=== PATIENT | male | born 1950 | race Caucasian/White ===

== ENCOUNTER 2023-05-05 09:07 | Outpatient (OUT) | payer MEDICARE, OTHER, SELFPAY ==
--- NOTE | 2023-05-05 | XR_ITS ---
The [address] [address] Patient Name: LEONEL BENJAMIN MRN: [id number] date: 1950 Sex: M Assigned Patient Location: [facility] Current Patient Location: [facility] Accession/Order Number: [id number] Exam Date: 05/05/2023 09:20 Report Date: 05/05/2023 21:07 At the request of: JERMAIN BAR Procedure: XR foot RT min 3V EXAM: XR foot RT min 3V HISTORY: RIGHT FOOT PAIN . Calcaneal pain for 2 months. COMPARISON: None. TECHNIQUE: 3 views of the right foot were obtained. FINDINGS: There is no evidence of an acute fracture or dislocation. Remote fragmentation of the medial sesamoid bone at the head of the first metatarsal bone is noted. A secondary ossification center can be seen along the proximal and medial aspect of the navicular bone. The joint spaces are relatively intact. Small osteophytes arise from the insertion site of the Achilles tendon at the posterior calcaneus. No definite osteophyte is seen along the plantar aspect of the calcaneus. XR/XR foot RT min 3V IMPRESSION: No acute fracture or dislocation. The joint spaces are intact. A small osteophyte arises from the posterior aspect of the calcaneus. Direct comparison with a previous study would be helpful in confirming the chronicity of these findings. Electronically authenticated by: EM COSTELLO Date: 05/05/2023 21:07
== END 2023-05-05 09:08 | disposition home or self-care (01) ==
LOC: RAD 09:07
PROVIDERS: PCP Family Medicine; Visit Provider Physician Assistant
DX: M79.671 Pain in right foot (principal)
CPT/HCPCS: 73630

== ENCOUNTER 2023-12-03 10:15 | Outpatient (OUT) | payer MEDICARE, OTHER, SELFPAY ==
--- OUTSIDE RECORDS SUMMARY | 2023-12-03 10:23 | XMS_ITS | CCD ---
Author Organization [facility] Care Team Providers Care Gas Adjuster Name Role Phone Hugh Crooks Primary Care Physician MILEY, DR BRISENO Primary Care Unavailable MILEY, DR BRISENO Admitting Unavailable MILEY, DR BRISENO Attending Unavailable MILEY, DR BRISENO Consulting Unavailable WEST, DR NGOZI Rahman Consulting Unavailable GRECHAMANDO, PHONG TRAYLOR Consulting Unavailable COOPER, ANGELES Consulting Unavailable MILEY, DR BRISENO Primary Care Unavailable MILEY, DR BRISENO Admitting Unavailable MILEY, DR BRISENO Attending Unavailable MILEY, DR BRISENO Consulting Unavailable ZIEBER, DR TOMY Granados Consulting Unavailable MILEY, DR BRISENO Primary Care Unavailable HOHarriet, DR BRISENO Admitting Unavailable MILEY, DR BRISENO Referring Unavailable MILEY, DR BRISENO Attending Unavailable MILEY, DR BRISENO Consulting Unavailable Hugh Crooks MD Primary Care Provider [phone] Rafael yCr Jr. Unavailable Erick Ordoñez Unavailable [phone] Hugh Crooks MD Unavailable Michi Anderson MD Unavailable [phone] Hugh Crooks MD Unavailable Erick Ordoñez Unavailable Michi Anderson MD Unavailable [phone] HUGH CROOKS Primary Care Unavailable MICHI ANDERSON Attending Unavailable HUGH CROOKS Primary Care Unavailable Hugh Crooks MD Primary Care Provider [phone] Allergies Allergy Classification Reported Allergen(s) Allergy Type Date of Onset Reaction(s) Facility (7 sources) Codeine; Translations: [codeine] Drug Allergy 5 Nightmares (finding), Mental Status Change [facility] (1 source) Hmg-Coa Reductase Inhibitors (Statins); Translations: [statins] Drug allergy unknown [facility] (1 source) Isosorbide; Translations: [isosorbide mononitrate] Drug Allergy unknown [facility] (2 sources) black walnut pollen extract; Translations: [JAPIXIM-QNH-UV A REDUCTASE INHIBITORS] Drug Allergy 5 [facility] (1 source) Codeine Drug Allergy 5 [facility] (1 source) Isosorbide Drug Allergy 5 [facility] (6 sources) atorvastatin; Translations: [ATORVASTATIN CALCIUM] Drug Allergy 5 Myalgia [facility] (5 sources) HMG-CoA reductase inhibitor Drug Intolerance 5 Myalgia [facility] (6 sources) Isosorbide; Translations: [ISOSORBIDE MONONITRATE] Drug Allergy 5 Intolerance [facility] (6 sources) Simvastatin; Translations: [SIMVASTATIN] Drug Allergy 5 Other: See Comments [facility] Medications Current Medications Medication Drug Class(es) Dates Sig (Normalized) Sig (Original) Acetaminophen / diphenhydrAMINE (5 sources) Histamine-1 Receptor Antagonist take 1 tablet by mouth once daily at bedtime acetaminophen/diphe nhydramine (TYLENOL PM ORAL) Take 1 tablet by mouth daily at bedtime. 0 Active Comment on above: Take 1 tablet by natalie th daily at bedtime. 1 ml alirocumab 75 mg/ml auto-injector (5 sources) PCSK9 Inhibitor Start: 01-19-2018 inject 75 mg by subcutaneous injection every other week alirocumab 75 mg/mL pnij Indications: Hyperlipidemia, unspecified hyperlipidemia type Inject 75 mg subcutaneously every 2 weeks. 2 Pen 11 01/19/2018 Active Comment on above: Inject 75 mg subcuta neously every 2 weeks. aspirin 81 mg oral tablet (6 sources) Platelet Aggregation Inhibitor, Nonsteroidal Anti-inflammatory Drug Start: 01-11-2019 take 1 tablet by mouth once daily aspirin 81 mg oral tablet 81 mg = 1 tab(s), Oral, Daily, Refills(s) 0 Start Date: 01/11/19 Status: Ordered take 1 tablet by mouth once chin y aspirin, enteric coated (ASPIRIN, ENTERIC COATED) 81 mg EC tablet Take 81 mg by mouth once daily. 0 Active Comment on above: Take 81 mg by mouth once daily. aspirin/acetaminophe n/caffeine (EXCEDRIN MIGRAINE ORAL) (5 sources) take 2 tablets by mouth every six hours as needed aspirin/acetaminophe n/caffeine (EXCEDRIN MIGRAINE ORAL) Take 2 tablets by mouth every 6 hours as needed. 0 Active Comment on above: Take 2 tablets by mo ut every 6 hours as needed. carvedilol 25 mg oral tablet (6 sources) alpha-Adrenergic Joss, beta-Adrenergic Joss Start: 09-01-2022 End: 08-26-2023 take 1 tablet by mouth twice daily at mealtime carvedilol (COREG) 25 mg tablet Take 1 tablet by mouth two times a day with meals. 180 tablet 3 08/26/2023 Active Start: 08-08-2022 take 1 tablet by natalie th twice daily at mealtime carvedilol (COREG) 12.5 mg tablet Take 1 tablet by mouth twice daily with meals. 180 tablet 3 08/08/2022 Active Comment on above: Take 1 tablet by natalie th twice daily with meals. Take 1 tablet by natalie th two times a day with meals. celecoxib 200 mg oral capsule (6 sources) Nonsteroidal Anti-inflammatory Drug Start: 10-30-2020 take 1 mg by mouth twice daily CeleBREX 200 mg Cap mg cap(s), Oral, BID, Refills(s) 0 Start Date: 10/30/20 Status: Ordered take 1 capsule by mouth once hunter ly celecoxib (CELEBREX) 200 mg capsule Take 200 mg by mouth once daily. 0 Active Comment on above: Take 200 mg by mouth once daily. clopidogrel 75 mg oral tablet (6 sources) P2Y12 Platelet Inhibitor Start: take 1 tablet by mouth once daily PLAVIX 75 MG ORAL TAB Take one(1) tablet daily. 0 01/17/2004 Active Comment on above: Take one(1) tablet d aily. 24 hr dilTIAZem hydrochloride 180 mg extended release oral capsule (6 sources) Calcium Channel Joss Start: 9 Cartia XT 180 mg/24 hours oral capsule, extended release 180 mg = 1 cap(s), Oral, Daily, Refills(s) 0 Start Date: 01/11/19 Status: Ordered Comment on above: Take 180 mg by mouth once daily. eszopiclone 2 mg oral tablet (1 source) Start: 9 take 1 tablet by mouth once daily at bedtime as needed Lunesta 2 mg Tab 2 mg = 1 tab(s), Oral, Once a day (at bedtime), PRN for insomnia, Refills(s) 0 Start Date: 03/10/19 Status: Ordered lisinopril 20 mg oral tablet (8 sources) Angiotensin Converting Enzyme Inhibitor Start: 2 take 1 mg by mouth once daily lisinopril 20 mg Tab mg tab(s), Oral, Daily, Refills(s) 0 Start Date: 10/29/21 Status: Ordered Start: 01-11-2019 End: 08-08-2022 take 1 tablet by mouth once daily lisinopril 10 mg Tab 10 mg = 1 tab(s), Oral, Daily, Refills(s) 0 Start Date: 01/11/19 Status: Ordered Comment on above: Take 20 mg by mouth once daily. Take 10 mg by mouth once daily. melatonin 10 mg oral capsule (6 sources) take 1 capsule by mouth once daily at bedtime melatonin 10 mg cap Take 10 mg by mouth daily at bedtime. 0 Active End: 08-08-2022 take 2 tablets by mouth once daily at bedtime Melatonin 300 mcg tab Take 2 tablets by mouth daily at bedtime. 0 08/08/2022 Discontinued (Course of therapy completed) Comment on above: Take 10 mg by mouth daily at bedtime. Take 2 tablets by cox branson daily at bedtime. nitroglycerin 0.4 mg sublingual tablet (6 sources) Nitrate Vasodilator Start: 01-11-2019 NitroStat 0.4 mg Tab See Instructions, 1 tab(s) SubLingual PRN for chest pain, Refills(s) 0 Start Date: 01/11/19 Status: Ordered Start: 01-16-2003 NITROSTAT 0.4 MG SL SUBL Dissolve one(1) tablet under the toungue as needed for chest pain,every 5 min x3 0 01/16/2003 Active Comment on above: Dissolve one(1) tabl et under the toungue as needed for chest pain,every 5 min x3 pantoprazole 40 mg extended release oral tablet (6 sources) Proton Pump Inhibitor Start: 9 take 1 tablet by mouth once daily pantoprazole 40 mg Oral EC Tab 40 mg = 1 tab(s), Oral, Daily, Refills(s) 0 Start Date: 01/11/19 Status: Ordered take 1 tablet by mouth once chin y pantoprazole DR (PROTONIX) 40 mg tablet Take 40 mg by mouth once daily. 0 Active Comment on above: Take 40 mg by mouth once daily. Praluent Pen 75 mg/mL subcutaneous solution (1 source) Start: 01-12-20 Praluent Pen 75 mg/mL subcutaneous solution See Instructions, 1 injection every other week, Refills(s) 0 Start Date: 01/11/19 Status: Ordered sildenafil 100 mg oral tablet (7 sources) Phosphodiesterase 5 Inhibitor Start: 10-30-19 take 1 mg by mouth once daily sildenafil 100 mg Tab mg tab(s), Oral, Daily, Refills(s) 0 Start Date: 10/29/21 Status: Ordered Start: 01-23-2009 End: 08-08-2022 sildenafil citrate(VIAGRA 50 MG TAB) Take one(1) tablet 30-60 minutes before sexual intercourse as needed. 0 01/23/2009 08/08/2022 Discontinued (Course of therapy completed) Comment on above: Take 100 mg by mouth as needed. Take one(1) tablet 3 0-60 minutes before sexual intercourse as needed. Completed/Discontinued Medications Medication Drug Class(es) Dates Sig (Normalized) Sig (Original) metoprolol tartrate 50 mg oral tablet (1 source) beta-Adrenergic Joss Start: 07-18-2022 End: 08-08-2022 take 1 tablet by mouth twice daily metoprolol tartrate, short acting, (LOPRESSOR) 50 mg tablet Take 50 mg by mouth twice daily. 0 07/18/2022 08/08/2022 Discontinued (Changing Therapy/Dosage Form) Comment on above: Take 50 mg by mouth twice daily. Problems Active Problems Problem Classification Problem Date Documented Date Episodic/Chronic Cancer of prostate (2 sources) Malignant tumor of prostate; Translations: [Malignant neoplasm of prostate] Onset: 11-27-2021 03-10-2019 Chronic Cancer of prostate (2 sources) Personal history of malignant neoplasm of prostate; Translations: [History of malignant neoplasm of prostate] Onset: 10-29-2021 Episodic Coronary atherosclerosis and other heart disease (20 sources) Atherosclerotic heart disease of [place] coronary artery without angina pectoris; Translations: [Coronary atherosclerosis] Onset: 01-16-2005 Chronic Disorders of lipid metabolism (16 sources) Hyperlipidemia; Translations: [Hyperlipidemia, unspecified] Onset: 01-16-2005 Resolved: 01-11-2019 01-11-2019 Chronic Esophageal disorders (6 sources) Gastroesophageal reflux disease; Translations: [Gastro-esophageal reflux disease without esophagitis] Onset: 04-02-2005 Resolved: 01-11-2019 01-11-2019 Chronic Essential hypertension (11 sources) Hypertensive disorder; Translations: [Essential (primary) hypertension] Onset: 01-16-2005 Resolved: 01-11-2019 01-11-2019 Chronic Genitourinary symptoms and ill-defined conditions (2 sources) Stress incontinence (female) (male); Translations: [Genuine stress incontinence] Onset: 10-29-2021 Chronic Genitourinary symptoms and ill-defined conditions (7 sources) Nocturia; Translations: [Nocturia] Onset: 10-29-2021 Resolved: 12-29-2018 Episodic Hyperplasia of prostate (2 sources) Benign prostatic hypertrophy with outflow obstruction; Translations: [Benign prostatic hyperplasia with lower urinary tract symptoms] Onset: 10-29-2021 Chronic Nonspecific chest pain (12 sources) Chest pain, unspecified; Translations: [Chest pain] Onset: 03-26-2015 Episodic Osteoarthritis (2 sources) Arthritis; Translations: [Unspecified osteoarthritis, unspecified site] Onset: 07-15-2022 Resolved: 01-11-2019 01-11-2019 Chronic Other aftercare (1 source) care home (current) use of aspirin; Translations: [LONGTERM CURRENT USE OF ASPIRIN] Onset: 07-15-2022 Episodic Other aftercare (1 source) Other termite control representative (current) drug therapy; Translations: [OTH HUNTING AND FISHING GUIDE CURRENT DRUG THERAPY] Onset: 07-15-2022 Episodic Other aftercare (5 sources) Long-term current use of anticoagulant; Translations: [care home (current) use of anticoagulants] 06-12-2017 Episodic Other and ill-defined heart disease (1 source) Heart disease 01-11-2019 Chronic Other connective tissue disease (1 source) Arthrodesis status; Translations: [ARTHRODESIS STATUS] Onset: 07-15-2022 Episodic Other diseases of kidney and ureters (1 source) Urinary tract obstruction; Translations: [Other obstructive and reflux uropathy] Onset: 10-29-2021 Episodic Other lower respiratory disease (1 source) Shortness of breath; Translations: [SHORTNESS OF BREATH] Onset: 07-15-2022 Episodic Other male genital disorders (1 source) Secondary erectile dysfunction; Translations: [Erectile dysfunction following prostate ablative therapy] Onset: 10-29-2021 Chronic Other male genital disorders (1 source) Impotence 10-29-2021 Chronic Other screening for suspected conditions (not mental disorders or infectious disease) (1 source) Raised prostate specific antigen 01-11-2019 Episodic Residual codes; unclassified (1 source) Sleep apnea, unspecified; Translations: [SLEEP APNEA UNSPECIFIED] Onset: 07-15-2022 Chronic Residual codes; unclassified (5 sources) Sleep apnea; Translations: [Sleep apnea, unspecified] Onset: 04-02-2005 04-02-2005 Chronic Residual codes; unclassified (1 source) H/O: anticoagulant therapy 03-10-2019 Episodic Residual codes; unclassified (1 source) Acquired absence of other genital organ(s); Translations: [ACQUIRED ABSENCE OTH GENITAL ORGANS] Onset: 07-15-2022 Episodic Residual codes; unclassified (1 source) Family history of malignant neoplasm of digestive organs; Translations: [FAM HX MALIG NEOPLASM DIGESTIV ORGN] Onset: 07-15-2022 Episodic Residual codes; unclassified (1 source) Acquired absence of other specified parts of digestive tract; Translations: [ACQ ABSENCE OTH PART DIGESTV TRACT] Onset: 07-15-2022 Episodic Residual codes; unclassified (8 sources) FH: premature coronary heart disease; Translations: [Family history of ischemic heart disease and other diseases of the circulatory system] Onset: 08-08-2022 Episodic Screening and history of mental health and substance abuse codes (2 sources) Ex-smoker; Translations: [Personal history of nicotine dependence] Onset: 07-15-2022 11-08-2019 Episodic Unclassified (1 source) Drug therapy finding 05-01-2020 Unclassified (1 source) CONTACT W/AND (SUSP) EXPOS COVID-19; Translations: [CONTACT W/AND (SUSP) EXPOS COVID-19] Onset: 07-15-2022 Unclassified (1 source) Microvascular angina (HCC); 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 (HCC)] Onset: 11-16-2023 Past or Other Problems Problem Classification Problem Date Documented Da te Episodic/Chronic Acute myocardial infarction (1 source) Myocardial infarction Resolved: 01-11-2019 01-11-2019 Chronic Coronary atherosclerosis and other heart disease (2 sources) Presence of coronary angioplasty implant and graft; Translations: [PRESENCE COR ANGPLSTY IMPLANT AND GRAFT] Onset: 03-30-2015 Episodic Diabetes mellitus without complication (1 source) Other abnormal glucose; Translations: [OTHER ABNORMAL GLUCOSE] Onset: 11-27-2021 Episodic Gastrointestinal hemorrhage (4 sources) Melena; Translations: [MELENA] Onset: 11-21-2021 Episodic Other nutritional; endocrine; and metabolic disorders (1 source) Hyperuricemia without signs of inflammatory arthritis and tophaceous disease; Translations: [HU W/O SIGNS IA AND TOPHACEOUS DZ] Onset: 11-27-2021 Episodic Poisoning by other medications and drugs (5 sources) Adverse reaction to substance; Translations: [Other and unspecified adverse effect of drug, medicinal and biological substance] Onset: 04-02-2005 04-02-2005 Episodic Residual codes; unclassified (1 source) Insomnia, unspecified; Translations: [INSOMNIA UNSPECIFIED] Onset: 11-27-2021 Episodic Residual codes; unclassified (1 source) Family history of ischemic heart disease and other diseases of the circulatory system; Translations: [Family history of early CAD] Onset: 08-08-2022 Episodic Spondylosis; intervertebral disc disorders; other back problems (5 sources) Neck pain; Translations: [Cervicalgia] Onset: 06-12-2017 06-12-2017 Episodic Unclassified (1 source) Finding of sensation of bladder Resolved: 12-29-2018 01-11-2019 Results Test Name Value Interpretation Reference Range Facility [facility] 11-16-2023 CNOV Office Visit (CATHMN ) LEONEL GALDAMEZ JR. ([id number]) 1950 M Date Time Provider Department 11/16/23 12:45 PM MICHI ANDERSON During your visit today, we recorded the following information about you: Pulse Respiration Blood pressure Weight 63/minute 16/minute 160/86 88.5 kg Height 1.753 m Michi Anderson MD 11/17/2023 8:07 AM Signed [facility] [place] [facility]cl[facility] Department of Cardiovascular Medicine SECTION OF INTERVENTIONAL CARDIOLOGY OUTPATIENT VISIT DATE November 16, 2023 OUTPATIENT VISIT TYPE ESTABLISHED PRIMARY CARE PHYSICIAN: Hugh Crooks [address] [place] [address] REFERRING PHYSICIAN: No referring provider defined for this encounter. CHIEF COMPLAINT: Patient presents with: CARD Follow Up Annual HISTORY OF PRESENT ILLNESS: Mr. Galdamez is a 73 year old male with history of multiple PCI procedures seen for follow-up of possible microvascular angina. Doing well from cardiac standpoint. No exertional chest pain or ECHAVARRIA. No exercise per se. Walks through [place] during bow hunting season, does yardwork, housework, occasional stairs without chest pain or SOB. Notes chest pain when he eats several [place] cough drops (uses for nasal congestion). Lasts ~1 hour. He denies orthopnea, PND, lightheadedness, syncope, and leg swelling. Some PVCs when he lies down to sleep. BP at home on occasional measurements in 120s mm Hg. Told he has white coat hypertension. PAST CARDIAC HISTORY: CRFs: lipids, HTN, tobacco (stopped in 1991), FHx 04/10/2003 - PCI with stents to RCA 05/04/2003 - PCI to OM1 with cutting balloon 03/28/2004 - PCI to OM1 with PTCA and Cypher PALAK 01/30/2005 - PCI to LAD and diagonal with Cypher PALAK 03/20/2005 - Coronary angiogram showing all stents patent 03/02/2007 - Coronary angiogram showing all stents patent, mild diffuse disease 03/30/2015 - Cardiac catheterization and PCI by me: LM - short, mild LAD - mild to moderate diffuse disease, stents in mid LAD and diagonal widely patent LCX - mild to moderate diffuse disease RCA - dominant, large. Proximal RCA has eccentric 95% calcified stenosis, extending into the mid stent with ~60% proximal in-stent restenosis. Diffuse moderate disease. Underwent PCI of the proximal RCA with Promus Premier 3.5 x 28 mm everolimus eluting stent 06/03/2016 - Cardiac catheterization and PCI by me: LM - normal LAD - moderate diffuse disease, stent widely patent, no obstructive stenosis LCX - mild to moderate diffuse disease RCA - proximal vessel with 70-80% eccentric stenosis at proximal margin of stent. Long stented mid segment widely patent with only mild diffuse in-stent restenosis Underwent PCI of the proximal RCA with Xience Alpine 4.0 x 12 mm everolimus eluting stent 03/12/2017 - Cardiac catheterization by me: LM - normal LAD - bifurcation stent in LAD and diagonal patent with mild ~30% in-stent restenosis. Mild diffuse disease, maximum 40% mid diagonal focal stenosis LCX - mild diffuse disease RCA - dominant, large. Stents throughout proximal and mid segment patent, with maximum ~50% in-stent stenosis in mid segment. IFR measured across RCA (proximal, mid, and distal, with transducer in PDA) and Diagonal stenoses RCA = IFR = 0.95 - not significant Diagonal - IFR = 0.94 - not significant Diltiazem dose increased, with resolution or improvement of chest pain. 2019 - recurrent chest pain. 06/11/2020 - cardiac catheterization at [facility] in [place] - (by my review of images): LM - normal LAD - bifurcation stents in proximal-mid LAD/diagonal widely patent, mild diffuse disease LCX - mild ~20% ISR in OM RCA - dominant, very large, stents in proximal/mid segment widely patent, mild diffuse disease LV - normal In retrospect, patient felt the chest pain was due to stress; a short while before, his great grandson had shot and killed himself and another friend had from gunshot wound. Did well with only occasional chest pain; able to [place] and climb trees without chest pain, although with mild ECHAVARRIA. 07/10/2022 - hospitalized overnight at OSH with a few days of chest pain at rest. Enzymes negative. Metoprolol started. 07/10/2022 - [facility] left ventricular systolic function is normal; visually estimated ejection fraction is 60 to 65%. No significant wall motion abnormalities. Normal diastolic function. Biatrial enlargement. The right ventricle is normal in size with normal systolic function. Mild tricuspid regurgitation. Mild mitral regurgitation. 07/31/2022 - Nuclear stress test at OSH: Normal nuclear medicine myocardial perfusion scan. 08/08/2022 - saw me in [facility] - complained of chest pain - like someone sitting on my chest with moderate arm pain. Associated with SOB - like I am no (more content not included)... Normal [facility] Comprehensive metabolic 2000 panelon 11-16-2023 Albumin [Mass/Vol] 4.3 g/dL Normal 3.9-4.9 [facility] Comment on above: Order Comment: Speci men Type: BLOOD SPECIMEN Ordering Facility: [facility] Address: [address] [place] [address] Performed By: #### 2 4323-8, 43300-1 #### [facility] CLIA [id number] [address] [place] [address] [place] ALP [Catalytic activity/Vol] 74 U/L Normal 38-113 [facility] Comment on above: Order Comment: Speci men Type: BLOOD SPECIMEN Ordering Facility: [facility] Address: [address] [place] [address] Performed By: #### 2 4323-8, 41387-4 #### [facility] CLIA [id number] [address] [place] [address] [place] ALT [Catalytic activity/Vol] 24 U/L Normal 10-54 [facility] Comment on above: Order Comment: Speci men Type: BLOOD SPECIMEN Ordering Facility: [facility] Address: [address] [place] [address] Performed By: #### 2 4323-8, 17911-6 #### [facility] CLIA [id number] [address] [place] [address] [place] Anion gap [Moles/Vol] 11 mmol/L Normal 9-18 [facility] Comment on above: Order Comment: Speci men Type: BLOOD SPECIMEN Ordering Facility: [facility] Address: [address] [place] [address] Performed By: #### 2 4323-8, 15502-3 #### [facility] CLIA [id number] [address] [place] [address] [place] AST [Catalytic activity/Vol] 21 U/L Normal 14-40 [facility] Comment on above: Order Comment: Speci men Type: BLOOD SPECIMEN Ordering Facility: [facility] Address: [address] [place] [address] Performed By: #### 2 4323-8, 78247-2 #### [facility] CLIA [id number] [address] [place] [address] [place] Bilirubin [Mass/Vol] 0.4 mg/dL Normal 0.2-1.3 [facility] Comment on above: Order Comment: Speci men Type: BLOOD SPECIMEN Ordering Facility: [facility] Address: [address] [place] [address] Performed By: #### 2 4323-8, 55053-4 #### [facility] CLIA [id number] [address] [place] [address] [place] Calcium [Mass/Vol] 9.0 mg/dL Normal 8.5-10.2 [facility] Comment on above: Order Comment: Speci men Type: BLOOD SPECIMEN Ordering Facility: [facility] Address: [address] [place] [address] Performed By: #### 2 4323-8, 71080-6 #### [facility] CLIA [id number] [address] [place] [address] [place] Chloride [Moles/Vol] 103 mmol/L Normal 97-105 [facility] Comment on above: Order Comment: Speci men Type: BLOOD SPECIMEN Ordering Facility: [facility] Address: [address] [place] [address] Performed By: #### 2 4323-8, 03223-9 #### [facility] CLIA [id number] [address] [place] [address] [place] CO2 [Moles/Vol] 25 mmol/L Normal 22-30 [facility] Comment on above: Order Comment: Speci men Type: BLOOD SPECIMEN Ordering Facility: [facility] Address: [address] [place] [address] Performed By: #### 2 4323-8, 88651-7 #### [facility] CLIA [id number] [address] [place] [address] [place] Creatinine [Mass/Vol] 1.10 mg/dL Normal 0.73-1.22 [facility] Comment on above: Order Comment: Speci men Type: BLOOD SPECIMEN Ordering Facility: [facility] Address: [address] [place] [address] Performed By: #### 2 4323-8, 17132-3 #### [facility] CLIA [id number] [address] [place] [address] [place] Creatinine and Glomerular filtration rate.predicted panel (S/P/Bld) 71 mL/min/1.73m??? Normal >=60 [facility] Comment on above: Order Comment: Speci men Type: BLOOD SPECIMEN Ordering Facility: [facility] Address: [address] [place] [address] Result Comment: Deyanira mated Glomerular Filtration Rate (eGFR) is calculated using the 2020 CKD-EPI creatinine equation. This equation utilizes serum creatinine, sex, and age as parameters. The creatinine assay has traceable calibration to isotope dilution-mass spectrometry. Refer to KDIGO guidelines for clinical interpretation. In patients with unstable renal function, e.g. those with acute kidney injury, the eGFR may not accurately reflect actual GFR. Performed By: #### 2 4323-8, 19831-0 #### [facility] CLIA [id number] [address] [place] [address] [place] Glucose [Mass/Vol] 99 mg/dL Normal 74-99 [facility] Comment on above: Order Comment: Specjorge luis men Type: BLOOD SPECIMEN Ordering Facility: [facility] Address: [address] [place] [address] Result Comment: The [place] Diabetes [employer] (ADA) provides guidance for cutoff values for fasting glucose and random glucose. The ADA defines fasting as no caloric intake for at least 8 hours. Fasting plasma glucose results between 100 to 125 mg/dL indicate increased risk for diabetes (prediabetes). Fasting plasma glucose results greater than or equal to 126 mg/dL meet the criteria for diagnosis of diabetes. In the absence of unequivocal hyperglycemia, results should be confirmed by repeat testing. In a patient with classic symptoms of hyperglycemia or hyperglycemic crisis, random plasma glucose results greater than or equal to 200 mg/dL meet the criteria for diagnosis of diabetes. Reference: Standards of Medical Care in Diabetes 2016, [place] [employer]. Diabetes Care. 2016.39(Suppl 1). Performed By: #### 2 4323-8, 89876-6 #### [facility] CLIA [id number] [address] [place] [address] [place] Potassium [Moles/Vol] 5.1 mmol/L Normal 3.7-5.1 [facility] Comment on above: Order Comment: Willis tipton Type: BLOOD SPECIMEN Ordering Facility: [facility] Address: [address] [place] [address] Performed By: #### 2 4323-8, 28305-7 #### [facility] CLIA [id number] [address] [place] [address] [place] Protein [Mass/Vol] 6.6 g/dL Normal 6.3-8.0 [facility] Comment on above: Order Comment: Willis tipton Type: BLOOD SPECIMEN Ordering Facility: [facility] Address: [address] [place] [address] Performed By: #### 2 4323-8, 97472-7 #### [facility] CLIA [id number] [address] [place] [address] [place] Sodium [Moles/Vol] 139 mmol/L Normal 136-144 [facility] Comment on above: Order Comment: Speci men Type: BLOOD SPECIMEN Ordering Facility: [facility] Address: [address] [place] [address] Performed By: #### 2 4323-8, 32622-2 #### [facility] CLIA [id number] [address] [place] [address] [place] Urea nitrogen [Mass/Vol] 20 mg/dL Normal 9-24 [facility] Comment on above: Order Comment: Speci men Type: BLOOD SPECIMEN Ordering Facility: [facility] Address: [address] [place] [address] Performed By: #### 2 4323-8, 59518-0 #### [facility] CLIA [id number] [address] [place] [address] [place] Lipid 1996 panelon 4 Cholesterol [Mass/Vol] 109 mg/dL Normal <200 [facility] Comment on above: Order Comment: Speci men Type: BLOOD SPECIMEN Ordering Facility: [facility] Address: [address] [place] [address] Result Comment: <200 mg/dL, Desirable 200-239 mg/dL, Borderline high >239 mg/dL, High Performed By: #### 2 4323-8, 14509-1 #### [facility] CLIA [id number] [address] [place] [address] [place] Cholesterol in HDL [Mass/Vol] 46 mg/dL Normal >39 [facility] Comment on above: Order Comment: Speci men Type: BLOOD SPECIMEN Ordering Facility: [facility] Address: [address] [place] [address] Result Comment: 40-5 9 mg/dL, Acceptable >59 mg/dL, High: Negative risk factor for coronary heart disease <40 mg/dL, Low: Positive risk factor for coronary heart disease Performed By: #### 2 4323-8, 10941-3 #### [facility] CLIA [id number] [address] [place] [address] [place] Cholesterol in LDL [Mass/Vol] 42 mg/dL Normal <100 [facility] Comment on above: Order Comment: Speci men Type: BLOOD SPECIMEN Ordering Facility: [facility] Address: [address] [place] [address] Result Comment: <100 mg/dL, Optimal 100-129 mg/dL, Near optimal/above optimal 130-159 mg/dL, Borderline high 160-189 mg/dL, High >189 mg/dL, Very high Secondary prevention optimal LDL Cholesterol levels are recommended to be < 70 mg/dL Performed By: #### 2 4323-8, 64105-1 #### [facility] CLIA [id number] [address] [place] [address] [place] Cholesterol in LDL/Cholesterol in HDL [Mass ratio] 0.91 {ratio} Normal <2.54 [facility] Comment on above: Order Comment: Speci men Type: BLOOD SPECIMEN Ordering Facility: [facility] Address: [address] [place] [address] Result Comment: Teo landeros: 1. National Cholesterol Education Program ATP III Guideline At-A-Glance Quick Desk Reference: National Heart, Lung, and Blood [place]. National Institutes of Health. 2001: NIH Publication No. 01-3305. 2. An International Atherosclerosis Society position paper: global recommendations for the management of dyslipidemia: executive summary, Atherosclerosis. 2014: 232(2):410-413. Performed By: #### 2 4323-8, 55830-4 #### [facility] CLIA [id number] [address] [place] [address] [place] Cholesterol in VLDL [Mass/Vol] 21 mg/dL Normal <30 [facility] Comment on above: Order Comment: Laurencei men Type: BLOOD SPECIMEN Ordering Facility: [facility] Address: [address] [place] [address] Performed By: #### 2 4323-8, 87448-7 #### [facility] CLIA [id number] [address] [place] [address] [place] Cholesterol non HDL [Mass/Vol] 63 mg/dL Normal <130 [facility] Comment on above: Order Comment: Speci men Type: BLOOD SPECIMEN Ordering Facility: [facility] Address: [address] [place] [address] Result Comment: <130 mg/dL, Optimal 130-159 mg/dL, Near optimal/above optimal 160-189 mg/dL, Borderline high 190-219 mg/dL, High >219 mg/dL, Very high Secondary prevention optimal non HDL Cholesterol levels are recommended to be <100 mg/dL Performed By: #### 2 4323-8, 97823-4 #### [facility] CLIA [id number] [address] [place] [address] [place] Cholesterol.total/Ch olesterol in HDL [Mass ratio] 2.37 {ratio} Normal <5.10 [facility] Comment on above: Order Comment: Speci men Type: BLOOD SPECIMEN Ordering Facility: [facility] Address: [address] [place] [address] Performed By: #### 2 4323-8, 29691-0 #### [facility] CLIA [id number] [address] [place] [address] [place] FASTING TIME 12 hrs Normal [facility] Comment on above: Order Comment: Speci men Type: BLOOD SPECIMEN Ordering Facility: [facility] Address: [address] [place] [address] Performed By: #### 2 4323-8, 25403-7 #### [facility] CLIA [id number] [address] [place] [address] [place] Triglyceride [Mass/Vol] 105 mg/dL Normal <150 [facility] Comment on above: Order Comment: Speci men Type: BLOOD SPECIMEN Ordering Facility: [facility] Address: [address] [place] [address] Result Comment: <150 mg/dL, Normal 150-199 mg/dL, Borderline high 200-499 mg/dL, High >499 mg/dL, Very high Performed By: #### 2 4323-8, 59380-4 #### [facility] CLIA [id number] [address] [place] [address] [place] NM STRESS/REST MULTIon 07-31 NM STRESS/REST MULTI Patient: LEONEL GALDAMEZ Exam Date: 07/31/2022 : 1950 Gender:M Ordering : DR HUGH CROOKS . Admission #: [id number] Family : Order #: [id number] CLICK HERE TO VIEW EXAM RADIOLOGY REPORT PROCEDURE: RADIONUCLIDE IMAGING STRESS/REST MULTI COMPARISON: None. INDICATIONS: Coronary arteriosclerosis, chest pain TECHNIQUE: Exam Description: Rest/Stress one day protocol gated SPECT Rest Imagin.6 mCi Tc-99m Cardiolite IV on 07/31/2022 Stress Imaging 31.6 mCi Tc-99m Cardiolite IV on 07/31/2022 Exercise Protocol: 0.4 mg Lexiscan given IV Heart Rate (bpm): Rest: 64 Max: 88 PMHR: 58 Blood Pressure: Rest: 170/92 Max: 170/92 Symptoms: none Rest and peak stress ECG findings were normal and the exercise portion of the study was normal per attending physician Dr. Rome . For more details please see separate cardiac stress test report. FINDINGS: QUALITY OF STUDY: Excellent. PERFUSION DEFECT: None. LOCATION: N/A SIZE: N/A. SEVERITY: N/A. TYPE: N/A. WALL MOTION: Normal. LV SIZE: Normal. 101 mL. TID / TCD: None; 1.0 LVEF: Normal. Calculated EF 60%. SUMMARY: Myocardial perfusion imaging study is NORMAL. CONCLUSION: 1. Normal nuclear medicine myocardial perfusion scan. Dictated by: Tomy Bhatia M.D. on 07/31/2022 at 15:51 Approved by: Tomy Bhatia M.D. on 07/31/2022 at 15:52 Normal [facility] CARDIAC BHUMI 3-6on 3 CK [Catalytic activity/Vol] 99 U/L Normal 39-308 [facility] Comment on above: Performed By: #### C MREP #### [facility] [address] [place], [place] [address] Dr. Della Pace CK.MB [Mass/Vol] 0.69 ng/mL Normal <=3.60 [facility] Comment on above: Performed By: #### C MREP #### [facility] [address] [place], [place] [address] Dr. Della Pace HSTROP 6.6 pg/mL Normal 4.0-76.1 [facility] Comment on above: Result Comment: CUT- OFF POINTS HAVE BEEN ESTABLISHED BASED ON THE FOURTH UNIVERSAL DEFINITIONS OF MYOCARDIAL INFARCTION. THE UPPER REFERENCE LIMIT (URL) OF TROPONIN, DEFINED THE 99TH PERCENTILE OF cTnI DISTRIBUTION IN A REFERENCE POPULATION, HAS BEEN CONFIRMED THE DECISION THRESHOLD FOR GA DIAGNOSIS. Performed By: #### C MREP #### [facility] [address] [place] [address] [address] Della Pace ECHOCARDIO M/2D COMPLETEon 0 07-10-2022 ECHOCARDIO M/2D COMPLETE Patient: LEONEL GALDAMEZ Exam Date: 07/10/2022 : 1950 Gender:M Ordering : DR HUGH CROOKS . Admission #: [id number] Family : Order #: [id number] CLICK HERE TO VIEW EXAM ECHOCARDIOGRAM REPORT PROCEDURE: CARDIO PULMONARY ECHOCARDIO M/2D COMP INDICATIONS: Chest pain COMPARISON: None. DESCRIPTION: COMPLETE ECHOCARDIOGRAM Real-time transthoracic echocardiography with 2D, M-mode, spectral and color flow Doppler performed. QUALITY: Technical quality was good. LEFT VENTRICLE: Normal chamber size. Normal left ventricular wall thickness. LV EF: Global left ventricular systolic function is normal. Calculated left ventricular ejection fraction is 63% DIASTOLIC: Diastolic function is normal. ATRIAL SEPTUM: Inadequately seen. LEFT ATRIUM: Moderate dilatation. RIGHT ATRIUM: Mild dilatation. RIGHT VENTRICLE: Normal chamber size. Normal right ventricular systolic function. TRICUSPID VALVE: Normal mobility and thickness. Mild regurgitation. No evidence of pulmonary hypertension. RVSP 32mmHg MITRAL VALVE: Normal mobility and thickness. No mitral valve prolapse. No evidence of mitral valve stenosis. There is no mitral annular calcification. Mild mitral regurgitation. AORTIC VALVE: Normal trileaflet appearance. No visible sclerosis. Normal leaflet mobility. No evidence of aortic valve stenosis. No aortic regurgitation. AORTIC ROOT: Normal diameter and appearance. PULMONIC VALVE: Normal thickness and mobility. No stenosis. Trivial regurgitation. PERICARDIUM: No evidence of pericardial effusion. IVC: Collapses with inspirations. Normal size. CONCLUSION: Global left ventricular systolic function is normal; visually estimated ejection fraction is 60 to 65%. No significant wall motion abnormalities. Normal diastolic function. Biatrial enlargement. The right ventricle is normal in size with normal systolic function. Mild tricuspid regurgitation. Mild mitral regurgitation. Adult Echocardiography Procedure Report Left Ventricle LVEDD (3.7 - 5.6 cm): 4.43 cm LVESD (2.2 - 4.0 cm): 3.05 cm LVIVS thickness (0.6 - 1.2 cm): 1.12 cm LVPW thickness (0.5 - 1.0 cm): 0.90 cm e': 0.13 m/s E - e': 5.65 LVOT Max Gradient: 3.43 mm[Hg] Peak Velocity (LVOT): 0.93 m/s Mean Velocity (LVOT): 0.59 m/s LVOT Diameter 2.27 cm Left Ventricular Ejection Fraction: 58.98 %, 58.98 % Left Atrium LA Volume Index (2D A2C): 54.02 ml, 54.02 ml Left Atrium Systolic Dimension: 3.42 cm Mitral Valve MV E to A Ratio: 0.79 Mitral Valve A-Wave Peak Velocity: 0.95 m/s Mitral Valve E-Wave Peak Velocity: 0.75 m/s Right Ventricle RV Internal Diastolic Dimension: 3.78 cm Aorta AO Root Diam: 3.34 cm Ascending Ao Diam: 3.00 cm Aortic Valve AoV Area (Peak Jaren): 3.08 cm2, 3.08 cm2 AoV Area (VTI): 3.22 cm2, 3.22 cm2 Peak Velocity(Antegrade Flow): 1.22 m/s Peak Gradient(Antegrade Flow): 5.95 mm[Hg] Mean Velocity(Antegrade Flow): 0.84 m/s Mean Gradient(Antegrade Flow): 3.11 mm[Hg] Velocity Time Integral: 27.39 cm Tricuspid Valve Peak Velocity (Regurgitant Flow): 1.95 m/s, 2.65 m/s, 2.69 m/s Peak Velocity: 0.53 m/s Pulmonic Valve Peak Velocity: 1.02 m/s, 1.07 m/s Peak Gradient: 4.20 mm[Hg], 4.61 mm[Hg] Right Atrium Right Atrium Systolic Pressure: 50.20 ml, 50.20 ml Dictated by: Bjorn Kumari M.D. on 07/11/2022 at 14:32 Approved by: Bjorn Kumari M.D. on 07/11/2022 at 14:37 Normal [facility] BNPon 07-09-2022 Natriuretic peptide B (Bld) [Mass/Vol] 22.0 pg/mL Normal <=900.0 [facility] Comment on above: Performed By: #### H STROPN, CMP, BNP #### [facility] [address] [place] [address] [address] Della Pace CARDIAC BHUMI 3-6on 3 CK [Catalytic activity/Vol] 114 U/L Normal 39-308 [facility] Comment on above: Performed By: #### C MREP ####[facility] [id number] [place] [address]Dr. Della Pace CK.MB [Mass/Vol] 0.99 ng/mL Normal <=3.60 [facility] Comment on above: Performed By: #### C MREP ####[facility] [id number] [place] [address]Dr. Della Pace HSTROP 7.2 pg/mL Normal 4.0-76.1 [facility] Comment on above: Result Comment: CUT- OFF POINTS HAVE BEEN ESTABLISHED BASED ON THE FOURTH UNIVERSAL DEFINITIONS OF MYOCARDIAL INFARCTION. THE UPPER REFERENCE LIMIT (URL) OF TROPONIN, DEFINED THE 99TH PERCENTILE OF cTnI DISTRIBUTION IN A REFERENCE POPULATION, HAS BEEN CONFIRMED THE DECISION THRESHOLD FOR GA DIAGNOSIS. Performed By: #### C MREP ####[facility] [id number] [place] [address]Dr. Della Pace CBC AUTO DIFFon 07-09-2022 BASO # 0.1 103/ul Normal 0.0-0.1 [facility] Comment on above: Performed By: #### C BC #### [facility] [address] [place] [address] [address] Della Pace Basophils/100 WBC (Bld) 0.7 % Normal 0.2-2.0 [facility] Comment on above: Performed By: #### C BC #### [facility] [address] [place] [address] Dr. Della Pace EO # 0.2 103/ul Normal 0.0-0.7 [facility] Comment on above: Performed By: #### C BC #### [facility] [address] [place] [address] Dr. Della Pace Eosinophils/100 WBC (Bld) 1.9 % Normal 0.9-7.0 [facility] Comment on above: Performed By: #### C BC #### [facility] [address] [place] [address] Dr. Della Pace Erythrocyte distribution width (RBC) [Ratio] 12.9 % Normal 11.0-15.0 [facility] Comment on above: Performed By: #### C BC #### [facility] [address] [place] [address] Dr. Della Pace Hematocrit (Bld) [Volume fraction] 41.4 % Critically low 42.0-54.0 [facility] Comment on above: Performed By: #### C BC #### [facility] [address] [place] [address] Dr. Della Pace Hemoglobin (Bld) [Mass/Vol] 14.4 g/dL Normal 14.0-18.0 [facility] Comment on above: Performed By: #### C BC #### [facility] [address] [place] [address] Dr. Della Pace IG # 0.03 10e3/ul Normal 0.00-0.03 [facility] Comment on above: Performed By: #### C BC #### [facility] [address] [place] [address] Dr. Della Pace IG % 0.4 % Normal 0.0-0.5 [facility] Comment on above: Performed By: #### C BC #### [facility] [address] [place] [address] Dr. Della Pace LYMPH # 2.0 103/ul Normal 1.2-3.8 [facility] Comment on above: Performed By: #### C BC #### [facility] [address] [place] [address] Dr. Della Pace Lymphocytes/100 WBC (Bld) 23.9 % Normal 20.5-60.0 [facility] Comment on above: Performed By: #### C BC #### [facility] [address] [place] [address] Dr. Della Pace MANUAL DIFF REQ NO Normal [facility] Comment on above: Performed By: #### C BC #### [facility] [address] [place] [address] Dr. Della Pace MCH (RBC) [Entitic mass] 30.1 pg Normal 25.9-34.0 [facility] Comment on above: Performed By: #### C BC #### [facility] [address] [place] [address] Dr. Della Pace MCHC (RBC) [Mass/Vol] 34.8 g/dL Normal 29.9-35.2 [facility] Comment on above: Performed By: #### C BC #### [facility] [address] [place] [address] Dr. Della Pace MCV (RBC) [Entitic vol] 86.4 fL Normal 80.0-94.0 [facility] Comment on above: Performed By: #### C BC #### [facility] [address] [place] [address] Dr. Della Pace MONO # 0.4 103/ul Normal 0.3-0.8 [facility] Comment on above: Performed By: #### C BC #### [facility] [address] [place] [address] Dr. Della Pace Monocytes/100 WBC (Bld) 5.1 % Normal 1.7-12.0 [facility] Comment on above: Performed By: #### C BC #### [facility] [address] [place] [address] Dr. Della Pace NEUT # 5.8 103/ul Normal 1.4-6.5 [facility] Comment on above: Performed By: #### C BC #### [facility] [address] [place] [address] [address] Della Pace Neutrophils/100 WBC (Bld) 68.0 % Normal 43.0-75.0 [facility] Comment on above: Performed By: #### C BC #### [facility] [address] [place] [address] Dr. Della Pace Platelet mean volume (Bld) [Entitic vol] 9.5 fL Normal 9.5-13.5 [facility] Comment on above: Performed By: #### C BC #### [facility] [address] [place] [address] Dr. Della Pace PLT 271 103/ul Normal 150-450 [facility] Comment on above: Performed By: #### C BC #### [facility] [address] [place] [address] Dr. Della Pace RBC 4.79 106/ul Normal 4.70-6.10 [facility] Comment on above: Performed By: #### C BC #### [facility] [address] [place] [address] Dr. Della Pace WBC 8.5 103/ul Normal 4.0-11.0 [facility] Comment on above: Performed By: #### C BC #### [facility] [address] [place] [address] Dr. Della Pace [facility]on SARS-CoV-2 (COVID-19) RNA CHITRA+probe Ql (Unsp spec) Not detected Normal NOT DETECTED [facility] Comment on above: Result Comment: When diagnostic testing is negative, the possibility of a false negative should be considered in the context of a patient's recent exposures and the presence of clinical signs and symptoms consistent with SARS-CoV-2. This test is not yet approved or cleared by the [place] FDA. When there are no FDA-approved or cleared tests available, and other criteria are met, FDA can make tests available under an emergency access mechanism called an Emergency Use Authorization (EUA). The EUA for this test is supported by the [place] of Health and Human Service's declaration that circumstances exist to justify the emergency use of in vitro diagnostics for the detection and/or diagnosis of the virus that causes COVID-19. This EUA will remain in effect for the duration of the COVID-19 declaration justifying emergency of IVDs, unless it is terminated or revoked by the FDA (after which the test may no longer be used). Performed By: #### C VDTBH ####[facility] [address] [address]Dr. Della Pace PROF 14(COMP METB)on 023 Albumin [Mass/Vol] 3.7 g/dL Normal 3.4-5.0 [facility] Comment on above: Performed By: #### H STROPN, CMP, BNP #### [facility] [address] [address] [address] Della Pace Albumin/Globulin [Mass ratio] 1.2 {ratio} Normal [facility] Comment on above: Performed By: #### H STROPN, CMP, BNP #### [facility] [address] [place] [address] [address] Della Pace ALP [Catalytic activity/Vol] 86 U/L Normal 46-116 [facility] Comment on above: Performed By: #### H STROPN, CMP, BNP #### [facility] [address] [address] [address] Della Pace ALT [Catalytic activity/Vol] 20 U/L Normal 16-63 [facility] Comment on above: Performed By: #### H STROPN, CMP, BNP #### [facility] [address] [address] [address] Della Pace Anion gap [Moles/Vol] 11.3 mmol/L Normal [facility] Comment on above: Performed By: #### H STROPN, CMP, BNP #### [facility] [address] [address] [address] Della Pace AST [Catalytic activity/Vol] 21 U/L Normal 15-37 [facility] Comment on above: Performed By: #### H STROPN, CMP, BNP #### [facility] [address] [address] [address] Della Pace Bilirubin [Mass/Vol] 0.2 mg/dL Normal 0.2-1.0 [facility] Comment on above: Performed By: #### H STROPN, CMP, BNP #### [facility] [address] [address] [address] Della Pace Calcium [Mass/Vol] 8.4 mg/dL Critically low 8.5-10.1 [facility] Comment on above: Performed By: #### H STROPN, CMP, BNP #### [facility] [address] [address] [address] Della Pace Chloride [Moles/Vol] 102 mmol/L Normal 98-107 [facility] Comment on above: Performed By: #### H STROPN, CMP, BNP #### [facility] [address] [address] [address] Della Pace CO2 [Moles/Vol] 28.8 mmol/L Normal 21.0-32.0 [facility] Comment on above: Performed By: #### H STROPN, CMP, BNP #### [facility] [address] [address] [address] Della Pace Creatinine [Mass/Vol] 1.22 mg/dL Normal 0.70-1.30 [facility] Comment on above: Performed By: #### H STROPN, CMP, BNP #### [facility] [address] [address] [address] Della Pace EGFR-AF BHUTANESE >60 Normal >=60 [facility] Comment on above: Performed By: #### H STROPN, CMP, BNP #### [facility] [address] [address] [address] Della Pace EGFR-NON AF BHUTANESE 59 mL/min/1.73m2 Critically low >=60 [facility] Comment on above: Performed By: #### H STROPN, CMP, BNP #### [facility] [address] [address] [address] Della Pace Globulin (S) [Mass/Vol] 3.0 g/dL Normal [facility] Comment on above: Performed By: #### H STROPN, CMP, BNP #### [facility] [address] [address] [address] Della Pace Glucose [Mass/Vol] 118 mg/dL Critically high 74-106 [facility] Comment on above: Performed By: #### H STROPN, CMP, BNP #### [facility] [address] [address] [address] Della Pace Potassium [Moles/Vol] 4.1 mmol/L Normal 3.5-5.1 [facility] Comment on above: Performed By: #### H STROPN, CMP, BNP #### [facility] [address] [place] [address] Dr. Della Pace Protein [Mass/Vol] 6.7 g/dL Normal 6.4-8.2 [facility] Comment on above: Performed By: #### H STROPN, CMP, BNP #### [facility] [address] [address] [address] Della Pace Sodium [Moles/Vol] 138 mmol/L Normal 136-145 [facility] Comment on above: Performed By: #### H STROPN, CMP, BNP #### [facility] [address] [place] [address] Dr. Della Pace Urea nitrogen [Mass/Vol] 22.0 mg/dL Critically high 7.0-18.0 [facility] Comment on above: Performed By: #### H STROPN, CMP, BNP #### [facility] [address] [place] [address] Dr. Della Pace Urea nitrogen/Creatinine [Mass ratio] 18.0 mg/mg Normal [facility] Comment on above: Performed By: #### H STROPN, CMP, BNP #### [facility] [address] [place] [address] Dr. Della Pace PROTIMEon 07-09-2022 INR Coag (PPP) [Relative time] 0.95 {INR} Normal [facility] Comment on above: Performed By: #### P T, PTT #### [facility] [id number] Della Pace INR GUIDELINES SEE BELOW Normal [facility] Comment on above: Result Comment: SADA RED INR: 2.0 - 3.0 CONDITIONS NOT LISTED BELOW 2.5 - 3.5 FOR PROSTHETIC HEART VALVE REPLACEMENT 2.5 - 3.5 RECURRENT THROMBOSIS Performed By: #### P T, PTT #### [facility] [id number] Della Pace PT Coag (PPP) [Time] 10.3 s Normal 9.0-11.6 [facility] Comment on above: Performed By: #### P T, PTT #### [facility] [id number] Della Pace PTTon 07-09-2022 aPTT Coag (Bld) [Time] 25.1 s Normal 22.3-36.2 [facility] Comment on above: Performed By: #### P T, PTT #### [facility] [address] [address] [address] Della Pace TROPONIN, HIGH SENSITIVITYon 07-09-2022 HSTROP 8.0 pg/mL Normal 4.0-76.1 [facility] Comment on above: Result Comment: CUT- OFF POINTS HAVE BEEN ESTABLISHED BASED ON THE FOURTH UNIVERSAL DEFINITIONS OF MYOCARDIAL INFARCTION. THE UPPER REFERENCE LIMIT (URL) OF TROPONIN, DEFINED THE 99TH PERCENTILE OF cTnI DISTRIBUTION IN A REFERENCE POPULATION, HAS BEEN CONFIRMED THE DECISION THRESHOLD FOR GA DIAGNOSIS. Performed By: #### H STROPN, CMP, BNP ####[facility] [address] [place], [place] [address]YbDr. Della Pace XR CHEST 1 Von 07-09-2022 XR CHEST 1 V EXAMINATION: XR CHES T 1 V HISTORY: CHEST PAIN, UNSPECIFIED COMPARISON: 06/08/2020 TECHNIQUE: AP portable erect FINDINGS: LUNGS: No significant pulmonary parenchymal abnormalities. VASCULATURE: No increased pulmonary vasculature. PLEURA: No pneumothorax, effusion, or pleural thickening. CARDIAC: No cardiomegaly or cardiac silhouette abnormality. MEDIASTINUM: No visible mass or adenopathy. BONES: No fracture or visible bone lesion. OTHER: Negative. IMPRESSION: No acute disease. Electronically authenticated by: NGOZI GUTIERREZ Date: 2022-07-09 19:38 Normal [facility] CBC AUTO DIFFon 11-21-2021 BASO # 0.0 103/ul Normal 0.0-0.1 [facility] Comment on above: Performed By: #### C BC #### [facility] [address] [place] [address] Dr. Della Pace Basophils/100 WBC (Bld) 0.6 % Normal 0.2-2.0 [facility] Comment on above: Performed By: #### C BC #### [facility] [address] [place] [address] Dr. Della Pace EO # 0.2 103/ul Normal 0.0-0.7 [facility] Comment on above: Performed By: #### C BC #### [facility] [address] [place] [address] Dr. Della Pace Eosinophils/100 WBC (Bld) 2.7 % Normal 0.9-7.0 [facility] Comment on above: Performed By: #### C BC #### [facility] [address] [place] [address] Dr. Della Pace Erythrocyte distribution width (RBC) [Ratio] 12.9 % Normal 11.0-15.0 [facility] Comment on above: Performed By: #### C BC #### [facility] [address] [place] [address] Dr. Della Pace Hematocrit (Bld) [Volume fraction] 42.5 % Normal 42.0-54.0 [facility] Comment on above: Performed By: #### C BC #### [facility] [address] [place] [address] Dr. Della Pace Hemoglobin (Bld) [Mass/Vol] 14.2 g/dL Normal 14.0-18.0 [facility] Comment on above: Performed By: #### C BC #### [facility] [address] [place] [address] Dr. Della Pace IG # 0.02 10e3/ul Normal 0.00-0.03 [facility] Comment on above: Performed By: #### C BC #### [facility] [address] [place] [address] Dr. Della Pace IG % 0.3 % Normal 0.0-0.5 [facility] Comment on above: Performed By: #### C BC #### [facility] [address] [place] [address] Dr. Della Pace LYMPH # 1.4 103/ul Normal 1.2-3.8 [facility] Comment on above: Performed By: #### C BC #### [facility] [address] [place] [address] Dr. Della Pace Lymphocytes/100 WBC (Bld) 22.5 % Normal 20.5-60.0 [facility] Comment on above: Performed By: #### C BC #### [facility] [address] [place] [address] Dr. Della Pace MANUAL DIFF REQ NO Normal [facility] Comment on above: Performed By: #### C BC #### [facility] [address] [place] [address] Dr. Della Pace MCH (RBC) [Entitic mass] 29.6 pg Normal 25.9-34.0 [facility] Comment on above: Performed By: #### C BC #### [facility] [address] [place] [address] Dr. Della Pace MCHC (RBC) [Mass/Vol] 33.4 g/dL Normal 29.9-35.2 [facility] Comment on above: Performed By: #### C BC #### [facility] [address] [place] [address] Dr. Della Pace MCV (RBC) [Entitic vol] 88.5 fL Normal 80.0-94.0 [facility] Comment on above: Performed By: #### C BC #### [facility] [address] [place] [address] Dr. Della Pace MONO # 0.3 103/ul Normal 0.3-0.8 [facility] Comment on above: Performed By: #### C BC #### [facility] [address] [place] [address] Dr. Della Pace Monocytes/100 WBC (Bld) 5.3 % Normal 1.7-12.0 [facility] Comment on above: Performed By: #### C BC #### [facility] [address] [place] [address] Dr. Della Pace NEUT # 4.4 103/ul Normal 1.4-6.5 [facility] Comment on above: Performed By: #### C BC #### [facility] [address] [place] [address] Dr. Della Pace Neutrophils/100 WBC (Bld) 68.6 % Normal 43.0-75.0 [facility] Comment on above: Performed By: #### C BC #### [facility] [address] [place] [address] Dr. Della Pace Platelet mean volume (Bld) [Entitic vol] 9.6 fL Normal 9.5-13.5 [facility] Comment on above: Performed By: #### C BC #### [facility] [address] [place] [address] Dr. Della Pace PLT 270 103/ul Normal 150-450 [facility] Comment on above: Performed By: #### C BC #### [facility] [address] [place] [address] Dr. Della Pace RBC 4.80 106/ul Normal 4.70-6.10 [facility] Comment on above: Performed By: #### C BC #### [facility] [address] [place] [address] Dr. Della Pace WBC 6.4 103/ul Normal 4.0-11.0 [facility] Comment on above: Performed By: #### C BC #### [facility] [address] [place] [address] Dr. Della Pace GLYCOHEMOGLOBIN A1Con 2021 ADA RECOMMENDATION SEE BELOW Normal [facility] Comment on above: Result Comment: ADA RECOMMENDED LIMIT 4.0 - 6.0 ADA THERAPEUTIC TARGET < 7.0 ACTION SUGGESTED > 7.0 Performed By: #### A 1C #### [facility] [address] [place], [place] [address] Dr. Della Pace Glucose [Mass/Vol] 114 mg/dL Normal [facility] Comment on above: Performed By: #### A 1C #### [facility] [address] [place], [place] [address] Dr. Della Pace HbA1c (Bld) [Mass fraction] 5.6 % Normal 4.5-6.2 [facility] Comment on above: Performed By: #### A 1C #### [facility] [address] [place], [place] [address] Dr. Della Pace LIPID PROFILEon 11-21-2021 CHOL-HDL RATIO NORM SEE BELOW Normal [facility] Comment on above: Result Comment: 3.3 - 4.4 LOW RISK 4.4 - 7.1 AVERAGE RISK 7.1 - 11.0 MODERATE RISK >11.0 HIGH RISK Performed By: #### L IPID, URIC, CMP ####[facility] [address] [id number] Pace Cholesterol [Mass/Vol] 113 mg/dL Normal <=200 [facility] Comment on above: Performed By: #### L IPID, URIC, CMP ####[facility] [address] [id number] Pace Cholesterol in HDL [Mass/Vol] 53 mg/dL Normal 40-60 [facility] Comment on above: Performed By: #### L IPID, URIC, CMP ####[facility] [address] [id number]. Della Pace Cholesterol in LDL [Mass/Vol] 35.8 mg/dL Normal [facility] Comment on above: Performed By: #### L IPID, URIC, CMP ####[facility] [address] [id number] Pace Cholesterol.total/Ch olesterol in HDL [Mass ratio] 2.1 {ratio} Normal [facility] Comment on above: Performed By: #### L IPID, URIC, CMP ####[facility] [address] [id number]. Della Pace HDL NORMAL > or = 60 mg/dl - LO W CARDIOVASCULAR RISK <40 mg/dl - HIGH CARDIOVASCULAR RISK Normal [facility] Comment on above: Performed By: #### L IPID, URIC, CMP ####[facility] [address] [address]Dr. Della Pace LDL CALC NORMAL SEE BELOW Normal [facility] Comment on above: Result Comment: <100 mg/dl OPTIMAL 100 - 129 mg/dl NEAR OR ABOVE OPTIMAL 130 - 159 mg/dl BORDERLINE HIGH 160 - 189 mg/dl HIGH >190 mg/dl VERY HIGH Performed By: #### L IPID, URIC, CMP ####[facility] [address] [address]Dr. Della Pace Triglyceride [Mass/Vol] 121 mg/dL Normal <=150 [facility] Comment on above: Performed By: #### L IPID, URIC, CMP ####[facility] [address] [address]Dr. Della Pace VLDL CALC 24.2 mg/dL Normal [facility] Comment on above: Performed By: #### L IPID, URIC, CMP ####[facility] [address] [address]Dr. Della Pace PROF 14(COMP METB)on 022 Albumin [Mass/Vol] 3.8 g/dL Normal 3.4-5.0 [facility] Comment on above: Performed By: #### L IPID, URIC, CMP ####[facility] [address] [address]Dr. Della Pace Albumin/Globulin [Mass ratio] 1.3 {ratio} Normal [facility] Comment on above: Performed By: #### L IPID, URIC, CMP ####[facility] [address] [address]Dr. Della Pace ALP [Catalytic activity/Vol] 89 U/L Normal 46-116 [facility] Comment on above: Performed By: #### L IPID, URIC, CMP ####[facility] [address] [address]Dr. Della Pace ALT [Catalytic activity/Vol] 19 U/L Normal 16-63 [facility] Comment on above: Performed By: #### L IPID, URIC, CMP ####[facility] [address] [address]Dr. Della Pace Anion gap [Moles/Vol] 10.9 mmol/L Normal [facility] Comment on above: Performed By: #### L IPID, URIC, CMP ####[facility] [address] [place], [place] [address]Dr. Della Pace AST [Catalytic activity/Vol] 26 U/L Normal 15-37 [facility] Comment on above: Performed By: #### L IPID, URIC, CMP ####[facility] [address] [place], [place] [address]Dr. Della Pace Bilirubin [Mass/Vol] 0.4 mg/dL Normal 0.2-1.0 [facility] Comment on above: Performed By: #### L IPID, URIC, CMP ####[facility] [address] [place], [place] [address]Dr. Della Pace Calcium [Mass/Vol] 8.5 mg/dL Normal 8.5-10.1 [facility] Comment on above: Performed By: #### L IPID, URIC, CMP ####[facility] [address] [place], [place] [address]Dr. Della Pace Chloride [Moles/Vol] 104 mmol/L Normal 98-107 [facility] Comment on above: Performed By: #### L IPID, URIC, CMP ####[facility] [address] [place], [place] [address]Dr. Della Pace CO2 [Moles/Vol] 28.6 mmol/L Normal 21.0-32.0 [facility] Comment on above: Performed By: #### L IPID, URIC, CMP ####[facility] [address] [place], [place] [address]Dr. Della Pace Creatinine [Mass/Vol] 1.07 mg/dL Normal 0.70-1.30 [facility] Comment on above: Performed By: #### L IPID, URIC, CMP ####[facility] [address] [address]Dr. Della Pace EGFR-AF BHUTANESE >60 Normal >=60 [facility] Comment on above: Performed By: #### L IPID, URIC, CMP ####[facility] [address] [address]Dr. Della Pace EGFR-NON AF BHUTANESE >60 Normal >=60 [facility] Comment on above: Performed By: #### L IPID, URIC, CMP ####[facility] [address] [address]Dr. Zabrinaharrison Pace Globulin (S) [Mass/Vol] 3.0 g/dL Normal [facility] Comment on above: Performed By: #### L IPID, URIC, CMP ####[facility] [address] [place], [place] [address]Dr. Della Pace Glucose [Mass/Vol] 96 mg/dL Normal 74-106 [facility] Comment on above: Performed By: #### L IPID, URIC, CMP ####[facility] [address] [place], [place] [address]Dr. Della Pace Potassium [Moles/Vol] 4.5 mmol/L Normal 3.5-5.1 [facility] Comment on above: Performed By: #### L IPID, URIC, CMP ####[facility] [address] [place], [place] [address]Dr. Della Pace Protein [Mass/Vol] 6.8 g/dL Normal 6.4-8.2 [facility] Comment on above: Performed By: #### L IPID, URIC, CMP ####[facility] [address] [place], [place] [address]Dr. Della Pace Sodium [Moles/Vol] 139 mmol/L Normal 136-145 [facility] Comment on above: Performed By: #### L IPID, URIC, CMP ####[facility] [address] [place], [place] [address]Dr. Della Pace Urea nitrogen [Mass/Vol] 20.0 mg/dL Critically high 7.0-18.0 [facility] Comment on above: Performed By: #### L IPID, URIC, CMP ####[facility] [address] [place], [place] [address]Dy. Della Pace Urea nitrogen/Creatinine [Mass ratio] 18.7 mg/mg Normal [facility] Comment on above: Performed By: #### L IPID, URIC, CMP ####[facility] [address] [place], [place] [address]Ds. Della Pace URIC ACID SERUMon 11-21-2021 Urate [Mass/Vol] 7.2 mg/dL Normal 3.5-7.2 [facility] Comment on above: Performed By: #### L IPID, URIC, CMP ####[facility] [address] [id number]. Della Pace Ambulatory Visit Summaryon 0 10-29-2021 Ambulatory Visit Summary LEONEL GALDAMEZ JR :1950 Visit Date:10/29/2021 Ambulatory Visit Instructions Your Diagnosis History of prostate cancer Erectile dysfunction following prostate ablative therapy BPH with urinary obstruction Stress incontinence Nocturia Other obstructive and reflux uropathy Tests Performed Urnls Dip Stick Auto w/o Microscopy POC [address] Your Care Team Attending Physician - Rafael Cyr Jr., MD Primary Care Physician - Hugh Crooks MD This Is Your Medications List Contact prescribing physician if questions or concerns alirocumab (Praluent Pen 75 mg/mL subcutaneous solution) aspirin (aspirin 81 mg oral tablet) celecoxib (CeleBREX 200 mg Cap) clopidogrel (Plavix 75 mg Tab) diltiazem (Cartia XT 180 mg/24 hours oral capsule, extended release) eszopiclone (Lunesta 2 mg Tab) lisinopril (lisinopril 10 mg Tab) lisinopril (lisinopril 20 mg Tab) nitroglycerin (NitroStat 0.4 mg Tab) pantoprazole (pantoprazole 40 mg Oral EC Tab) sildenafil (sildenafil 100 mg Tab) Procedures Performed Prostatectomy (01/27/2019), Transrectal biopsy of prostate using ultrasound (US) guidance (11/10/2018), Transrectal biopsy of prostate using ultrasound (US) guidance (05/07/2017), Cardiac catheterisation (04/07/2003), Cholecystectomy, Colonoscopy, History of hernia repair, Injection of steroid into hip joint. Discharge Vitals Heart Rate (Peripheral) 84 Respiratory Rate 16 Blood Pressure 136/85 Height 175.0 cm Height 175 cm Weight 84.5 kg Weight 84.5 kg BMI 27.59 What to do next You Need to Schedule the Following Appointments Follow Up with Ger Resendez MD, Rafael Dhillon, URO When: In 1 year 10/29/2022 EDT Comments: with PSA Where: [facility] [address], [facility] [place] [address]- Medications What How Much When Instructions Unchanged alirocumab (Praluent Pen 75 mg/ mL subcutaneous solution) See instructions 1 injection every other week Contact prescribing physician if questions or concerns Unchanged aspirin (aspirin 81 mg oral tablet) 1 Tablets By Mouth Every day Contact prescribing physician if questions or concerns Unchanged celecoxib (CeleBREX 200 mg Cap) By Mouth 2 times a day Contact prescribing physician if questions or concerns Unchanged clopidogrel (Plavix 75 mg Tab) 1 Tablets By Mouth Every day Contact prescribing physician if questions or concerns Unchanged diltiazem (Cartia XT 180 mg/ 24 hours oral capsule, extended release) 1 Capsules By Mouth Every day Contact prescribing physician if questions or concerns Unchanged eszopiclone (Lunesta 2 mg Tab) 1 Tablets By Mouth Once a day (at bedtime) as needed for for insomnia Contact prescribing physician if questions or concerns Unchanged lisinopril (lisinopril 10 mg Tab) 1 Tablets By Mouth Every day Contact prescribing physician if questions or concerns Unchanged lisinopril (lisinopril 20 mg Tab) By Mouth Every day Contact prescribing physician if questions or concerns Unchanged nitroglycerin (NitroStat 0.4 mg Tab) See instructions 1 tab(s) SubLingual PRN for chest pain Contact prescribing physician if questions or concerns Unchanged pantoprazole (pantoprazole 40 mg Oral EC Tab) 1 Tablets By Mouth Every day Contact prescribing physician if questions or concerns Unchanged sildenafil (sildenafil 100 mg Tab) By Mouth Every day Contact prescribing physician if questions or concerns Test Results Urnls Dip Stick Auto w/o Microscopy POC 48948 (10/29/2021) Bilirubin Urine Dipstick - Negative Blood Urine Dipstick - Negative Glucose Urine Dipstick - Negative Ketones Urine Dipstick - Negative Leukocytes Urine Dipstick - Negative Nitrite Urine Dipstick - Negative Protein Urine Dipstick - Negative Urine Appearance Urine Dipstick - Clear Urine Color Urine Dipstick - Yellow Urobilinogen Urine Dipstick - Normal 0.2-1 EU/dl pH Urine Dipstick - 6 Allergies Imdur (unknown) codeine (Nightmares) statins (unknown) Problems Ongoing - Any problem that you are currently receiving treatment for. Anticoagulated BPH with urinary obstruction Dysuria Elevated PSA Former smoker Gross hematuria Heart disease History of prostate cancer Hx of fdc use of blood thinners Impotence Incomplete bladder emptying Nocturia Prostate cancer Stress incontinence Historical - Any problem that you are no longer receiving treatment for. Arthritis Feeling of incomplete bladder emptying Frequency of urination GERD (gastroesophageal reflux disease) Hyperlipidemia Hypertension Myocardial infarction Weak urinary stream Education [employer] Benign Prostatic Hyperplasia Benign prostatic hyperplasia (BPH) is an enlarged prostate gland that is caused by the normal aging process and not by cancer. The prostate is a walnut-sized gland that is involved in the production of semen. It is located in front of the rectum and below the bladder. The bladder stor (more content not included)... Normal [facility] Patient Educationon 10-30-19 Patient Education Urology Benign Prostatic Hyperplasia Benign prostatic hyperplasia (BPH) is an enlarged prostate gland that is caused by the normal aging process and not by cancer. The prostate is a walnut-sized gland that is involved in the production of semen. It is located in front of the rectum and below the bladder. The bladder stores urine and the urethra is the tube that carries the urine out of the body. The prostate may get bigger as a man gets older. An enlarged prostate can press on the urethra. This can make it harder to pass urine. The build-up of urine in the bladder can cause infection. Back pressure and infection may progress to bladder damage and kidney (renal) failure. What are the causes? This condition is part of a normal aging process. However, not all men develop problems from this condition. If the prostate enlarges away from the urethra, urine flow will not be blocked. If it enlarges toward the urethra and compresses it, there will be problems passing urine. What increases the risk? This condition is more likely to develop in men over the age of 50 years. What are the signs or symptoms? Symptoms of this condition include: ? Getting up often during the night to urinate. ? Needing to urinate frequently during the day. ? Difficulty starting urine flow. ? Decrease in size and strength of your urine stream. ? Leaking (dribbling) after urinating. ? Inability to pass urine. This needs immediate treatment. ? Inability to completely empty your bladder. ? Pain when you pass urine. This is more common if there is also an infection. ? Urinary tract infection (UTI). How is this diagnosed? This condition is diagnosed based on your medical history, a physical exam, and your symptoms. Tests will also be done, such as: ? A post-void bladder scan. This measures any amount of urine that may remain in your bladder after you finish urinating. ? A digital rectal exam. In a rectal exam, your health care provider checks your prostate by putting a lubricated, gloved finger into your rectum to feel the back of your prostate gland. This exam detects the size of your gland and any abnormal lumps or growths. ? An exam of your urine (urinalysis). ? A prostate specific antigen (PSA) screening. This is a blood test used to screen for prostate cancer. ? An ultrasound. This test uses sound waves to electronically produce a picture of your prostate gland. Your health care provider may refer you to a specialist in kidney and prostate diseases (urologist). How is this treated? Once symptoms begin, your health care provider will monitor your condition (active surveillance or watchful waiting). Treatment for this condition will depend on the severity of your condition. Treatment may include: ? Observation and yearly exams. This may be the only treatment needed if your condition and symptoms are mild. ? Medicines to relieve your symptoms, including: ? Medicines to shrink the prostate. ? Medicines to relax the muscle of the prostate. ? Surgery in severe cases. Surgery may include: ? Prostatectomy. In this procedure, the prostate tissue is removed completely through an open incision or with a laparoscope or robotics. ? Transurethral resection of the prostate (TURP). In this procedure, a tool is inserted through the opening at the tip of the penis (urethra). It is used to cut away tissue of the inner core of the prostate. The pieces are removed through the same opening of the penis. This removes the blockage. ? Transurethral incision (TUIP). In this procedure, small cuts are made in the prostate. This lessens the prostate's pressure on the urethra. ? Transurethral microwave thermotherapy (TUMT). This procedure uses microwaves to create heat. The heat destroys and removes a small amount of prostate tissue. ? Transurethral needle ablation (TUNA). This procedure uses radio frequencies to destroy and remove a small amount of prostate tissue. ? Interstitial laser coagulation (ILC). This procedure uses a laser to destroy and remove a small amount of prostate tissue. ? Transurethral electrovaporization (TUVP). This procedure uses electrodes to destroy and remove a small amount of prostate tissue. ? Prostatic urethral lift. This procedure inserts an implant to push the lobes of the prostate away from the urethra. Follow these instructions at home: ? Take [id number] and prescription medicines only as told by your health care provider. ? Monitor your symptoms for any changes. Contact your health care provider with any changes. ? Avoid drinking large amounts of liquid before going to bed or out in public. ? Avoid or reduce how much caffeine or alcohol you drink. ? Give yourself time when you urinate. ? Keep all follow-up visits as told by your health care provider. This is important. Contact a health care provider if: ? You have unexplained back pain. ? Your symptoms do not get better with treatment. ? You d (more content not included)... Normal [facility] Urology Office/Clinic Noteon 10-29-2021 Urology Office/Clinic Note Chief Complaint 1 year PSA. 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 He is here today for follow-up visit. He states he is voiding with a good stream is only urinary tract complaint is that he has occasional stress related urinary incontinence if he does a lot of lifting. He has a PSA for review. [facility] Staff Leonel is here today for a 1 year follow up with PSA. Previous PSA done on 10/22/20 was 0.01. Previous DX: History of prostate cancer, prostate cancer, elevated PSA, former smoker, dysuria, stress incontinence, impotence,gross hematuria, BPH with urinary obstruction. S/P Prostatectomy 01/27/19, TRUS/bx done on 11/10/18. PVR was 0ml. Dysuria: _Denies Incomplete bladder emptying: _sometimes Hematuria: _Denies Frequency: _Every hour Urgency: _mild Nocturia: _3 times a night Stream: _steady stream Leaking: _Yes Post void dripping: _ Wearing pads/ Depends: _Denies Urge incontinence: _Denies Stress incontinence: _Yes when lifting heavy objects Incontinence without Sensory Awareness: _Denies Abdominal pain: _Denies Flank pain: _Denies Sexual complaints: _ History of Present Illness Reviewed UA Pt has no associated symptoms, no fever, no chills, no flank pain. I have reviewed the previous health record information and history for this patient from Dr. Cyr Review of Systems PHQ Score Initial Depression Screen Score: 0 ROS - Provider Constitutional: denies weight loss, denies hot flashes. Eyes: denies eye problems. Gastrointestinal: denies nausea, denies vomiting. Cardiovascular: denies chest pain or angina. Integumentary: no dryness Musculoskeletal: denies musculoskeletal symptoms. ENMT: denies otolaryngeal symptoms. Respiratory: no shortness of breath. Heme/Lymph: denies easy bleeding tendency, denies easy bruising tendency. Psychiatric: no confusion, no anxiety. Genitourinary: denies dysuria, denies hematuria, denies discharge, denies urinary frequency, denies urinary hesitancy, denies nocturia, denies incontinence, denies genital sores, denies decreased libido, and denies erectile dysfunction. Physical Exam Vitals & Measurements HR: 84(Peripheral) RR: 16 BP: 136/85 HT: 175.0 cm HT: 175 cm WT: 84.5 kg WT: 84.5 kg BMI: 27.59 General Appearance: alert, no distress, well nourished, well developed male. Genitourinary: normal scrotum, normal testes, normal urethra, normal epididymis, normal vas deferens/spermatic cord. Flank Pain: none. Bladder: nonpalpable. Assessment/Plan Patient has a history of adenocarcinoma the prostate status post radical retropubic prostatectomy. His major complaint today is that he has occasional stress incontinence. This is related to physical activity and lifting. He is otherwise doing quite well. His PSA is stable at less than 0.01 ng/mL. Our plan will be to follow-up with him in the office in 1 year with another PSA blood test. He has been instructed to contact the office if he has any new or advancing problems related to his prostate cancer or surgery. He still has erectile dysfunction but at this point does not want to manage this medically. 1. History of prostate cancer (Z85.46: Personal history of malignant neoplasm of prostate) Most recent PSA was done 10/22/21 and was 0.01 which is unchanged from PSA in 10/22/20. S/P Prostatectomy 01/27/19, TRUS/bx done on 11/10/18. PVR was 0ml. Ordered: Measure Post Void residual urine and/or bladder capacity by US- non-imaging 85170 PSA Total Urnls Dip Stick Auto w/o Microscopy POC 94594 2. Erectile dysfunction following prostate ablative therapy (N52.37: Erectile dysfunction following prostate ablative therapy) No improvement with erectile dysfunction. Patient does not at this point want to start medication management. 3. BPH with urinary obstruction (N40.1: Benign prostatic hyperplasia with lower urinary tract symptoms) Pt is having frequency every hour. Patient is not on any medications for urinary symptoms at this time. Stable, No infection. UA is clear. Ordered: Measure Post Void residual urine and/or bladder capacity by US- non-imaging 60057 PSA Total Urnls Dip Stick Auto w/o Microscopy POC 31825 4. Stress incontinence (N39.3: Stress incontinence (female) (male)) mild incontinence with movement. Pt has light leaking when he lifts objects or moves. Ordered: Measure Post Void residual urine and/or bladder capacity by US- non-imaging 54796 Urnls Dip Stick Auto w/o Microscopy POC 58512 5. Nocturia (R35.1: Nocturia) x3. This continues we will continue to monitor this it is not improved or gotten any worse. Ordered: Measure Post Void residual urine and/or bladder capacity by US- non-imaging 63189 Urnls Dip Stick Auto w/o Microscopy POC 03491 Other obstructive and reflux uropathy (N13.8: Other obstructive and reflux uropathy) Follow-up With When Contact Information Ger Resendez MD, (more content not included)... Normal [facility] Comment on above: Result Comment: Elec tronically Signed By: Ger Resendez MD, Rafael Thomas.cornell\Date and Time Signed: 10/29/21 08:45 EDT\.br\Electronically Co-Signed By: Lex Downey S\.br\Date and Time Co-Signed: 10/29/21 08:42 EDT Lab Report[facility] 10-28-2021 Lab Reports [id number] D:127 Normal [facility] Vital Signs Date Time Vital Sign Value Performing Clinician Gerry prakash 11-16-2023 12:26-0400 Body height 175.3 cm Michi Anderson MD Work Phone: [facility] 11-16-2023 12:26-0400 Body mass index (BMI) [Ratio] 28.83 kg/m2 Michi Anderson MD Work Phone: [facility] 11-16-2023 12:26-0400 Body weight 88.54 kg Michi Anderson MD Work Phone: [facility] 11-16-2023 12:26-0400 Diastolic blood pressure 86 mm[Hg] Michi Anderson MD Work Phone: [facility] 11-16-2023 12:26-0400 Heart rate 63 /min Michi Adnerson MD Work Phone: [facility] 11-16-2023 12:26-0400 Respiratory rate 16 /min Michi Anderson MD Work Phone: [facility] 11-16-2023 12:26-0400 SaO2% (BldA) [Mass fraction] 98 % Michi Anderson MD Work Phone: [facility] 11-16-2023 12:26-0400 Systolic blood pressure 160 mm[Hg] Michi Anderson MD Work Phone: [facility] 08-08-2022 09:31-0500 Diastolic blood pressure 78 mm[Hg] Michi Anderson MD Work Phone: [facility] 08-08-2022 09:31-0500 Systolic blood pressure 151 mm[Hg] Michi Anderson MD Work Phone: [facility] 08-08-2022 09:29-0500 Body height 175.3 cm Michi Anderson MD Work Phone: [facility] 08-08-2022 09:29-0500 Body weight 87.32 kg Michi Anderson MD Work Phone: [facility] 08-08-2022 09:29-0500 Heart rate 65 /min Michi Anderson MD Work Phone: [facility] 08-08-2022 09:29-0500 Respiratory rate 18 /min Michi Anderson MD Work Phone: [facility] 08-08-2022 09:29-0500 SaO2% (BldA) [Mass fraction] 96 % Michi Anderson MD Work Phone: [facility] 10-29-2021 08:02-0400 Blood Pressure Location Rafael Cyr Jr. [facility] 10-29-2021 08:02-0400 Diastolic blood pressure 85 mm[Hg] Rafael yCr Jr. [facility] 10-29-2021 08:02-0400 Heart rate 84 /min Rafael Cyr Jr. [facility] 10-29-2021 08:02-0400 Respiratory rate 16 /min Rafael Cyr Jr. [facility] 10-29-2021 08:02-0400 Systolic blood pressure 136 mm[Hg] Rafael Cyr Jr. 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) (Primary Dx); S/P drug eluting coronary stent placement; Microvascular angina (HCC); Hyperlipidemia, unspecified hyperlipidemia type; Essential hypertension; Family history of early CAD; Chest pain, unspecified type Start: 11-16-2023 End: 11-17-2023 ambulatory HUGH CROOKS Facility:[facility] Start: 08-26-2023 Refill Michi velasquez MD Work Phone: Cardiology Comment on above: Refill Request Start: 11-14-2022 End: 11-14-2022 ambulatory Michi Anderson MD Work Phone: Cardiology Comment on above: 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) (Primary Dx); S/P drug eluting coronary stent placement; Hyperlipidemia, unspecified hyperlipidemia type; Essential hypertension; Family history of early CAD; Chest pain, unspecified type Start: 11-14-2022 End: 11-14-2022 Telemedicine consultation with patient Michi Anderson MD Work Phone: [facility] Start: 11-10-2022 Telephone encounter Michi alcala MD Work Phone: Cardiology Comment on above: Appointment Start: 08-08-2022 End: 08-08-2022 Patient encounter procedure Michi Anderson MD Work Phone: Cardiology Comment on above: 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 [facility] Procedures Date Procedure Procedure Detail Performing Clinician Start: 11-16-2023 Lipid 1996 panel - S kim or Plasma Michi Anderson MD Work Phone: Start: 01-27-2019 Prostatectomy Rafael garcia Jr. Start: 11-10-2018 Transrectal biopsy o f prostate using ultrasound guidance Rafael Cyr Jr. Start: 05-07-2017 Transrectal biopsy o f prostate using ultrasound guidance Rafael Cyr Jr. Start: 03-30-2015 History of placement of stent for coronary artery disease S/P drug eluting coronary stent placement Michi Anderson MD Work Phone: Start: 03-30-2015 Lipid 1996 panel - S kim or Plasma Michi Anderson MD Work Phone: Start: 04-07-2003 Cardiac catheterization Rafael Cyr Jr. Comment on above: Last cardiac cath wa s in 2016 Cholecystectomy Rafael Cyr Jr. Colonoscopy Rafael Washburn History of hernia repair Gian Cyr Jr. History of placement of stent for coronary artery disease S/P drug eluting coronary stent placement Michi Anderson MD Work Phone: History of placement of stent for coronary artery disease S/P drug eluting coronary stent placement Michi Anderson MD Work Phone: History of placement of stent for coronary artery disease S/P drug eluting coronary stent placement Michi Anderson MD Work Phone: Injection of steroid into hip joint Rafael Cyr Jr. Plan of Treatment Date Care Activity Detail Author Start: 06-14-2029 Urine microalbumin profile DTaP,Tdap,Td Vaccine (4 - Td or Tdap) [facility] Start: 11-15-2028 Lipid panel Lipid Screening [facility] Start: 11-15-2026 Diabetes Screening Diabetes Screenin g [facility] Start: 11-15-2024 End: 02-14-2025 Comprehensive metabolic 2000 panel - Serum or Plasma COMPREHENSIVE METABOLIC PANEL Lab Routine Coronary 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) Expected: 11/15/2024, Expires: 02/14/2025 [facility] Work Phone: Comment on above: Expected: 11/15/2024 , Expires: 02/14/2025 Start: 11-15-2024 Hepatitis B surface antibody level LDL Cholesterol [facility] Start: 11-15-2024 End: 02-14-2025 Lipid 1996 panel - Serum or Plasma LIPID PANEL BASIC Lab Routine Coronary 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) Expected: 11/15/2024, Expires: 02/14/2025 [facility] Comment on above: Expected: 11/15/2024 , Expires: 02/14/2025 Start: 07-06-2023 Advance Directive Discussion Advance Directive Discussion [facility] Start: 07-06-2023 Behavioral Health Screening Behavioral Health Screening [facility] Start: 07-06-2023 Depression Assessment Depression Ass essment [facility] Start: 03-06-2023 Covid-19 Vaccine ( season) Covid-19 Vaccine () [facility] Start: 03-06-2023 Influenza vaccination Influenza Vacc ine (#1) [facility] Start: 07-06-2022 ADVANCE DIRECTIVE DISCUSSION ADVANCE DIRECTIVE DISCUSSION [facility] Start: 07-06-2022 DEPRESSION ASSESSMENT DEPRESSION ASS ESSMENT [facility] Start: 03-30-2020 Lipid panel Lipid Screening [facility] Start: 03-30-2020 LIPID SCREEN LIPID SCREEN [facility] Start: 03-12-2020 DIABETES SCREEN DIABETES SCREEN [facility] Start: 03-12-2020 Diabetes Screening Diabetes Screenin g [facility] Start: 03-30-2016 Hepatitis B surface antibody level LDL CHOLESTEROL [facility] Start: 2011 RSV Vaccine (1 - 1-d ose 60+ series) RSV Vaccine (1 - 1-dose 60+ series) [facility] Start: 09-08-2001 SHINGRIX VACCINE (1 of 2) SHINGRIX VACCINE (1 of 2) [facility] Start: 09-08-1996 COLOGUARD (FIT-DNA) COLOGUARD (FIT-D NA) [facility] Start: 09-08-1996 Colonoscopy COLONOSCOPY [facility] Start: 09-08-1996 COLORECTAL CANCER SCREENING COLORECTAL CANCER SCREENING [facility] Start: 09-08-[address] COLONOGRAPHY [facility] Start: 09-08-1996 FECAL OCCULT BLOOD FECAL OCCULT BLOO D [facility] Start: 09-08-1996 Screening for malign ant neoplasm of colon [facility] Start: 09-08-1996 SIGMOIDOSCOPY SIGMOIDOSCOPY [facility] Start: 09-08-1970 Urine microalbumin profile DTAP,TDAP,TD (1 - Tdap) [facility] Start: 09-08-1969 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 RAUL DISEASE VISIT ANNUAL PCP TEAM CHRONIC DISEASE VISIT [facility] Start: 09-08-1969 BP CONTROLLED (<130/80) BP CONTROLLE D (<130/80) [facility] Start: 09-08-1969 HEPATITIS C SCREENING HEPATITIS C [facility] Start: 09-08-1969 Hepatitis C screening Hepatitis C [facility] Start: 09-08-1957 PNEUMOCOCCAL: 65+ (1 - PCV) PNEUMOCOCCAL: 65+ (1 - PCV) [facility] Start: 1950 ABDOMINAL AORTIC ANEURYSM SCREENING ABDOMINAL AORTIC ANEURYSM SCREENING [facility] Start: 1950 Abdominal aortic aneurysm screening Abdominal Aortic Aneurysm Screening [facility] Immunizations Immunization Date Immunization Notes Care Provider Fa cili 05-22-2022 influenza virus vaccine, unspecified formulation Michi Anderson MD Work Phone: [facility] 09-14-2020 SARS-CoV-2 (COVID-19 ) mRNA-1273 vaccine Rafael Cyr Jr. [facility] 08-24-2020 SARS-CoV-2 (COVID-19 ) mRNA-1273 vaccine Rafael Cyr Jr. [facility] 04-05-2020 influenza virus vaccine, unspecified formulation Rafael Cyr Jr. [facility] Payers Date Payer Category Payer Unknown [employer] [facility] MEDICARE SUPPLEMENT [id number] 2021-Present [phone] [id number] [place] [address] Indemnity [id number] 2016 Medicare [id number] 1959 Medicare [id number] 1959 Unknown [id number] 1951 Unknown [id number] 1951 Unknown [id number] 1950 Unknown [id number] Social History Date Type Detail Facility Start: 10-29-2021 End: 08-08-2022 Tobacco smoking status Ex-smoker (finding) [facility] Tobacco smoking status Never [facility] Start: 08-08-2022 End: 11-10-2022 Sex Assigned At Male [facility] End: 01-04-1992 History of tobacco use Current smoker [facility] End: 01-04-1992 History of tobacco use Cigarette Smoker [facility] Start: 08-08-2022 Tobacco use and exposure Smokeless tobacco non-user [facility] Start: 08-08-2022 End: 11-16-2023 Alcohol intake Current non-drinker of alcohol (finding) [facility] Start: 1950 Sex Assigned At Not on file [facility] Start: 08-08-2022 End: 11-10-2022 History of Social function [facility] Goals Date Patient Goal Desired Activity /State Personal health goal Clinical Notes 10-29-2021 to 11-16-2023 Patient InstructionsMichi Anderson MD - 11/16/2023 12:45 PM Tamanna Anderson MD - 11/14/2022 10:00 AM EDTTelephone Encounter - Maye Lopez Adm - 11/10/2022 9:14 AM EDTPatient Instructions Note Date & Type Note Facility 11-16-2023 Note HNO ID: [id number] Author: MICHI ANDERSON MD Service: ? Author Type: Physician Type: Progress Notes Filed: 11/17/2023 08:07 Note Text: [facility] [place] Isaiah Barclay Department of Cardiovascular Medicine SECTION OF INTERVENTIONAL CARDIOLOGY OUTPATIENT VISIT DATE November 16, 2023 OUTPATIENT VISIT TYPE ESTABLISHED PRIMARY CARE PHYSICIAN: Hugh Crooks [address] [place] [address] REFERRING PHYSICIAN: No referring provider defined for this encounter. CHIEF COMPLAINT: Patient presents with: CARD Follow Up Annual HISTORY OF PRESENT ILLNESS: Mr. Galdamez is a 73 year old male with history of multiple PCI procedures seen for follow-up of possible microvascular angina. Doing well from cardiac standpoint. No exertional chest pain or ECHAVARRIA. No exercise per se. Walks through [place] during [place] hunting season, does yardwork, housework, occasional stairs without chest pain or SOB. Notes chest pain when he eats several [place] cough drops (uses for nasal congestion). Lasts ~1 hour. He denies orthopnea, PND, lightheadedness, syncope, and leg swelling. Some PVCs when he lies down to sleep. BP at home on occasional measurements in 120s mm Hg. Told he has white coat hypertension. PAST CARDIAC HISTORY: CRFs: lipids, HTN, tobacco (stopped in 1991), FHx 04/10/2003 - PCI with stents to RCA 05/04/2003 - PCI to OM1 with cutting balloon 03/28/2004 - PCI to OM1 with PTCA and Cypher PALAK 01/30/2005 - PCI to LAD and diagonal with Cypher PALAK 03/20/2005 - Coronary angiogram showing all stents patent 03/02/2007 - Coronary angiogram showing all stents patent, mild diffuse disease 03/30/2015 - Cardiac catheterization and PCI by me: LM - short, mild LAD - mild to moderate diffuse disease, stents in mid LAD and diagonal widely patent LCX - mild to moderate diffuse disease RCA - dominant, large. Proximal RCA has eccentric 95% calcified stenosis, extending into the mid stent with ~60% proximal in-stent restenosis. Diffuse moderate disease. Underwent PCI of the proximal RCA with Promus Premier 3.5 x 28 mm everolimus eluting stent 06/03/2016 - Cardiac catheterization and PCI by me: LM - normal LAD - moderate diffuse disease, stent widely patent, no obstructive stenosis LCX - mild to moderate diffuse disease RCA - proximal vessel with 70-80% eccentric stenosis at proximal margin of stent. Long stented mid segment widely patent with only mild diffuse in-stent restenosis Underwent PCI of the proximal RCA with Xience Alpine 4.0 x 12 mm everolimus eluting stent 03/12/2017 - Cardiac catheterization by me: LM - normal LAD - bifurcation stent in LAD and diagonal patent with mild ~30% in-stent restenosis. Mild diffuse disease, maximum 40% mid diagonal focal stenosis LCX - mild diffuse disease RCA - dominant, large. Stents throughout proximal and mid segment patent, with maximum ~50% in-stent stenosis in mid segment. IFR measured across RCA (proximal, mid, and distal, with transducer in PDA) and Diagonal stenoses RCA = IFR = 0.95 - not significant Diagonal - IFR = 0.94 - not significant Diltiazem dose increased, with resolution or improvement of chest pain. 2019 - recurrent chest pain. 06/11/2020 - cardiac catheterization at [facility] in [place] - (by my review of images): LM - normal LAD - bifurcation stents in proximal-mid LAD/diagonal widely patent, mild diffuse disease LCX - mild ~20% ISR in OM RCA - dominant, very large, stents in proximal/mid segment widely patent, mild diffuse disease LV - normal In retrospect, patient felt the chest pain was due to stress; a short while before, his great grandson had shot and killed himself and another friend had from gunshot wound. Did well with only occasional chest pain; able to bow ford and climb trees without chest pain, although with mild ECHAVARRIA. 07/10/2022 - hospitalized overnight at OSH with a few days of chest pain at rest. Enzymes negative. Metoprolol started. 07/10/2022 - Echo Global left ventricular systolic function is normal; visually estimated ejection fraction is 60 to 65%. No significant wall motion abnormalities. Normal diastolic function. Biatrial enlargement. The right ventricle is normal in size with normal systolic function. Mild tricuspid regurgitation. Mild mitral regurgitation. 07/31/2022 - Nuclear stress test at OSH: Normal nuclear medicine myocardial perfusion scan. 08/08/2022 - saw me in [facility]PD - complained of chest pain - like someone sitting on my chest with moderate arm pain. Associated with SOB - like I am not getting enough air. Occurs at rest, while sitting - never on exertion. Last minutes to 1 hour, resolve spontaneously. Believes nitroglycerin helps, but uses infrequently. Occurs a few times per week, none in the last few days. Occasionally nocturnal. Believes his chest pain has improved (more content not included)... [facility] 11-16-2023 Instructions Michi Anderson MD - 11/16/2023 12:46 PM EDT Images from the original note were not included. PREVENTIVE CARDIOLOGY Home Blood Pressure Monitoring The 2017 High Blood Pressure Clinical Practice Guidelines, endorsed by the [place] [employer] and the [place] [employer] Association1, place a special emphasis on home blood pressure monitoring. The measurements obtained at home are likely a more accurate reflection of your actual blood pressure and ultimately your risk of adverse cardiovascular events (strokes, heart attacks, heart failure.) With this in mind, we recommend checking your blood pressure (BP) and heart rate (HR) and writing down the readings and the time of day. Ideally you would check your BP multiple times as we adjust your medications. In the future we may be able to decrease the number of times that you are checking, based on the stability of your readings. You should try to measure your blood pressure in the morning, before taking your blood pressure medications. You may check occasionally in the evening as well. When you are ready to begin checking your BP, try to relax and sit for 5 minutes. Press the start button on the machine. Count to 60 between each recording and take 2 or 3 consecutive measurements. BP & HR LOG EXAMPLE DATE TIME Blood Pressure Heart Rate eg. Feb 6:40 am 146/87 62 144/85 62 143/83 63 eg. Feb Morning 133/77 69 130/85 59 130/86 62 Correctly Checking Your Blood Pressure Buy a BP machine with a cuff that goes around the upper arm and not the wrist. Ensure you have the correct size cuff based on your arm circumference. Below is a table taken directly from the 2017 High Blood Pressure Guidelines.1 Arm Circumference Usual Cuff Size 22-26 cm Small adult 27-34 cm Adult 35-44 cm Large adult 45-52 cm Adult thigh Not all BP machines are accurate, but most are. The more expensive units have extra features (Bluetooth etc.) that can make it easier to record your readings, but are not necessarily more accurate than the simpler machines. Your machine should be brought to your doctor every 1 to 2 years to be checked for accuracy. The most well validated BP machines available in the [place] are listed at www.validatebp.org. To take a BP reading correctly, go into a quiet area. Sit in a chair with your feet flat on the ground and back supported (without crossing your legs.) Your arm should be at the level of the heart and supported (do not hold it in the air). Resting your arm on the kitchen table is often an appropriate height. Put the BP cuff on and try to relax for 5 minute before pressing the start button. Remain quiet. Take multiple readings and wait 60-90 seconds between each one. Most machines will record the values so you can write them down after measuring. Review of Home Blood Pressure Monitoring Results If changes have been made to your blood pressure medication treatment plan, we encourage you to monitor your blood pressures at home and submit them for our review. Based on your self-recorded measurements we can make adjustments to medications between office visits if needed. To accurately assess your blood pressure control outside of the office, please ensure that you are using a device that has been validated for clinical accuracy. Additionally, we encourage you to follow the above instructions on accurate home blood pressures measurement. So that we have enough data upon which to based clinical changes, we ask that you submit a minimum of 12 blood pressure readings for our review via [employer] (or by other means if instructed by your healthcare provider.) 1. Hiram et al. J Am Destin Cardiol. 2018 November 17;71(19):[id number]. 2. PREVENTIVE CARDIOLOGY LOW SODIUM DIET A low-sodium diet limits foods that are high in sodium. Salty foods are high in sodium. You will need to follow a low-sodium diet if you have high blood pressure, kidney disease, or heart failure. You may also need to follow this diet if you have a condition that is causing your body to retain (hold) extra fluid. You may need to limit the amount of sodium in your diet to 1,500 - 2,300mg per day. Ask your caregiver how much sodium you can have each day. HOW TO DECREASE SODIUM CONSUMPTION Here are the following guidelines to help reduce the amount of sodium in your diet Take the salt shaker off the table and omit salt from recipes and food preparation. Cook without salt or with only small amounts of added salt. Learn to enjoy the flavors of unsalted foods. Try flavoring foods with herbs, spices, and lemon juice. Read food labels carefully to determine the amounts of sodium. Learn to recognize ingredients that contain sodium. Rinsing canned vegetables and fish will remove much of the salt. Season or marinate meat, poultry, and fish ahead of time with onion, garlic and your favorite herbs before cooking to bring out the flavor. Some terms describing sodium content: lite, light, lightly salted, low sodium, reduced sodium, sodium free, unsalted, no salt added, without salt added, very low sodium. Use lower sodium products, when available, to replace those with higher sodium content. Use simple techniques like saving chicken broth from a chicken you cook at home rather than buying a canned, powdered or bouillon cube broth. When dining out words that signal high sodium include: smoked, barbecued, pickled, broth, soy sauce, teriyaki, creole sauce, marinated, cocktail sauce, tomato base, Parmesan, and mustard sauce. FOODS RECOMMENDED FOODS TO AVOID MILK & DAIRY 2-3 servings each day All milk and milk products, except buttermilk Cream cheese Low sodium cheeses Yogurt MILK & DAIRY Buttermilk Cheese ([place], Vamsi, Cheddar, Blue, Gouda, [place], Velveeta) Cheese spreads FRUIT & VEGETABLES 5-9 servings/day Fresh or frozen vegetables No added salt or low salt canned vegetables No added salt tomato products Salt-free vegetable juices All fruit and fruit juices FRUIT & VEGETABLES Canned vegetables Frozen vegetables with seasoning and sauces Pickle relish, sweet or sour Pickled Vegetables Pickles and others prepared in brine Sauerkraut Vegetable or tomato juices, canned or bottled Pickled Fruits BREADS & GRAINS 6-11 servings/day Bread and rolls Dry and cooked cereals Pancakes, waffles Potatoes Salt-free potato chips Salt-free pretzels/snack chips Rice, barley, noodles, spaghetti, macaroni and other pastas Tortillas Unsalted crackers Unsalted popcorn BREADS & GRAINS Breads and rolls with salted tops Instant hot cereals Instant Food Products (e.g., cereals, pasta mixes, potatoes, rice, etc.) Such as boxed mixes like rice, scalloped potatoes, macaroni and cheese Popcorn, Prepackaged Microwave Salted popcorn Saltines, potato chips, pretzels, snack chips, pork rinds MEATS & MEAT SUBSTITUTES 2-3 servings or total of 6 oz daily All fresh and fresh frozen meats (poultry, fish, shellfish, beef, pork, myers) Canned unsalted tuna fish Dried peas and beans Eggs Low sodium peanut butter Unsalted nuts Unsalted soybeans and other meat substitutes MEATS & MEAT SUBSTITUTES Cured, salted, canned or smoked meats, poultry, or fish such as corned beef, ham, landon, luncheon meats, beef jerky, bologna, pork rinds, hogmaws, ribs, chitterlings, frankfurter, sausage, chorizo, canned fish like tuna, sardines, mackerel, anchovies, caviar, salted cod, wilson, sardines, lox, dry fish, and kippered salmon Dried Fish, Assorted (e.g., dried shrimp) Frozen pizza Frozen prepared meat entree dinners such as pot pies, macaroni and cheese Kosher meats Pickled Meats Regular peanut butter Salted nuts Soups Homemade soups, made with allowed ingredients Unsalted broth or bouillon Low sodium commercial soup Soups Broth and soups with added salt Regular canned soups Regular instant soups Regular bouillon cubes FATS & SNACKS (use sparingly) Margarine, vegetable oils and lard Unsalted gravies Unsalted butter Mayonnaise, sour cream Salt-free salad dressings Homemade salad dressings, made without added salt Whipping cream Sugar, honey, jelly, jam, syrup, candies Popsicle s, fruit ice, sherbet, fruit sorbet, marshmallows Homemade cookies, pies, cakes made with allowed ingredients FATS & SNACKS Butter Commercial salad dressings Cheese-based dressings Landon fat, fatback, salt pork Salad dressing mixes Olives, green and black Prepared frozen cream pies and cheese cake Instant pudding mixes Commercially prepared baked goods (Cakes, cookies, pie) Salted nuts MISC. Allspice, Mustard (dry) Batson Extract Basil Hays Leaves Capello's Dominican Style Seasoning Nahum Seeds Chives Cider Vinegar Cinnamon Barkley Powder Berenice Crystal Dill Garlic Powder Sandro Herbal Seasonings: Lawry's Seasoned Pepper Lawrharriet's Seasoning (no salt) Lemon Juice Mace Mrs. Dash Nutmeg Onion Powder Paprika Parsley Parsley Patch Peppermint Extract Pimento Natacha Eligio Salt free seasoning blends Savory Sodium-free Baking Powder Thyme Turmeric Vinegar Kramer's all-purpose Seasonings MISC. Accent Herminia-Mcfarlan All commercially prepared and convenience foods such as TV dinners, box mixes, canned entrees, Hamburger [place], meat pies, Turkish dinners, pizza, Shake'n Bake mixes BBQ sauce Celery salt Lytton sauce Garlic salt Horseradish Kitchen Bouquet Lemon pepper Marinade sauce Meat tenderizers Monosodium Glutamate (MSG) Onion salt Republican spreads Regular ketchup Relish Salad dressings Salt Seasoning salts Sodium Benzoate Sodium Caseinate Sodium Citrate Sodium Nitrate Sodium Phosphate Sodium Propionate Sodium Saccharin Soy sauce Steak sauce Tartar sauce Teriyaki sauce [facility] sauce Labeled no salt Products, Assorted [e.g., corbin paste and sauces, oriental dried plums and other dried seeds, vegetables and fruits (lemon & sandro)] PREVENTIVE CARDIOLOGY Best Proven Nonpharmacological Interventions for the Prevention and Treatment of Hypertension* *Type, dose, and expected impact on BP in adults with a normal BP and with hypertension. DASH indicates Dietary Approaches to Stop Hypertension; and SBP, systolic blood pressure. Resources: Your Guide to Lowering Your Blood Pressure With DASH--How Do I Make the DASH? Available at: https://www.nhlbi.nih.gov/health/r esources/heart/qxk-liei-ssn-to. Top 10 Dash Diet Tips. Available at: http://dashdiet.org/dash_diet_tips .asp In the [place], one standard drink contains roughly 14 g of pure alcohol, which is typically found in 12 oz of regular beer (usually about 5% alcohol), 5 oz of wine (usually about 12% alcohol), and 1.5 oz of distilled spirits (usually about 40% alcohol). SOURCE: 2017 Guideline for the Prevention, Detection, Evaluation, and Management of High Blood Pressure in Adults documented in this encounter [facility] 11-16-2023 History of Present illness Narrative Images from the original note were not included. [facility] [place] [facility] Department of Cardiovascular Medicine SECTION OF INTERVENTIONAL CARDIOLOGY OUTPATIENT VISIT DATE November 16, 2023 OUTPATIENT VISIT TYPE ESTABLISHED PRIMARY CARE PHYSICIAN: Hugh Crooks [address] [place] [address] REFERRING PHYSICIAN: No referring provider defined for this encounter. CHIEF COMPLAINT: Patient presents with: CARD Follow Up Annual HISTORY OF PRESENT ILLNESS: Mr. Galdamez is a 73 year old male with history of multiple PCI procedures seen for follow-up of possible microvascular angina. Doing well from cardiac standpoint. No exertional chest pain or ECHAVARRIA. No exercise per se. Walks through [place] during bow hunting season, does yardwork, housework, occasional stairs without chest pain or SOB. Notes chest pain when he eats several [place] cough drops (uses for nasal congestion). Lasts ~1 hour. He denies orthopnea, PND, lightheadedness, syncope, and leg swelling. Some PVCs when he lies down to sleep. BP at home on occasional measurements in 120s mm Hg. Told he has white coat hypertension. PAST CARDIAC HISTORY: CRFs: lipids, HTN, tobacco (stopped in 1991), FHx 04/10/2003 - PCI with stents to RCA 05/04/2003 - PCI to OM1 with cutting balloon 03/28/2004 - PCI to OM1 with PTCA and Cypher PALAK 01/30/2005 - PCI to LAD and diagonal with Cypher PALAK 03/20/2005 - Coronary angiogram showing all stents patent 03/02/2007 - Coronary angiogram showing all stents patent, mild diffuse disease 03/30/2015 - Cardiac catheterization and PCI by me: LM - short, mild LAD - mild to moderate diffuse disease, stents in mid LAD and diagonal widely patent LCX - mild to moderate diffuse disease RCA - dominant, large. Proximal RCA has eccentric 95% calcified stenosis, extending into the mid stent with ~60% proximal in-stent restenosis. Diffuse moderate disease. Underwent PCI of the proximal RCA with Promus Premier 3.5 x 28 mm everolimus eluting stent 06/03/2016 - Cardiac catheterization and PCI by me: LM - normal LAD - moderate diffuse disease, stent widely patent, no obstructive stenosis LCX - mild to moderate diffuse disease RCA - proximal vessel with 70-80% eccentric stenosis at proximal margin of stent. Long stented mid segment widely patent with only mild diffuse in-stent restenosis Underwent PCI of the proximal RCA with Xience Alpine 4.0 x 12 mm everolimus eluting stent 03/12/2017 - Cardiac catheterization by me: LM - normal LAD - bifurcation stent in LAD and diagonal patent with mild ~30% in-stent restenosis. Mild diffuse disease, maximum 40% mid diagonal focal stenosis LCX - mild diffuse disease RCA - dominant, large. Stents throughout proximal and mid segment patent, with maximum ~50% in-stent stenosis in mid segment. IFR measured across RCA (proximal, mid, and distal, with transducer in PDA) and Diagonal stenoses RCA = IFR = 0.95 - not significant Diagonal - IFR = 0.94 - not significant Diltiazem dose increased, with resolution or improvement of chest pain. 2019 - recurrent chest pain. 06/11/2020 - cardiac catheterization at [facility] in [place] - (by my review of images): LM - normal LAD - bifurcation stents in proximal-mid LAD/diagonal widely patent, mild diffuse disease LCX - mild ~20% ISR in OM RCA - dominant, very large, stents in proximal/mid segment widely patent, mild diffuse disease LV - normal In retrospect, patient felt the chest pain was due to stress; a short while before, his great grandson had shot and killed himself and another friend had from gunshot wound. Did well with only occasional chest pain; able to bow ford and climb trees without chest pain, although with mild ECHAVARRIA. 07/10/2022 - hospitalized overnight at OSH with a few days of chest pain at rest. Enzymes negative. Metoprolol started. 07/10/2022 - Echo Global left ventricular systolic function is normal; visually estimated ejection fraction is 60 to 65%. No significant wall motion abnormalities. Normal diastolic function. Biatrial enlargement. The right ventricle is normal in size with normal systolic function. Mild tricuspid regurgitation. Mild mitral regurgitation. 07/31/2022 - Nuclear stress test at OSH: Normal nuclear medicine myocardial perfusion scan. 08/08/2022 - saw me in [facility]PD - complained of chest pain - like someone sitting on my chest with moderate arm pain. Associated with SOB - like I am not getting enough air. Occurs at rest, while sitting - never on exertion. Last minutes to 1 hour, resolve spontaneously. Believes nitroglycerin helps, but uses infrequently. Occurs a few times per week, none in the last few days. Occasionally nocturnal. Believes his chest pain has improved with metoprolol - less frequent and severe. My impression at that time: Chest pain - atypical features, occurring only at rest and can last up to 1 hour. But he reports that the character of the pain is similar to that in the past prior to stents, although less severe. He had both rest and exertional chest pain in the past. Stress nuclear at OSH on 07/31/2022 showed no ischemia. However, I cannot find a stress test showing ischemia in the past, despite multiple PCIs, although the patient recalls outside stress test before PCI in 2016 during which he stopped after 2 minutes. Cardiac catheterization as performed at OSH in 06/2020, but results not available to me. As that was more than 2 years ago, not clearly relevant to symptoms at this point. DDx includes progression of epicardial CAD. But given his history of chest pain the past when catheterization did not show stenoses (2016, 2019), as well as the atypical (rest and nocturnal) nature of the pain, microvascular dysfunction is perhaps a more likely diagnosis. He reports that he was told in the past that he had coronary spasm by catheterization. 1. Discussed differential diagnosis and possibility of microvascular dysfunction. Since he improved with metoprolol, I think a first attempt at medical Rx is reasonable. Change metoprolol 50 mg BID to carvedilol 12.5 mg BID - better BP control and less risk of worsening coronary spasm given the balanced alpha and beta blockade of carvedilol. 2. If incomplete response, could add ranolazine. Followup visit in 3 month by virtual visit. I have asked patient to record heart rate and BP for a week or so before. 3. If symptoms worsen, would go to cardiac catheterization. 08/29/2022 - carvedilol dose increased to 25 mg BID based upon home blood pressures. 11/14/2022 - saw me by virtual visit - Chest pain improved with increased dose in carvedilol. Has had only one episode brief chest pain yesterday while doing heavy work in hot weather in the garden. Relieved with rest; did not recur with less strenuous resumption of activity. Walking around is 4 acres without chest pain. PAST MEDICAL HISTORY Diagnosis Date CAD (coronary artery disease), [place] coronary artery 01/16/2005 04/10/2003 -PCI to RCA (Cypher x 2, Hepacoat x 1) and PTCA to OM1 05/04/2003 -Cutting balloon to small OM1 03/28/2004 - (Dr. Brock) PCI to OM1 (2.5x18 Cypher) 01/30/2005 (Dr. Brock) PCI to 1st Diag (2.5/13 Cypher) & PCI to LAD (3.0/18 Cypher) 03/20/2005 Catheterization showed widely-patent stents in the LAD, D1, OM1, and RCA, with no new narrowings 01/07/2206- exercise thallium exercise test at 92%, 11.3 METS, caused chest discomfort, but EKG was normal. The scan is normal. 03/03/2007 cath -Dr. Albert LM- nl, LAD- prox and 1st DG stents patent, mild LCX-stent patent with mild diffuse dz RCA- stent patent with mild diffuse dz med management 03/2008 stress test 88% MPHR, 8 METS, leg pain, SOb, palpitations, no EKG changes Normal study. 1. There is no scan evidence of exercise induced myocardial ischemia. 2. Left ventricular function is normal. GERD (gastroesophageal reflux disease) HLD (hyperlipidemia) HTN (hypertension) Osteoarthritis Prostate cancer (HCC) 12/2018 s/p prostatectomy 01/2019 Prostate disease PVC (premature ventricular contraction) frequent PAST SURGICAL HISTORY Procedure Laterality Date CARDIAC CATH 02/2007 Mild nonobstructive CAD. Patent stents in the LAD/D1/LCx/RCA. CC PCI CORONARY INTERVENT 04/10/2003 PCI to RCA (Cypher x 2, Hepacoat x 1) and PTCA to OM1 CC PCI CORONARY INTERVENT 05/04/2003 Cutting balloon to small OM1 CC PCI CORONARY INTERVENT 01/30/2005 Cutting balloon to small OM1 CC PCI CORONARY INTERVENT 03/30/2015 Proximal RCA Promus Premier 3.5 x 28 mm everolimus PALAK CC PCI CORONARY INTERVENT 2015 PAST SURGICAL HISTORY OF carpal tunnel release left wrist PAST SURGICAL HISTORY OF 2007 s/p hernia repair PAST SURGICAL HISTORY OF left rotator cuff repair PAST SURGICAL HISTORY OF 2008 neck, fused C 5, 6 & 7 RADICAL PROSTATECTOMY 01/2019 REMOVAL GALLBLADDER 2007 SOCIAL HISTORY Social History Tobacco Use Smoking status: Former Years: 25 Types: Cigarettes Quit date: 01/1992 Years since quittin.8 Smokeless tobacco: Never Substance Use Topics Alcohol use: No Drug use: No FAMILY HISTORY Problem Relation Age of Onset Cancer Mother at age 63 Heart Mother heart valve replaced other (heart valve disease) Mother Coronary Artery Disease Father at 74 of an [place] Heart Attack Sister passed from [place] Coronary Artery Disease Brother s/p PCI, [place] Heart Attack Brother Coronary Artery Disease Brother [place] Heart Attack Brother ALLERGIES: ALLERGIES Allergen Reactions Codeine Mental Status Change Nightmares Isosorbide Mononitr* Intolerance migraine JONES Lipitor [Atorvastat* Myalgia Muscle pain. Rhabdo Dodcygm-Ggr-Kgb Red* Myalgia Zocor [Simvastatin] Other: See Comments Muscle cramps, pain (all statins) with Elevated CK MEDICATIONS: Current Outpatient Medications Medication Sig carvedilol (COREG) 25 mg tablet Take 1 tablet by mouth two times a day with meals. aspirin/acetaminophen/caffeine (EXCEDRIN MIGRAINE ORAL) Take 2 tablets by mouth every 6 hours as needed. celecoxib (CELEBREX) 200 mg capsule Take 200 mg by mouth once daily. acetaminophen/diphenhydramine (TYLENOL PM ORAL) Take 1 tablet by mouth daily at bedtime. lisinopril (PRINIVIL) 20 mg tablet Take 20 mg by mouth once daily. melatonin 10 mg cap Take 10 mg by mouth daily at bedtime. sildenafil (VIAGRA) 100 mg tablet Take 100 mg by mouth as needed. dilTIAZem CD (CARDIZEM CD, CARTIA XT) 180 mg 24 hr capsule Take 180 mg by mouth once daily. alirocumab 75 mg/mL pnij Inject 75 mg subcutaneously every [address] (PROTONIX) 40 mg tablet Take 40 mg by mouth once daily. aspirin, enteric coated (ASPIRIN, ENTERIC COATED) 81 mg EC tablet Take 81 mg by mouth once daily. PLAVIX 75 MG ORAL TAB Take one(1) tablet daily. NITROSTAT 0.4 MG SL SUBL Dissolve one(1) tablet under the toungue as needed for chest pain,every 5 min x3 No current facility-administered medications for this visit. REVIEW OF SYSTEMS: GENERAL: negative for: fevers, chills, and change in weight HEENT: negative for: headaches, hearing loss, difficulty swallowing, visual changes, nose bleeds, dentures, own teeth SKIN: rashes, lesions, and ulcers RESPIRATORY: SEE HPI CARDIOVASCULAR: See HPI GASTROINTESTINAL: negative for: abdominal pain, nausea, vomiting, difficulty or painful swallowing, and melanotic stools GENITOURINARY: negative for: dysuria, frequency, nocturia, and male potency MUSCULOSKELETAL: negative for: joint pain, joint swelling, muscle pain or myalgias, and pain with walking NEUROLOGIC: negative for: numbness, tingling, and sensation of pins and needles HEMATOLOGY: negative for: bruising easily, prolonged bleeding, anemia, and cancer ENDOCRINE: negative for: cold or heat intolerance, polyuria, polydipsia, goiter, diabetes, and thyroid disease PSYCH: negative for: sleep disturbance, mood disorders, and recent psychosocial stressors PHYSICAL EXAMINATION: BP 160/86 Pulse 63 Resp 16 Ht 5' 9 (1.75m) Wt 195 lb 3.2 oz (88.5kg) SpO2 98% BMI 28.81 kg/(m^2). General appearance: well appearing, in no acute distress, alert Skin: skin color, texture, turgor normal, no rashes or lesions Head: normal Neck: neck supple, no adenopathy; thyroid symmetric, normal size Lungs: lungs clear to auscultation, no wheezing or rhonchi Heart: Carotids full without bruits. PMI non-displaced. RRR. Normal S1 and S2, without S3 or S4. No murmur or rubs. Abdomen: Normal abdominal exam, Abdomen soft, non-tender. Bowel sounds normal. No masses, organomegaly Extremities: Extremities normal. No deformities or skin discoloration. Good capillary refill. No edema. Peripheral pulses: Normal Neuro: Gait normal. Sensation and muscle strength grossly intact. CARDIOVASCULAR MEDICINE TESTING: Laboratory Testing: See Addendum to this Note I have personally reviewed the Laboratory Testing. IMPRESSION: Mr. Galdamez is a 73 year old male with CAD, multiple prior PCIs, with chest pain and possible microvascular angina. 1. CAD - multivessel disease, s/p multiple catheterizations and PCI procedures. 04/10/2003 - PCI with stents to RCA 05/04/2003 - PCI to OM1 with cutting balloon 03/28/2004 - PCI to OM1 with PTCA and Cypher PALAK 01/30/2005 - PCI to LAD and diagonal with Cypher PALAK 03/20/2005 - Cardiac catheterization showing all stents patent 03/02/2007 - Cardiac catheterization showing all stents patent, mild diffuse disease 03/30/2015 - cardiac catheterization showing stents in LAD and LCX widely patent, with mild to moderate diffuse disease; the RCA was the culprit vessel, with a critical stenosis in the proximal vessel, proximal to the mid stents, extending into the mid stent. Treated by PCI of the proximal RCA with drug eluting stent. 06/03/2016 - cardiac catheterization showing prior PCI sites patent, progression of previously-mild disease in the proximal RCA proximal to the long stented segment. Treated by PCI with everolimus eluting stent to proximal RCA. 03/12/2017 - cardiac catheterization showing diffuse mild to moderate disease, but no obstructive stenoses. Functional assessment with IFR of the moderate stenoses in mid RCA and diagonal showed these to NOT be hemodynamically significant. 06/11/2020 - cardiac catheterization at OSH showing stents widely patent, mild diffuse disease throughout. 2. Normal LV function - last measurements by echo 07/10/2022 and stress nuclear 07/31/2022 at OSH. 3. Chest pain - no exertional symptoms. Unclear what his symptoms are related to large numbers of cough drops - ?reflux, ?vasoconstriction? Stress nuclear at OSH on 07/31/2022 showed no ischemia. However, I cannot find a stress test showing ischemia in the past, despite multiple PCIs, although the patient recalls outside stress test before PCI in 2015 during which he stopped after 2 minutes. I continue to believe that microvascular dysfunction is a likely diagnosis, given his history of chest pain the past when catheterization did not show stenoses (2016, 2019). If his pattern evolves to have exertional component, could add ranolazine. And, of course, may need to rule out progression of epicardial disease if symptoms worsen without response to medication. 4. HTN - uncontrolled, 160/86 mm Hg in office today. Reports better control at home and historically with white coat hypertension. On carvedilol 25 BID, lisinopril 20 daily, diltiazem 180 daily. 5. Hyperlipidemia / statin intolerant (muscle weakness and elevated CK to multiple statins in the past) - on alirocumab. LDL 36 mg/dL by outside labs in 11/2021 PLAN AND RECOMMENDATIONS: 1. Check BP BID x 2 weeks and send to me. 2. Check labs drawn today - MyChart report. A. Michi Anderson MD ADDENDUM Latest Ref Rng 11/16/2023 Protein, Total 6.3 - 8.0 g/dL 6.6 Albumin 3.9 - 4.9 g/dL 4.3 Calcium 8.5 - 10.2 mg/dL 9.0 Bilirubin, Total 0.2 - 1.3 mg/dL 0.4 Alkaline Phosphatase 38 - 113 U/L 74 AST 14 - 40 U/L 21 ALT 10 - 54 U/L 24 Glucose 74 - 99 mg/dL 99 BUN 9 - 24 mg/dL 20 Creatinine 0.73 - 1.22 mg/dL 1.10 Sodium 136 - 144 mmol/L 139 Potassium 3.7 - 5.1 mmol/L 5.1 Chloride 97 - 105 mmol/L 103 CO2 22 - 30 mmol/L 25 Anion Gap 9 - 18 mmol/L 11 eGFR >=60 mL/min/1.73m 71 Cholesterol, Total <200 mg/dL 109 Triglyceride <150 mg/dL 105 HDL Cholesterol >39 mg/dL 46 Non HDL Cholesterol <130 mg/dL 63 Fasting Time hrs 12 VLDL Cholesterol <30 mg/dL 21 TC:HDL Ratio <5.10 2.37 LDL Cholesterol <100 mg/dL 42 LDL:HDL Ratio <2.54 0.91 Assessment: 1. Hyperlipidemia - excellent control, LDL 42 mg/dL. [employer] message sent. Ann Anderson MD CONTACT INFORMATION: Ann Anderson M.D. Section of Interventional Cardiology Department of Cardiovascular Medicine [facility] V[facility] [place] [address] [place] [address] Office - [phone] extension [phone] Office Appointments: [phone] extension [phone] documented in this encounter [facility] 11-14-2022 History of Present illness Narrative Heart, V[facility] & [facility] [place] Department of Cardiovascular Medicine VIRTUAL VIDEO VISIT ESTABLISHED OUTPATIENT VISIT SERVICE DATE: 11/14/2022 Patient: Leonel Galdamez Jr. SERVICE TIME: 10:04 AM : 1950 This is a virtual video visit. It required patient-provider interaction for the medical decision making as documented below. Leonel Galdamez Jr. has consented to this video encounter. I have communicated my name and active licensure. The patient's identity and physical location were verified at the time of this visit. Either the patient or their legal customer service representative teller has been informed of the risks and benefits of -- and alternatives to -- treatment through a remote evaluation and consents to proceed with the evaluation remotely. CHIEF COMPLAINT Angina follow-up HISTORY OF PRESENT ILLNESS Leonel Galdamez Jr. is a 72 year old male with history of multiple PCI procedures seen for follow-up of possible microvascular angina. Chest pain improved with increased dose in carvedilol. Has had only one episode brief chest pain yesterday while doing heavy work in hot weather in the garden. Relieved with rest; did not recur with less strenuous resumption of activity. Walking around is 4 acres without chest pain. Not feeling limited. No PND, orthopnea No syncope Had 2 episodes of lightheadedness while sitting at computer, lasting a few seconds. May have had brief palpitations with one episode. No edema BP running less than 131/79 mm Hg, has been as low as 95 mm Hg systolic. Averaging 115/70 mm Hg. Pulse 65-72 bpm. PAST CARDIAC HISTORY CRFs: lipids, HTN, tobacco (stopped in 1991), FHx 04/10/2003 - PCI with stents to RCA 05/04/2003 - PCI to OM1 with cutting balloon 03/28/2004 - PCI to OM1 with PTCA and Cypher PALAK 01/30/2005 - PCI to LAD and diagonal with Cypher PALAK 03/20/2005 - Coronary angiogram showing all stents patent 03/02/2007 - Coronary angiogram showing all stents patent, mild diffuse disease 03/30/2015 - Cardiac catheterization and PCI by me: LM - short, mild LAD - mild to moderate diffuse disease, stents in mid LAD and diagonal widely patent LCX - mild to moderate diffuse disease RCA - dominant, large. Proximal RCA has eccentric 95% calcified stenosis, extending into the mid stent with ~60% proximal in-stent restenosis. Diffuse moderate disease. Underwent PCI of the proximal RCA with Promus Premier 3.5 x 28 mm everolimus eluting stent 06/03/2016 - Cardiac catheterization and PCI by me: LM - normal LAD - moderate diffuse disease, stent widely patent, no obstructive stenosis LCX - mild to moderate diffuse disease RCA - proximal vessel with 70-80% eccentric stenosis at proximal margin of stent. Long stented mid segment widely patent with only mild diffuse in-stent restenosis Underwent PCI of the proximal RCA with Xience Alpine 4.0 x 12 mm everolimus eluting stent 03/12/2017 - Cardiac catheterization by me: LM - normal LAD - bifurcation stent in LAD and diagonal patent with mild ~30% in-stent restenosis. Mild diffuse disease, maximum 40% mid diagonal focal stenosis LCX - mild diffuse disease RCA - dominant, large. Stents throughout proximal and mid segment patent, with maximum ~50% in-stent stenosis in mid segment. IFR measured across RCA (proximal, mid, and distal, with transducer in PDA) and Diagonal stenoses RCA = IFR = 0.95 - not significant Diagonal - IFR = 0.94 - not significant Diltiazem dose increased, with resolution or improvement of chest pain. 2019 - recurrent chest pain. 06/11/2020 - cardiac catheterization at [facility] in [place] - (by my review of images): LM - normal LAD - bifurcation stents in proximal-mid LAD/diagonal widely patent, mild diffuse disease LCX - mild ~20% ISR in OM RCA - dominant, very large, stents in proximal/mid segment widely patent, mild diffuse disease LV - normal In retrospect, patient felt the chest pain was due to stress; a short while before, his great grandson had shot and killed himself and another friend had from gunshot wound. Did well with only occasional chest pain; able to bow ford and climb trees without chest pain, although with mild ECHAVARRIA. 07/10/2022 - hospitalized overnight at OSH with a few days of chest pain at rest. Enzymes negative. Metoprolol started. 07/10/2022 - Echo Global left ventricular systolic function is normal; visually estimated ejection fraction is 60 to 65%. No significant wall motion abnormalities. Normal diastolic function. Biatrial enlargement. The right ventricle is normal in size with normal systolic function. Mild tricuspid regurgitation. Mild mitral regurgitation. 07/31/2022 - Nuclear stress test at OSH: Normal nuclear medicine myocardial perfusion scan. 08/08/2022 - saw me in [facility] - complained of chest pain - like someone sitting on my chest with moderate arm pain. Associated with SOB - like I am not getting enough air. Occurs at rest, while sitting - never on exertion. Last minutes to 1 hour, resolve spontaneously. Believes nitroglycerin helps, but uses infrequently. Occurs a few times per week, none in the last few days. Occasionally nocturnal. Believes his chest pain has improved with metoprolol - less frequent and severe. My impression at that time: Chest pain - atypical features, occurring only at rest and can last up to 1 hour. But he reports that the character of the pain is similar to that in the past prior to stents, although less severe. He had both rest and exertional chest pain in the past. Stress nuclear at OSH on 07/31/2022 showed no ischemia. However, I cannot find a stress test showing ischemia in the past, despite multiple PCIs, although the patient recalls outside stress test before PCI in 2015 during which he stopped after 2 minutes. Cardiac catheterization as performed at OSH in 06/2020, but results not available to me. As that was more than 2 years ago, not clearly relevant to symptoms at this point. DDx includes progression of epicardial CAD. But given his history of chest pain the past when catheterization did not show stenoses (2016, 2019), as well as the atypical (rest and nocturnal) nature of the pain, microvascular dysfunction is perhaps a more likely diagnosis. He reports that he was told in the past that he had coronary spasm by catheterization. 1. Discussed differential diagnosis and possibility of microvascular dysfunction. Since he improved with metoprolol, I think a first attempt at medical Rx is reasonable. Change metoprolol 50 mg BID to carvedilol 12.5 mg BID - better BP control and less risk of worsening coronary spasm given the balanced alpha and beta blockade of carvedilol. 2. If incomplete response, could add ranolazine. Followup visit in 3 month by virtual visit. I have asked patient to record heart rate and BP for a week or so before. 3. If symptoms worsen, would go to cardiac catheterization. 08/29/2022 - carvedilol dose increased to 25 mg BID based upon home blood pressures. PAST MEDICAL HISTORY Diagnosis Date CAD (coronary artery disease), [place] coronary artery 01/16/2005 04/10/2003 -PCI to RCA (Cypher x 2, Hepacoat x 1) and PTCA to OM1 05/04/2003 -Cutting balloon to small OM1 03/28/2004 - (Dr. Brock) PCI to OM1 (2.5x18 Cypher) 01/30/2005 (Dr. Brock) PCI to 1st Diag (2.5/13 Cypher) & PCI to LAD (3.0/18 Cypher) 03/20/2005 Catheterization showed widely-patent stents in the LAD, D1, OM1, and RCA, with no new narrowings 01/07/2206- exercise thallium exercise test at 92%, 11.3 METS, caused chest discomfort, but EKG was normal. The scan is normal. 03/03/2007 cath -Dr. Albert LM- nl, LAD- prox and 1st DG stents patent, mild LCX-stent patent with mild diffuse dz RCA- stent patent with mild diffuse dz med management 03/2008 stress test 88% MPHR, 8 METS, leg pain, SOb, palpitations, no EKG changes Normal study. 1. There is no scan evidence of exercise induced myocardial ischemia. 2. Left ventricular function is normal. GERD (gastroesophageal reflux disease) HLD (hyperlipidemia) HTN (hypertension) Osteoarthritis Prostate cancer (HCC) 12/2018 s/p prostatectomy 01/2019 Prostate disease PVC (premature ventricular contraction) frequent PAST SURGICAL HISTORY Procedure Laterality Date CARDIAC CATH 02/2007 Mild nonobstructive CAD. Patent stents in the LAD/D1/LCx/RCA. CC PCI CORONARY INTERVENT 04/10/2003 PCI to RCA (Cypher x 2, Hepacoat x 1) and PTCA to OM1 CC PCI CORONARY INTERVENT 05/04/2003 Cutting balloon to small OM1 CC PCI CORONARY INTERVENT 01/30/2005 Cutting balloon to small OM1 CC PCI CORONARY INTERVENT 03/30/2015 Proximal RCA Promus Premier 3.5 x 28 mm everolimus PALAK CC PCI CORONARY INTERVENT 2015 PAST SURGICAL HISTORY OF carpal tunnel release left wrist PAST SURGICAL HISTORY OF 2007 s/p hernia repair PAST SURGICAL HISTORY OF left rotator cuff repair PAST SURGICAL HISTORY OF 2008 neck, fused C 5, 6 & 7 RADICAL PROSTATECTOMY 01/2019 REMOVAL GALLBLADDER 2008 FAMILY HISTORY Problem Relation Age of Onset Cancer Mother at age 63 Heart Mother heart valve replaced other (heart valve disease) Mother Coronary Artery Disease Father at 74 of an [place] Heart Attack Sister passed from [place] Coronary Artery Disease Brother s/p PCI, [place] Heart Attack Brother Coronary Artery Disease Brother [place] Heart Attack Brother Social History Tobacco Use Smoking status: Former Years: 25.00 Types: Cigarettes Quit date: 01/1992 Years since quittin.8 Smokeless tobacco: Never Substance Use Topics Alcohol use: No Drug use: No ALLERGIES Allergen Reactions Codeine Mental Status Change Nightmares Isosorbide Mononitr* Intolerance migraine JONES Lipitor [Atorvastat* Myalgia Muscle pain. Rhabdo Badkjjg-Rph-Ogs Red* Myalgia Zocor [Simvastatin] Other: See Comments Muscle cramps, pain (all statins) with Elevated CK CURRENT MEDICATIONS carvedilol (COREG) 25 mg tablet Take 1 tablet by mouth twice daily with meals. aspirin/acetaminophen/caffeine (EXCEDRIN MIGRAINE ORAL) Take 2 tablets by mouth every 6 hours as needed. celecoxib (CELEBREX) 200 mg capsule Take 200 mg by mouth once daily. acetaminophen/diphenhydramine (TYLENOL PM ORAL) Take 1 tablet by mouth daily at bedtime. lisinopril (PRINIVIL) 20 mg tablet Take 20 mg by mouth once daily. melatonin 10 mg cap Take 10 mg by mouth daily at bedtime. sildenafil (VIAGRA) 100 mg tablet Take 100 mg by mouth as needed. dilTIAZem CD (CARDIZEM CD, CARTIA XT) 180 mg 24 hr capsule Take 180 mg by mouth once daily. alirocumab 75 mg/mL pnij Inject 75 mg subcutaneously every [address] (PROTONIX) 40 mg tablet Take 40 mg by mouth once daily. aspirin, enteric coated (ASPIRIN, ENTERIC COATED) 81 mg EC tablet Take 81 mg by mouth once daily. PLAVIX 75 MG ORAL TAB Take one(1) tablet daily. NITROSTAT 0.4 MG SL SUBL Dissolve one(1) tablet under the toungue as needed for chest pain,every 5 min x3 REVIEW OF SYSTEMS: GENERAL: Negative for: Weight loss or gain, Fever or Chills, Weakness and Sleep difficulties. HEENT: Negative for: Headache, Impaired Vision, Glasses, Hearing Impairment, Ringing in Ears, Nosebleeds, Poor dental care, Bleeding Gums, Dentures NECK: Negative for: Swelling, Pain, Stiffness RESPIRATORY: Negative for: Cough, Blood in Sputum, Shortness of breath, Wheezing, Apnea GASTROINTESTINAL: Negative for: Trouble swallowing, Heartburn, Change in bowel habits, Blood in stool, Dark black stools MUSCULOSKELETAL: Negative for: Muscle or joint pain, Stiffness , Joint swelling NEUROLOGIC/PSYCHIATRIC: Negative for: Weakness, Paralysis, Numbness, Tingling, Tremor, Nervousness, Depressed mood, Memory loss SKIN: Negative for: Rashes, Itching HEMATOLOGICAL/LYMPHATIC: Negative for: Easy bruising , Easy bleeding ENDOCRINE: Negative for: Heat or cold intolerance, Excessive sweating, Frequent urination, Frequent thirst PHYSICAL EXAMINATION: VIDEO EXAM: (if completed, performed via video enabled technology) No exam performed PATIENT ENTERED QUESTIONNAIRE SCORES PHQ-9 06/12/2017 Score 2 PROMIS Global Health - (T-Scores - the mean of general population = 50. Five points is a clinically meaningful difference.) 06/12/2017 Physical T-Score 39.8 Mental T-Score 50.8 ASSESSMENT: Leonel Galdamez Jr. is a 72 year old male with CAD, multiple prior PCIs, with chest pain. 1. CAD - multivessel disease, s/p multiple catheterizations and PCI procedures. 04/10/2003 - PCI with stents to RCA 05/04/2003 - PCI to OM1 with cutting balloon 03/28/2004 - PCI to OM1 with PTCA and Cypher PALAK 01/30/2005 - PCI to LAD and diagonal with Cypher PALAK 03/20/2005 - Cardiac catheterization showing all stents patent 03/02/2007 - Cardiac catheterization showing all stents patent, mild diffuse disease 03/30/2015 - cardiac catheterization showing stents in LAD and LCX widely patent, with mild to moderate diffuse disease; the RCA was the culprit vessel, with a critical stenosis in the proximal vessel, proximal to the mid stents, extending into the mid stent. Treated by PCI of the proximal RCA with drug eluting stent. 06/03/2016 - cardiac catheterization showing prior PCI sites patent, progression of previously-mild disease in the proximal RCA proximal to the long stented segment. Treated by PCI with everolimus eluting stent to proximal RCA. 03/12/2017 - cardiac catheterization showing diffuse mild to moderate disease, but no obstructive stenoses. Functional assessment with IFR of the moderate stenoses in mid RCA and diagonal showed these to NOT be hemodynamically significant. 06/11/2020 - cardiac catheterization at OSH showing stents widely patent, mild diffuse disease throughout. 2. Normal LV function - last measurements by echo 07/10/2022 and stress nuclear 07/31/2022 at OSH. 3. Chest pain - he has apparently had a good response to addition and then dose increase of carvedilol. He is not longer have rest pain, and had only one episode in the last 3 months under unusually heavy workload. He not longer feels limited. Stress nuclear at OSH on 07/31/2022 showed no ischemia. However, I cannot find a stress test showing ischemia in the past, despite multiple PCIs, although the patient recalls outside stress test before PCI in 2015 during which he stopped after 2 minutes. I continue to believe that microvascular dysfunction is a likely diagnosis, given his history of chest pain the past when catheterization did not show stenoses (2016, 2019). If he has worsening with more physical activity, could add ranolazine. And, of course, may need to rule out progression of epicardial disease if symptoms worsen without response to medication. 4. HTN 5. Hyperlipidemia / statin intolerant (muscle weakness and elevated CK to multiple statins in the past) - on alirocumab. LDL 36 mg/dL by outside labs in 11/2021 PLAN (Active Outpatient Problems): 1. Continue current Rx. 2. He requests follow-up in 1 year unless his symptoms worsen. I personally spent 35 minutes in total time involved in the management and care of this patient. Ann Anderson MD November 14, 2022 10:30 AM documented in this encounter [facility] 11-10-2022 Miscellaneous Notes Call received from pt who had technical difficulties logging on to VV. Pt will be re-scheduled to 11/14 @ 10 am. Message sent to Urgent request pool Maye documented in this encounter [facility] 08-08-2022 Instructions Michi Anderson MD - 08/08/2022 12:07 PM EST Stop metoprolol, replace with carvedilol. After a few weeks, keep track of BP. Target is less than 130/80 mm Hg. If BP rises above 150s mm (upper number), contact me and we can increase carvedilol dose. Otherwise, will discuss meds on virtual visit in 3 months. documented in this encounter [facility] 08-08-2022 History of Present illness Narrative Images from the original note were not included. [facility] [place] Isaiah Barclay Department of Cardiovascular Medicine SECTION OF INTERVENTIONAL CARDIOLOGY OUTPATIENT VISIT DATE August 08, 2022 OUTPATIENT VISIT TYPE NEW PRIMARY CARE PHYSICIAN: Hugh Crooks MD [facility] [place] [address] [place] [address] REFERRING PHYSICIAN: Hugh Crooks MD [id number] [facility] [address] CHIEF COMPLAINT: No chief complaint on file. HISTORY OF PRESENT ILLNESS: Mr. Galdamez is a 71 year old male with history of multiple PCI procedures who presents today for chest pain. I last saw patient at time of catheterization in 03/2017. Since then: Diltiazem dose increased, with resolution or improvement of chest pain. 2019 - recurrent chest pain. 06/2020 - cardiac catheterization at [facility] in [place] - no images or results available. Per patient, no PCI performed. (Patient wonders if a catheterization was actually performed; he recalls no local anesthetic and could find no femoral puncture site giron). In retrospect, patient felt the chest pain was due to stress; a short while before, his great grandson had shot and killed himself and another friend had from gunshot wound. Did well with only occasional chest pain; able to bow ford and climb trees without chest pain, although with mild ECHAVARRIA. 07/10/2022 - hospitalized overnight at OSH with a few days of chest pain at rest. Enzymes negative. Metoprolol started. 07/10/2022 - Echo Global left ventricular systolic function is normal; visually estimated ejection fraction is 60 to 65%. No significant wall motion abnormalities. Normal diastolic function. Biatrial enlargement. The right ventricle is normal in size with normal systolic function. Mild tricuspid regurgitation. Mild mitral regurgitation. 07/31/2022 - Nuclear stress test at OSH: Normal nuclear medicine myocardial perfusion scan. Chest pain - like someone sitting on my chest with moderate arm pain. Associated with SOB - like I am not getting enough air. Occurs at rest, while sitting - never on exertion. Last minutes to 1 hour, resolve spontaneously. Believes nitroglycerin helps, but uses infrequently. Occurs a few times per week, none in the last few days. Occasionally nocturnal. Believes his chest pain has improved with metoprolol - less frequent and severe. BP at home running 120-140s/80s mm Hg. PAST CARDIAC HISTORY CRFs: lipids, HTN, tobacco (stopped in 1991), FHx 04/10/2003 - PCI with stents to RCA 05/04/2003 - PCI to OM1 with cutting balloon 03/28/2004 - PCI to OM1 with PTCA and Cypher PALAK 01/30/2005 - PCI to LAD and diagonal with Cypher PALAK 03/20/2005 - Coronary angiogram showing all stents patent 03/02/2007 - Coronary angiogram showing all stents patent, mild diffuse disease 03/30/2015 - Cardiac catheterization and PCI by me: LM - short, mild LAD - mild to moderate diffuse disease, stents in mid LAD and diagonal widely patent LCX - mild to moderate diffuse disease RCA - dominant, large. Proximal RCA has eccentric 95% calcified stenosis, extending into the mid stent with ~60% proximal in-stent restenosis. Diffuse moderate disease. Underwent PCI of the proximal RCA with Promus Premier 3.5 x 28 mm everolimus eluting stent 06/03/2016 - Cardiac catheterization and PCI by me: LM - normal LAD - moderate diffuse disease, stent widely patent, no obstructive stenosis LCX - mild to moderate diffuse disease RCA - proximal vessel with 70-80% eccentric stenosis at proximal margin of stent. Long stented mid segment widely patent with only mild diffuse in-stent restenosis Underwent PCI of the proximal RCA with Xience Alpine 4.0 x 12 mm everolimus eluting stent 03/12/2017 - Cardiac catheterization by me: LM - normal LAD - bifurcation stent in LAD and diagonal patent with mild ~30% in-stent restenosis. Mild diffuse disease, maximum 40% mid diagonal focal stenosis LCX - mild diffuse disease RCA - dominant, large. Stents throughout proximal and mid segment patent, with maximum ~50% in-stent stenosis in mid segment. IFR measured across RCA (proximal, mid, and distal, with transducer in PDA) and Diagonal stenoses RCA = IFR = 0.95 - not significant Diagonal - IFR = 0.94 - not significant NURSING INTAKE: 78 yo male with past medical history of: CAD s/p multiple PCI, HTN, HLD, former smoking (quit 1991) , frequent PVC's, prostate cancer s/p prostatectomy 2018, GERD, arthritis, family hx CAD (5/6 siblings, mother, and father) He is here for evaluation of chest pain. [facility] ED note 07/09/2022: The patient is a 71-year-old male with a history of CAD, status post multiple stents, who was in his usual state of health until earlier this week, when he started developing left anterior chest pain. He took five nitro at that time and the symptoms were self-limiting. He started having worsening pain today after dinner, associated with shortness of breath. He took three sublingual nitroglycerin. His initial pain was 10/10 and was 3/10 by the time he arrived to the ER. It radiated down his left arm and associated with diaphoresis as well as nausea. It was similar to his episodes in the past. He denies any new medications, recent stress or new trauma. He has had vaccinations against COVID and flu. Two sets of cardiac enzymes have been negative. He is being admitted for further evaluation. His troponins were negative, BNP 22, Cxray shows no acute disease, EKG NSR. He had an echocardiogram while in hospital and NM stress test 3 weeks later which was normal. On discharge they added metoprolol tartrate which he thinks has helped with chest pains. He has not had to take nitro since. Chest pain is described as a heaviness someone sitting on my chest that will radiate to his left shoulder and down arm. Happens at rest and will wake him up through the night. Associated with this he feels short of breath not able to inhale enough air . He has hx PVCs associated with this he feels lightheaded at times. No LOC. His last cardiac catheterization was 06/[address] [facility] in [place]. No intervention was done at that time. Risk factors for coronary artery disease hyperlipidemia, hypertension, history of smoking, family history of CAD He denies PND, syncope, claudication, leg swelling, cough, and wheezing. Diet / Nutrition: regular Weight: stable Exercise: none, active around his house when weather permits All caths from [id number] [facility] 04/10/03 RCA (3.0x8, 3.0x18, 3.5x18) 05/04/03 1st OMCutting Balloon 03/28/04 1st OMBalloon Angioplasty, 1st OMSirolimus-Eluting Stent 01/30/05 drug eluting stents were successfully placed into the diagonal (2.5/13 Cypher at 16 sonja) and LAD (3.0/18 Cypher at 16 sonja) 03/19/05 Nuclear stress test: NO DEFINITIVE REVERSIBLE DEFECTS TO INDICATE ISCHEMIA. NORMAL LEFT VENTRICULAR SIZE AND SYSTOLIC FUNCTION. 03/20/05 Coronary angiogram: widely-patent stents in the LAD, D1, OM1, and RCA, with no new narrowings. 01/07/06 Spect nuclear stress test: NO EVIDENCE FOR MYOCARDIAL ISCHEMIA OR SCAR. NORMAL LEFT VENTRICULAR FUNCTION 03/02/07 Coronary angiogram: normal left main trunk, and patent stents in the proximal LAD and 1st diagonal with only mild disease. The LCx has patent proximal stent with mild diffuse stenosis and the dominant RCA has mild disease and widely patent stents. 03/13/08 Nuclear stress test: Normal study. 1. There is no scan evidence of exercise induced myocardial ischemia. 2. Left ventricular function is normal. 01/24/09 Myoview spect: IMPRESSION: 1. NO SCINTIGRAPHIC EVIDENCE OF ISCHEMIA OR INFARCTION. 2. NORMAL GLOBAL AND REGIONAL LEFT VENTRICULAR FUNCTION. 06/03/16 Coronary angiogram: LMT: The LMT is Normal. LAD: The is narrowed 40 %. This segment is described as Diffuse Disease. LCX: The is narrowed 40 %. This segment is described as Diffuse Disease. RAMUS: The Ramus is Absent. RCA: The Proximal RCA is narrowed 80 %. PCI Successful PCI to the proximal right coronary artery with a 4.0x12 Xience [place] EES 03/12/17 Coronary angiogram: LM - normal LAD - bifurcation stent in LAD and diagonal patent with mild ~30% in-stent restenosis. Mild diffuse disease, maximum 40% mid diagonal focal stenosis LCX - mild diffuse disease RCA - dominant, large. Stents throughout proximal and mid segment patent, with maximum ~50% in-stent stenosis in mid segment. IFR measured across RCA (proximal, mid, and distal, with transducer in PDA) and Diagonal stenoses RCA = IFR = 0.95 - not significant Diagonal - IFR = 0.94 - not significant Injection Site(s): Coronary Artery LMT: - The LMT is normal. LAD: - The LAD has mild diffuse disease. - The proximal LAD is narrowed 30 % - ISR. - The 2nd diagonal is narrowed 30 % - ISR. - The 2nd diagonal is narrowed 40 % - focal disease. LCX: - The Circumflex has mild diffuse disease. RAMUS: - The Ramus is Absent. RCA: - The mid RCA is narrowed 50 % - ISR. Additional Comment: IFR measured across RCA (proximal, mid, and distal, with transducer in PDA). 07/10/22 Echo: CONCLUSION: Global left ventricular systolic function is normal; visually estimated ejection fraction is 60 to 65%. No significant wall motion abnormalities. Normal diastolic function. Biatrial enlargement. The right ventricle is normal in size with normal systolic function. Mild tricuspid regurgitation. Mild mitral regurgitation. 07/31/22 Nuclear stress test: Rest and peak stress ECG findings were normal and the exercise portion of the study was normal per attending physician Dr. Rome . For more details please see separate cardiac stress test report. FINDINGS: QUALITY OF STUDY: Excellent. PERFUSION DEFECT: None. LOCATION: N/A SIZE: N/A. SEVERITY: N/A. TYPE: N/A. WALL MOTION: Normal. LV SIZE: Normal. 101 mL. TID / TCD: None; 1.0 LVEF: Normal. Calculated EF 60%. SUMMARY: Myocardial perfusion imaging study is NORMAL. 07/09/22: BNP 22 Na 138 K 4.1 BUN 22 Cr 1.22 11/21/21: HGBA1C 5.6 Chol 113 HDL 53 LDL 36 Trig 121 PAST MEDICAL HISTORY Diagnosis Date CAD (coronary artery disease), [place] coronary artery 01/16/2005 04/10/2003 -PCI to RCA (Cypher x 2, Hepacoat x 1) and PTCA to OM1 05/04/2003 -Cutting balloon to small OM1 03/28/2004 - (Dr. Brock) PCI to OM1 (2.5x18 Cypher) 01/30/2005 (Dr. Brock) PCI to 1st Diag (2.5/13 Cypher) & PCI to LAD (3.0/18 Cypher) 03/20/2005 Catheterization showed widely-patent stents in the LAD, D1, OM1, and RCA, with no new narrowings 01/07/2206- exercise thallium exercise test at 92%, 11.3 METS, caused chest discomfort, but EKG was normal. The scan is normal. 03/03/2007 cath -Dr. Albert LM- nl, LAD- prox and 1st DG stents patent, mild LCX-stent patent with mild diffuse dz RCA- stent patent with mild diffuse dz med management 03/2008 stress test 88% MPHR, 8 METS, leg pain, SOb, palpitations, no EKG changes Normal study. 1. There is no scan evidence of exercise induced myocardial ischemia. 2. Left ventricular function is normal. GERD (gastroesophageal reflux disease) HLD (hyperlipidemia) HTN (hypertension) Osteoarthritis Prostate cancer (HCC) 12/2018 s/p prostatectomy 01/2019 Prostate disease PVC (premature ventricular contraction) frequent PAST SURGICAL HISTORY Procedure Laterality Date CARDIAC CATH 02/2007 Mild nonobstructive CAD. Patent stents in the LAD/D1/LCx/RCA. CC PCI CORONARY INTERVENT 04/10/2003 PCI to RCA (Cypher x 2, Hepacoat x 1) and PTCA to OM1 CC PCI CORONARY INTERVENT 05/04/2003 Cutting balloon to small OM1 CC PCI CORONARY INTERVENT 01/30/2005 Cutting balloon to small OM1 CC PCI CORONARY INTERVENT 03/30/2015 Proximal RCA Promus Premier 3.5 x 28 mm everolimus PALAK CC PCI CORONARY INTERVENT 2015 PAST SURGICAL HISTORY OF carpal tunnel release left wrist PAST SURGICAL HISTORY OF 2007 s/p hernia repair PAST SURGICAL HISTORY OF left rotator cuff repair PAST SURGICAL HISTORY OF 2009 neck, fused C 5, 6 & 7 RADICAL PROSTATECTOMY 01/2019 REMOVAL GALLBLADDER 2007 SOCIAL HISTORY Social History Tobacco Use Smoking status: Former Years: 25.00 Types: Cigarettes Quit date: 01/1992 Years since quittin.6 Smokeless tobacco: Never Substance Use Topics Alcohol use: No Drug use: No FAMILY HISTORY Problem Relation Age of Onset Cancer Mother at age 63 Heart Mother heart valve replaced other (heart valve disease) Mother Coronary Artery Disease Father at 74 of an [place] Heart Attack Sister passed from [place] Coronary Artery Disease Brother s/p PCI, [place] Heart Attack Brother Coronary Artery Disease Brother [place] Heart Attack Brother ALLERGIES: ALLERGIES Allergen Reactions Codeine Mental Status Change Nightmares Isosorbide Mononitr* Intolerance migraine JONES Lipitor [Atorvastat* Myalgia Muscle pain. Rhabdo Ekkpxah-Srs-Ssk Red* Myalgia Zocor [Simvastatin] Other: See Comments Muscle cramps, pain (all statins) with Elevated CK MEDICATIONS: metoprolol tartrate, short acting, (LOPRESSOR) 50 mg tablet Take 50 mg by mouth twice daily. aspirin/acetaminophen/caffeine (EXCEDRIN MIGRAINE ORAL) Take 2 tablets by mouth every 6 hours as needed. celecoxib (CELEBREX) 200 mg capsule Take 200 mg by mouth once daily. acetaminophen/diphenhydramine (TYLENOL PM ORAL) Take 1 tablet by mouth daily at bedtime. lisinopril (PRINIVIL) 20 mg tablet Take 20 mg by mouth once daily. melatonin 10 mg cap Take 10 mg by mouth daily at bedtime. sildenafil (VIAGRA) 100 mg tablet Take 100 mg by mouth as needed. dilTIAZem CD (CARDIZEM CD, CARTIA XT) 180 mg 24 hr capsule Take 180 mg by mouth once daily. alirocumab 75 mg/mL pnij Inject 75 mg subcutaneously every [address] (PROTONIX) 40 mg tablet Take 40 mg by mouth once daily. aspirin, enteric coated (ASPIRIN, ENTERIC COATED) 81 mg EC tablet Take 81 mg by mouth once daily. PLAVIX 75 MG ORAL TAB Take one(1) tablet daily. NITROSTAT 0.4 MG SL SUBL Dissolve one(1) tablet under the toungue as needed for chest pain,every 5 min x3 REVIEW OF SYSTEMS: GENERAL: no fever, no chills, and no change in weight HEENT: no headaches, no hearing loss, no difficulty swallowing, no visual changes, no nose bleeds SKIN: no rashes, no lesions, and no ulcers RESPIRATORY: SEE HPI CARDIOVASCULAR: See HPI GASTROINTESTINAL: no abdominal pain, no nausea, no vomiting, no difficulty or painful swallowing, and no melanotic stools GENITOURINARY: no dysuria, no frequency, and no nocturia MUSCULOSKELETAL: no joint pain, no joint swelling, no muscle pain or myalgias, and no pain with walking NEUROLOGIC: no numbness, no tingling, and no sensation of pins and needles HEMATOLOGY: no bruising easily, no prolonged bleeding, no anemia, and no cancer ENDOCRINE: no cold or heat intolerance, no polyuria, no polydipsia, no goiter, no diabetes, and no thyroid disease PSYCH: no sleep disturbance, no mood disorders, and no recent psychosocial stressors PHYSICAL EXAMINATION: BP 151/78 Pulse 65 Resp 18 Ht 5' 9 (1.75m) Wt 192 lb 8 oz (87.3kg) SpO2 96[RA]% BMI 28.41 kg/(m^2). General appearance: well appearing, in no acute distress, alert Skin: skin color, texture, turgor normal, no rashes or lesions Head: normal Neck: neck supple, no adenopathy; thyroid symmetric, normal size Lungs: lungs clear to auscultation, no wheezing or rhonchi Heart: Carotids full without bruits. PMI non-displaced. RRR. Normal S1 and S2, without S3 or S4. No murmur or rubs. Abdomen: Normal abdominal exam, Abdomen soft, non-tender. Bowel sounds normal. No masses, organomegaly Extremities: Extremities normal. No deformities or skin discoloration. Good capillary refill. No edema. Peripheral pulses: Normal Neuro: Gait normal. Sensation and muscle strength grossly intact. CARDIOVASCULAR MEDICINE TESTING: No Cardiovascular testing perfomed today. There were no tests performed for review. IMPRESSION: Mr. Galdamez is a 71 year old male with CAD, multiple prior PCIs, with chest pain. 1. CAD - multivessel disease, s/p multiple catheterizations and PCI procedures. 04/10/2003 - PCI with stents to RCA 05/04/2003 - PCI to OM1 with cutting balloon 03/28/2004 - PCI to OM1 with PTCA and Cypher PALAK 01/30/2005 - PCI to LAD and diagonal with Cypher PALAK 03/20/2005 - Cardiac catheterization showing all stents patent 03/02/2007 - Cardiac catheterization showing all stents patent, mild diffuse disease 03/30/2015 - cardiac catheterization showing stents in LAD and LCX widely patent, with mild to moderate diffuse disease; the RCA was the culprit vessel, with a critical stenosis in the proximal vessel, proximal to the mid stents, extending into the mid stent. Treated by PCI of the proximal RCA with drug eluting stent. 06/03/2016 - cardiac catheterization showing prior PCI sites patent, progression of previously-mild disease in the proximal RCA proximal to the long stented segment. Treated by PCI with everolimus eluting stent to proximal RCA. 03/12/2017 - cardiac catheterization showing diffuse mild to moderate disease, but no obstructive stenoses. Functional assessment with IFR of the moderate stenoses in mid RCA and diagonal showed these to NOT be hemodynamically significant. 06/2020 - cardiac catheterization at OSH - no results or images available. Per patient, no PCI performed. 2. Normal LV function - last measurements by echo 07/10/2022 and stress nuclear 07/31/2022 at OSH. 3. Chest pain - atypical features, occurring only at rest and can last up to 1 hour. But he reports that the character of the pain is similar to that in the past prior to stents, although less severe. He had both rest and exertional chest pain in the past. Stress nuclear at OSH on 07/31/2022 showed no ischemia. However, I cannot find a stress test showing ischemia in the past, despite multiple PCIs, although the patient recalls outside stress test before PCI in 2015 during which he stopped after 2 minutes. Cardiac catheterization as performed at OSH in 06/2020, but results not available to me. As that was more than 2 years ago, not clearly relevant to symptoms at this point. DDx includes progression of epicardial CAD. But given his history of chest pain the past when catheterization did not show stenoses (2016, 2019), as well as the atypical (rest and nocturnal) nature of the pain, microvascular dysfunction is perhaps a more likely diagnosis. He reports that he was told in the past that he had coronary spasm by catheterization. 4. HTN - elevated BP in office today at 151/78 mm Hg. May be better controlled by home measurements. 5. Hyperlipidemia / statin intolerant (muscle weakness and elevated CK to multiple statins in the past) - on alirocumab. LDL 36 mg/dL by outside labs in 11/2021 PLAN AND RECOMMENDATIONS: 1. Discussed differential diagnosis and possibility of microvascular dysfunction. Since he improved with metoprolol, I think a first attempt at medical Rx is reasonable. Change metoprolol 50 mg BID to carvedilol 12.5 mg BID - better BP control and less risk of worsening coronary spasm given the balanced alpha and beta blockade of carvedilol. 2. If incomplete response, could add ranolazine. Followup visit in 3 month by virtual visit. I have asked patient to record heart rate and BP for a week or so before. 3. If symptoms worsen, would go to cardiac catheterization. I personally interviewed, confirmed and edited the above information as obtained by others. Ann Anderson MD CONTACT INFORMATION: Ann Anderson M.D. Section of Interventional Cardiology [facility] Department of Cardiovascular Medicine Heart and Vascular [place] [facility] Desk [id number] [place] [address] Office - [phone] extension [phone] Office Appointments: [phone] extension [phone] documented in this encounter [facility] 07-10-2022 Note PROGRESS NOTE NOTE DATE: 07/09/2022 CHIEF COMPLAINT: Chest pain. HISTORY OF PRESENT ILLNESS: The patient is a 71-year-old male with a history of CAD, status post multiple stents, who was in his usual state of health until earlier this week, when he started developing left anterior chest pain. He took five nitro at that time and the symptoms were self-limiting. He started having worsening pain today after dinner, associated with shortness of breath. He took three sublingual nitroglycerin. His initial pain was 10/10 and was 3/10 by the time he arrived to the ER. It radiated down his left arm and associated with diaphoresis as well as nausea. It was similar to his episodes in the past. He denies any new medications, recent stress or new trauma. He has had vaccinations against COVID and flu. Two sets of cardiac enzymes have been negative. He is being admitted for further evaluation. PHYSICAL EXAM: VITAL SIGNS: Respiratory rate 18, heart rate 100, BP 103/73, saturating 97% on room air. GENERAL: Alert and oriented x3. HEENT: Extraocular movements are intact. Pupils equal, round and reactive to light and accommodation. NECK: Supple. No evidence of JVD or carotid bruits. LUNGS: Clear to auscultation bilaterally. HEART: Regular rate and rhythm. No precordial tenderness. ABDOMEN: Soft, non-tender, non-distended. EXTREMITIES: No clubbing, cyanosis or edema NEUROLOGICALLY: Alert and oriented x3. No focal deficits. LABS: Troponin negative, BNP 22, sodium 138, potassium 4.1, total bilirubin 0.2, WBC 8.5, hemoglobin 14.4, hematocrit 41.4. DIAGNOSTICS: Chest x-ray shows no acute disease. EKG shows normal sinus rhythm with no ST changes. IMPRESSION: The patient is a 71-year-old male with a history of CAD, status post multiple stents, presenting with recurrent chest pain. 1. Atypical chest pain: The patient is on Plavix, aspirin, CARA inhibitor and calcium channel joss. Nitroglycerin as needed for pain. Keep NPO after midnight. Day provider to decide on if patient requires stress testing; however, patient states that every time he gets a stress test, he is referred by Cardiology for another and stent placement. It is reassuring that two cardiac enzymes are negative. Repeat serial cardiac enzymes. Hold diltiazem for stress test. 2. DVT prophylaxis: Plavix. DISPOSITION: Home when medically stable [facility] 10-29-2021 Hospital Discharge instructions Patient Education 10/29/2021 08:35:15 Benign Prostatic Hyperplasia Benign Prostatic Hyperplasia Benign prostatic hyperplasia (BPH) is an enlarged prostate gland that is caused by the normal aging process and not by cancer. The prostate is a walnut-sized gland that is involved in the production of semen. It is located in front of the rectum and below the bladder. The bladder stores urine and the urethra is the tube that carries the urine out of the body. The prostate may get bigger as a man gets older. An enlarged prostate can press on the urethra. This can make it harder to pass urine. The build-up of urine in the bladder can cause infection. Back pressure and infection may progress to bladder damage and kidney (renal) failure. What are the causes? This condition is part of a normal aging process. However, not all men develop problems from this condition. If the prostate enlarges away from the urethra, urine flow will not be blocked. If it enlarges toward the urethra and compresses it, there will be problems passing urine. What increases the risk? This condition is more likely to develop in men over the age of 50 years. What are the signs or symptoms? Symptoms of this condition include: Getting up often during the night to urinate. Needing to urinate frequently during the day. Difficulty starting urine flow. Decrease in size and strength of your urine stream. Leaking (dribbling) after urinating. Inability to pass urine. This needs immediate treatment. Inability to completely empty your bladder. Pain when you pass urine. This is more common if there is also an infection. Urinary tract infection (UTI). How is this diagnosed? This condition is diagnosed based on your medical history, a physical exam, and your symptoms. Tests will also be done, such as: A post-void bladder scan. This measures any amount of urine that may remain in your bladder after you finish urinating. A digital rectal exam. In a rectal exam, your health care provider checks your prostate by putting a lubricated, gloved finger into your rectum to feel the back of your prostate gland. This exam detects the size of your gland and any abnormal lumps or growths. An exam of your urine (urinalysis). A prostate specific antigen (PSA) screening. This is a blood test used to screen for prostate cancer. An ultrasound. This test uses sound waves to electronically produce a picture of your prostate gland. Your health care provider may refer you to a specialist in kidney and prostate diseases (urologist). How is this treated? Once symptoms begin, your health care provider will monitor your condition (active surveillance or watchful waiting). Treatment for this condition will depend on the severity of your condition. Treatment may include: Observation and yearly exams. This may be the only treatment needed if your condition and symptoms are mild. Medicines to relieve your symptoms, including: ?Medicines to shrink the prostate. ?Medicines to relax the muscle of the prostate. Surgery in severe cases. Surgery may include: ?Prostatectomy. In this procedure, the prostate tissue is removed completely through an open incision or with a laparoscope or robotics. ?Transurethral resection of the prostate (TURP). In this procedure, a tool is inserted through the opening at the tip of the penis (urethra). It is used to cut away tissue of the inner core of the prostate. The pieces are removed through the same opening of the penis. This removes the blockage. ?Transurethral incision (TUIP). In this procedure, small cuts are made in the prostate. This lessens the prostate's pressure on the urethra. ?Transurethral microwave thermotherapy (TUMT). This procedure uses microwaves to create heat. The heat destroys and removes a small amount of prostate tissue. ?Transurethral needle ablation (TUNA). This procedure uses radio frequencies to destroy and remove a small amount of prostate tissue. ?Interstitial laser coagulation (ILC). This procedure uses a laser to destroy and remove a small amount of prostate tissue. ?Transurethral electrovaporization (TUVP). This procedure uses electrodes to destroy and remove a small amount of prostate tissue. ?Prostatic urethral lift. This procedure inserts an implant to push the lobes of the prostate away from the urethra. Follow these instructions at home: Take huzo-bkw-jvlinpy and prescription medicines only as told by your health care provider. Monitor your symptoms for any changes. Contact your health care provider with any changes. Avoid drinking large amounts of liquid before going to bed or out in public. Avoid or reduce how much caffeine or alcohol you drink. Give yourself time when you urinate. Keep all follow-up visits as told by your health care provider. This is important. Contact a health care provider if: You have unexplained back pain. Your symptoms do not get better with treatment. You develop side effects from the medicine you are taking. Your urine becomes very dark or has a bad smell. Your lower abdomen becomes distended and you have trouble passing your urine. Get help right away if: You have a fever or chills. You suddenly cannot urinate. You feel lightheaded, or very dizzy, or you faint. There are large amounts of blood or clots in the urine. Your urinary problems become hard to manage. You develop moderate to severe low back or flank pain. The flank is the side of your body between the ribs and the hip. These symptoms may represent a serious problem that is an emergency. Do not wait to see if the symptoms will go away. Get medical help right away. Call your local emergency services (911 in the [place] Do not drive yourself to the hospital. Summary Benign prostatic hyperplasia (BPH) is an enlarged prostate that is caused by the normal aging process and not by cancer. An enlarged prostate can press on the urethra. This can make it hard to pass urine. This condition is part of a normal aging process and is more likely to develop in men over the age of 50 years. Get help right away if you suddenly cannot urinate. This information is not intended to replace advice given to you by your health care provider. Make sure you discuss any questions you have with your health care provider. Document Released: 06/22/2006 Document Revised: 05/17/2019 Document Reviewed: 07/27/2017 [employer] Patient Education 2020 [employer]. Follow Up Care 10/30/2020 08:55:41 With:Rafael Cyr Jr., MD, URO Address: [facility] [address], [place] [address]- When:10/29/2022 Comments:with PSA [facility] Evaluation + Plan note Future Appointments Appointment Date:11/04/2022 08:30:00 AM Scheduled Provider:Rafael Cyr Jr., MD Location:[facility] Appointment Type:URO Office Visit Diagnostic Tests PendingPSA Total 10/29/21 [facility] Evaluation note Diagnosis Coronary 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)- Primary S/P drug eluting coronary stent placement Postsurgical percutaneous transluminal coronary angioplasty status Hyperlipidemia, unspecified hyperlipidemia type Essential hypertension Unspecified essential hypertension Family history of early CAD Family history of ischemic heart disease Chest pain, unspecified type documented in this encounter [facility] Diagnosis Coronary 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)- Primary S/P drug eluting coronary stent placement Postsurgical percutaneous transluminal coronary angioplasty status Hyperlipidemia, unspecified hyperlipidemia type Essential hypertension Unspecified essential hypertension Family history of early CAD Family history of ischemic heart disease Chest pain, unspecified type documented in this encounter [facility] Diagnosis Coronary 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)- Primary S/P drug eluting coronary stent placement Postsurgical percutaneous transluminal coronary angioplasty status Microvascular angina (HCC) Hyperlipidemia, unspecified hyperlipidemia type Essential hypertension Unspecified essential hypertension Family history of early CAD Family history of ischemic heart disease Chest pain, unspecified type documented in this encounter [facility] course Narrative No data available for this section [facility] Summary Purpose Family History No Family History Records FoundNo Family History Records FoundNo Family History Records Found Advance Directives Documents on File Type Date Recorded Patient Cinder Pitman Expl anation Advance Directive(s) Advance Directive(s) 08/20/2006 Documents on File Type Date Recorded Patient Cinder Pitman Expl anation Advance Directive(s) Advance Directive(s) 08/20/2006 Reason for Referral Specialty Diagnoses / Procedures Referred By Contac t Referred To Contact [facility] Diagnoses Coronary 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) Procedures CARDIOVASCULAR MEDICINE OP FOLLOW UP APPT ORDER Michi Anderson MD [address], [address] [place] [address] [facility] [place] [email or web address] [address] Referral ID Status Reason Start Date Expiration Date Visits Requested Visits Authorized [id number] Ref Not Required PCP Requested Referral 08/17/2024 11/15/2024 1 1 Additional Source Comments (unrecognized sect ion and content) No Status Records FoundNo Status Records FoundNo Status Records Found INFORMATION SOURCE (unrecogn ized section and content) DATE CREATED AUTHOR 11/22/2021 Huber Leal [facility] DATE CREATED AUTHOR AUTHOR'S ORGANIZ ATION 08/02/2022 [facility] DATE CREATED AUTHOR AUTHOR'S ORGANIZ ATION 11/17/2023 [facility] Source Comments (unrecognize d section and content) In the event this informatio n is protected by the Federal Confidentiality of Alcohol and Drug Abuse Patient Records regulations: The Federal rules restrict any use of the information to criminally investigate or prosecute any alcohol or drug abuse patient.[facility] the event this information is protected by the Federal Confidentiality of Alcohol and Drug Abuse Patient Records regulations: The Federal rules restrict any use of the information to criminally investigate or prosecute any alcohol or drug abuse patient.[facility] the event this information is protected by the Federal Confidentiality of Alcohol and Drug Abuse Patient Records regulations: The Federal rules restrict any use of the information to criminally investigate or prosecute any alcohol or drug abuse patient.[facility] the event this information is protected by the Federal Confidentiality of Alcohol and Drug Abuse Patient Records regulations: The Federal rules restrict any use of the information to criminally investigate or prosecute any alcohol or drug abuse patient.[facility] the event this information is protected by the Federal Confidentiality of Alcohol and Drug Abuse Patient Records regulations: The Federal rules restrict any use of the information to criminally investigate or prosecute any alcohol or drug abuse patient.[facility] Reason for Visit (unrecogniz ed section and content) Reason Comments New Patient Reason Comments Appointment Reason Comments Coronary Artery Disease Reason Onset Date Comments Refill Request 08/26/2023 Reason Comments CARD Follow Up Annual Care Teams (unrecognized sec tion and content) Gas Adjuster Relationship Specialty Start Date End Date Hugh Crooks MD PCP - General Cardiology 03/05/04 Rafael Cyr Jr. [address] [facility] [place] [address] Physician Urology 12/17/18 Erick Ordoñez [facility] [place] [address] Primary Staff Physician Cardiology 09/21/18 Hugh Crooks MD [address] [place] [address] Referring Family Medicine 07/23/22 Michi Anderson MD [address] [place] [place] [address] Primary Staff Physician Cardiology 08/08/22 Gas Adjuster Relationship Specialty Start Date End Date Hugh Crooks MD PCP - General Cardiology 03/05/04 Rafael Cyr Jr. [address] [place] [address] Physician Urology 12/17/18 Monica Ordoñeztan Vagesh [address] [place] [address] Primary Staff Physician Cardiology 09/21/18 Hugh Crooks MD [address] [place] [address] Referring Family Medicine 07/23/22 Michi Anderson MD [address], [place] [place] [address] Primary Staff Physician Cardiology 08/08/22 Gas Adjuster Relationship Specialty Start Date End Date Hugh Crooks MD PCP - General Cardiology 03/05/04 Rafael Cyr Jr. [address] [place] [address] Physician Urology 12/17/18 Erick Ordoñez Vagesh [address] [place] [address] Primary Staff Physician Cardiology 09/21/18 Hugh Crooks MD [address] [place] [address] Referring Family Medicine 07/23/22 Michi Anderson MD [address], [address] [place] [address] Primary Staff Physician Cardiology 08/08/22 Gas Adjuster Relationship Specialty Start Date End Date Hugh Crooks MD PCP - General Cardiology 03/05/04 Rafael Cyr Jr. [address] [place] [address] Physician Urology 12/17/18 Erick Ordoñez [address] [place] [address] Primary Staff Physician Cardiology 09/21/18 Hugh Crooks MD [address] [facility] [place] [address] Referring Family Medicine 07/23/22 Michi Anderson MD [address] [place] [place] [address] Primary Staff Physician Cardiology 08/08/22 Gas Adjuster Relationship Specialty Start Date End Date Hugh Crooks MD PCP - General Cardiology 03/05/04 Rafael Cyr Jr. [address] [place] [address] Physician Urology 12/17/18 Erick Ordoñez [address] [place] [address] Primary Staff Physician Cardiology 09/21/18 Huhg Crooks MD [address] [place] [address] Referring Family Medicine 07/23/22 Michi Anderson MD [address] [place] [place] [address] Primary Staff Physician Cardiology 08/08/22 FOR RECORDS PERTAINING TO PATIENTS WHO ARE OR HAVE BEEN ENROLLED IN A CHEMICAL DEPENDENCY/SUBSTANCEABUSE PROGRAM, SOME INFORMATION MAY BE OMITTED. This clinical summary was aggregated from multiple sources. Caution should be exercised in using it in the provision of clinical care. This summary normalizes information from multiple sources, and as a consequence, information in this document may materially change the coding, format and clinical context of patient data. In addition, data may be omitted in some cases. CLINICAL DECISIONS SHOULD BE BASED ON THE PRIMARY CLINICAL RECORDS. [facility] [employer] provides no warranty or guarantee of the accuracy or completeness of information in this document.
[2023-12-03 10:54] LABS: Estimated Average Glucose 120 mg/dL; Glycohemoglobin A1C 5.8 % (4.5-6.2)
[2023-12-03 11:06] LABS: Chloride 103 mmol/L (98-107); Potassium 4.6 mmol/L (3.5-5.1); Sodium 140 mmol/L (136-145)
[2023-12-03 11:07] LABS: Alanine Aminotransferase 41 U/L (16-63); Albumin Globulin Ratio 1.1; Albumin Level 3.7 g/dL (3.4-5.0); Alkaline Phosphatase 78 U/L (46-116); Anion Gap 11.9; Aspartate Amino Transferase 25 U/L (15-37); BUN Creatinine Ratio 13.9; Bilirubin Total 0.5 mg/dL (0.2-1.0); Calcium 8.5 mg/dL (8.5-10.1); Carbon Dioxide 29.7 mmol/L (21.0-32.0); Chol HDL Ratio 2.2; Cholesterol 117 mg/dL (<=200); Estimated GFR (African America >60 (>=60); Estimated GFR (Non-African Ame 58 (>=60); Free T3 2.63 pg/mL (2.18-3.98); Globulin 3.5 g/dL; Glucose 102 mg/dL (74-106); HDL Cholesterol 54 mg/dL (40-60); LDL Cholesterol Calculated 42.2 mg/dL; Thyroid Stimulating Hormone 2.551 uIU/mL (0.358-3.740); Total Protein 7.2 g/dL (6.4-8.2); Triglycerides 104 mg/dL (<=150); Uric Acid 7.2 mg/dL (3.5-7.2); VLDL CHOLESTEROL 20.8 mg/dL
[2023-12-03 12:04] LABS: Basophils Absolute Auto 0.1 10^3/uL (0.0-0.1); Eosinophils Absolute Auto 0.2 10^3/uL (0.0-0.7); Eosinophils Percent Auto 3.1 % (0.9-7.0); Hematocrit 42.9 % (42.0-54.0); Hemoglobin 14.1 g/dL (14.0-18.0); Immature Granulocytes Abs Auto 0.02 10^3/uL (0.00-0.03); Immature Granulocytes Pct Auto 0.3 % (0.0-0.5); Lymphocytes Absolute Auto 1.5 10^3/uL (1.2-3.8); Lymphocytes Percent Auto 21.7 % (20.5-60.0); Mean Corpuscular HGB Conc 32.9 g/dL (29.9-35.2); Mean Corpuscular Hemoglobin 29.5 pg (25.9-34.0); Mean Corpuscular Volume 89.7 fL (80.0-94.0); Monocytes Absolute Auto 0.4 10^3/uL (0.3-0.8); Monocytes Percent Auto 6.2 % (1.7-12.0); Neutrophils Absolute Auto 4.7 10^3/uL (1.4-6.5); Neutrophils Percent Auto 67.7 % (43.0-75.0); Platelet Count 286 10^3/uL (150-450); Red Blood Count 4.78 10^6/uL (4.70-6.10); Red Cell Distribution Width 12.5 % (11.0-15.0)
[2023-12-04 08:13] LABS: PSA, Free <0.02 ng/mL; Prostate Specific Ag <0.1 ng/mL (0.0-4.0)
[2023-12-04 11:11] LABS: Insulin 19.1 uIU/mL (2.6-24.9)
== END 2023-12-03 10:16 | disposition home or self-care (01) ==
PROVIDERS: PCP Family Medicine; Visit Provider Family Medicine
DX: G47.30 Sleep apnea, unspecified (principal); I10 Essential (primary) hypertension; E78.5 Hyperlipidemia, unspecified; I25.10 Atherosclerotic heart disease of native coronary artery without angina pectoris; K21.9 Gastro-esophageal reflux disease without esophagitis; C61 Malignant neoplasm of prostate; R73.09 Other abnormal glucose; Z12.5 Encounter for screening for malignant neoplasm of prostate
CPT/HCPCS: 36415; 80053; 80061; 83036; 83525; 84153; 84154; 84436; 84443; 84481; 84550; 85025

== ENCOUNTER 2024-12-08 11:31 | Outpatient (OUT) | payer MEDICARE, OTHER, SELFPAY ==
--- OUTSIDE RECORDS SUMMARY | 2024-05-30 04:46 | XMS_ITS ---
Author Organization [facility] in [place] Address [address] [place] [address] Care Team Providers Care Mottler Machine Feeder Name Role Phone Tonny Crooks Primary Care Provider [phone] REASON FOR VISIT rf diltiazem Medications Medication SIG (Take, Route, Frequency, Duration) Notes Start Date End Date Status dilTIAZem HCl ER Coated Beads 180 MG 1 capsule Orally Once a day for 90 days Active Encounters Encounter Location Date Provider Diagnosis [facility] [place] [address] [place] [address] 05/30/2024 Tonny Crooks Plan Of Treatment Medication Medication Name Sig Start Date Stop Date Notes dilTIAZem HCl ER Coated Bead s 180 MG 1 capsule Orally Once a day for 90 days Progress Notes * Oj BENJAMIN JrDOB:12/1950 (73 yo M)Acc No.[id number]:05/30/2024 Patient: Lacey Oj VARMA Jr :1950 A ge:73 Y S ex:Male Address:[facility] [address] [place] [address], [phone] * Refills Refill dilTIAZem HCl ER Coated Beads Capsule Extended Release 24 Hour, 180 MG, Orally, 90 Capsule, 1 capsule, Once a day, 90 days, Refills=3 * true * Date: Generated for Printi ng/Faxing/eTransmitting on: 12/08/2024 11:39 AM EDT
--- OUTSIDE RECORDS SUMMARY | 2024-09-12 05:08 | XMS_ITS ---
Author Organization [facility] [place] Address [address] [place] [address] Care Team Providers Care Outdoor Adventure Leader Name Role Phone Tonny Crooks Primary Care Provider REASON FOR VISIT refill Medications Medication SIG (Take, Route, Fr equency, Duration) Notes Start Date End Date Status Carvedilol 25 MG 1 tablet with food O rally Twice a day for 30 days Active Lisinopril 20 MG TAKE ONE TABLET BY M OUTH DAILY Orally for 90 days Active Encounters Encounter Location Date Provider Diagnosis [address] [address] 09/12/2024 Tonny Crooks Plan Of Treatment Medication Medication Name Sig Start Date Stop Date Notes Carvedilol 25 MG 1 tablet with food O rally Twice a day for 30 days Lisinopril 20 MG TAKE ONE TABLET BY M OUTH DAILY Orally for 90 days Progress Notes * Oj BENJAMIN JrDOB:12/1950 (74 yo M)Acc No.[id number]:09/12/2024 Patient: Lacey Oj VARMA Jr :1950 A ge:74 Y S ex:Male Address:[address] [facility] [address] , [place], [address] * Refills Refill Carvedilol Tablet, 25 MG, Orally, 60 Tablet, 1 tablet with food, Twice a day, 30 days, Refills=11 Refill Lisinopril Tablet, 20 MG, Orally, 90 Tablet, TAKE ONE TABLET BY MOUTH DAILY, 90 days, Refills=3 * true * Date: Generated for Harper falcon/Fernando/Logan on: 0 12/08/2024 11:39 AM EDT
--- OUTSIDE RECORDS SUMMARY | 2024-12-08 06:30 | XMS_ITS ---
Author Organization [facility] in [place] Address [address] [place] [address] Care Team Providers Care Braker Passenger Train Name Role Phone Tonny Crooks Primary Care Provider [phone] Allergies Allergen (clinical drug ingredient) Drug/Non Drug Allergy documented on EMR Reaction Allergy Type Onset Date Status isosorbide dinitrate Isosorbide Dinitrate migraines Drug Allergy Active atorvastatin Lipitor muscle weakness Drug Allergy Active simvastatin Zocor muscle weakness Drug Allergy Active codeine Codeine nightmares Drug Allergy Active REASON FOR VISIT yearly wellness exam Medications Medication SIG (Take, Route, Frequency, Duration) Notes Start Date End Date Status Carvedilol 25 MG 1 tablet with food O rally Twice a day for 30 days Active Aspirin 81 81 MG 1 tablet Orally Once a day Active Pantoprazole Sodium 40 MG TAKE ONE TABLE T BY MOUTH DAILY for 90 Active Nitrostat 0.4 MG 1 tablet at onset of chest pain. May repeat in 5 mintues Sublingual Active Praluent 75 MG/ML INJECT 1 ML UNDER TH E SKIN EVERY 2 WEEKS for 28 Active Plavix 75 MG 1 tablet Orally Once a day for 30 days 04/18/2024 Active Melatonin 10 MG 1 tablet in the even ing Orally Once a day Active Cialis 20 MG 1 tablet as needed O rally Once a day Active Celecoxib 200 MG TAKE ONE CAPSULE BY MOUTH DAILY WITH FOOD for 90 Active Lisinopril 20 MG TAKE ONE TABLET BY M OUTH DAILY Orally for 90 days Active dilTIAZem HCl ER Coated Beads 180 MG 1 capsule Orally Once a day for 90 days Active Social History Tobacco Use: Social History Observation Description Date Details (start date - stop date) Former Smoker 01/04/1992 - NA Tobacco Use/Smoking Question Answer Notes Patient is a former smoker When did you start smoking? 01/04/1992 AUDIT-C (Standard) Question Answer Notes Did you have a drink containing alcohol in the p ast year? No Points 0 Interpretation Negative Vital Signs Blood pressure systolic 152 mm Hg 12/09/19 25 Blood pressure diastolic 80 mm Hg 025 Height 70 in 12/08/2024 Weight 197.6 lbs 12/08/2024 BMI 28.35 kg/m2 12/08/2024 Encounters Encounter Location Date Provider Diagnosis [facility] [address] [place] [address] 12/08/2024 Tonny Crooks Sleep apnea G47.30 ; Elevated PSA R97.20 ; Adenocarcinoma of prostate C61 and Hypertension I10 Assessments Encounter Date Diagnosis (ICD Code) Assessment Notes Treatment Notes Treatment Clinical Notes Section Notes 12/08/2024 Sleep apnea (ICD-10 - G47.30) 12/08/2024 Elevated PSA (ICD-10 - R97.20) 12/08/2024 Adenocarcinoma of prostate (ICD-10 - C61) 12/08/2024 Hypertension (ICD-10 - I10) Plan Of Treatment Pending Test Test Name Order Date HEMOGLOBIN A1C (GLYCO) 12/08/2024 LIPID PANEL (CHOL/TRIG/HDL/LDL) 12/09/19 25 PSA-FREE AND TOTAL 12/08/2024 THYROID PANEL (T4/TSH/FREE T3) 5 CMP (COMP MET GREEN) w/eGFR CKD-EPI 2024 CBC WITH DIFF 12/08/2024 Progress Notes * Oj BENJAMIN JrDOB:12/1950 (74 yo M)Acc No.[id number]:12/08/2024 UNLOCKED PROGRESS NOTE Progress Note Patient: Lacey Oj VARMA Jr Provider: Isidro Crooks ([facility])MD :1950 A ge:74 Y S ex:Male Date:12/08/2024 Address:[address] [place] [address] [place], [place] [id number] Check In:10:13 AM ESTCheck O ut:11:14 AM EST Subjective: * Chief Complaints: * 1 . Yearly wellness exam. * HPI: G eneral: CP some more laterly - seeing cardioogy juan -0 need to stop celebrex Diff swallowing - feels like somethin in back of throat had upper scope - nothging seen and was having arthitis cood on celebres. * ROS: E ENT: hearing changes d enies. v isual changes d enies.?non-healing mouth sores d enies. s wollen glands or neck lumps d enies. h oarseness d enies. s ore throat d enies. d ifficulty swallowing d enies. n ose bleeds d enies. n bronson congestion d enies. e ar ache d enies. e ar discharge?denies. r inging in ears d enies. l ight sensitivity d enies. e ye pain d enies. b lurring d enies. e ye irritation d enies. d ouble vision d enies.?vision loss d enies. G eneral/Constitutional: Sweats: D enies. F atigue d enies. S leep problems d enies. A norexia d enies. M alaise d enies. W eight loss d enies.?Fatigue or Weakness d enies. F ever or Chills d enies. C ardiovascular: Shortness of Breath w/lying flat d enies. L ightheadedness/dizziness d enies. C hest tightness/ heavy pressure d enies. S welling of legs, ankles, or feet d enies. W aking up with shortness of breath d enies. C hest pain denies. P alpitations d enies. W eight gain d enies. R espiratory: Chronic or frequent cough d enies. C oughing up blood?denies. D ifficulty breathing d enies. P roductive cough d enies. S noring?denies. S hortness of breath that awakens from sleep (PND) d enies. C hest pain d enies. S putum production d enies. W heezing d enies. M usculoskeletal: Joint pain d enies. J oint Fluid d enies. B ack pain d enies. K nee pain d enies. N andrea pain d enies. J oint Stiffness d enies. M uscle cramps d enies. W eakness of muscles d enies. A rthritis d enies. M uscle aches d enies. P ain in shoulder(s) d enies. S wollen joints d enies. * Medical History: C AD (coronary artery disease), Over weight, Benign neoplasm of brain, unspecified, Abdominal pain, LLQ, Hemorrhoids, internal, Diverticulitis of sigmoid colon, Hematochezia, Insomnia, Adenocarcinoma of prostate, Elevated PSA, Shoulder impingement syndrome, right, Sleep apnea, Angina pectoris, unspecified, Hyperlipidemia, Diabetes mellitus, Well adult, Hip pain, Macular degeneration, Paresthesia, Weakness, Gastro-esophageal reflux disease, Hyperuricemia, Hypertension. * Surgical History: C arpal Tunnel, left , Prostectomy , Rotator Cuff repair, left , Heart cath, 2007, 2014, , 2016, 2019 , PTCA , Gallbladder , Hernia repair , Cervical Spine fusion , TRUS with biopsy , EGD and Colonoscopy Dr Montenegro 07/04/2024. * Hospitalization/Major Diagno stic Procedure: s ee above . * Family History: F ather: , diagnosed with Unspecified heart disease. M other: , colon cancer, diagnosed with Other malignant neoplasm of unspecified site, Unspecified heart disease. B rother(s): alive, colon cancer, anal cancer, diagnosed with Other malignant neoplasm of unspecified site, Unspecified heart disease. S ister(s): alive, diagnosed with Unspecified heart disease. S on(s): alive. D aughter(s): alive, heart disease. 2 brother(s) , 3 sister(s) . 2 son(s) , 1 daughter(s) - healthy. . * Social History: T obacco Use: T obacco Use/Smoking P atient is a f ormer smoker W hen did you start smoking? 0 01/04/1992 D rug/Alcohol: A ABDULLAHI-C (Standard) D id you have a drink containing alcohol in the past year? N o P oints 0 I nterpretation N egative * Medications: T aking Aspirin 81(Aspirin) 81 MG Tablet Delayed Release 1 tablet Orally Once a day , Taking Carvedilol 25 MG Tablet 1 tablet with food Orally Twice a day , Taking Celecoxib 200 MG Capsule TAKE ONE CAPSULE BY MOUTH DAILY WITH FOOD , Taking Cialis(Tadalafil) 20 MG Tablet 1 tablet as needed Orally Once a day , Taking dilTIAZem HCl ER Coated Beads 180 MG Capsule Extended Release 24 Hour 1 capsule Orally Once a day , Taking Lisinopril 20 MG Tablet TAKE ONE TABLET BY MOUTH DAILY Orally , Taking Melatonin 10 MG Capsule 1 tablet in the evening Orally Once a day , Taking Nitrostat(Nitroglycerin) 0.4 MG Tablet Sublingual 1 tablet at onset of chest pain. May repeat in 5 mintues Sublingual , Taking Pantoprazole Sodium 40 MG Tablet Delayed Release TAKE ONE TABLET BY MOUTH DAILY , Taking Plavix(Clopidogrel Bisulfate) 75 MG Tablet 1 tablet Orally Once a day , Taking Praluent(Alirocumab) 75 MG/ML Solution Auto-injector INJECT 1 ML UNDER THE SKIN EVERY 2 WEEKS , Discontinued Diclofenac Sodium 75 MG Tablet Delayed Release 1 tablet as needed Orally Twice a day , Discontinued Linzess(linaCLOtide) 72 MCG Capsule 1 capsule at least 30 minutes before the first meal of the day on an empty stomach Orally Once a day , Discontinued Linzess(linaCLOtide) 145 MCG Capsule 1 capsule at least 30 minutes before the first meal of the day on an empty stomach Orally Once a day , Medication List reviewed and reconciled with the patient * Allergies: L ipitor: muscle weakness - Criticality High, Zocor: muscle weakness - Criticality High, Codeine: nightmares, Isosorbide Dinitrate: migraines. Objective: * Vitals: W t:197.6lbs, Ht: 70 in, BP:152/80mm Hg, BMI:28.35Index, Ht-cm: 177.8 cm, Wt-k.63 kg. * Examination: P hysical Exam: GENERAL: w ell developed, well nourished, in no acute distress. HEAD: n ormocephalic/atraumatic. EYES: p upils equal, round and reactive to light, conjunctivae and sclerae normal. EARS: n o deformity or lesion of external ear, canals and TM appear normal bilaterally, TM's intact, not inflamed with normal light reflex, hearing grossly normal to conversational speech. NOSE: n o deformity, discharge, inflammation, or lesions.? MOUTH: m ucous membranes moist, normal oropharynx and posterior pharynx without lesions or exudates, tongue normal, dentition normal. NECK: n andrea supple, no masses or palpable cervical nodes, trachea midline, thyroid without nodules, masses, tenderness, or enlargement. CHEST: n o chest wall deformity, no chest wall tenderness.? LUNGS: n ormal respiratory effort and clear to auscultation, no wheezes, rales, or rhonchi, good air exchange. CARDIO: r egular rate and rhythm, normal S1 and S2, nor murmur, rub, or gallop. PULSES: n ormal capillary refill. ABDOMEN: s oft, non-distended, non-tender, no masses. MUSCULOSKELETAL: n o deformity or scoliosis noted, normal range of motion, joints normal, no erythema, edema, effusion, or ecchymosis. EXTREMITY: n o clubbing, cyanosis, edema, or deformity with normal ROM in both upper and lower bilateral extremities. NEUROLOGIC: g rossly normal. SKIN: n o rashes, ulcerations, or suspicious lesions. LYMPH NODES: n o cervical adenopathy, nodes normal. MENTAL STATUS: a lert and oriented x3, normal mood and affect. Assessment: * Assessment: 1. S leep apnea - G47.30 (Primary) 2 . E levated PSA - R97.20 ?3. A denocarcinoma of prostate - C61 4 . H ypertension - I10 ? Plan: * Treatment: 2. E levated PSA L AB: HEMOGLOBIN A1C (GLYCO) L AB: LIPID PANEL (CHOL/TRIG/HDL/LDL) L AB: THYROID PANEL (T4/TSH/FREE T3) L AB: CMP (COMP MET GREEN) w/eGFR CKD-EPI L AB: CBC WITH DIFF 3. A denocarcinoma of prostate L AB: HEMOGLOBIN A1C (GLYCO) L AB: LIPID PANEL (CHOL/TRIG/HDL/LDL) L AB: THYROID PANEL (T4/TSH/FREE T3) L AB: CMP (COMP MET GREEN) w/eGFR CKD-EPI L AB: CBC WITH DIFF 4. H ypertension L AB: HEMOGLOBIN A1C (GLYCO) L AB: LIPID PANEL (CHOL/TRIG/HDL/LDL) L AB: THYROID PANEL (T4/TSH/FREE T3) L AB: CMP (COMP MET GREEN) w/eGFR CKD-EPI L AB: CBC WITH DIFF * Preventive Medicine: Screenings/Counseling: B DC ACTION PLAN Above Normal BMI Follow-up D ietary management education, guidance, and counseling * * Electronic signature of Tonny Crooks MD, [id number] on 12/08/2024 at 11:39 AM EDT Sign off status: Pending Visit Status: C HK (Check Out) * Provider: Isidro Crooks ([facility])MD Date: 12/08/2024 Generated for Printi ng/Faxing/eTransmitting on: 0 12/08/2024 11:39 AM EDT History and Physical Notes * HPI (History of Present Illness) Category Sub-Category Detail Notes Category Not es General CP some more laterly - seeing cardioogy juan -0 need to stop celebrex Diff swallowing - feels like somethin in back of throat had upper scope - nothging seen and was having arthitis cood on celebres Examination Category Sub-Category Detail Notes Category Not es Physical Exam GENERAL: well developed, well nourished, in no acute distress HEAD: normocephalic/atraum atic EYES: pupils equal, round and reactive to light, conjunctivae and sclerae normal EARS: no deformity or lesi on of external ear, canals and TM appear normal bilaterally, TM's intact, not inflamed with normal light reflex, hearing grossly normal to conversational speech NOSE: no deformity, discha rge, inflammation, or lesions MOUTH: mucous membranes misty st, normal oropharynx and posterior pharynx without lesions or exudates, tongue normal, dentition normal NECK: neck supple, no mass es or palpable cervical nodes, trachea midline, thyroid without nodules, masses, tenderness, or enlargement CHEST: no chest wall deform ity, no chest wall tenderness LUNGS: normal respiratory e ffort and clear to auscultation, no wheezes, rales, or rhonchi, good air exchange CARDIO: regular rate and rhy thm, normal S1 and S2, nor murmur, rub, or gallop PULSES: normal capillary ref ill ABDOMEN: soft, non-distended, non-tender, no masses RECTAL: MUSCULOSKELETAL: no deformity or scol iosis noted, normal range of motion, joints normal, no erythema, edema, effusion, or ecchymosis EXTREMITY: no clubbing, cyanosi s, edema, or deformity with normal ROM in both upper and lower bilateral extremities NEUROLOGIC: grossly normal SKIN: no rashes, ulceratio ns, or suspicious lesions LYMPH NODES: no cervical adenopat hy, nodes normal MENTAL STATUS: alert and oriented x 3, normal mood and affect
--- OUTSIDE RECORDS SUMMARY | 2024-12-08 11:39 | XMS_ITS | Clinical Summary ---
Author Organization [facility] Address [address] [place] [address] Care Team Providers Care Aquatics Lifeguard Name Role Phone Hugh Crooks MD Primary Care Provider [phone] Rafael Cyr Tyrell Unavailable Erick Ordoñez Unavailable [phone] Hugh Crooks MD Unavailable [phone] Elkin Anderson MD Unavailable Allergies Active Allergy Reactions Criticality Noted Date Comments Codeine Mental Status Change 01/16/2005 Nightmares Isosorbide Mononitrate Intolerance 01/30/2005 migraine JONES Atorvastatin Calcium Myalgia 03/26/2015 Muscle pain. Rhabdo Xupnwun-Qxr-Uep Reductase Inhibitors Myalgia 03/26/2015 Simvastatin Other: See Comments 01/16/2005 Muscle cramps, pain (all statins) with Elevated CK Medications PLAVIX 75 MG ORAL TAB Take one(1) tablet daily. 0 01/17/20 04 Active NITROSTAT 0.4 MG SL SUBL Dissolve one(1) tablet under the toungue as needed for chest pain,every 5 min x3 0 01/17/[address] (PROTONIX) 40 mg tablet Take 40 mg by mouth once daily. Active aspirin, enteric coated (ASPIRIN, ENTERIC COATED) 81 mg EC tablet Take 81 mg by mouth once daily. Active alirocumab 75 mg/mL pnijIndications:Hy perlipidemia, unspecified hyperlipidemia type Inject 75 mg subcutaneously every 2 weeks. 2 Pen 11 01/20/20 18 Active dilTIAZem CD (CARDIZEM CD, CARTIA XT) 180 mg 24 hr capsule Take 180 mg by mouth once daily. Active aspirin/acetaminop hen/caffeine (EXCEDRIN MIGRAINE ORAL) Take 2 tablets by mouth every 6 hours as needed. Active celecoxib (CELEBREX) 200 mg capsule Take 200 mg by mouth once daily. Active acetaminophen/diph enhydramine (TYLENOL PM ORAL) Take 1 tablet by mouth daily at bedtime. Active lisinopril (PRINIVIL) 20 mg tablet Take 20 mg by mouth once daily. Active melatonin 10 mg cap Take 10 mg by mouth daily at bedtime. Active sildenafil (VIAGRA) 100 mg tablet Take 100 mg by mouth as needed. Active carvedilol (COREG) 25 mg tablet Take 1 tablet by mouth two times a day with meals. 180 tablet 3 08/26/19 24 Active Active Problems Problem Noted Date Diagnosed Date Family history of early CAD 08/08/2022 Coronary artery disease of [place] artery of [place] heart with stable angina pectoris 06/12/2017 Neck pain 06/12/2017 Hyperlipidemia 04/23/2015 S/P drug eluting coronary stent placement 2014 Microvascular angina 03/26/2015 Esophageal reflux 04/02/2005 Sleep Apnea 04/02/2005 Overview (04/02/2005): On CPAP Intolerant to Statins 04/02/2005 CAD (coronary artery disease), [place] coronary a rtery 01/16/2005 Overview (01/23/2009): 04/10/2003 -PCI to RCA (Cypher x 2, [...] ischemia. 2. Left ventricular function is normal. Essential hypertension 01/16/2005 Hyperlipidemia 01/16/2005 Chronic anticoagulation Encounters Date Type Department Care Team Description 11/04/2024 Telephone Cardiology [address] [place] [address] Elkin Anderson MD Appointment from Last 3 Months Family History Medical History Relation Comments Coronary Artery Disease Brother 1 s/p PCI, [place] Heart Attack Brother 1 Coronary Artery Disease Brother 2 [place] Heart Attack Brother 2 Coronary Artery Disease Father at 74 of an [place] Cancer Mother at age 63 Heart Mother heart valve repl aced heart valve disease Mother Heart Attack Sister 2 passed from [place] Relation Status Comments Brother 1 Alive Brother 2 Alive Child 1 Alive Child 2 Alive Child 3 Alive Father Mother Sister 1 Alive Sister 2 Social History Tobacco Use Types Packs/Day Years Used Date Smoking Tobacco: Former Cigarettes 0 01/1967 - 01/1992 Smokeless Tobacco: Never Tobacco Cessation:Counseling Given: Not Answered Alcohol Use Standard Drinks/Week Comments No 0 (1 standard drink = 0.6 oz pur e alcohol) Area Deprivation Index Answer Date Valdemar rded National Score (1-100), lower number is lower ri sk 86 11/10/2022 State Score (1-10), lower number is lower risk 8 11/10/2022 Data from: https://www.neighborhoodatlas.medicine.[facility].edu/. 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 Not on file Not on file Last Filed Vital Signs Vital Sign Reading Time Taken Comments Blood Pressure 160/86 11/16/2023 12:26 PM EDT Pulse 63 11/16/2023 12:26 PM EDT Temperature 36.9 C (98.4 F) 03/12/2017 2:28 PM EDT Respiratory Rate 16 11/16/2023 12:26 PM EDT Oxygen Saturation 98% 11/16/2023 12:26 PM EDT Inhaled Oxygen Concentration - - Weight 88.5 kg (195 lb 3.2 oz) 11/16/2023 12:26 PM EDT Height 175.3 cm (5' 9 ) 11/16/2023 12:26 PM EDT Body Mass Index 28.83 11/16/2023 12:26 PM EDT Plan of Treatment Upcoming Encounters Date Type Department Care Team (Late st Contact Info) Description 12/28/2024 10:15 AM EDT Results Only [facility] J1-4 Draw Station [address] [id number] Coronary artery disease of [place] artery of [place] heart with stable angina pectoris 12/28/2024 11:00 AM EDT Office Visit Cardiology [address] [phone] Elkin Anderson MD [address], Desk [address] [place] [address] Coronary artery disease of [place] artery of [place] heart with stable angina pectoris Health Maintenance Due Date Last Done Comments Abdominal Aortic Aneurysm Screening 1950 Annual PCP Team Chronic Dise ase Visit 09/08/1969 Anxiety Screening 09/08/1969 BP Controlled (<130/80) 09/08/1969 Depression Screening 09/08/1969 Hepatitis C Screening 09/08/1969 CT Colonography 09/08/1996 Cologuard (FIT-DNA) 09/08/1996 Colonoscopy 09/08/1996 Colorectal Cancer Screening 09/08/1996 Fecal Occult Blood 09/08/1996 Sigmoidoscopy 09/08/1996 RSV Vaccine (1 - Risk 60-74 years 1-dose series) 2011 Covid-19 Vaccine (2023-08 5 season) 2024 04/08/2022, 04/30/2021, 09/14/2020, Additional history exists Advance Directive Discussion 07/06/2024 LDL Cholesterol 11/15/2024 11/16/2023, 03/07, 01/23/2009, Additional history exists Influenza Vaccine (Season Ended) 2025 04/08/2023, 05/22/2022, 04/08/2022, Additional history exists Diabetes Screening 11/15/2026 11/16/2023, 0 03/12/2017, 06/03/2016, Additional history exists Lipid Screening 11/15/2028 11/16/2023, 03/07, 01/23/2009, Additional history exists DTaP,Tdap,Td Vaccine (4 - Td or Tdap) 06/14/2029 06/14/2019, 01/22/2009, 01/22/2009, Additional history exists Shingrix Vaccine Completed 01/14/2018, 11/2017, 12/28/2012 Pneumococcal Vaccine: 50+ Completed 2017, 07/03/2016, 07/09/2015, Additional history exists Goals Goal Patient Goal Type Associated Problems Recent Progress Patient-Stated? Author Blood Pressure < 130/80 Blood Pressure 160/86( 024 12:26 PM EDT) Elkin Rojo MD Procedures Procedure Name Priority Date/Time Associated Diagnosis Comments COMPREHENSIVE METABOLIC PANEL Routine 11/16/2023 10:48 AM EDT Coronary artery disease of [place] artery of [place] heart with stable angina pectoris (HCC) LIPID PANEL, FASTING Routine 11/16/2023 10:48 AM EDT Coronary artery disease of [place] artery of [place] heart with stable angina pectoris (HCC) from Last 3 Months or Most Recently Relevant to Health Maintenance Results * LIPID PANEL BASIC (11/16/2023 10:48 AM EDT) [facility] Cholesterol, Total 109 <200 mg/dL 11/16/2023 5:12 PM EDT [facility] Comment: <200 mg/dL, Desirable 200-239 mg/dL, Borderline high >239 mg/dL, High Triglyceride 105 <150 mg/dL 11/16/2023 5:12 PM EDT [facility] Comment: <150 mg/dL, Normal 150-199 mg/dL, Borderline high 200-499 mg/dL, High >499 mg/dL, Very high HDL Cholesterol 46 >39 mg/dL 5:12 PM T [facility] Comment: 40-59 mg/dL, Acceptable >59 mg/dL, High: Negative risk factor for coronary heart disease <40 mg/dL, Low: Positive risk factor for coronary heart disease Non HDL Cholesterol 63 <130 mg/dL 11/16/2023 5:12 PM EDT [facility] Comment: <130 mg/dL, Optimal 130-159 mg/dL, Near optimal/above optimal 160-189 mg/dL, Borderline high 190-219 mg/dL, High >219 mg/dL, Very high Secondary prevention optimal non HDL Cholesterol levels are recommended to be <100 mg/dL Fasting Time 12 hrs 11/16/2023 5:12 PM T [facility] VLDL Cholesterol 21 <30 mg/dL 11/16/19 24 5:12 PM T [facility] TC:HDL Ratio 2.37 <5.10 11/16/2023 5:12 PM EDT [facility] LDL Cholesterol, Calculated 42 <100 mg/dL 11/16/2023 5:12 PM T [facility] Comment: <100 mg/dL, Optimal 100-129 mg/dL, Near optimal/above optimal 130-159 mg/dL, Borderline high 160-189 mg/dL, High >189 mg/dL, Very high Secondary prevention optimal LDL Cholesterol levels are recommended to be < 70 mg/dL LDL:HDL Ratio 0.91 <2.54 11/16/2023 5:12 PM T [facility] Comment: Reference: 1. National Cholesterol Education Program ATP III Guideline At-A-Glance Quick Desk Reference: National Heart, Lung, and Blood [place]. National Institutes of Health. 2001: NIH Publication No. 01-3305. 2. An International Atherosclerosis Society position paper: global recommendations for the management of dyslipidemia: executive summary, Atherosclerosis. 2014: 232(2):410-413. Blood BLOOD SPECIMEN / Unknown Venipuncture / Unknown 11/16/2023 10:48 AM EDT 11/16/2023 10:48 AM EDT us Elkin Anderson MD LABORATORY Final Result [facility] [address] [facility] Desk [address] [place] [address], * COMP METABOLIC PANEL (11/16/2023 10:48 AM EDT) Pathologist [facility] Protein, Total 6.6 6.3 - 8.0 g/dL 11/16/2023 5:12 PM EDT [facility] Albumin 4.3 3.9 - 4.9 g/dL 11/16/2023 5:12 PM EDT [facility] Calcium, Total 9.0 8.5 - 10.2 mg/dL 11/16/2023 5:12 PM EDT [facility] Bilirubin, Total 0.4 0.2 - 1.3 mg/dL 11/16/2023 5:12 PM EDT [facility] Alkaline Phosphatase 74 38 - 113 U/L 11/16/2023 5:12 PM EDT [facility] AST 21 14 - 40 U/L 11/16/2023 5:12 PM EDT [facility] ALT 24 10 - 54 U/L 11/16/2023 5:12 PM EDT [facility] Glucose 99 74 - 99 mg/dL 11/16/2023 5:12 PM EDT [facility] Comment: The [place]ag[place] Diabetes Association (ADA) provides guidance for cutoff [...] Standards of Medical Care in Diabetes 2016, [place] Diabetes Association. Diabetes Care. 2016.39(Suppl 1). BUN 20 9 - 24 mg/dL 11/16/2023 5:12 PM EDT [facility] Creatinine 1.10 0.73 - 1.22 mg/dL 11/16/2023 5:12 PM EDT [facility] Sodium 139 136 - 144 mmol/L 11/16/2023 5:12 PM EDT [facility] Potassium 5.1 3.7 - 5.1 mmol/L 11/16/2023 5:12 PM EDT [facility] Chloride 103 97 - 105 mmol/L 11/16/2023 5:12 PM EDT [facility] CO2 25 22 - 30 mmol/L 11/16/2023 5:12 PM EDT [facility] Anion Gap 11 9 - 18 mmol/L 11/16/2023 5:12 PM EDT [facility] Estimated Glomerular Filtration Rate 71 >=60 mL/min/1.7 3m 11/16/2023 5:12 PM EDT [facility] Comment:Estimated Glomerular Filtration Rate (eGFR) is calculated using the 2020 CKD-EPI creatinine equation. This equation utilizes serum creatinine, sex, and age as parameters. The creatinine assay has traceable calibration to isotope dilution- mass spectrometry. Refer to KDIGO guidelines for clinical interpretation. In patients with unstable renal function, e.g. those with acute kidney injury, the eGFR may not accurately reflect actual GFR. Blood BLOOD SPECIMEN / Unknown Venipuncture / Unknown 11/16/2023 10:48 AM EDT 11/16/2023 10:48 AM EDT us Elkin Anderson MD LABORATORY Final Result [facility] [address] [address], from Last 3 Months or Most Recently Relevant to Health Maintenance Insurance MEDICARE [facility] Advance Directives Documents on File Type Date Recorded Patient Ticket Scheduler Expl anation Advance Directive(s) Advance Directive(s) 08/20/2006 Care Teams Aquatics Lifeguard Relationship Specialty Start Date End Date Hugh Crooks MD [address] [place] [address] PCP - General Cardiology 03/05/04 Rafael Cyr Jr. [address] [place] [phone] Physician Urology 12/17/18 Erick Ordoñez [address] [facility] [place] [address] Primary Staff Physician Cardiology 09/21/18 Hugh Crooks MD [address] [facility] [place] [address] Referring Family Medicine 07/23/22 Elkin Anderson MD [address] [place] [address] Primary Staff Physician Cardiology 08/08/22
--- OUTSIDE RECORDS SUMMARY | 2024-12-08 11:39 | XMS_ITS | Encounter Summary ---
Author Organization [facility] Address [facility] [address] Care Team Providers Care Health Physics Technician Name Role Phone Hugh Crooks MD Primary Care Provider [phone] Erick Ordoñez Unavailable [phone] Ger Rafael Santillan Unavailable [phone] Erick Orodñez Unavailable [phone] Hugh Crooks MD Unavailable [phone] Elkin Anderson MD Unavailable [phone] Source Comments In the event this information is protected by the Federal Confidentiality of Alcohol and Drug AbusePatient Records regulations: The Federal rules restrict any use of the information to criminally investigate or prosecute any alcohol or drug abuse patient.[facility] Encounter Details Date Type Department Care Team (Late st Contact Info) Description 05/29/2016 Patient Msg Medical Records [address] [place] [address] Provider, [facility] RE: Patient Registration Completed Social History Tobacco Use Types Packs/Day Years Used Date Smoking Tobacco: Former Cigarettes 3.5 25 0 01/16/1967 - 01/17/1992 Alcohol Use Standard Drinks/Week Comments No 0 (1 standard drink = 0.6 oz pur e alcohol) Sex and Gender Information Value Date Recorded Sex Assigned at Not on file Legal Sex Male 10:04 AM EST Gender Identity Not on file Sexual Orientation Not on file 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 J1-4 Draw Station [address] [place] [address] Coronary artery disease of [place] artery of [place] heart with stable angina pectoris 12/28/2024 11:00 AM EDT Office Visit Cardiology [address] [place] [address] Elkin Anderson MD [address] [facility], Desk [address] [place], [place] [phone] Coronary artery disease of [place] artery of [place] heart with stable angina pectoris documented as of this encounter Visit Diagnoses Not on filedocumented in this encounter Care Teams Health Physics Technician Relationship Specialty Start Date End Date Hugh Crooks MD [address] [place] [address] PCP - General Cardiology 03/05/04 Erick Ordoñez [address] [place] [address] 09/21/18 09/22/19 Rafael Cyr Jr. [address] [place] [phone] Physician Urology 12/17/18 Erick Ordoñez [address] [place] [address] Primary Staff Physician Cardiology 09/21/18 Hugh Crooks MD [address] [facility] [place] [address] Referring Family Medicine 07/23/22 Elkin Anderson MD [address], [address] [place] [address] Primary Staff Physician Cardiology 08/08/22 documented as of this encounter
--- OUTSIDE RECORDS SUMMARY | 2024-12-08 11:39 | XMS_ITS | Encounter Summary ---
Author Organization [facility] Address [address] [place] [address] Care Team Providers Care Cooker Meal Name Role Phone Hugh Crooks MD Primary Care Provider [phone] Erick Ordoñez Unavailable [phone] Cyr Rafael Santillan Unavailable [phone] Erick Ordoñez Unavailable [phone] Hugh Crooks MD Unavailable [phone] Elkin Anderson MD Unavailable [phone] Source Comments In the event this information is protected by the Federal Confidentiality of Alcohol and Drug AbusePatient Records regulations: The Federal rules restrict any use of the information to criminally investigate or prosecute any alcohol or drug abuse patient.[facility] Encounter Details Date Type Department Care Team (Late st Contact Info) Description 07/23/2015 Patient Msg Cardiology [address] [place] [address] Sonny Ryder MD [address] [place] [address] Appointment Cancellation Request Social History Tobacco Use Types Packs/Day Years [...] 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 artery of [place] heart with stable angina pectoris 12/28/2024 11:00 AM EDT Office Visit Cardiology [address] [place] [address] Elkin Anderson MD [address], [facility] [address] [place] [address] Coronary artery disease of [place] artery of [place] heart with stable angina pectoris documented as of this encounter Visit Diagnoses Not on filedocumented in this encounter Care Teams Cooker Meal Relationship Specialty Start Date End Date Hugh Crooks MD [address] [place] [address] PCP - General Cardiology 03/05/04 Erick Ordoñez [address] [place] [address] 09/21/18 09/22/19 Rafael Cyr Jr. [address] [place] [address] Physician Urology 12/17/18 Erick Ordoñez [address] [place] [address] Primary Staff Physician Cardiology 09/21/18 Hugh Crooks MD [address] [place] [address] Referring Family Medicine 07/23/22 Elkin Anderson MD [address] [place] [address] Primary Staff Physician Cardiology 08/08/22 documented as of this encounter
--- OUTSIDE RECORDS SUMMARY | 2024-12-08 11:39 | XMS_ITS | Encounter Summary ---
Author Organization [facility] Address [address] [place] [address] Care Team Providers Care Shaker Washer Name Role Phone Hugh Crooks MD Primary Care Provider [phone] Erick Ordoñez Unavailable [phone] Cyr Rafael Santillan Unavailable [phone] Erick Ordoñez Unavailable [phone] Hugh Crooks MD Unavailable [phone] Elkin Anderson MD Unavailable [phone] Source Comments In the event this information is protected by the Federal Confidentiality of Alcohol and Drug AbusePatient Records regulations: The Federal rules restrict any use of the information to criminally investigate or prosecute any alcohol or drug abuse patient.[facility] Encounter Details Date Type Department Care Team (Late st Contact Info) Description 09/19/2015 Patient Msg Cardiology [address] [place] [address] Sonny Ryder MD [address] [place] [address] Appointment Cancellation Request Social History Tobacco Use [...] 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 on file Not on file documented as of this encounter Plan of Treatment Upcoming Encounters Date Type Department Care Team ([facility] st Contact Info) Description 12/28/2024 10:15 AM EDT Results Only [facility] J1-4 Draw Station [address] [place] [address] Coronary artery disease of [place] artery of [place] heart with stable angina pectoris 12/28/2024 11:00 AM EDT Office Visit Cardiology [address] [place] [address] Elkin Anderson MD [address], [facility] [address] [place] [address] Coronary artery disease of [place] artery of [place] heart with stable angina pectoris documented as of this encounter Visit Diagnoses Not on filedocumented in this encounter Care Teams Shaker Washer Relationship Specialty Start Date End Date Hugh Crooks MD [address] [place] [address] PCP - General Cardiology 03/05/04 Erick Ordoñez [address] [place] [address] 09/21/18 09/22/19 Rafael Cyr Jr. [address] [place] [address] Physician Urology 12/17/18 Erick Ordoñez [address] [place] [address] Primary Staff Physician Cardiology 09/21/18 Hugh Crooks MD [address] [place] [address] Referring Family Medicine 07/23/22 Elkin Anderson MD [address] [place] [address] Primary Staff Physician Cardiology 08/08/22 documented as of this encounter
--- OUTSIDE RECORDS SUMMARY | 2024-12-08 11:39 | XMS_ITS | Clinical Summary ---
Author Organization [facility] Address [address] [facility] [place] [address] Phone Care Team Providers Care Radiographer Cardiac Catheterization Name Role Phone Unavailable Primary Care Provider Unavailabl e Social History Tobacco Use Types Packs/Day Years Used Date Smoking Tobacco: Never Assessed Sex and Gender Information Value Date Recorded Sex Assigned at Not on file Legal Sex Male 6:50 PM EST Gender Identity Not on file Sexual Orientation Not on file Plan of Treatment Not on file
--- OUTSIDE RECORDS SUMMARY | 2024-12-08 11:39 | XMS_ITS | Encounter Summary ---
Author Organization [facility] Address [address] [place] [address] Care Team Providers Care Supervisor [employer] Name Role Phone Hugh Crooks MD Primary Care Provider [phone] Erick Ordoñez Unavailable [phone] Cyr Rafael Santillan Unavailable [phone] Erick Ordoñez Unavailable [phone] Hugh Crooks MD Unavailable [phone] Elkin Anderson MD Unavailable [phone] Source Comments In the event this information is protected by the Federal Confidentiality of Alcohol and Drug AbusePatient Records regulations: The Federal rules restrict any use of the information to criminally investigate or prosecute any alcohol or drug abuse patient.[facility] Encounter Details Date Type Department Care Team (Late st Contact Info) Description 05/12/2016 Get Medical Advice Cardiology [address] [place] [address] Sonny Ryder MD [address] [place] [address] Visit Follow Up Question Social History Tobacco Use Types Packs/Day Years [...] 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 Not on file documented as of this encounter Plan of Treatment Upcoming Encounters Date Type Department Care Team ([facility] st Contact Info) Description 12/28/2024 10:15 AM EDT Results Only [facility] [address] [place] [address] Coronary artery disease of [place] artery of [place] heart with stable angina pectoris 12/28/2024 11:00 AM EDT Office Visit Cardiology [address] [place] [address] Elkin Anderson MD [address], [facility] [address] [place] [address] Coronary artery disease of [place] artery of [place] heart with stable angina pectoris documented as of this encounter Visit Diagnoses Not on filedocumented in this encounter Care Teams Supervisor [employer] Relationship Specialty Start Date End Date Hugh Crooks MD [address] [place] [address] PCP - General Cardiology 03/05/04 Erick Ordoñez [address] [place] [address] 09/21/18 09/22/19 Rafael Cyr Jr. [address] [place] [address] Physician Urology 12/17/18 Erick Ordoñez [address] [place] [address] Primary Staff Physician Cardiology 09/21/18 Hugh Crooks MD [address] [place] [address] Referring Family Medicine 07/23/22 Elkin nAderson MD [address] [place] [address] Primary Staff Physician Cardiology 08/08/22 documented as of this encounter
--- OUTSIDE RECORDS SUMMARY | 2024-12-08 11:39 | XMS_ITS | Encounter Summary ---
Author Organization [facility] Address [address] [place] [address] Care Team Providers Care Electronic Funds Transfer Coordinator Name Role Phone Hugh Crooks MD Primary Care Provider [phone] Erick Ordoñez Unavailable [phone] Rafael Cyr Tyrell Jr. Unavailable [phone] Erick Ordoñez Unavailable [phone] Hugh Crooks MD Unavailable [phone] Elkin Anderson MD Unavailable [phone] Source Comments In the event this information is protected by the Federal Confidentiality of Alcohol and Drug AbusePatient Records regulations: The Federal rules restrict any use of the information to criminally investigate or prosecute any alcohol or drug abuse patient.[facility] Encounter Details Date Type Department Care Team (Late st Contact Info) Description 09/30/2016 Patient Msg Cardiology [address] [place] [address] Erick Ordoñez [address] [place] [address] Appointment Cancellation Request Social History Tobacco Use [...] 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 Answer Date of Assessment Author No 06/03/2016 6:51 PM Jacquie Magana RN * Are you blind or do you have serious difficulty seeing, even when wearing glasses? Answer Date of Assessment Author No 06/03/2016 6:51 PM Jacquie Magana RN * Do you have serious difficulty walking or climbing stairs? Answer Date of Assessment Author No 06/03/2016 6:51 PM Jacquie Magana RN * Do you have difficulty dressing or bathing? Answer Date of Assessment Author No 06/03/2016 6:51 PM Jacquie Magana RN * Because of a physical, mental, or emotional condition, do you have difficulty doing errands alone such as visiting a doctor's office or shopping? Answer Date of Assessment Author No 06/03/2016 6:51 PM Jacquie Magana RN documented as of this encounter Mental Status * Because of a physical, mental, or emotional condition, do you have serious difficulty concentrating, remembering, or making decisions? Answer Entry Date Author No 06/03/2016 6:51 PM Jacquie Magana RN documented in this encounter Plan of Treatment Upcoming Encounters Date Type Department Care Team (Late st Contact Info) Description 12/28/2024 10:15 AM EDT [facility] [address] [id number] Coronary artery disease of [place] artery of [place] heart with stable angina pectoris 12/28/2024 11:00 AM EDT Office Visit Cardiology [address] [phone] Elkin Anderson MD [address], Desk [address] [place] [address] Coronary artery disease of [place] artery of [place] heart with stable angina pectoris documented as of this encounter Visit Diagnoses Not on filedocumented in this encounter Care Teams Electronic Funds Transfer Coordinator Relationship Specialty Start Date End Date Hugh Crooks MD [address] [place] [address] PCP - General Cardiology 03/05/04 Erick Ordoñez [address] [place] [address] 09/21/18 09/22/19 Rafael Cyr Jr. [address] [facility] [place] [address] Physician Urology 12/17/18 Erick Ordoñez [address] [place] [address] Primary Staff Physician Cardiology 09/21/18 Hugh Crooks MD [address] [place] [address] Referring Family Medicine 07/23/22 Elkin Anderson MD [address], Desk [address] [place] [address] Primary Staff Physician Cardiology 08/08/22 documented as of this encounter
--- OUTSIDE RECORDS SUMMARY | 2024-12-08 11:40 | XMS_ITS | Encounter Summary ---
Author Organization [facility] Address [address] [place] [address] Care Team Providers Care Mechanical Product Engineer Name Role Phone Hugh Crooks MD Primary Care Provider [phone] Rafael Cyr JrWu Unavailable [phone] Erick Ordoñez Unavailable [phone] Hugh Crooks MD Unavailable [phone] Elkin Anderson MD Unavailable [phone] Source Comments In the event this information is protected by the Federal Confidentiality of Alcohol and Drug AbusePatient Records regulations: The Federal rules restrict any use of the information to criminally investigate or prosecute any alcohol or drug abuse patient.[facility] Encounter Details Date Type Department Care Team (Late st Contact Info) Description 11/17/2023 Patient Msg Cardiology [address] [place] [address] Elkin Anderson MD [address] [facility], Desk [address] [place] [address] Your lipids Social History Tobacco Use Types Packs/Day Years Used Date Smoking Tobacco: Former Cigarettes 0 01/1967 - 01/1992 Smokeless Tobacco: Never Alcohol Use Standard Drinks/Week Comments No 0 (1 standard drink = 0.6 oz pur e alcohol) Area Deprivation Index Answer Date Valdemar rded National Score (1-100), lower number is lower ri sk 86 11/10/2022 State Score (1-10), lower number is lower risk 8 11/10/2022 Data from: https://www.neighborhoodatlas.medicine.[facility]/. 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 Author Blood Pressure < 130/80 Blood Pressure 160/86( 024 12:26 PM EDT) No Elkin Anderson MD documented as of this encounter Visit Diagnoses Not on filedocumented in this encounter Care Teams Mechanical Product Engineer Relationship Specialty Start Date End Date Hugh Crooks MD [address] [place] [address] PCP - General Cardiology 03/05/04 Rafael Cyr Jr. [address] [address] Physician Urology 12/17/18 Erick Ordoñez [address] [place] [address] Primary Staff Physician Cardiology 09/21/18 Hugh Crooks MD [address] [place] [address] Referring Family Medicine 07/23/22 Elkin Anderson MD [address], Desk [address] [place] [address] Primary Staff Physician Cardiology 08/08/22 documented as of this encounter
--- OUTSIDE RECORDS SUMMARY | 2024-12-08 11:40 | XMS_ITS | Encounter Summary ---
Author Organization [facility] Address [address] [place] [address] Care Team Providers Care Letter Of Credit Document Examiner Name Role Phone Hugh Crooks MD Primary Care Provider +[phone] Rafael Santillan JrWu Unavailable [phone] Erick Ordoñez Unavailable [phone] Hugh Crooks MD Unavailable Elkin Anderson MD Unavailable [phone] Source Comments In the event this information is protected by the Federal Confidentiality of Alcohol and Drug AbusePatient Records regulations: The Federal rules restrict any use of the information to criminally investigate or prosecute any alcohol or drug abuse patient.[facility] Encounter Details Date Type Department Care Team (Late st Contact Info) Description 12/01/2023 Get Medical Advice Cardiology [address] [place] [address] Elkin Anderson MD [address] [facility], Desk [address] [place] [address] Blood Pressures Social History Tobacco Use Types Packs/Day Years [...] is lower risk 8 11/10/2022 Data from: https://www.neighborhoodatlas.medicine.[facility]/. 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 Author Blood Pressure < 130/80 Blood Pressure 160/86( 024 12:26 PM EDT) No Elkin Anderson MD documented as of this encounter Visit Diagnoses Not on filedocumented in this encounter Care Teams Letter Of Credit Document Examiner Relationship Specialty Start Date End Date Hugh Crooks MD [address] [place] [address] PCP - General Cardiology 03/05/04 Rafael Cyr Jr. [address] [address] Physician Urology 12/17/18 Erick Ordoñez [address] [place] [address] Primary Staff Physician Cardiology 09/21/18 Hugh Crooks MD [address] [place] [address] Referring Family Medicine 07/23/22 Elkin Anderson MD [address], Desk [address] [place] [address] Primary Staff Physician Cardiology 08/08/22 documented as of this encounter
--- OUTSIDE RECORDS SUMMARY | 2024-12-08 11:40 | XMS_ITS | Patient Health Record ---
Author Organization [facility] Address [address] [place] [address] Care Team Providers Care Summer Law Associate Name Role Phone Tonny Trent Primary Care Provider [phone] SUZANNA TRENT Unavailable [phone] Allergies Allergen (clinical drug ingredient) Drug/Non Drug Allergy documented on EMR Reaction Allergy Type Onset Date Status isosorbide dinitrate Isosorbide Dinitrate migraines Drug Allergy Active atorvastatin Lipitor muscle weakness Drug Allergy Active simvastatin Zocor muscle weakness Drug Allergy Active codeine Codeine nightmares Drug Allergy Active Reason For Referral Reason due for 5 year recal l Colonoscopy. Previous one done with Dr. Segal 05/08/2019 Diagnosis 1 Diverticulitis of si gmoid colon (K57.32) Referral Organization [facility] Referring Provider First Name Tonny Referring Provider Last Name Valeriy Referring Provider Speciality Family Med icine Referred Provider Fausto Hamilton Referred Provider Specialty Gastroentero logy Referral Priority Routine Medications Medication SIG (Take, Route, Frequency, Duration) Notes Start Date End Date Status Pantoprazole Sodium 40 MG TAKE ONE TABLE T BY MOUTH DAILY for 90 Active Carvedilol 25 MG 1 tablet with food O rally Twice a day for 30 days Active Nitrostat 0.4 MG 1 tablet at onset of chest pain. May repeat in 5 mintues Sublingual Active Aspirin 81 81 MG 1 tablet Orally Once a day Active Cialis 20 MG 1 tablet as needed O rally Once a day Active Praluent 75 MG/ML INJECT 1 ML UNDER TH E SKIN EVERY 2 WEEKS for 28 Active Celecoxib 200 MG TAKE ONE CAPSULE BY MOUTH DAILY WITH FOOD for 90 Active Plavix 75 MG 1 tablet Orally Once a day for 30 days 04/18/2024 Active Melatonin 10 MG 1 tablet in the even ing Orally Once a day Active Lisinopril 20 MG TAKE ONE TABLET [...] ast year? 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) Active confirmed Problem Angina pectoris (734569520) Angina pectoris, unspecified (I20.9) Active confirmed Problem 878515457 Contracture, right ankle (M24.571) Active confirmed Problem Weakness (91277613) Weakness (R53.1) Active confirmed Problem Hyperlipidemia (70526985) Hyperlipidemia (E78.5) Active confirmed Problem Age-related macular degeneration (disorder) (945438630) Macular degeneration (H35.30) Active confirmed Problem Hypertension (99139211) Hypertension (I10) Active confirmed Problem Sleep apnea (04260377) Sleep apnea (G47.30) Active confirmed Problem Insomnia (690678917) Insomnia (G47.00) Active confirmed Problem Hip pain (99031054) Hip pain (M25.559) Active confirmed Problem Hematochezia (046494446) Hematochezia (K92.1) Active confirmed Problem Coronary artery disease (89520296) CAD (coronary artery disease) (I25.10) Active confirmed Problem Constipation (03671510) Constipation (K59.00) Active confirmed Problem Hyperuricemia (32463039) Hyperuricemia (E79.0) Active confirmed Problem Well adult (828195764) Well adult (Z00.00) Active confirmed Problem Paresthesia (12138432) Paresthesia (R20.2) Active confirmed Problem Diverticulitis of sigmoid colon (086449189) Diverticulitis of sigmoid colon (K57.32) Active confirmed Problem Overweight (128601924) Over weight (E66.3) Active confirmed Problem Left lower quadrant pain (047308685) Abdominal pain, LLQ (R10.32) Active confirmed Problem Adenocarcinoma of prostate (455619694) Adenocarcinoma of prostate (C61) Active confirmed Problem Gastro-esophageal reflux disease (009479696) Gastro-esophageal reflux disease (K21.9) Active confirmed Problem Internal hemorrhoids (51279851) Hemorrhoids, internal (K64.8) Active confirmed Problem Impingement syndrome of shoulder region (219336942) Shoulder impingement syndrome, right (M75.41) Active confirmed Problem Elevated PSA (705122959) Elevated PSA (R97.20) Active confirmed Problem Diabetes mellitus (70103556) Diabetes mellitus (E11.9) Active confirmed Vital Signs Blood pressure diastolic 80 mm Hg 12/08/2024 Height 70 in 12/08/2024 Blood pressure systolic 152 mm Hg 12/08/2024 Weight 197.6 lbs 12/08/2024 BMI 28.35 kg/m2 12/08/2024 Encounters Encounter Location Date Provider Diagnosis [facility] [address] [place] [address] 05/09/2024 Tonny Trent Diverticulitis of sigmoid colon K57.32 [facility] [address] [place] [address] 05/16/2024 Tonny [facility] [address] [facility] [place] [address] 09/12/[address] [facility] [address] [facility] [place] [address] 12/11/2023 SUZANNA [facility] [address] [place] [address] 01/27/[address] [facility] [address] [facility] [place] [address] 04/11/2024 Tonny [facility] [address] [place] [address] 04/18/2024 Tonny [facility] [address] [place] [address] 05/30/2024 Tonny Trent [facility] [address] [place] [address] 12/08/2024 Tonny Trent Sleep apnea G47.30 ; Elevated PSA R97.20 ; Adenocarcinoma of prostate C61 and Hypertension I10 [facility] [address] [place] [address] 05/09/2024 Tonny Trent Constipation K59.00 Assessments Encounter Date Diagnosis (ICD Code) Assessment Notes Treatment Notes Treatment Clinical Notes Section Notes 05/09/2024 Constipation (ICD-10 - K59.00) 12/08/2024 Sleep apnea (ICD-10 - G47.30) 12/08/2024 Elevated PSA (ICD-10 - R97.20) 05/09/2024 Diverticulitis of sigmoid colon (ICD-10 - K57.32) 12/08/2024 Adenocarcinoma of prostate (ICD-10 - C61) 12/08/2024 Hypertension (ICD-10 - I10) Plan Of Treatment Pending Test Test Name Order Date CMP (COMPLETE METABOLIC PANEL) 3 CMP (COMPLETE METABOLIC PANEL) 4 HEMOGLOBIN A1C (GLYCO) 11/24/2022 HEMOGLOBIN A1C (GLYCO) 12/03/2023 HEMOGLOBIN A1C (GLYCO) 12/08/2024 INSULIN, TOTAL 11/24/2022 INSULIN, TOTAL 12/03/2023 LIPID PANEL (CHOL/TRIG/HDL/LDL) 12/03/19 24 LIPID PANEL (CHOL/TRIG/HDL/LDL) 12/09/19 25 LIPID PANEL (CHOL/TRIG/HDL/LDL) 11/25/19 23 CBC WITH DIFF 11/24/2022 CBC WITH DIFF 12/03/2023 URIC ACID 12/03/2023 PSA-FREE AND TOTAL 12/03/2023 PSA-FREE AND TOTAL 12/08/2024 PSA, TOTAL 11/24/2022 THYROID PANEL (T4/TSH/FREE T3) 3 THYROID PANEL (T4/TSH/FREE T3) 5 THYROID PANEL (T4/TSH/FREE T3) 4 Free PSA 11/24/2022 CMP (COMP MET GREEN) w/eGFR CKD-EPI 2024 CBC WITH DIFF 12/08/2024 Insurance Providers Payer Name Payer Address Payer Phone Subscriber Number Group Number Insured Name Patient Relationship to Insured Coverage Start Date Coverage End Date [place] [address] [place] [address] [id number] Oj Galdamez Self - patient is the insured 2 [employer] [place] [address] [place] [address] MEDICARE SUPP CLMS DEPT [place] [address] [phone] [id number] Oj Galdamez Self - patient is the insured Medical (General) History Medical History History ICD Code CAD (coronary artery disease) I25.10 Over weight E66.3 Benign neoplasm of brain, unspecified D3 3.2 Abdominal pain, LLQ R10.32 Hemorrhoids, internal K64.8 Diverticulitis of sigmoid colon K57.32 Hematochezia K92.1 Insomnia G47.00 Adenocarcinoma of prostate C61 Elevated PSA R97.20 Shoulder impingement syndrome, right M75 .41 Sleep apnea G47.30 Angina pectoris, unspecified I20.9 Hyperlipidemia E78.5 Diabetes mellitus E11.9 Well adult Z00.00 Hip pain M25.559 Macular degeneration H35.30 Paresthesia R20.2 Weakness R53.1 Gastro-esophageal reflux disease K21.9 Hyperuricemia E79.0 Hypertension I10 Surgical History Surgery Date(Month/Year) EGD and Colonoscopy Dr [place] 4 TRUS with biopsy Cervical Spine fusion Hernia repair Gallbladder PTCA Heart cath, 2007, 2014, , 2016, 0 Rotator Cuff repair, left Prostectomy Carpal Tunnel, left Hospitalization History Reason Date(Month/Year) see above
--- OUTSIDE RECORDS SUMMARY | 2024-12-08 11:40 | XMS_ITS | Encounter Summary ---
Author Organization [facility] Address [address] [place] [address] Care Team Providers Care Iron Guardrail Installer Name Role Phone Hugh Crooks MD Primary Care Provider [phone] Rafael Santillan JrWu Unavailable [phone] Erick Ordoñez Unavailable [phone] Hugh Crooks MD Unavailable [phone] Elkin Anderson MD Unavailable [phone] Source Comments In the event this information is protected by the Federal Confidentiality of Alcohol and Drug AbusePatient Records regulations: The Federal rules restrict any use of the information to criminally investigate or prosecute any alcohol or drug abuse patient.[facility] Reason for Visit * Reason Comments Appointment Encounter Details Date Type Department Care Team (Late st Contact Info) Description 11/04/2024 Telephone Cardiology [address] [place] [address] Elkin Anderson MD [address] [facility], [place]k [address] [place] [address] Appointment Social History Tobacco Use Types Packs/Day Years Used Date Smoking Tobacco: Former Cigarettes 0 01/1967 - 01/1992 Smokeless Tobacco: Never Alcohol Use Standard Drinks/Week Comments No 0 (1 standard drink = 0.6 oz pur e alcohol) Area Deprivation Index Answer Date Vlademar rded National Score (1-100), lower number is lower ri sk 86 11/10/2022 State Score (1-10), lower number is lower risk 8 11/10/2022 Data from: https://www.neighborhoodatlas.medicine.[facility]/. 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 Anderson. He would like to schedule after November 15. Pt can be reached at [phone] documented in this encounter Plan of Treatment Upcoming Encounters Date Type Department Care Team (Late st Contact Info) Description 12/28/2024 10:15 AM EDT Results Only [facility] J1[facility]4 Draw Station [address] [place], [place] [id number] Coronary artery disease of ruby artery of ruby heart with stable angina pectoris 12/28/2024 11:00 AM EDT Office Visit Cardiology [address] [place] [phone] Elkin Anderson MD [address] [facility], [place] [place] [address] Coronary artery disease of ruby artery of ruby heart with stable angina pectoris documented as of this encounter Goals Goal Patient Goal Type Associated Problems Recent Progress Patient-Stated? Author Blood Pressure < 130/80 Blood Pressure 160/86( 024 12:26 PM EDT) No Elkin Anderson MD documented as of this encounter Visit Diagnoses Not on filedocumented in this encounter Care Teams Iron Guardrail Installer Relationship Specialty Start Date End Date Hugh Crooks MD [address] [place] [address] PCP - General Cardiology 03/05/04 Rafael Cyr Jr. [address] [place] [address] Physician Urology 12/17/18 Erick Ordoñez [address] [place] [address] Primary Staff Physician Cardiology 09/21/18 Hugh Crooks MD [address] [place] [address] Referring Family Medicine 07/23/22 Elkin Anderson MD [address] [address] [place] [address] Primary Staff Physician Cardiology 08/08/22 documented as of this encounter
--- OUTSIDE RECORDS SUMMARY | 2024-12-08 11:40 | XMS_ITS | Encounter Summary ---
Author Organization [facility] Address [address] [place] [address] Care Team Providers Care Fruit Cutter Name Role Phone Hugh Crooks MD Primary Care Provider [phone] Rafael Cyr JrWu Unavailable [phone] Erick Ordoñez Unavailable [phone] Hugh Crooks MD Unavailable [phone] Elkin nAderson MD Unavailable [phone] Source Comments In the event this information is protected by the Federal Confidentiality of Alcohol and Drug AbusePatient Records regulations: The Federal rules restrict any use of the information to criminally investigate or prosecute any alcohol or drug abuse patient.[facility] Encounter Details Date Type Department Care Team (Late st Contact Info) Description 07/25/2024 Patient Msg Cardiology [address] [place] [address] Elkin Anderson MD [address] [facility], [address] [place] [address] Appointment Request Social History Tobacco Use Types Packs/Day [...] is lower risk 8 11/10/2022 Data from: https://www.neighborhoodatlas.medicine.[facility]/. 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 [...] of Assessment Author No 06/03/2016 6:51 PM Jacuqie Magana RN * Do you have difficulty [...] 12/28/2024 10:15 AM EDT Results Only [facility] [place] [address] [place] [address] Coronary artery disease of [place] artery [place] heart with stable angina pectoris 12/28/2024 11:00 AM EDT Office Visit Cardiology [address] [place], [place] [id number] Elkin Anderson MD [address], [address] [place] [address] Coronary artery disease of [place] artery [place] heart with stable angina pectoris documented as of this encounter Goals Goal Patient Goal Type Associated Problems Recent Progress Patient-Stated? Author Blood Pressure < 130/80 Blood Pressure 160/86( 024 12:26 PM EDT) No Elkin Anderson MD documented as of this encounter Visit Diagnoses Not on filedocumented in this encounter Care Teams Fruit Cutter Relationship Specialty Start Date End Date Hugh Crooks MD [address] [place] [address] PCP - General Cardiology 03/05/04 Rafael Cyr Jr. [address] [id number] Physician Urology 12/17/18 Erick Ordoñez [address] [place] [address] Primary Staff Physician Cardiology 09/21/18 Hugh Crooks MD [address] [place] [address] Referring Family Medicine 07/23/22 Elkin Anderson MD [address], [address] [place] [address] Primary Staff Physician Cardiology 08/08/22 documented as of this encounter
[2024-12-08 12:12] LABS: Basophils Absolute Auto 0.1 10^3/uL (0.0-0.1); Basophils Percent Auto 0.8 % (0.2-2.0); Eosinophils Absolute Auto 0.2 10^3/uL (0.0-0.7); Eosinophils Percent Auto 2.3 % (0.9-7.0); Hematocrit 43.5 % (42.0-54.0); Hemoglobin 15.1 g/dL (14.0-18.0); Immature Granulocytes Abs Auto 0.04 10^3/uL (0.00-0.03); Immature Granulocytes Pct Auto 0.5 % (0.0-0.5); Lymphocytes Absolute Auto 1.7 10^3/uL (1.2-3.8); Mean Corpuscular HGB Conc 34.7 g/dL (29.9-35.2); Mean Corpuscular Hemoglobin 30.5 pg (25.9-34.0); Mean Corpuscular Volume 87.9 fL (80.0-94.0); Mean Platelet Volume 9.6 fL (9.5-13.5); Monocytes Absolute Auto 0.4 10^3/uL (0.3-0.8); Monocytes Percent Auto 5.6 % (1.7-12.0); Neutrophils Absolute Auto 5.2 10^3/uL (1.4-6.5); Neutrophils Percent Auto 68.8 % (43.0-75.0); Platelet Count 247 10^3/uL (150-450); Red Blood Count 4.95 10^6/uL (4.70-6.10); Red Cell Distribution Width 12.6 % (11.0-15.0); White Blood Count 7.5 10^3/uL (4.0-11.0)
[2024-12-08 12:25] LABS: Estimated Average Glucose 114 mg/dL; Glycohemoglobin A1C 5.6 % (4.5-6.2)
[2024-12-08 13:04] LABS: Alanine Aminotransferase 27 U/L (16-63); Albumin Globulin Ratio 1.1; Albumin Level 3.7 g/dL (3.4-5.0); Alkaline Phosphatase 86 U/L (46-116); Anion Gap 11.2; Aspartate Amino Transferase 22 U/L (15-37); BUN Creatinine Ratio 15.9; Bilirubin Total 0.5 mg/dL (0.2-1.0); Calcium 8.8 mg/dL (8.5-10.1); Carbon Dioxide 29.4 mmol/L (21.0-32.0); Chloride 104 mmol/L (98-107); Chol HDL Ratio 1.9; Cholesterol 99 mg/dL (<=200); Estimated GFR (African America >60 (>=60 mL/min/1.73m^2); Estimated GFR (Non-African Ame >60 (>=60 mL/min/1.73m^2); Free T3 2.38 pg/mL (2.18-3.98); Globulin 3.4 g/dL; Glucose 101 mg/dL (74-106); HDL Cholesterol 52 mg/dL (40-60); LDL Cholesterol Calculated 20.4 mg/dL; Potassium 4.6 mmol/L (3.5-5.1); Sodium 140 mmol/L (136-145); Thyroid Stimulating Hormone 2.194 uIU/mL (0.358-3.740); Total Protein 7.1 g/dL (6.4-8.2); Triglycerides 133 mg/dL (<=150); VLDL CHOLESTEROL 26.6 mg/dL
[2024-12-09 04:07] LABS: PSA, Free <0.02 ng/mL; Prostate Specific Ag <0.1 ng/mL (0.0-4.0)
== END 2024-12-08 11:32 | disposition home or self-care (01) ==
LOC: LAB 11:37
PROVIDERS: PCP Family Medicine; Visit Provider Family Medicine
DX: G47.30 Sleep apnea, unspecified (principal); R97.20 Elevated prostate specific antigen [PSA]; C61 Malignant neoplasm of prostate; I10 Essential (primary) hypertension; E78.5 Hyperlipidemia, unspecified; R73.09 Other abnormal glucose
CPT/HCPCS: 36415; 80053; 80061; 83036; 84153; 84154; 84436; 84443; 84481; 85025

== ENCOUNTER 2025-04-17 10:28 | Outpatient (OUT) | payer MEDICARE, OTHER, SELFPAY ==
--- OUTSIDE RECORDS SUMMARY | 2025-04-17 10:34 | XMS_ITS | CCD ---
Author Organization [facility] Care Team Providers Care Social Media Marketing Analyst Name Role Phone Suzanna Trent Primary Care Physician [phone] DR SUZANNA TRENT Primary Care Unavailable MILEY, DR BRISENO Admitting Unavailable MILEY, DR BRISENO Attending Unavailable YANELIY, DR BRISENO Consulting Unavailable WEST, DR NGOZI Rahman Consulting Unavailable GRECHNY, PHONG TRAYLOR Consulting Unavailable COOPER, ANGELES Consulting Unavailable MILEY, DR BRISENO Primary Care Unavailable MILEY, DR BRISENO Admitting Unavailable MILEY, DR BRISENO Attending Unavailable YANELIY, DR BRISENO Consulting Unavailable ZIEBER, DR TOMY Granados Consulting Unavailable MILEY, DR BRISENO Primary Care Unavailable HOY, DR BRISENO Admitting Unavailable MILEY, DR BRISENO Referring Unavailable MILEY, DR BRISENO Attending Unavailable MILEY, DR BRISENO Consulting Unavailable Suzanna Trent MD Primary Care Provider [phone] Rafael Cyr Jr. Unavailable Erick Ordoñez Unavailable [phone] Suzanna Trent MD Unavailable Michi Ma MD Unavailable Suzanna Trent MD Unavailable Erick Ordoñez Unavailable [phone] Michi Ma MD Unavailable [phone] Suzanna Trent MD Primary Care Provider [phone] Gomez Montenegro Attending UnavailGomez Martinez Referring UnavailGomez Martinez Admitting UnavailGomez Martinez Attending UnavailSuzanna Pillai MD Primary Care Provider [phone] MICHI MA Referring Unavailable SUZANNA TRENT Primary Care Unavailable SUZANNA TRENT Primary Care Unavailable MICHI MA Attending Unavailable MICHI MA Referring Unavailable Allergies Allergy Classification Reported Allergen(s) Allergy Type Date of Onset Reaction(s) Facility (12 sources) Codeine; Translations: [codeine] Drug Allergy 5 Nightmares (finding), Mental Status Change [facility] (4 sources) Hmg-Coa Reductase Inhibitors (Statins); Translations: [statins] Drug allergy unknown [facility] (4 sources) Isosorbide; Translations: [isosorbide mononitrate] Drug Allergy unknown [facility] (2 sources) black walnut pollen extract; Translations: [TICKMZQ-RYJ-LA A REDUCTASE INHIBITORS] Drug Allergy 5 [facility] (1 source) Codeine Drug Allergy 5 [facility] (1 source) Isosorbide Drug Allergy 5 [facility] (8 sources) atorvastatin; Translations: [ATORVASTATIN CALCIUM] Drug Allergy 5 Myalgia [facility] (7 sources) HMG-CoA reductase inhibitor Drug Intolerance 5 Myalgia [facility] (8 sources) Isosorbide; Translations: [ISOSORBIDE MONONITRATE] Drug Allergy 5 Intolerance [facility] (8 sources) Simvastatin; Translations: [SIMVASTATIN] Drug Allergy 5 Other: See Comments [facility] Medications Current Medications Medication Drug Class(es) Dates Sig (Normalized) Sig (Original) Acetaminophen / diphenhydrAMINE (7 sources) Histamine-1 Receptor Antagonist take 1 tablet by mouth once daily at bedtime acetaminophen/diph enhydramine (TYLENOL PM ORAL) Take 1 tablet by mouth daily at bedtime. Active take 1 tablet by natalie once daily at bedtime acetaminophen/diphenhydramine (TYLENOL P M ORAL) Take 1 tablet by mouth daily at bedtime. 0 Active Comment on above: Take 1 tablet by natalie th daily at bedtime. 1 ml alirocumab 75 mg/ml auto-injector (9 sources) PCSK9 Inhibitor Start: 018 inject 75 mg by subcutaneous injection every other week alirocumab 75 mg/mL pnij Indications: Hyperlipidemia, unspecified hyperlipidemia type Inject 75 mg subcutaneously every 2 weeks. 2 Pen 11 01/19/2018 Active Comment on above: Inject 75 mg subcuta neously every 2 weeks. amoxicillin 500 mg oral capsule (1 source) Penicillin-class Antibacterial Start: 025 amoxicillin (AMOXIL) 500 mg capsule 12/19/2024 Active aspirin 81 mg oral tablet (10 sources) Platelet Aggregation Inhibitor, Nonsteroidal Anti-inflammatory Drug Start: 019 take 1 tablet by mouth once daily aspirin 81 mg oral tablet 81 mg = 1 tab(s), Oral, Daily, Refills(s) 0 Start Date: 01/11/19 Status: Ordered take 1 tablet by mouth once chin y aspirin, enteric coated (ASPIRIN, ENTERIC COATED) 81 mg EC tablet Take 81 mg by mouth once daily. Active Comment on above: Take 81 mg by mouth once daily. aspirin/acetaminophen/ caffeine (EXCEDRIN MIGRAINE ORAL) (7 sources) take 2 tablets by mouth every six hours as needed aspirin/acetaminophen /caffeine (EXCEDRIN MIGRAINE ORAL) Take 2 tablets by mouth every 6 hours as needed. Active take 2 tablets by mo [facility] every six hours as needed aspirin/acetaminophen/caffeine (EXCEDRIN MIGRAINE ORAL) Take 2 tablets by mouth every 6 hours as needed. 0 Active Comment on above: Take 2 tablets by mo ut every 6 hours as needed. carvedilol 25 mg oral tablet (10 sources) alpha-Adrenergic Joss, beta-Adrenergic Joss Start: 09-01-2022 [...] with meals. celecoxib 200 mg oral capsule (10 sources) Nonsteroidal Anti-inflammatory Drug Start: 10-30-2020 take 1 mg by mouth twice daily CeleBREX 200 mg Cap mg cap(s), Oral, BID, Refills(s) 0, Arthritis Start Date: 10/30/20 Status: Ordered take 1 capsule by mouth once hunter ly celecoxib (CELEBREX) 200 mg capsule Take 200 mg by mouth once daily. Active Comment on above: Take 200 mg by mouth once daily. clopidogrel 75 mg oral tablet (10 sources) P2Y12 Platelet Inhibitor Start: 4 take 1 tablet by mouth once daily PLAVIX 75 MG ORAL TAB Take one(1) tablet daily. 0 01/17/2004 Active Comment on above: Take one(1) tablet d aily. 24 hr dilTIAZem hydrochloride 180 mg extended release oral capsule (10 sources) Calcium Channel Joss Start: 9 Cartia XT 180 mg/24 hours oral capsule, extended release 180 mg = 1 cap(s), Oral, Daily, Refills(s) 0, Irregular heartbeat Start Date: 01/11/19 Status: Ordered Comment on [...] Status: Ordered lisinopril 20 mg oral tablet (12 sources) Angiotensin Converting Enzyme Inhibitor Start: 2 take 1 mg by mouth once daily lisinopril 20 mg Tab mg tab(s), Oral, Daily, Refills(s) 0, High blood pressure Start Date: 10/29/21 Status: Ordered Start: 01-11-2019 End: 08-08-2022 take 1 tablet by mouth once daily lisinopril 10 mg Tab 10 mg = 1 tab(s), Oral, Daily, Refills(s) 0 Start Date: 01/11/19 Status: Ordered Comment on above: Take 20 mg by mouth once daily. Take 10 mg by mouth once daily. melatonin 10 mg oral capsule (8 sources) take 1 capsule by mouth once daily at bedtime melatonin 10 mg cap Take 10 mg by mouth daily at bedtime. Active End: 08-08-2022 take 2 tablets by mouth once daily at bedtime Melatonin 300 mcg tab Take 2 tablets by mouth daily at bedtime. 0 08/08/2022 Discontinued (Course of therapy completed) Comment on above: Take 10 mg by mouth daily at bedtime. Take 2 tablets by mo uth daily at bedtime. nitroglycerin 0.4 mg sublingual tablet (10 sources) Nitrate Vasodilator Start: 01-11-2019 NitroStat 0.4 [...] pantoprazole 40 mg extended release oral tablet (10 sources) Proton Pump Inhibitor Start: 9 take 1 tablet by mouth once daily pantoprazole 40 mg Oral EC Tab 40 mg = 1 tab(s), Oral, Daily, Refills(s) 0 Start Date: 01/11/19 Status: Ordered take 1 tablet by mouth once chin y pantoprazole DR (PROTONIX) 40 mg tablet Take 40 mg by mouth once daily. Active Comment on above: Take 40 mg by mouth once daily. Praluent Pen 75 mg/mL subcutaneous solution (1 source) Start: 01-12-20 Praluent Pen 75 mg/mL subcutaneous solution See Instructions, 1 injection every other week, Refills(s) 0 Start Date: 01/11/19 Status: Ordered sildenafil 100 mg oral tablet (11 sources) Phosphodiesterase 5 Inhibitor Start: 10-30-19 take 1 mg by mouth once daily sildenafil 100 mg Tab mg tab(s), Oral, Daily, Refills(s) 0, Erectile dysfunction Start Date: 10/29/21 Status: Ordered Start: 01-23-2009 [...] Date Documented Date Episodic/Chronic Cancer of prostate (7 sources) Malignant tumor of prostate; Translations: [Malignant neoplasm of prostate] Onset: 11-27-2021 03-10-2019 Chronic Cancer of prostate (4 sources) Personal history of malignant neoplasm of prostate; Translations: [History of malignant neoplasm of prostate] Onset: 10-29-2021 Episodic Coronary atherosclerosis and other heart disease (20 sources) Atherosclerotic heart disease of [place] coronary artery without angina pectoris; Translations: [Coronary atherosclerosis] Onset: 01-16-2005 Chronic Disorders of lipid metabolism (20 sources) Hyperlipidemia; Translations: [Hyperlipidemia, unspecified] Onset: 01-16-2005 Resolved: 01-11-2019 01-11-2019 Chronic Esophageal disorders (11 sources) Gastroesophageal reflux disease; Translations: [Gastro-esophageal reflux disease without esophagitis] Onset: 04-02-2005 Resolved: 01-11-2019 01-11-2019 Chronic Essential hypertension (16 sources) Hypertensive disorder; Translations: [Essential (primary) hypertension] Onset: 01-16-2005 Resolved: 01-11-2019 01-11-2019 Chronic Genitourinary symptoms and ill-defined conditions (4 sources) Stress incontinence (female) (male); Translations: [Genuine stress incontinence] Onset: 10-29-2021 Chronic Genitourinary symptoms and ill-defined conditions (19 sources) Nocturia; Translations: [Nocturia] Onset: 10-29-2021 Resolved: 12-29-2018 Episodic Hyperplasia of prostate (4 sources) Benign prostatic hypertrophy with outflow obstruction; Translations: [Benign prostatic hyperplasia with lower urinary tract symptoms] Onset: 10-29-2021 Chronic Nonspecific chest pain (13 sources) Chest pain, unspecified; Translations: [Chest pain] Onset: 03-26-2015 Episodic Other aftercare (1 source) intermediate accountant (current) use of aspirin; Translations: [RESIDENTIAL CURRENT USE OF ASPIRIN] Onset: 07-15-2022 Episodic Other aftercare (1 source) Other moth exterminator (current) drug therapy; Translations: [OTH CRUSHER FEEDER CURRENT DRUG THERAPY] Onset: 07-15-2022 Episodic Other aftercare (7 sources) Long-term current use of anticoagulant; Translations: [MCC (current) use of anticoagulants] 06-12-2017 Episodic Other and ill-defined heart disease (3 sources) Heart disease 01-11-2019 Chronic Other connective tissue [...] Onset: 10-29-2021 Chronic Other male genital disorders (3 sources) Impotence 10-29-2021 Chronic Other screening for suspected conditions (not mental disorders or infectious disease) (3 sources) Raised prostate specific antigen 01-11-2019 Episodic Residual codes; unclassified (1 source) Sleep apnea, unspecified; Translations: [SLEEP APNEA UNSPECIFIED] Onset: 07-15-2022 Chronic Residual codes; unclassified (7 sources) Sleep apnea; Translations: [Sleep apnea, unspecified] Onset: 04-02-2005 04-02-2005 Chronic Residual codes; unclassified (3 sources) H/O: anticoagulant therapy 03-10-2019 Episodic Residual codes; [...] TRACT] Onset: 07-15-2022 Episodic Residual codes; unclassified (11 sources) FH: premature coronary heart disease; Translations: [Family history of ischemic heart disease and other diseases of the circulatory system] Onset: 08-08-2022 Episodic Residual codes; unclassified (2 sources) Family history of malignant neoplasm of digestive organ; Translations: [Family history of malignant neoplasm of digestive organs] Onset: 05-25-2024 Episodic Residual codes; unclassified (2 sources) Family history of cancer of colon 05-25-2024 Episodic Screening and history of mental health and substance abuse codes (4 sources) Ex-smoker; Translations: [Personal history of nicotine dependence] Onset: 07-15-2022 11-08-2019 Episodic Unclassified (3 sources) Drug therapy finding 05-01-2020 Unclassified (1 source) CONTACT W/AND (SUSP) EXPOS COVID-19; Translations: [CONTACT W/AND (SUSP) EXPOS COVID-19] Onset: 07-15-2022 Unclassified (1 source) Microvascular angina; 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] Onset: 11-16-2023 Past or Other Problems Problem Classification Problem Date Documented Da te Episodic/Chronic Acute myocardial infarction (3 sources) Myocardial infarction Resolved: 01-11-2019 01-11-2019 Chronic Coronary atherosclerosis and other heart disease (2 sources) Presence of coronary angioplasty implant and graft; Translations: [PRESENCE COR ANGPLSTY IMPLANT AND GRAFT] Onset: 03-30-2015 Episodic Diabetes mellitus without complication (1 source) Other abnormal glucose; Translations: [OTHER ABNORMAL GLUCOSE] Onset: 11-27-2021 Episodic Gastrointestinal hemorrhage (4 sources) Melena; Translations: [MELENA] Onset: 11-21-2021 Episodic Osteoarthritis (4 sources) Arthritis; Translations: [Unspecified osteoarthritis, unspecified site] Onset: 07-15-2022 Resolved: 01-11-2019 01-11-2019 Chronic Other nutritional; endocrine; and metabolic disorders (1 source) Hyperuricemia without signs of inflammatory arthritis and tophaceous disease; Translations: [HU W/O SIGNS IA AND TOPHACEOUS DZ] Onset: 11-27-2021 Episodic Poisoning by other medications and drugs (7 sources) Adverse reaction to substance; Translations: [Other [...] Spondylosis; intervertebral disc disorders; other back problems (7 sources) Neck pain; Translations: [Cervicalgia] Onset: 06-12-2017 06-12-2017 Episodic Unclassified (3 sources) Finding of sensation of bladder Resolved: 12-29-2018 01-11-2019 Results Test Name Value Interpretation Reference Range Facility [facility] 12-28-2024 CNOV Office Visit (CATHMN ) LEONEL GALDAMEZ JR. ([id number]) 1950 M Date Time Provider Department 12/28/24 11:00 AM MICHI MA During your visit today, we recorded the following information about you: Pulse Blood pressure Weight Height 60/minute 166/79 88.5 kg 1.753 m Michi Ma MD 12/28/2024 4:27 PM Signed [facility] [place] [facility] Department of Cardiovascular Medicine SECTION OF INTERVENTIONAL CARDIOLOGY OUTPATIENT VISIT DATE December 28, 2024 OUTPATIENT VISIT TYPE ESTABLISHED PRIMARY CARE PHYSICIAN: Suzanna Trent [address] [place] [address] REFERRING PHYSICIAN: Michi Ma [address], Desk J2-3 [facility] [address] CHIEF COMPLAINT: Patient presents with: CARD Follow Up Annual HISTORY OF PRESENT ILLNESS: Mr. 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 BP high here today, but home measurements all below 130 mm Hg systolic per patient. Reports that he measured for 1 month last year for his PCP. Over last 1-2 months, has had 4-5 episodes of chest pains. Occurring usually while at rest, unclear if with physical activity, lasting up to an hour, for which he took SL TNG x 2 on two occasions, with eventual resolution 10-15 minutes after taking SL TNG. Describes sensation of somebody sitting on you. Similar in character but not severe compared with discomfort prior to last PCI. Not exercising per se. Walks around his 4 acre yard daily for 10 minutes, climbs basement stairs, does shopping, does light yardwork and housework. No change in exercise capacity. He denies orthopnea, PND, syncope, and leg swelling. PAST CARDIAC HISTORY: CRFs: lipids, HTN, tobacco [...] chest pain. 06/11/2020 - cardiac catheterization at [facility] in [place] - (by my review of images): LM [...] systolic function. Mild tricuspid regurgitation. Mild mitral regurgitat (more content not included)... Normal [facility] Comprehensive metabolic 2000 panelon 12-28-2024 Albumin [Mass/Vol] 4.3 g/dL Normal 3.9-4.9 [facility] Comment on above: Order Comment: Speci men Type: BLOOD SPECIMEN Ordering Facility: [facility] Address: [address] [place] [address] Performed By: #### 2 4323-8, 67227-4 #### [facility] CLIA [id number] [address] [place], [place] [id number] [place] ALP [Catalytic activity/Vol] 78 U/L Normal 38-113 [facility] Comment on above: Order Comment: Speci men Type: BLOOD SPECIMEN Ordering Facility: [facility] Address: [address] [place] [address] Performed By: #### 2 4323-8, 40676-1 #### [facility] CLIA [id number] [address] [place] [address] [place] ALT [Catalytic activity/Vol] 16 U/L Normal 10-54 [facility] Comment on above: Order Comment: Speci men Type: BLOOD SPECIMEN Ordering Facility: [facility] Address: [address] [place] [address] Performed By: #### 2 4323-8, 40371-3 #### [facility] CLIA [id number] [address] [place] [address] [place] Anion gap [Moles/Vol] 11 mmol/L Normal 8-15 [facility] Comment on above: Order Comment: Speci men Type: BLOOD SPECIMEN Ordering Facility: [facility] Address: [address] [place] [address] Performed By: #### 2 4323-8, 57451-1 #### [facility] CLIA [id number] [address] [place] [address] [place] AST [Catalytic activity/Vol] 22 U/L Normal 14-40 [facility] Comment on above: Order Comment: Speci men Type: BLOOD SPECIMEN Ordering Facility: [facility] Address: [address] [place], [place] [id number] Performed By: #### 2 4323-8, 55823-6 #### [facility] CLIA [id number] [address] [place], [place] [address] [place] Bilirubin [Mass/Vol] 0.4 mg/dL Normal 0.2-1.3 [facility] Comment on above: Order Comment: Speci men Type: BLOOD SPECIMEN Ordering Facility: [facility] Address: [address] [id number] Performed By: #### 2 4323-8, 77080-5 #### [facility] CLIA [id number] [address] [place] [address] [place] Calcium [Mass/Vol] 9.2 mg/dL Normal 8.5-10.2 [facility] Comment on above: Order Comment: Speci men Type: BLOOD SPECIMEN Ordering Facility: [facility] Address: [address] [place] [address] Performed By: #### 2 4323-8, 59505-7 #### [facility] CLIA [id number] [address] [place] [address] [place] Chloride [Moles/Vol] 102 mmol/L Normal 98-107 [facility] Comment on above: Order Comment: Speci men Type: BLOOD SPECIMEN Ordering Facility: [facility] Address: [address] [place] [address] Performed By: #### 2 4323-8, 98403-9 #### [facility] CLIA [id number] [address] [place] [address] [place] CO2 [Moles/Vol] 25 mmol/L Normal 22-30 [facility] Comment on above: Order Comment: Speci men Type: BLOOD SPECIMEN Ordering Facility: [facility] Address: [address] [place] [address] Performed By: #### 2 4323-8, 86123-7 #### [facility] CLIA [id number] [address] [place] [address] [place] Creatinine [Mass/Vol] 1.13 mg/dL Normal 0.73-1.22 [facility] Comment on above: Order Comment: Speci men Type: BLOOD SPECIMEN Ordering Facility: [facility] Address: [address] [place], [place] [address] Performed By: #### 2 4323-8, 37998-9 #### [facility] CLIA [id number] [address] [place] [address] [place] Creatinine and Glomerular filtration rate.predicted panel (S/P/Bld) 69 mL/min/1.73m??? Normal >=60 [facility] Comment on above: Order Comment: Willis tipton Type: BLOOD SPECIMEN Ordering Facility: [facility] Address: [address] [place] [address] Result Comment: Deyanira mated Glomerular Filtration Rate [...] actual GFR. Performed By: #### 2 4323-8, 56534-0 #### [facility] CLIA [id number] [address] [place] [address] [place] Glucose [Mass/Vol] 100 mg/dL High 74-99 [facility] Comment on above: Order Comment: Willis tipton Type: BLOOD SPECIMEN Ordering Facility: [facility] Address: [address] [place] [address] Result Comment: The [place] Diabetes Association (ADA) provides guidance for cutoff [...] Standards of Medical Care in Diabetes 2016, [place] [employer]. Diabetes Care. 2016.39(Suppl 1). Performed By: #### 2 4323-8, 16952-3 #### [facility] CLIA [id number] [address] [place], [place] [address] [place] Potassium [Moles/Vol] 4.5 mmol/L Normal 3.7-5.1 [facility] Comment on above: Order Comment: Speci men Type: BLOOD SPECIMEN Ordering Facility: [facility] Address: [address] [place] [address] Performed By: #### 2 4323-8, 73128-2 #### [facility] CLIA [id number] [address] [place] [address] [place] Protein [Mass/Vol] 6.9 g/dL Normal 6.3-8.0 [facility] Comment on above: Order Comment: Speci men Type: BLOOD SPECIMEN Ordering Facility: [facility] Address: [address] [place] [address] Performed By: #### 2 4323-8, 03375-6 #### [facility] CLIA [id number] [address] [place] [address] [place] Sodium [Moles/Vol] 138 mmol/L Normal 136-144 [facility] Comment on above: Order Comment: Speci men Type: BLOOD SPECIMEN Ordering Facility: [facility] Address: [address] [place] [address] Performed By: #### 2 4323-8, 71575-2 #### [facility] CLIA [id number] [address] [place] [address] [place] Urea nitrogen [Mass/Vol] 15 mg/dL Normal 9-24 [facility] Comment on above: Order Comment: Speci men Type: BLOOD SPECIMEN Ordering Facility: [facility] Address: [address] [place], [place] [address] Performed By: #### 2 4323-8, 52363-3 #### [facility] CLIA [id number] [address] [place], [place] [address] [place] Lipid 1996 panelon 06-25-202 5 Cholesterol [Mass/Vol] 113 mg/dL Normal <200 [facility] Comment on above: Order Comment: Laurencei saeed Type: BLOOD SPECIMEN Ordering Facility: [facility] Address: [address] [place] [address] Result Comment: <200 mg/dL, Desirable 200-239 mg/dL, Borderline high >239 mg/dL, High Performed By: #### 2 4323-8, 73608-1 #### [facility] CLIA [id number] [address] [place] [address] [place] Cholesterol in HDL [Mass/Vol] 44 mg/dL Normal >39 [facility] Comment on above: Order Comment: Willis tipton Type: BLOOD SPECIMEN Ordering Facility: [facility] Address: [address] [place] [address] Result Comment: 40-5 9 mg/dL, Acceptable >59 mg/dL, High: Negative risk factor for coronary heart disease <40 mg/dL, Low: Positive risk factor for coronary heart disease Performed By: #### 2 4323-8, 68987-9 #### [facility] CLIA [id number] [address] [place] [address] [place] Cholesterol in LDL [Mass/Vol] 44 mg/dL Normal <100 [facility] Comment on above: Order Comment: Willis saeed Type: BLOOD SPECIMEN Ordering Facility: [facility] Address: [address] [place] [address] Result Comment: <100 mg/dL, Optimal 100-129 mg/dL, Near optimal/above optimal 130-159 mg/dL, Borderline high 160-189 mg/dL, High >189 mg/dL, Very high Secondary prevention optimal LDL Cholesterol levels are recommended to be <70 mg/dL LDL cholesterol is calculated using the Daugherty-NIH equation. Performed By: #### 2 4323-8, 59702-5 #### [facility] CLIA [id number] [address] [id number] [place] Cholesterol in LDL/Cholesterol in HDL [Mass ratio] 1.00 {ratio} Normal <2.54 [facility] Comment on above: Order Comment: Willis tipton Type: BLOOD SPECIMEN Ordering Facility: [facility] Address: [address] [place] [address] Result Comment: Teo landeros: 1. National Cholesterol Education Program ATP III Guideline At-A-Glance Quick Desk Reference: National Heart, Lung, and Blood [place]. National Institutes of Health. 2001: NIH Publication No. 01-3305. 2. An International Atherosclerosis Society position paper: global recommendations for the management of dyslipidemia: executive summary, Atherosclerosis. 2014: 232(2):410-413. Performed By: #### 2 4323-8, 15306-7 #### [facility] CLIA [id number] [address] [place] [address] [place] Cholesterol in VLDL [Mass/Vol] 20 mg/dL Normal <30 [facility] Comment on above: Order Comment: Willis tipton Type: BLOOD SPECIMEN Ordering Facility: [facility] Address: [address] [place] [address] Performed By: #### 2 4323-8, 92036-2 #### [facility] CLIA [id number] [address] [place] [address] [place] Cholesterol non HDL [Mass/Vol] 69 mg/dL Normal <130 [facility] Comment on above: Order Comment: Willis tipton Type: BLOOD SPECIMEN Ordering Facility: [facility] Address: [address] [place] [address] Result Comment: <130 mg/dL, Optimal 130-159 mg/dL, Near optimal/above optimal 160-189 mg/dL, Borderline high 190-219 mg/dL, High >219 mg/dL, Very high Secondary prevention optimal non HDL Cholesterol levels are recommended to be <100 mg/dL Performed By: #### 2 4323-8, 91935-7 #### [facility] CLIA [id number] [address] [place] [address] [place] Cholesterol.total/C holesterol in HDL [Mass ratio] 2.57 {ratio} Normal <5.10 [facility] Comment on above: Order Comment: Speci men Type: BLOOD SPECIMEN Ordering Facility: [facility] Address: [address] [place] [address] Performed By: #### 2 4323-8, 57439-6 #### [facility] CLIA [id number] [address] [place] [address] [place] FASTING TIME 12 hrs Normal [facility] Comment on above: Order Comment: Speci men Type: BLOOD SPECIMEN Ordering Facility: [facility] Address: [address] [place] [address] Performed By: #### 2 4323-8, 17656-9 #### [facility] CLIA [id number] [address] [place] [address] [place] Triglyceride [Mass/Vol] 146 mg/dL Normal <150 [facility] Comment on above: Order Comment: Speci men Type: BLOOD SPECIMEN Ordering Facility: [facility] Address: [address] [place] [address] Result Comment: <150 mg/dL, Normal 150-199 mg/dL, Borderline high 200-499 mg/dL, High >499 mg/dL, Very high Performed By: #### 2 4323-8, 81712-2 #### [facility] CLIA [id number] [address] [place] [address] [place] [facility] Patient Letter [facility] Patient Letter [facility] July 08, 2024 LEONEL GALDAMEZ [address] [id number] : 1950 Below is a summary of the results of your recent colonoscopy. Your results have been sent to your primary care provider along with recommendations on when the procedure should be repeated. COLONOSCOPY WITH POLYP REMOVAL OR BIOPSY Type of polyp tubular adenoma - not cancer but can become cancer if not removed. Additional colonoscopies will be necessary to monitor your condition and assure that new polyps have not developed. Based on your results we are recommending you repeat the procedure in 5 years- Family history of colon cancer You will be placed in our reminder system and will receive a reminder letter prior to your next due date. [facility] [phone] Normal [facility] Reminderson 07-08-2024 Reminders Reminders From: Marbella Davalos MA To: [facility] - Reminders/Recalls; Sent: 07/08/2024 14:39:30 EST Show up: 05/06/2029 14:39:00 EDT Subject: colon recall Due Date/Time: 06/27/2029 14:39:00 EST Reminder/Recall 5 year colon recall- Fhx of colon cancer Dr Montenegro 06/27/24 Normal [facility] Surgical Pathology Reporton 07-04-2024 Surgical Pathology Report [facility] [address] [facility] [address]- Surgical Pathology Report Collected Date/Time: 06/27/2024 14:52 EST Pathologist: Sanjeev WHITING PhD, Della Dhillon Received Date/Time: 06/28/2024 07:18 EST Moni WHITING, Gomez Montenegro MD, Gomez Paniagua 07 Surgical Pathology Report - 07/04/2024 12:05 EST - Auth (Verified) Final Diagnosis A: DUODENUM, BIOPSY: - DUODENAL MUCOSA WITHIN NORMAL LIMITS. B: STOMACH, BIOPSY: - GASTRIC ANTRAL MUCOSA WITH MILD CHRONIC INFLAMMATION IN LAMINA PROPRIA. - NO INTESTINAL METAPLASIA. - NO H. PYLORI MICROORGANISMS IDENTIFIED WITH IMMUNOSTAIN. C: POLYPS, ASCENDING COLON, POLYPECTOMY: - TUBULAR ADENOMA. (Electronic Signature) Della Pace MD PhD 07/04/2024 12:05 Clinical Information Family history of colon cancer, carcinoma of prostate, CAD [place] artery Pre-Op Diagnosis: Family history of colon cancer, carcinoma of prostate, CAD [place] artery Procedure: EGD, colonoscopy Post-Op Diagnosis: 1. Esophageal landmarks identified, regular Z-line, small hiatal hernia, no evidence of Hartman's esophagus 2. Moderate patchy erythema in the body and antrum of the stomach with minimal amount of old blood, no biopsies were taken to rule H. pylori 3. Mild nonspecific patchy erythema in the duodenal bulb and second part of the duodenum with minimal edematous mucosa, random biopsies were taken to rule out celiac disease 4. Small internal hemorrhoids 5. Mild to moderate sigmoid diverticulosis 6. 2 small diminutive polyps in the ascending colon, 2 to 3 mm in size, resected with cold snare the second were resected with cold biopsy forceps and retrieved. 7. Normal examined terminal ileum Specimen(s) Received A.Duodenal biopsy B.Gastric biopsy C.Ascending colon polyps Gross Description A: Received in formalin labeled with patient name, number, and duodenal biopsy are two fragments of johnson tissue measuring 0.1 and 0.2 cm. Specimen is entirely submitted in one cassette. B: Received in formalin labeled with patient name, number, and gastric biopsy are three fragments of johnson tissue ranging from 0.1 cm up to 0.2 cm. Specimen is entirely submitted in one cassette. C: Received in formalin labeled with patient name, number, and ascending colon polyps are two fragments of johnson tissue measuring 0.2 and 0.3 cm. Specimen is entirely submitted in one cassette. (DC) DC:[facility] Surgical Pathology Report Collected Date/Time: 06/27/2024 14:52 EST Pathologist: Sanjeev WHITING PhD, Della Dhillon Received Date/Time: 06/28/2024 07:18 EST Moni WHITING, Gomez Montenegro MD, Gomez Paniagua Microscopic Description Microscopic examination performed unless gross only specified. The use of one or more reagents in the above tests is regulated as an analyte specific reagent (ASR). The test or tests are ordered following initial H&E microscopic examination. The performance characteristics were determined by the [facility] Surgical Pathology. They have not been cleared or approved by the US Food and Drug Administration. The FDA has determined that such clearance or approval is not necessary. These tests are used for clinical purposes. They should not be regarded as investigational or for research. Appropriate positive and negative controls are performed and are acceptable. Normal [facility] Comment on above: Performed By: #### 4 [id number] #### [facility] [address] [place] [address] Main OR Intraoperative Recor don 06-28-2024 Main OR Intraoperative Record Main OR Intraoperative Record IntraOp Document Type FT Summary Primary Physician: Moni WHITING, Gomez Paniagua Finalized Date/Time: 06/28/24 09:04:33 Pt. Name: LEONEL GALDAMEZ JR /Sex: 1950 Male Med Rec #: [id number] Physician: Moni WHITING, Gomez Paniagua Financial #: [id number] Pt. Type: O Room/Bed: / Admit/Disch: 06/27/24 13:33:53 - 06/27/24 23:59:59 Institution: Case Times FT Entry 1 Patient Times In Room 06/27/24 14:41:00 Out Room 06/27/24 15:13:00 Procedure Times Start 06/27/24 14:46:00 Stop 06/27/24 15:10:00 Anesthesia Times Start 06/27/24 14:41:00 Stop 06/27/24 15:13:00 Last Modified By: Karlos RN, Alanis F 06/27/24 15:13:53 General Comments: 1450 EGD completed. /MD,RN 1455 Colonoscopy started. /MD,RN 06/28/24 Chart opened for charge review per Rowena Mills RN. [place] Case Attendance FT Entry 1 Entry 2 Entry 3 Case Attendee Ingrid MAZA, Sonny Everett RN, Carrie Elizabeth Role Performed Anesthesiologist Loan Servicing Officer - Primary Scrub - Primary Milling Operator Time In 06/27/24 14:41:00 06/27/24 14:41:00 06/27/24 14:41:00 Time Out 06/27/24 14:50:00 06/27/24 15:13:00 06/27/24 15:13:00 Procedure EGD AND COLONOSCOPY(.) EGD AND COLONOSCOPY(.) EGD AND COLONOSCOPY(.) Comments Dr. Magana supervising case. Returns to room at 1510. Last Modified By: Karlos RN, Alanis Everett RN, Alanis Everett RN, Alanis F 06/27/24 15:13:54 F 06/27/24 15:13:54 F 06/27/24 15:13:54 Entry 4 Entry 5 Case Attendee Moni WHITING, Gomez Blanc CHEMICAL PATHOLOGIST, Bartolo Paniagua Role Performed Surgeon - Primary CHEMICAL PATHOLOGIST Time In 06/27/24 14:41:00 06/27/24 14:50:00 Time Out 06/27/24 15:13:00 06/27/24 15:13:00 Procedure EGD AND COLONOSCOPY(.) EGD AND COLONOSCOPY(.) Comments Dr. Magana supervising case Last Modified By: Alanis Everett RN, RN, Madaline F 06/27/24 15:13:54 F 06/27/24 15:13:54 Perioperative Protocols FT Pre-Care Text: Implements protective measures prior to operative or invasive procedure, confirms identity before the operative or invasive procedure, verifies operative procedure, surgical site, and laterality Entry 1 Procedure(s) EGD AND COLONOSCOPY(.) Patient Identity Birthday, ID Band Verified (select at Check, Patient least 2): Participation Consents / H and P Anesthesia Consent, Operative Site N/A Verified H&P, Surgery/Procedure Marking Verified Consent Surgical Site No Laterality Verified n/a Verified Procedure Verified Yes Correct Patient Yes Position Verified Availability Equipment, Medication Prep Dry n/a Verified (If Applicable) PreOp Antibiotic No Time Out Sonny Casas, Given Participants Alanis Everett RN, Miles, Kirstyn K, Moni WHITING, Gomez Paniagua Time Out Complete 06/27/24 14:44:00 Outcomes Met? Yes Last Modified By: Alanis Everett RN 06/27/24 14:45:03 Post-Care Text: The patient is free from signs and symptoms of injury caused by extraneous objects Allergy Information FT Pre-Care Text: Verifies allergies Entry 1 Allergies Reviewed? Yes Allergies Reviewed Self/Patient With Outcomes Met? Yes Last Modified By: Alanis Everett RN 06/27/24 14:45:09 Post-Care Text: The patient received appropriate medication(s) safely administered during the perioperative period Surgical Procedures FT Entry 1 Procedure Description Procedure EGD AND COLONOSCOPY Modifiers . Surgeon Description EGD with gastric biopsy, duodenal biopsy. Colonoscopy with ascending colon polypectomy removed using cold snare, ascending colon polypectomy removed using biopsy forceps. Primary Procedure Yes Primary Surgeon Gomez Montenegro MD Start 06/27/24 14:46:00 Stop 06/27/24 15:10:00 Anesthesia Type General Surgical Service Gastroenterology Wound Class 2 - Clean-Contaminated Last Modified By: Alanis Everett RN 06/27/24 15:10:42 General Case Data FT Pre-Care Text: Classifies surgical wound, implements aseptic technique, initiates traffic control Entry 1 Case Information OR ENDO 1 FT Case Level Level 2 Wound Class 2 - Clean-Contaminated Specialty Gastroenterology ASA Class 3 Preop Diagnosis Family history of colon Postop Same As Preop No cancer, carcinoma of prostate, CAD [place] artery Postop Diagnosis EGD- gastritis, Outcomes Met? Yes duodenitis, small hiatal hernia. Colonoscopy- ascending colon polyps x2, diverticulosis, internal hemorrhoids Last Modified By: Karlos ROLDAN, Alanis Fuentes 06/27/24 15:12:46 Post-Care Text: The patient is free from signs and symptoms of infection Skin Assessment (Pre Procedure) FT Pre-Care Text: Implements protective measures to prevent skin/ tissue injury due to thermal or mechanical sources Evaluates for signs and symptoms of physical injury to skin and tissue Entry 1 Skin Integrity Intact, [place], Warm, & Skin Abnormality No Dry Outcomes Met? Yes Last Modif (more content not included)... Normal [facility] Discharge Instructionson Discharge Instructions Discharge Instructions LEONEL GALDAMEZ JR :1950 Visit Date:06/27/2024 Inpatient Discharge Instructions Your Care Team Admitting Physician - Gomez Montenegro MD Referring Physician - Gomez Montenegro MD Reason for Your Visit FAMILY HX COLON CANCER / CARCINOMA OF PROSTATE / CAD RESIGHINI ARTERY Your Diagnosis Chronic GERD Family history of colon cancer Tests Performed Pathology Tissue Exam -- Results Pending -- Please visit your patient portal for your results or contact your primary care physician. This Is Your Medications List alirocumab (Praluent Pen 75 mg/mL subcutaneous solution) aspirin (aspirin 81 mg oral tablet) carvedilol (carvedilol 25 mg Tab) celecoxib (CeleBREX 200 mg Cap) clopidogrel (Plavix 75 mg Tab) diltiazem (Cartia XT 180 mg/24 hours oral capsule, extended release) lisinopril (lisinopril 20 mg Tab) nitroglycerin (NitroStat 0.4 mg Tab) pantoprazole (pantoprazole 40 mg Oral EC Tab) sildenafil (sildenafil 100 mg Tab) Procedure History Colonoscopy (06/27/2024), Esophagogastroduodenoscopy (06/27/2024), Prostatectomy (01/27/2019), Transrectal biopsy of prostate using ultrasound (US) guidance (11/10/2018), Transrectal biopsy of prostate using ultrasound (US) guidance (05/07/2017), Cardiac catheterisation (04/07/2003), Cholecystectomy, Colonoscopy, History of hernia repair, Injection of steroid into hip joint. What to do next Instructions From Your Doctor Event Name Event Result Discharge Activity Resume normal activities in 24 hours Discharge Restrictions No driving for 24 hrs Discharge Diet(s) Regular Call Your Doctor For Persistent or heavy bleeding Discharge Instructions Discharge Instructions New Follow Up Appointments after Discharge Follow Up with Moni WHITING, ANGEL Candelaria, [facility] When: Comments: Call for any problems. Office will call to schedule follow up appointment Where: Medications What How Much When Instructions Next Dose Unchanged alirocumab (Praluent Pen 75 mg/ mL subcutaneous solution) See instructions 1 injection every other week Unchanged aspirin (aspirin 81 mg oral tablet) 1 Tablets By Mouth Every day Unchanged carvedilol (carvedilol 25 mg Tab) Unchanged celecoxib (CeleBREX 200 mg Cap) By Mouth 2 times a day Unchanged clopidogrel (Plavix 75 mg Tab) 1 Tablets By Mouth Every day Unchanged diltiazem (Cartia XT 180 mg/ 24 hours oral capsule, extended release) 1 Capsules By Mouth Every day Unchanged lisinopril (lisinopril 20 mg Tab) By Mouth Every day Unchanged nitroglycerin (NitroStat 0.4 mg Tab) See instructions 1 tab(s) SubLingual PRN for chest pain Unchanged pantoprazole (pantoprazole 40 mg Oral EC Tab) 1 Tablets By Mouth Every day Unchanged sildenafil (sildenafil 100 mg Tab) By Mouth Every day Test Results No qualifying data available. Allergies Imdur (unknown) codeine (Nightmares) statins (unknown) Problems Ongoing - Any problem that you are currently receiving treatment for. 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 Arthritis Feeling of incomplete bladder emptying Frequency of urination GERD (gastroesophageal reflux disease) Hyperlipidemia Hypertension Myocardial infarction Weak urinary stream Education Materials Hiatal Hernia A hiatal hernia occurs when part of the stomach slides above the muscle that separates the abdomen from the chest (diaphragm). A person can be born with a hiatal hernia (congenital), or it may develop over time. In almost all cases of hiatal hernia, only the top part of the stomach pushes through the diaphragm. Many people have a hiatal hernia with no symptoms. The larger the hernia, the more likely it is that you will have symptoms. In some cases, a hiatal hernia allows stomach acid to flow back into the tube that carries food from your mouth to your stomach (esophagus). This may cause heartburn symptoms. The development of heartburn symptoms may mean that you have a condition called gastroesophageal reflux disease (GERD). What are the causes? This condition is caused by a weakness in the opening (hiatus) where the esophagus passes through the diaphragm to attach to the upper part of the stomach. A person may be born with a weakness in the hiatus, or a weakness can develop over time. What increases the risk? This condition is more likely to develop in: ??? Older people. Age is a major risk factor for a hiatal hernia, especially if you are over the age of 50. ??? women. ??? People who are overweight. ??? People (more content not included)... Normal [facility] Comment on above: Result Comment: Elec tronically Signed By: Daniela Montano I\.br\Date and Time Signed: 06/27/24 15:24 EST Inpatient Patient Summaryon 06-27-2024 Inpatient Patient Summary Inpatient Patient Summary [place] [id number] [facility] Clinical Discharge Instructions PERSON INFORMATION Name: LEONEL GALDAMEZ JR PHYSICIANS Admitting Physician: Gomez Montenegro MD Attending Physician: Gomez Montenegro MD PCP: Suzanna Trent MD Discharge Diagnosis: Chronic GERD; Family history of colon cancer Comment: PATIENT EDUCATION INFORMATION Instructions: Medication Leaflets: Follow up: MEDICATION LIST Medications to Continue with No Changes Other Medications alirocumab (Praluent Pen 75 mg/mL subcutaneous solution) 1 injection every other week. aspirin (aspirin 81 mg oral tablet) 1 Tablets By Mouth every day. carvedilol (carvedilol 25 mg Tab) celecoxib (CeleBREX 200 mg Cap) By Mouth 2 times a day. clopidogrel (Plavix 75 mg Tab) 1 Tablets By Mouth every day. diltiazem (Cartia XT 180 mg/24 hours oral capsule, extended release) 1 Capsules By Mouth every day. lisinopril (lisinopril 20 mg Tab) By Mouth every day. nitroglycerin (NitroStat 0.4 mg Tab) 1 tab(s) SubLingual PRN for chest pain. pantoprazole (pantoprazole 40 mg Oral EC Tab) 1 Tablets By Mouth every day. sildenafil (sildenafil 100 mg Tab) By Mouth every day. Comment: Micaela [facility] Main OR PACU II Recordon Main OR PACU II Record Main OR PACU II Record PACU Phase II Document Type FT Summary Primary Physician: Gomez Montenegro MD Finalized Date/Time: 06/27/24 15:54:31 Pt. Name: LEONEL GALDAMEZ JR/Sex: 1950 Male Med Rec #: [id number] Physician: Gomez Montenegro MD Financial #: [id number] Pt. Type: O Room/Bed: / Admit/Disch: 06/27/24 13:33:53 - Institution: Case Times PACU II FT Pre-Care Text: Identifies barriers to communication and implements measures to provide psychological support and determines knowledge level Develops individualized plan of care, and ensures continuity of care Maintains patient's dignity and privacy, and maintains patient confidentiality Identifies and reports philosophical, cultural, and spiritual beliefs and values Identifies individual values and wishes concerning care administers prescribed antibiotic therapy and immunizing agents as ordered, Evaluates postoperative tissue perfusion Implements thermoregulation measures, and monitors body temperature Evaluates postoperative respiratory status Evaluates postoperative cardiac status Evaluates postoperative neurological status Assesses pain control, collaborated in initiating patient-controlled analgesia and implements alternative methods of pain control Verifies allergies, administers prescribed medications and solutions, evaluates response to medications Entry 1 In PACU II 06/27/24 15:15:00 Discharge from PACU 06/27/24 15:45:00 II Outcomes Met? Yes Last Modified By: Daniela Montano I 06/27/24 15:54:27 Post-Care Text: The patient demonstrates knowledge of the expected response to the operative or invasive procedure The patient's care is consistent with the individualized perioperative plan of care The patient's right to privacy is maintained The patient's value system, lifestyle, ethnicity, and culture are considered, respected, and incorporated into the perioperative plan of care The patient participates in decisions affecting his or her perioperative plan of care. The patient is free from signs and symptoms of infection The patient has wound/tissue perfusion consistent with or improved from baseline levels established preoperatively The patient is at or returning to normothermia at the conclusion of the immediate postoperative period The patient's respiratory function is consistent with or improved from baseline levels established preoperatively The patient's cardiovascular status is consistent with or improved from baseline levels established preoperatively The patient's neurological status is consistent with or improved from baseline levels established preoperatively The patient demonstrates and/or reports adequate pain control throughout the perioperative period The patient received appropriate medication(s), safely administered during the perioperative period Finalized By: Daniela Montano I Document Signatures Signed By: Daniela Montano I 06/27/24 15:54 Normal [facility] Main OR Preoperative Recordo n 06-27-2024 Main OR Preoperative Record Main OR Preoperative Record Holding Area Document Type FT Summary Primary Physician: Gomez Montenegro MD Finalized Date/Time: 06/27/24 13:53:47 Pt. Name: LEONEL GALDAMEZ JR/Sex: 1950 Male Med Rec #: [id number] Physician: Gomez Montenegro MD Financial #: [id number] Pt. Type: O Room/Bed: / Admit/Disch: 06/27/24 13:33:53 - Institution: Case Times Holding FT Pre-Care Text: Verifies consent for planned procedure, identifies individual values and wishes concerning care, includes family members in perioperative teaching Secures patient's records' belongings, and valuables, maintains patient's dignity and privacy, and maintains patient confidentiality Entry 1 In Holding 06/27/24 13:45:00 Outcomes Met? Yes Last Modified By: Gurinder Avila RN 06/27/24 13:51:03 Post-Care Text: The patient participates in decisions affecting his or her perioperative plan of care The patient's right to privacy is maintained Surgery Checklist FT Entry 1 Patient Birthday, ID Band Procedure History and Physical, Identification: Check, Patient Verification: Surgical Consent, With Participation Patient NPO after Midnight: No Date/Time: 06/27/24 08:30:00 Results Reviewed clear-yellow liquid Personal Items: Glasses, Jewelry Comments: bowel results Personal Items glasses, watch, ring Limitations: Hx. of heart stents, Comment: x1, clothing, shoes metal in neck and left shoulder Complaints of Pain: No Pain Comment: denies at this time Operative Site n/a Marked By: n/a Marking: Location: n/a Availability Equipment Verified: Does Patient Smoke No Patient states Yes Comment - Adult - john postop adult Supervision supervision available Case Cancelled in No Holding Area see comments below for reason Last Modified By: Gurinder Avila RN 06/27/24 13:53:46 General Comments: pt finished bowel prep at 0830, per patient nothing to eat or drink since MSRN Finalized By: Gurinder Avila RN Document Signatures Signed By: Gurinder Avila RN 06/27/24 13:53 Normal [facility] Outpatient Surgery Discharge Instructionon 06-27-2024 Outpatient Surgery Discharge Instruction Outpatient Surgery Discharge Instruction [place] [id number] Patient Discharge Instructions PERSON INFORMATION Name: LEONEL GALDAMEZ JR Date of : 1950 Current Date: 06/27/2024 14:45:16 PHYSICIANS Admitting Physician: Gomez Montenegro MD Discharge Diagnosis: Chronic GERD; Family history of colon cancer LEONEL GALDAMEZ JR has been given the following list of follow-up instructions, prescriptions, and patient education materials: PATIENT FOLLOW-UP INFORMATION Diet: Regular Discharge Activity: Resume normal activities in 24 hours Discharge Restrictions: No driving for 24 hrs Call Your Doctor For: Persistent or heavy bleeding IF UNABLE TO CONTACT YOUR PHYSICIAN AND YOU FEEL IT IS AN EMERGENCY, GO TO THE NEAREST EMERGENCY ROOM OR CALL 911 I, LEONEL GALDAMEZ JR, have received the attached patient education materials/instructions and have verbalized understanding: May we do a follow up call? Yes No I was present when discharge instructions were given __ Patient Signature Date Clinican/Nurse Signature Date Follow up: Pharmacy Information: You may receive a survey from [employer] asking you to rate your care experience. Your feedback is important and will help us understand what we do well and how we can improve the quality of care we provide to you, your loved ones and our community. It???s an honor to serve you. Thank you for choosing [facility] HERE ARE THE MEDICATION CHANGES THAT OCCURRED DURING YOUR HOSPITAL STAY Medications to Continue with No Changes Other Medications alirocumab (Praluent Pen 75 mg/mL subcutaneous solution) 1 injection every other week. aspirin (aspirin 81 mg oral tablet) 1 Tablets By Mouth every day. carvedilol (carvedilol 25 mg Tab) celecoxib (CeleBREX 200 mg Cap) By Mouth 2 times a day. clopidogrel (Plavix 75 mg Tab) 1 Tablets By Mouth every day. diltiazem (Cartia XT 180 mg/24 hours oral capsule, extended release) 1 Capsules By Mouth every day. lisinopril (lisinopril 20 mg Tab) By Mouth every day. nitroglycerin (NitroStat 0.4 mg Tab) 1 tab(s) SubLingual PRN for chest pain. pantoprazole (pantoprazole 40 mg Oral EC Tab) 1 Tablets By Mouth every day. sildenafil (sildenafil 100 mg Tab) By Mouth every day. PATIENT EDUCATION INFORMATION Instructions: Medication Leaflets: Micaela [facility] Gastroenterology Office/Clin ic Noteon 05-26-2024 Gastroenterology Office/Clinic Note Gastroenterology Office/Clinic Note Chief Complaint 5 year colonoscopy recall HPI Staff Patient is a(n) 73 year old male who presents today for a 5 year colonoscopy recall. Fhx colon cancer - mother, and a younger brother just passed from anal cancer this past February. Personal hx prostate cancer. Previous EGD - thinks he had one with Dr. Segal in [place] a long time ago. Denies hx colon cancer/polyps. Denies n/v/c/d, abd pain, bloody or mucus stools. Blood thinners? Plavix - Prescribed by Dr. Trent. GLP-1 agonists? no Colonoscopy 05/18/19 w/Dr. Segal @ [place]: POSTOPERATIVE DIAGNOSIS: Normal colonoscopy. RECOMMENDATIONS: Colonoscopy would be recommended in 5 years based on his family history. Review of Systems PHQ Score Initial Depression Screen Score: 0 SCORE Physical Exam Vitals & Measurements HR: 78(Peripheral) RR: 18 BP: 150/72 HT: 69 in HT: 176 cm WT: 89 kg WT: 196.211 lb BMI: 28.73 Assessment/Plan 1. Family history of colon cancer (Z80.0: Family history of malignant neoplasm of digestive organs) Mother and brother had colon cancer, last colonoscopy 2018, no polyps before, repeat colonoscopy Ordered: Colonoscopy (Hospital Procedure) E&M of New Patient Moderate 45-59 Min 35060 2. Adenocarcinoma of prostate (C61: Malignant neoplasm of prostate) Ordered: Colonoscopy (Hospital Procedure) E&M of New Patient Moderate 45-59 Min 26454 3. 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 Impotence Incomplete bladder emptying Nocturia Prostate cancer Stress incontinence Historical Arthritis Feeling of incomplete bladder emptying Frequency of urination GERD (gastroesophageal reflux disease) Hyperlipidemia Hypertension Myocardial infarction Weak urinary stream Procedure/Surgical History Prostatectomy (01/27/2019), Transrectal biopsy of prostate using ultrasound (US) guidance (11/10/2018), Transrectal biopsy of prostate using ultrasound (US) guidance (05/07/2017), Cardiac catheterisation (04/07/2003), Cholecystectomy, Colonoscopy, History of hernia repair, Injection of steroid into hip joint. Medications aspirin 81 mg oral tablet, 81 mg= 1 tab(s), Oral, Daily Cartia XT 180 mg/24 hours oral capsule, extended release, 180 mg= 1 cap(s), Oral, Daily carvedilol 25 mg Tab CeleBREX 200 mg Cap, Oral, BID lisinopril 20 mg Tab, Oral, Daily NitroStat 0.4 mg Tab, See Instructions pantoprazole 40 mg Oral EC Tab, 40 mg= 1 tab(s), Oral, Daily Plavix 75 mg Tab, 75 mg= 1 tab(s), Oral, Daily Praluent Pen 75 mg/mL subcutaneous solution, See Instructions sildenafil 100 mg Tab, Oral, Daily Allergies Imdur (unknown) codeine (Nightmares) statins (unknown) Social History Alcohol - Denies Alcohol Use, 01/11/2019 Never., 05/21/2024 Substance Abuse Never., 05/21/2024 Tobacco Former smoker, quit more than 30 days ago Tobacco Use:. Never Smokeless Tobacco Use:. Yes, 05/26/2024 Former smoker, quit more than 30 days ago Tobacco Use:., 01/11/2019 Family History Heart disease: Mother. Malignant neoplasm of colon: Brother. Mitral valve disorder: Mother. Myocardial infarct: Father. Primary malignant neoplasm of colon: Mother. Immunizations Vaccine Date Status Comments influenza virus vaccine, inactivated 05/08/2024 Recorded influenza virus vaccine, inactivated 04/08/2023 Recorded influenza virus vaccine, inactivated 05/22/2022 Recorded influenza virus vaccine, inactivated 04/08/2022 Recorded SARS-CoV-2 (COVID-19) [id number] 04/08/2022 Recorded SARS-CoV-2 (COVID-19) mRNA-1273 vaccine 04/30/2021 Recorded influenza, unspecified formulation 04/19/2021 Recorded influenza virus vaccine, inactivated 04/10/2021 Recorded SARS-CoV-2 (COVID-19) mRNA-1273 vaccine 09/14/2020 Recorded SARS-CoV-2 (COVID-19) mRNA-1273 vaccine 08/24/2020 Recorded SARS-CoV-2 (COVID-19) mRNA-1273 vaccine 08/01/2020 Recorded 2024-05-25: [id number] SARS-CoV-2 (COVID-19) mRNA-1273 vaccine 07/04/2020 Recorded influenza virus vaccine, inactivated 04/10/2020 Recorded influenza virus vaccine, inactivated 04/2020 Recorded diphtheria/pertussis, acel/tetanus adult 06/14/2019 Recorded influenza virus vaccine, inactivated 04/20/2019 Recorded pneumococcal 23-valent vaccine 04/23/2018 Recorded influenza virus vaccine, inactivated 04/23/2018 Recorded zoster vaccine, inactivated 01/14/2018 Recorded zoster vaccine, inactivated 10/08/2017 Recorde (more content not included)... Normal [facility] Comment on above: Result Comment: Elec tronically Signed By: Moni WHITING, Gomez Paniagua\.br\Date and Time Signed: 05/26/24 12:56 EST NM STRESS/REST MULTIon 07-31 NM STRESS/REST MULTI Patient: LEONEL GALDAMEZ Exam Date: 07/31/2022 : 1950 Gender:M Ordering : DR SUZANNA TRENT . Admission #: [id number] Family : Order #: [id number] CLICK HERE TO VIEW EXAM RADIOLOGY REPORT [...] M.D. on 07/31/2022 at 15:52 Normal [facility] CARDIAC BHUMI 3-6on 3 CK [Catalytic activity/Vol] 99 U/L Normal 39-308 [facility] Comment on above: Performed By: #### C MREP #### [facility] [address] [address] [address] Della Pace CK.MB [Mass/Vol] 0.69 ng/mL Normal <=3.60 [facility] Comment on above: Performed By: #### C MREP #### [facility] [address] [address] [address] Della Pace HSTROP 6.6 pg/mL Normal 4.0-76.1 [facility] Comment on above: Result Comment: CUT- OFF POINTS HAVE BEEN ESTABLISHED BASED ON THE FOURTH UNIVERSAL DEFINITIONS OF MYOCARDIAL INFARCTION. THE UPPER REFERENCE LIMIT (URL) OF TROPONIN, DEFINED THE 99TH PERCENTILE OF cTnI DISTRIBUTION IN A REFERENCE POPULATION, HAS BEEN CONFIRMED THE DECISION THRESHOLD FOR OR DIAGNOSIS. Performed By: #### C MREP #### [facility] [address] [address] [address] Della Pace ECHOCARDIO M/2D COMPLETEon 0 07-10-2022 ECHOCARDIO M/2D COMPLETE Patient: LEONEL GALDAMEZ Exam Date: 07/10/2022 : 1950 Gender:M Ordering : DR SUZANNA TRENT . Admission #: [id number] Family : Order #: [id number] CLICK HERE TO VIEW EXAM ECHOCARDIOGRAM REPORT [...] M.D. on 07/11/2022 at 14:37 Normal [facility] BNPon 07-09-2022 Natriuretic peptide B (Bld) [Mass/Vol] 22.0 pg/mL Normal <=900.0 [facility] Comment on above: Performed By: #### H STROPN, CMP, BNP #### [facility] [address] [place], [place] [address] Dr. Della Pace CARDIAC BHUMI 3-6on 3 CK [Catalytic activity/Vol] 114 U/L Normal 39-308 [facility] Comment on above: Performed By: #### C MREP ####[facility] [address] [place], [place] [address]Ly. Yilan Pace CK.MB [Mass/Vol] 0.99 ng/mL Normal <=3.60 [facility] Comment on above: Performed By: #### C MREP ####[facility] [address] [address]Dr. Della Pace HSTROP 7.2 pg/mL Normal 4.0-76.1 [facility] Comment on above: Result Comment: CUT- OFF POINTS HAVE BEEN ESTABLISHED BASED ON THE FOURTH UNIVERSAL DEFINITIONS OF MYOCARDIAL INFARCTION. THE UPPER REFERENCE LIMIT (URL) OF TROPONIN, DEFINED THE 99TH PERCENTILE OF cTnI DISTRIBUTION IN A REFERENCE POPULATION, HAS BEEN CONFIRMED THE DECISION THRESHOLD FOR OR DIAGNOSIS. Performed By: #### C MREP ####[facility] [address] [address]Dr. Della Pace CBC AUTO DIFFon 07-09-2022 BASO # 0.1 103/ul Normal 0.0-0.1 [facility] Comment on above: Performed By: #### C BC #### [facility] [address] [place] [address] Dr. Della Pace Basophils/100 WBC (Bld) 0.7 % Normal 0.2-2.0 [facility] Comment on above: Performed By: #### C BC #### [facility] [address] [place] [address] Dr. Della Pace EO # 0.2 103/ul Normal 0.0-0.7 [facility] Comment on above: Performed By: #### C BC #### [facility] [address] [address] [address] Della Pace Eosinophils/100 WBC (Bld) 1.9 % Normal 0.9-7.0 [facility] Comment on above: Performed By: #### C BC #### [facility] [address] [place] [address] Dr. Della Pace Erythrocyte distribution width (RBC) [Ratio] 12.9 % Normal 11.0-15.0 [facility] Comment on above: Performed By: #### C BC #### [facility] [address] [place] [address] Dr. Della Pace Hematocrit (Bld) [Volume fraction] 41.4 % Critically low 42.0-54.0 [facility] Comment on above: Performed By: #### C BC #### [facility] [address] [place] [address] Dr. Della Pace Hemoglobin (Bld) [Mass/Vol] 14.4 g/dL Normal 14.0-18.0 [facility] Comment on above: Performed By: #### C BC #### [facility] [address] [place] [address] Dr. Della Pace IG # 0.03 10e3/ul Normal 0.00-0.03 [facility] Comment on above: Performed By: #### C BC #### [facility] [address] [place] [address] Dr. Della Pace IG % 0.4 % Normal 0.0-0.5 [facility] Comment on above: Performed By: #### C BC #### [facility] [address] [place] [address] Dr. Della Pace LYMPH # 2.0 103/ul Normal 1.2-3.8 [facility] Comment on above: Performed By: #### C BC #### [facility] [address] [place] [address] Dr. Della Pace Lymphocytes/100 WBC (Bld) 23.9 % Normal 20.5-60.0 [facility] Comment on above: Performed By: #### C BC #### [facility] [address] [place] [address] Dr. Della Pace MANUAL DIFF REQ NO Normal [facility] Comment on above: Performed By: #### C BC #### [facility] [address] [place] [address] Dr. Della Pace MCH (RBC) [Entitic mass] 30.1 pg Normal 25.9-34.0 [facility] Comment on above: Performed By: #### C BC #### [facility] [address] [place] [address] Dr. Della Pace MCHC (RBC) [Mass/Vol] 34.8 g/dL Normal 29.9-35.2 [facility] Comment on above: Performed By: #### C BC #### [facility] [address] [place] [address] Dr. Della Pace MCV (RBC) [Entitic vol] 86.4 fL Normal 80.0-94.0 [facility] Comment on above: Performed By: #### C BC #### [facility] [address] [place] [address] Dr. Della Pace MONO # 0.4 103/ul Normal 0.3-0.8 [facility] Comment on above: Performed By: #### C BC #### [facility] [address] [place] [address] Dr. Della Pace Monocytes/100 WBC (Bld) 5.1 % Normal 1.7-12.0 [facility] Comment on above: Performed By: #### C BC #### [facility] [address] [place] [address] Dr. Della Pace NEUT # 5.8 103/ul Normal 1.4-6.5 [facility] Comment on above: Performed By: #### C BC #### [facility] [address] [place] [address] Dr. Della Pace Neutrophils/100 WBC (Bld) 68.0 % Normal 43.0-75.0 [facility] Comment on above: Performed By: #### C BC #### [facility] [address] [place] [address] Dr. Della Pace Platelet mean volume (Bld) [Entitic vol] 9.5 fL Normal 9.5-13.5 [facility] Comment on above: Performed By: #### C BC #### [facility] [address] [place] [address] Dr. Della Pace PLT 271 103/ul Normal 150-450 [facility] Comment on above: Performed By: #### C BC #### [facility] [address] [place] [address] Dr. Della Pace RBC 4.79 106/ul Normal 4.70-6.10 [facility] Comment on above: Performed By: #### C BC #### [facility] [address] [place], [place] [address] Dr. Della Pace WBC 8.5 103/ul Normal 4.0-11.0 [facility] Comment on above: Performed By: #### C BC #### [facility] [address] [place], [place] [address] Dr. Della Pace Covid-19 PCR (CVDTB)on SARS-CoV-2 (COVID-19) RNA CHITRA+probe Ql (Unsp spec) Not detected Normal NOT DETECTED [facility] Comment on above: Result Comment: When diagnostic [...] for this test is supported by the Dietary Tech of Health and Human Service's declaration that [...] be used). Performed By: #### C VDTBH ####[facility] [address] [place], [place] [address]LeDr. Della Pace PROF 14(COMP METB)on 023 Albumin [Mass/Vol] 3.7 g/dL Normal 3.4-5.0 [facility] Comment on above: Performed By: #### H STROPN, CMP, BNP #### [facility] [address] [place], [place] [address] Dr. Della Pace Albumin/Globulin [Mass ratio] 1.2 {ratio} Normal [facility] Comment on above: Performed By: #### H STROPN, CMP, BNP #### [facility] [address] [address] [address] Della Pace ALP [Catalytic activity/Vol] 86 U/L Normal 46-116 [facility] Comment on above: Performed By: #### H STROPN, CMP, BNP #### [facility] [address] [address] [address] Della Pace ALT [Catalytic activity/Vol] 20 U/L Normal 16-63 [facility] Comment on above: Performed By: #### H STROPN, CMP, BNP #### [facility] [address] [address] [address] Della Pace Anion gap [Moles/Vol] 11.3 mmol/L Normal [facility] Comment on above: Performed By: #### H STROPN, CMP, BNP #### [facility] [address] [address] [address] Della Pace AST [Catalytic activity/Vol] 21 U/L Normal 15-37 [facility] Comment on above: Performed By: #### H STROPN, CMP, BNP #### [facility] [address] [address] [address] Della Pace Bilirubin [Mass/Vol] 0.2 mg/dL Normal 0.2-1.0 [facility] Comment on above: Performed By: #### H STROPN, CMP, BNP #### [facility] [address] [address] [address] Della Pace Calcium [Mass/Vol] 8.4 mg/dL Critically low 8.5-10.1 [facility] [place] [facility] Comment on above: Performed By: #### H STROPN, CMP, BNP #### [facility] [address] [address] [address] Della Pace Chloride [Moles/Vol] 102 mmol/L Normal 98-107 [facility] Comment on above: Performed By: #### H STROPN, CMP, BNP #### [facility] [address] [address] [address] Della Pace CO2 [Moles/Vol] 28.8 mmol/L Normal 21.0-32.0 [facility] Comment on above: Performed By: #### H STROPN, CMP, BNP #### [facility] [address] [address] [address] Della Pace Creatinine [Mass/Vol] 1.22 mg/dL Normal 0.70-1.30 [facility] Comment on above: Performed By: #### H STROPN, CMP, BNP #### [facility] [address] [address] [address] Della Pace EGFR-AF [place] >60 Normal >=60 [facility] Comment on above: Performed By: #### H STROPN, CMP, BNP #### [facility] [address] [address] [address] Della Pace EGFR-NON AF [place]IZEN [place] 59 mL/min/1.73m2 Critically low >=60 [facility] Comment on above: Performed By: #### H STROPN, CMP, BNP #### [facility] [address] [place] [address] Dr. Della Pace Globulin (S) [Mass/Vol] 3.0 g/dL Normal [facility] Comment on above: Performed By: #### H STROPN, CMP, BNP #### [facility] [address] [place] [address] Dr. Della Pcae Glucose [Mass/Vol] 118 mg/dL Critically high 74-106 [facility] Comment on above: Performed By: #### H STROPN, CMP, BNP #### [facility] [address] [place] [address] Dr. Della Pace Potassium [Moles/Vol] 4.1 mmol/L Normal 3.5-5.1 [facility] Comment on above: Performed By: #### H STROPN, CMP, BNP #### [facility] [address] [place] [address] Dr. Della Paec Protein [Mass/Vol] 6.7 g/dL Normal 6.4-8.2 [facility] Comment on above: Performed By: #### H STROPN, CMP, BNP #### [facility] [address] [place] [address] Dr. Della Pace Sodium [Moles/Vol] 138 mmol/L Normal 136-145 [facility] Comment on above: Performed By: #### H ELLIS, CMP, BNP #### [facility] [address] [place] [address] Dr. Della Pace Urea nitrogen [Mass/Vol] 22.0 mg/dL Critically high 7.0-18.0 [facility] Comment on above: Performed By: #### H ELLIS, CMP, BNP #### [facility] [address] [place] [address] Dr. Della Pace Urea nitrogen/Creatinine [Mass ratio] 18.0 mg/mg Normal [facility] Comment on above: Performed By: #### H ELLIS CMP, BNP #### [facility] [address] [place] [address] Dr. Della Pace PROTIMEon 07-09-2022 INR Coag (PPP) [Relative time] 0.95 {INR} Normal [facility] Comment on above: Performed By: #### P T, PTT #### [facility] [address] [place] [address] Dr. Della Pace INR GUIDELINES SEE BELOW Normal [facility] Comment on above: Result Comment: SADA RED INR: 2.0 - 3.0 CONDITIONS NOT LISTED BELOW 2.5 - 3.5 FOR PROSTHETIC HEART VALVE REPLACEMENT 2.5 - 3.5 RECURRENT THROMBOSIS Performed By: #### P T, PTT #### [facility] [address] [place] [address] Dr. Della Pace PT Coag (PPP) [Time] 10.3 s Normal 9.0-11.6 [facility] Comment on above: Performed By: #### P T, PTT #### [facility] [address] [place] [address] Dr. Della Pace PTTon 07-09-2022 aPTT Coag (Bld) [Time] 25.1 s Normal 22.3-36.2 [facility] Comment on above: Performed By: #### P T, PTT #### [facility] [address] [place] [address] Dr. Della Pace TROPONIN, HIGH SENSITIVITYon 07-09-2022 HSTROP 8.0 pg/mL Normal 4.0-76.1 [facility] Comment on above: Result Comment: CUT- OFF POINTS HAVE BEEN ESTABLISHED BASED ON THE FOURTH UNIVERSAL DEFINITIONS OF MYOCARDIAL INFARCTION. THE UPPER REFERENCE LIMIT (URL) OF TROPONIN, DEFINED THE 99TH PERCENTILE OF cTnI DISTRIBUTION IN A REFERENCE POPULATION, HAS BEEN CONFIRMED THE DECISION THRESHOLD FOR OR DIAGNOSIS. Performed By: #### H STROPN, CMP, BNP ####[facility] [id number] [place], [place] [address]AxDr. Della Pace XR CHEST 1 Von 07-09-2022 [...] NGOZI GUTIERREZ Date: 2022-07-09 19:38 Normal [facility] CBC AUTO DIFFon 11-21-2021 BASO # 0.0 103/ul Normal 0.0-0.1 [facility] Comment on above: Performed By: #### C BC #### [facility] [address] [place] [address] Dr. Della Pace Basophils/100 WBC (Bld) 0.6 % Normal 0.2-2.0 [facility] Comment on above: Performed By: #### C BC #### [facility] [address] [place] [address] [address] [address] Della Pace EO # 0.2 103/ul Normal 0.0-0.7 [facility] Comment on above: Performed By: #### C BC #### [facility] [address] [place] [address] [address] [address] Della Pace Eosinophils/100 WBC (Bld) 2.7 % Normal 0.9-7.0 [facility] Comment on above: Performed By: #### C BC #### [facility] [address] [place] [address] Dr. Della Pace Erythrocyte distribution width (RBC) [Ratio] 12.9 % Normal 11.0-15.0 [facility] Comment on above: Performed By: #### C BC #### [facility] [address] [place] [address] Dr. Della Pace Hematocrit (Bld) [Volume fraction] 42.5 % Normal 42.0-54.0 [facility] Comment on above: Performed By: #### C BC #### [facility] [address] [place] [address] Dr. Della Pace Hemoglobin (Bld) [Mass/Vol] 14.2 g/dL Normal 14.0-18.0 [facility] Comment on above: Performed By: #### C BC #### [facility] [address] [place] [address] Dr. Della Pace IG # 0.02 10e3/ul Normal 0.00-0.03 [facility] Comment on above: Performed By: #### C BC #### [facility] [address] [place] [address] Dr. Della Pace IG % 0.3 % Normal 0.0-0.5 [facility] Comment on above: Performed By: #### C BC #### [facility] [address] [place] [address] Dr. Della Pace LYMPH # 1.4 103/ul Normal 1.2-3.8 [facility] Comment on above: Performed By: #### C BC #### [facility] [address] [place] [address] Dr. Della Pace Lymphocytes/100 WBC (Bld) 22.5 % Normal 20.5-60.0 [facility] Comment on above: Performed By: #### C BC #### [facility] [address] [place] [address] Dr. Della Pace MANUAL DIFF REQ NO Normal [facility] Comment on above: Performed By: #### C BC #### [facility] [address] [place] [address] Dr. Della Pace MCH (RBC) [Entitic mass] 29.6 pg Normal 25.9-34.0 [facility] Comment on above: Performed By: #### C BC #### [facility] [address] [place] [address] Dr. Della Pace MCHC (RBC) [Mass/Vol] 33.4 g/dL Normal 29.9-35.2 [facility] Comment on above: Performed By: #### C BC #### [facility] [address] [place] [address] Dr. Della Pace MCV (RBC) [Entitic vol] 88.5 fL Normal 80.0-94.0 [facility] Comment on above: Performed By: #### C BC #### [facility] [address] [place] [address] Dr. Della Pace MONO # 0.3 103/ul Normal 0.3-0.8 [facility] Comment on above: Performed By: #### C BC #### [facility] [address] [place] [address] Dr. Della Pace Monocytes/100 WBC (Bld) 5.3 % Normal 1.7-12.0 [facility] Comment on above: Performed By: #### C BC #### [facility] [address] [place] [address] Dr. Della Pace NEUT # 4.4 103/ul Normal 1.4-6.5 [facility] Comment on above: Performed By: #### C BC #### [facility] [address] [place] [address] Dr. Della Pace Neutrophils/100 WBC (Bld) 68.6 % Normal 43.0-75.0 [facility] Comment on above: Performed By: #### C BC #### [facility] [address] [place] [address] Dr. Della Pace Platelet mean volume (Bld) [Entitic vol] 9.6 fL Normal 9.5-13.5 [facility] Comment on above: Performed By: #### C BC #### [facility] [address] [address] [address] Della Pace PLT 270 103/ul Normal 150-450 [facility] Comment on above: Performed By: #### C BC #### [facility] [address] [address] [address] Della Pace RBC 4.80 106/ul Normal 4.70-6.10 [facility] Comment on above: Performed By: #### C BC #### [facility] [address] [address] [address] Della Pace WBC 6.4 103/ul Normal 4.0-11.0 [facility] Comment on above: Performed By: #### C BC #### [facility] [address] [place] [address] Dr. Della Pace GLYCOHEMOGLOBIN A1Con 2021 ADA RECOMMENDATION SEE BELOW Normal [facility] Comment on above: Result Comment: ADA RECOMMENDED LIMIT 4.0 - 6.0 ADA THERAPEUTIC TARGET < 7.0 ACTION SUGGESTED > 7.0 Performed By: #### A 1C #### [facility] [address] [place] [address] Dr. Della Pace Glucose [Mass/Vol] 114 mg/dL Normal [facility] Comment on above: Performed By: #### A 1C #### [facility] [address] [place] [address] Dr. Della Pace HbA1c (Bld) [Mass fraction] 5.6 % Normal 4.5-6.2 [facility] Comment on above: Performed By: #### A 1C #### [facility] [address] [place] [address] Dr. Della Pace LIPID PROFILEon 11-21-2021 CHOL-HDL RATIO NORM SEE BELOW Normal [facility] Comment on above: Result Comment: 3.3 - 4.4 LOW RISK 4.4 - 7.1 AVERAGE RISK 7.1 - 11.0 MODERATE RISK >11.0 HIGH RISK Performed By: #### L IPID, URIC, CMP ####[facility] [address] [address]Dr. Della Pace Cholesterol [Mass/Vol] 113 mg/dL Normal <=200 [facility] Comment on above: Performed By: #### L IPID, URIC, CMP ####[facility] [address] [address]Dr. Della Pace Cholesterol in HDL [Mass/Vol] 53 mg/dL Normal 40-60 [facility] Comment on above: Performed By: #### L IPID, URIC, CMP ####[facility] [address] [address]Dr. Della Pace Cholesterol in LDL [Mass/Vol] 35.8 mg/dL Normal [facility] Comment on above: Performed By: #### L IPID, URIC, CMP ####[facility] [address] [address]Dr. Della Pace Cholesterol.total/C holesterol in HDL [Mass ratio] 2.1 {ratio} Normal [facility] Comment on above: Performed By: #### L IPID, URIC, CMP ####[facility] [address] [address]Dr. Della Pace HDL NORMAL > or = 60 mg/dl - LO W CARDIOVASCULAR RISK <40 mg/dl - HIGH CARDIOVASCULAR RISK Normal [facility] Comment on above: Performed By: #### L IPID, URIC, CMP ####[facility] [address] [address]Dr. Della Pace LDL CALC NORMAL SEE BELOW Normal [facility] Comment on above: Result Comment: <100 mg/dl OPTIMAL 100 - 129 mg/dl NEAR OR ABOVE OPTIMAL 130 - 159 mg/dl BORDERLINE HIGH 160 - 189 mg/dl HIGH >190 mg/dl VERY HIGH Performed By: #### L IPID, URIC, CMP ####[facility] [address] [address]Dr. Della Pace Triglyceride [Mass/Vol] 121 mg/dL Normal <=150 [facility] Comment on above: Performed By: #### L IPID, URIC, CMP ####[facility] [address] [id number]. Della Pace VLDL CALC 24.2 mg/dL Normal [facility] Comment on above: Performed By: #### L IPID, URIC, CMP ####[facility] [address] [address]Dr. Della Pace PROF 14(COMP METB)on 022 Albumin [Mass/Vol] 3.8 g/dL Normal 3.4-5.0 [facility] Comment on above: Performed By: #### L IPID, URIC, CMP ####[facility] [address] [address]Dr. Della Pace Albumin/Globulin [Mass ratio] 1.3 {ratio} Normal [facility] Comment on above: Performed By: #### L IPID, URIC, CMP ####[facility] [address] [place], [place] [address]Dr. Della Pace ALP [Catalytic activity/Vol] 89 U/L Normal 46-116 [facility] Comment on above: Performed By: #### L IPID, URIC, CMP ####[facility] [address] [place], [place] [address]Dr. Della Pace ALT [Catalytic activity/Vol] 19 U/L Normal 16-63 [facility] Comment on above: Performed By: #### L IPID, URIC, CMP ####[facility] [address] [place], [place] [address]Dr. Della Pace Anion gap [Moles/Vol] 10.9 mmol/L Normal [facility] Comment on above: Performed By: #### L IPID, URIC, CMP ####[facility] [address] [address]Dr. Della Pace AST [Catalytic activity/Vol] 26 U/L Normal 15-37 [facility] Comment on above: Performed By: #### L IPID, URIC, CMP ####[facility] [address] [place], [place] [address]Dr. Della Pace Bilirubin [Mass/Vol] 0.4 mg/dL Normal 0.2-1.0 [facility] Comment on above: Performed By: #### L IPID, URIC, CMP ####[facility] [address] [place], [place] [address]Dr. Della Pace Calcium [Mass/Vol] 8.5 mg/dL Normal 8.5-10.1 [facility] Comment on above: Performed By: #### L IPID, URIC, CMP ####[facility] [address] [place], [place] [address]Dr. Della Pace Chloride [Moles/Vol] 104 mmol/L Normal 98-107 [facility] Comment on above: Performed By: #### L IPID, URIC, CMP ####[facility] [address] [place], [place] [address]Dr. Della Pace CO2 [Moles/Vol] 28.6 mmol/L Normal 21.0-32.0 [facility] Comment on above: Performed By: #### L IPID, URIC, CMP ####[facility] [address] [place], [place] [address]Dr. Della Pace Creatinine [Mass/Vol] 1.07 mg/dL Normal 0.70-1.30 [facility] Comment on above: Performed By: #### L IPID, URIC, CMP ####[facility] [address] [place], [place] [address]Dr. Della Pace EGFR-AF CITIZ[place] >60 Normal >=60 [facility] Comment on above: Performed By: #### L IPID, URIC, CMP ####[facility] [address] [place], [place] [address]Dr. Della Pace EGFR-NON AF CITIZEN OF [place] >60 Normal >=60 [facility] Comment on above: Performed By: #### L IPID, URIC, CMP ####[facility] [address] [place], [place] [address]Dr. Della Pace Globulin (S) [Mass/Vol] 3.0 g/dL Normal [facility] Comment on above: Performed By: #### L IPID, URIC, CMP ####[facility] [address] [place], [place] [address]Dr. Della Pace Glucose [Mass/Vol] 96 mg/dL Normal 74-106 [facility] Comment on above: Performed By: #### L IPID, URIC, CMP ####[facility] [address] [address]Dr. Della Pace Potassium [Moles/Vol] 4.5 mmol/L Normal 3.5-5.1 [facility] Comment on above: Performed By: #### L IPID, URIC, CMP ####[facility] [address] [address]Dr. Della Pace Protein [Mass/Vol] 6.8 g/dL Normal 6.4-8.2 [facility] Comment on above: Performed By: #### L IPID, URIC, CMP ####[facility] [address] [address]Dr. Della Pace Sodium [Moles/Vol] 139 mmol/L Normal 136-145 [facility] Comment on above: Performed By: #### L IPID, URIC, CMP ####[facility] [address] [place], [place] [address]Dr. Della Sanjeev Urea nitrogen [Mass/Vol] 20.0 mg/dL Critically high 7.0-18.0 [facility] Comment on above: Performed By: #### L IPID, URIC, CMP ####[facility] [address] [place], [place] [address]Dr. Della Pace Urea nitrogen/Creatinine [Mass ratio] 18.7 mg/mg Normal [facility] Comment on above: Performed By: #### L IPID, URIC, CMP ####[facility] [address] [place], [place] [address]Dr. Della Sanjeev URIC ACID SERUMon 11-21-2021 Urate [Mass/Vol] 7.2 mg/dL Normal 3.5-7.2 [facility] Comment on above: Performed By: #### L IPID, URIC, CMP ####[facility] [address] [place], [place] [address]Dr. Della Pace Vital Signs Date Time Vital Sign Value Performing Clinician Facility 12-28-2024 10:29-0400 Body height 175.3 cm Michi Ma MD Work Phone: [facility] 12-28-2024 10:29-0400 Body mass index (BMI) [Ratio] 28.8 kg/m2 Michi Ma MD Work Phone: [facility] 12-28-2024 10:29-0400 Body weight 88.45 kg Michi Ma MD Work Phone: [facility] 12-28-2024 10:29-0400 Diastolic blood pressure 79 mm[Hg] Michi Ma MD Work Phone: [facility] 12-28-2024 10:29-0400 Heart rate 60 /min Michi Ma MD Work Phone: [facility] 12-28-2024 10:29-0400 Systolic blood pressure 166 mm[Hg] Michi Ma MD Work Phone: [facility] 06-27-2024 15:40-0500 Diastolic blood pressure 81 mm[Hg] Dyer Sarmini [facility] 06-27-2024 15:40-0500 Heart rate 57 /min Dyer Sarmini [facility] 06-27-2024 15:40-0500 Mean blood pressure 101 mm[Hg] Dyer Sarmini [facility] 06-27-2024 15:40-0500 Respiratory rate 13 /min Dyer Sarmini [facility] 06-27-2024 15:40-0500 SaO2% (BldA) [Mass fraction] 98 % Dyer Sarmini [facility] 06-27-2024 15:40-0500 Systolic blood pressure 140 mm[Hg] Dyer Sarmini [facility] 06-27-2024 15:25-0500 Diastolic blood pressure 56 mm[Hg] Dyer Sarmini [facility] 06-27-2024 15:25-0500 Heart rate 62 /min Dyer Sarmini [facility] 06-27-2024 15:25-0500 Mean blood pressure 70 mm[Hg] Dyer Sarmini [facility] 06-27-2024 15:25-0500 Respiratory rate 14 /min Dyer Sarmini [facility] 06-27-2024 15:25-0500 SaO2% (BldA) [Mass fraction] 96 % Dyer Sarmini [facility] 06-27-2024 15:25-0500 Systolic blood pressure 97 mm[Hg] Dyer Sarmini [facility] 06-27-2024 15:15-0500 Body temperature 98.06 [degF] Dyer Sarmini [facility] 06-27-2024 15:15-0500 Diastolic blood pressure 53 mm[Hg] Dyer Sarmini [facility] 06-27-2024 15:15-0500 Heart rate 67 /min Dyer Sarmini [facility] 06-27-2024 15:15-0500 Mean blood pressure 65 mm[Hg] Dyer Sarmini [facility] 06-27-2024 15:15-0500 Respiratory rate 16 /min Dyer Sarmini [facility] 06-27-2024 15:15-0500 SaO2% (BldA) [Mass fraction] 98 % Dyer Sarmini [facility] 06-27-2024 15:15-0500 Systolic blood pressure 89 mm[Hg] Dyer Sarmini [facility] 06-27-2024 13:53-0500 Blood Pressure Location Dyer Sarmini [facility] 06-27-2024 13:53-0500 Body temperature 97.88 [degF] Dyer Sarmini [facility] 05-26-2024 12:15-0500 Blood Pressure Location Dyer Sarmini [facility] 05-26-2024 12:15-0500 Diastolic blood pressure 72 mm[Hg] Dyer Sarmini [facility] 05-26-2024 12:15-0500 Heart rate 78 /min Dyer Sarmini [facility] 05-26-2024 12:15-0500 Respiratory rate 18 /min Dyer Sarmini [facility] 05-26-2024 12:15-0500 Systolic blood pressure 150 mm[Hg] Dyer Sarmini [facility] 11-16-2023 12:26-0400 Body height 175.3 cm Michi Ma MD Work Phone: [facility] 11-16-2023 12:26-0400 Body mass index (BMI) [Ratio] 28.83 kg/m2 Michi Ma MD Work Phone: [facility] 11-16-2023 12:26-0400 Body weight 88.54 kg Michi Ma MD Work Phone: [facility] 11-16-2023 12:26-0400 Diastolic blood pressure 86 mm[Hg] Michi Ma MD Work Phone: [facility] 11-16-2023 12:26-0400 Heart rate 63 /min Michi Ma MD Work Phone: [facility] 11-16-2023 12:26-0400 Respiratory rate 16 /min Michi Ma MD Work Phone: [facility] 11-16-2023 12:26-0400 SaO2% (BldA) [Mass fraction] 98 % Michi Ma MD Work Phone: [facility] 11-16-2023 12:26-0400 Systolic blood pressure 160 mm[Hg] Michi Ma MD Work Phone: [facility] 08-08-2022 09:31-0500 Diastolic blood pressure 78 mm[Hg] Michi Ma MD Work Phone: [facility] 08-08-2022 09:31-0500 Systolic blood pressure 151 mm[Hg] Michi Ma MD Work Phone: [facility] 08-08-2022 09:29-0500 Body height 175.3 cm Michi Ma MD Work Phone: [facility] 08-08-2022 09:29-0500 Body weight 87.32 kg Michi aM MD Work Phone: [facility] 08-08-2022 09:29-0500 Heart rate 65 /min Michi Ma MD Work Phone: [facility] 08-08-2022 09:29-0500 Respiratory rate 18 /min Michi Ma MD Work Phone: [facility] 08-08-2022 09:29-0500 SaO2% (BldA) [Mass fraction] 96 % Michi Ma MD Work Phone: [facility] 10-29-2021 08:02-0400 Blood Pressure Location Rafael Cyr Jr. [facility] 10-29-2021 08:02-0400 Diastolic blood pressure 85 mm[Hg] Rafael Cyr Jr. [facility] 10-29-2021 08:02-0400 Heart rate 84 /min Rafael Cyr Jr. [facility] 10-29-2021 08:02-0400 Respiratory rate 16 /min Rafael Cyr Jr. [facility] 10-29-2021 08:02-0400 Systolic blood pressure 136 mm[Hg] Rafael Cyr Jr. 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); S/P drug eluting coronary stent placement; Microvascular angina; Hyperlipidemia, unspecified hyperlipidemia type; Essential hypertension; Family history of early CAD; Chest pain, unspecified type Start: 12-28-2024 End: 12-28-2024 ambulatory MICHI MA Facility:[facility] Start: 07-27-2024 End: 07-27-2024 Orders Only Michi Ma MD Work Phone: Cardiology Start: 06-27-2024 End: 06-27-2024 ambulatory Dyer Talal Sarmini Facility:[facility] Start: 06-27-2024 End: 06-27-2024 Patient encounter procedure Dyer Talal Sarmini [facility] Start: 05-26-2024 End: 05-26-2024 ambulatory Dyer Talal Sarmini Facility[facility] Start: 05-26-2024 End: 05-26-2024 Patient encounter procedure [facility] Start: 05-13-2024 ambulatory Gomez Dennis ty:[facility] Start: 11-16-2023 End: 11-16-2023 Patient encounter procedure Michi Ma MD Work Phone: Cardiology Comment on above: 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) (Primary Dx); S/P drug eluting coronary stent placement; Microvascular angina (HCC); Hyperlipidemia, unspecified hyperlipidemia type; Essential hypertension; Family history of early CAD; Chest pain, unspecified type Start: 08-26-2023 Refill Michi fuentes MD Work Phone: Cardiology Comment on above: Refill Request Start: 11-14-2022 End: 11-14-2022 ambulatory Michi Ma MD Work Phone: Cardiology Comment on above: 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) (Primary Dx); S/P drug eluting coronary stent placement; Hyperlipidemia, unspecified hyperlipidemia type; Essential hypertension; Family history of early CAD; Chest pain, unspecified type Start: 11-14-2022 End: 11-14-2022 Telemedicine consultation with patient Michi Ma MD Work Phone: [facility] Start: 11-10-2022 Telephone encounter Michi alcala MD Work Phone: Cardiology Comment on above: Appointment Start: 08-08-2022 End: 08-08-2022 Patient encounter procedure Michi Ma MD Work Phone: Cardiology Comment on above: 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 [facility] Procedures Date Procedure Procedure Detail Performing Clinician Start: 12-28-2024 Lipid 1996 panel - Serum or Plasma Eleuterio Ma MD Work Phone: Start: 06-27-2024 Colonoscopy Gomez Montenegro Start: 06-27-2024 Esophagogastroduodenoscopy Dyer Sarm injorge luis Start: 11-16-2023 Lipid 1996 panel - Serum or Plasma Eleuterio Ma MD Work Phone: Start: 01-27-2019 Prostatectomy Rafael Cyr Jr. Start: 11-10-2018 Transrectal biopsy of prostate using ultrasound guidance Rafael Cyr Jr. Start: 05-07-2017 Transrectal biopsy of prostate using ultrasound guidance Rafael Cyr Jr. Start: 03-30-2015 History of placement of stent for coronary artery disease S/P drug eluting coronary stent placement Michi Ma MD Work Phone: Start: 03-30-2015 Lipid 1996 panel - Serum or Plasma Eleuterio Ma MD Work Phone: Start: 04-07-2003 Cardiac catheterization Rafael Cyr Jr. Comment on above: Last cardiac cath was in 2017 Cholecystectomy Rafael Cyr Jr. Colonoscopy Rafael Washburn History of hernia repair Gian Cyr Jr. History of placement of stent for coronary artery disease S/P drug eluting coronary stent placement Michi Ma MD Work Phone: History of placement of stent for coronary artery disease S/P drug eluting coronary stent placement Michi Ma MD Work Phone: History of placement of stent for coronary artery disease S/P drug eluting coronary stent placement Michi Ma MD Work Phone: History of placement of stent for coronary artery disease S/P drug eluting coronary stent placement Michi Ma MD Work Phone: Injection of steroid into hip joint Rafael Ger Resendez Plan of Treatment Date Care Activity Detail Author Start: 12-28-2029 Lipid panel Lipid Screening [facility] Start: 06-14-2029 Urine microalbumin profile DTaP,Tdap,Td Vaccine (4 - Td or Tdap) [facility] Start: 11-15-2028 Lipid panel Lipid Screening [facility] Start: 12-29-2027 [facility] Start: 11-15-2026 [facility] Start: 12-28-2025 End: 03-29-2026 Comprehensive metabolic 2000 panel - Serum or Plasma COMPREHENSIVE METABOLIC PANEL Lab Routine Coronary artery disease of [place] artery [place] heart with stable angina pectoris Expected: 12/28/2025, Expires: 03/29/2026 [facility] Work Phone: Comment on above: Expected: 12/28/2025 , Expires: 03/29/2026 Start: 12-28-2025 Hepatitis B surface antibody level LDL Cholesterol [facility] Start: 12-28-2025 End: 03-29-2026 Lipid 1996 panel - Serum or Plasma LIPID PANEL, FASTING Lab Routine Coronary artery disease of [place] artery [place] heart with stable angina pectoris Expected: 12/28/2025, Expires: 03/29/2026 [facility] Comment on above: Expected: 12/28/2025 , Expires: 03/29/2026 Start: 11-15-2024 End: 02-14-2025 Comprehensive metabolic 2000 panel - Serum or Plasma COMPREHENSIVE METABOLIC PANEL Lab Routine Coronary artery disease of [place] artery [place] heart with stable angina pectoris (HCC) Expected: 11/15/2024, Expires: 02/14/2025 [facility] Work Phone: Comment on above: Expected: 11/15/2024 , Expires: 02/14/2025 Start: 11-15-2024 Hepatitis B surface antibody level LDL Cholesterol [facility] Start: 11-15-2024 End: 02-14-2025 Lipid 1996 panel - Serum or Plasma LIPID PANEL BASIC Lab Routine Coronary artery disease of [place] artery of [place] heart with stable angina pectoris (HCC) Expected: 11/15/2024, Expires: 02/14/2025 [facility] Comment on above: Expected: 11/15/2024 , Expires: 02/14/2025 Start: 07-06-2024 Advance Directive Discussion Advance Directive Discussion [facility] Start: 03-06-2024 Covid-19 Vaccine () Covid-19 Vaccine () [facility] Start: 03-06-2024 Influenza vaccination Influenza Vacc ine (#1) [facility] Start: 07-06-2023 Advance Directive Discussion Advance Directive Discussion [facility] Start: 07-06-2023 Behavioral Health Screening Behavioral Health Screening [facility] Start: 07-06-2023 [address] [facility] Start: 03-06-2023 Covid-19 Vaccine ( season) Covid-19 Vaccine ( season) [facility] Start: 03-06-2023 Influenza vaccination Influenza Vacc ine (#1) [facility] Start: 07-06-2022 ADVANCE DIRECTIVE DISCUSSION ADVANCE DIRECTIVE DISCUSSION [facility] Start: 07-06-2022 DEPRESSION ASSESSMENT DEPRESSION ASS ESSMENT [facility] Start: 07-06-2021 Medicare Annual Well ness Visit Medicare Annual Wellness Visit [facility] Start: 03-30-2020 Lipid panel Lipid Screening [facility] Start: 03-30-2020 LIPID SCREEN LIPID SCREEN [facility] Start: 03-12-2020 DIABETES [facility]CREEN [facility] Start: 03-12-2020 Diabetes Screening Diabetes Screenin g [facility] Start: 03-30-2016 Hepatitis B surface antibody level LDL CHOLESTEROL [facility] Start: 2011 RSV Vaccine (1 - 1-d ose 60+ series) RSV Vaccine (1 - 1-dose 60+ series) [facility] Start: 2011 RSV Vaccine (1 - Ris k 60-74 years 1-dose series) RSV Vaccine (1 - Risk 60-74 years 1-dose series) [facility] Start: 09-08-2001 SHINGRIX VACCINE (1 of 2) SHINGRIX VACCINE (1 of 2) [facility] Start: 09-08-1996 COLOGUARD (FIT-DNA) COLOGUARD (FIT-D NA) [facility] Start: 09-08-1996 Colonoscopy COLONOSCOPY [facility] Start: 09-08-1996 COLORECTAL CANCER SCREENING COLORECTAL CANCER SCREENING [facility] Start: 09-08-[address] COLONOGRAPHY [facility] Start: 09-08-1996 FECAL OCCULT BLOOD FECAL OCCULT BLOO D [facility] Start: 09-08-1996 Screening for malign ant neoplasm of colon [facility] Start: 09-08-1996 SIGMOIDOSCOPY SIGMOIDOSCOPY [facility] Start: 09-08-1970 Urine microalbumin profile DTAP,TDAP,TD (1 - Tdap) [facility] Start: 09-08-1969 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 ANNUAL PCP TEAM CHRONIC DISEASE VISIT [facility] [facility] Start: 09-08-1969 Anxiety Screening Anxiety Screening [facility] Start: 09-08-1969 BP CONTROLLED (<130/80) BP CONTROLLE D (<130/80) [facility] Start: 09-08-1969 Depression Screening Depression Scre ening [facility] Start: 09-08-1969 HEPATITIS C SCREENING HEPATITIS C [facility] Start: 09-08-1969 Hepatitis C screening Hepatitis C [facility] Start: 09-08-1957 PNEUMOCOCCAL: 65+ (1 - PCV) PNEUMOCOCCAL: 65+ (1 - PCV) [facility] Start: 1950 ABDOMINAL AORTIC ANEURYSM SCREENING ABDOMINAL AORTIC ANEURYSM SCREENING [facility] Start: 1950 Abdominal aortic aneurysm screening Abdominal Aortic Aneurysm Screening [facility] Immunizations Immunization Date Immunization Notes Care Provider Marlin walker 05-08-2024 influenza virus vacc ine, unspecified formulation [facility] 04-08-2023 influenza virus vacc ine, unspecified formulation [facility] [place] [facility] 05-22-2022 influenza virus vacc ine, unspecified formulation Michi Ma MD Work Phone: [facility] 04-08-2022 influenza virus vacc ine, unspecified formulation Dyer Sarmini [facility] 04-08-2022 SARS-CoV-2 (COVID-19 ) [id number] Dyer Sarmini [facility] 04-30-2021 SARS-CoV-2 (COVID-19 ) mRNA-1273 vaccine Dyer Sarmini [facility] 04-19-2021 influenza, unspecifi ed formulation Dyer Sarmini [facility] 04-10-2021 influenza virus vacc ine, unspecified formulation Dyer Sarmini [facility] 09-14-2020 SARS-CoV-2 (COVID-19 ) mRNA-1273 vaccine Rafael Cyr Jr. [facility] 08-24-2020 SARS-CoV-2 (COVID-19 ) mRNA-1273 vaccine Rafael Cyr Jr. [facility] 08-01-2020 SARS-CoV-2 (COVID-19 ) mRNA-1273 vaccine Dyer Sarmini [facility] Comment on above: Result Comment: 2023: [id number] 07-04-2020 SARS-CoV-2 (COVID-19 ) mRNA-1273 vaccine Dyer Sarmini [facility] 04-10-2020 influenza virus vacc ine, unspecified formulation Dyer Sarmini [facility] 04-05-2020 influenza virus vacc ine, unspecified formulation Rafael Cyr Jr. [facility] 06-14-2019 tetanus toxoid, redu danay diphtheria toxoid, and acellular pertussis vaccine, adsorbed Dyer Sarmini [facility] 04-20-2019 influenza virus vacc ine, unspecified formulation Dyer Sarmini [facility] 04-23-2018 influenza virus vacc ine, unspecified formulation Dyer Sarmini [facility] 04-23-2018 pneumococcal polysaccharide vaccine, 23 valent Dyer Sarmini [facility] 01-14-2018 zoster vaccine recombinant Dyer Sarmini [facility] 10-08-2017 zoster vaccine recombinant Dyer Sarmini [facility] 04-14-2017 influenza virus vacc ine, unspecified formulation Dyer Sarmini [facility] 04-06-2017 influenza virus vacc ine, unspecified formulation Dyer Sarmini [facility] 07-03-2016 pneumococcal conjuga te vaccine, 13 valent Dyer Sarmini [facility] 05-14-2016 influenza virus vacc ine, unspecified formulation Dyer Sar[facility] 07-09-2015 pneumococcal polysaccharide vaccine, 23 valent Dyer Sarmini [facility] 04-27-2015 influenza virus vacc ine, unspecified formulation Dyer Sarmini [facility] 07-04-2013 hepatitis A vaccine, adult dosage Dyer Sarmini [facility] 04-13-2013 influenza virus vacc ine, unspecified formulation Dyer Sarmini [facility] 04-13-2013 pneumococcal polysaccharide vaccine, 23 valent Dyer Sarmini [facility] 12-28-2012 hepatitis A vaccine, adult dosage Dyer Sarmini [facility] 12-28-2012 zoster vaccine, live Muhamma d Sarmini [facility] 03-26-2012 influenza virus vacc ine, unspecified formulation Dyer Sarmini [facility] 04-07-2011 influenza virus vacc ine, unspecified formulation Dyer Sarmini [facility] 04-07-2011 influenza, unspecifi ed formulation Dyer Sarmini [facility] 01-22-2009 tetanus toxoid, redu danay diphtheria toxoid, and acellular pertussis vaccine, adsorbed Dyer Sarmini [facility] 05-04-2008 influenza, whole Dyer Sa rmini [facility] 04-20-2007 influenza, whole Dyer Sa rmini [facility] 01-11-2004 Td(adult) unspecifie d formulation [facility] [place] [facility] 08-10-1991 hepatitis B vaccine, adult dosage [facility] [place] [facility] Payers Date Payer Category Payer Private Health Insurance [facility] [id number] 2021 Unknown [facility] MEDICARE SUPPLEMENT [id number] 2021-Present [phone] [place] [address] [facility] [id number] 2016 Medicare [id number] 1959 Medicare [id number] 1959 Unknown [id number] 1950 Unknown [id number] 1950 Unknown [id number] 1950 Unknown [id number] 1950 Unknown [id number] 1950 Unknown [id number] Social History Date Type Detail Facility Start: 10-29-2021 End: 12-28-2024 Tobacco smoking status Ex-smoker (finding) [facility] Tobacco smoking status Never [facility] Start: 08-08-2022 End: 11-10-2022 Sex Assigned At Male [facility] Start: 01-03-1967 End: 01-04-1992 History of tobacco use Current smoker [facility] Start: 01-03-1967 End: 01-04-1992 History of tobacco use Cigarette Smoker [facility] Start: 08-08-2022 End: 12-28-2024 Tobacco use and exposure Smokeless tobacco non-user [facility] Start: 08-08-2022 End: 12-28-2024 Alcohol intake Current non-drinker of alcohol (finding) [facility] Start: 1950 Sex Assigned At Not on file [facility] Start: 08-08-2022 End: 11-10-2022 History of Social function [facility] Goals Date Patient Goal Desired Activity /State Personal health goal Functional Status Date Assessment Result Facility 06-27-2024 Functional Status N/A [facility] 05-26-2024 Functional Status N/A [facility] 06-03-2016 Are you deaf, or do you have serious difficulty hearing No 06/03/2016 6:51 PM Jaz Magana RN No [facility] 06-03-2016 Are you blind, or do you have serious difficulty seeing, even when wearing glasses No 06/03/2016 6:51 PM Jaz Magana, RN No [facility] 06-03-2016 Do you have serious difficulty walking or climbing stairs No 06/03/2016 6:51 PM Jaz Magana RN No [facility] 06-03-2016 Do you have difficul ty dressing or bathing No 06/03/2016 6:51 PM Jaz Magana, [place] No [facility] 06-03-2016 Because of a physica l, mental, or emotional condition, do you have difficulty doing errands alone such as visiting a physician's office or shopping No 06/03/2016 6:51 PM Jaz Magana, Y[place]I No [facility] Mental Status Date Assessment Result Facility 06-03-2016 Because of a physica l, mental, or emotional condition, do you have serious difficulty concentrating, remembering, or making decisions No 06/03/2016 6:51 PM Jaz Magana, Y[place]I No [facility] Clinical Notes 10-29-2021 to 12-28-2024 Michi Ma MD - 12/28/2024 11:00 AM EDTPatient InstructionsMichi Ma MD - 11/16/2023 12:45 PM Tamanna Ma MD - 11/14/2022 10:00 AM EDTPatient Instructions Note Date & Type Note Facility 12-28-2024 History of Present illness Narrative Images from the original note were not included. [facility] [place] [facility] Department of Cardiovascular Medicine SECTION OF INTERVENTIONAL CARDIOLOGY OUTPATIENT VISIT DATE December 28, 2024 OUTPATIENT VISIT TYPE ESTABLISHED PRIMARY CARE PHYSICIAN: Suzanna Trent [address] [place] [address] REFERRING PHYSICIAN: Michi Ma [address], [place] [address] [facility] [address] CHIEF COMPLAINT: Patient presents with: CARD Follow Up Annual HISTORY OF PRESENT ILLNESS: Mr. 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 BP high here today, but home measurements all below 130 mm Hg systolic per patient. Reports that he measured for 1 month last year for his PCP. Over last 1-2 months, has had 4-5 episodes of chest pains. Occurring usually while at rest, unclear if with physical activity, lasting up to an hour, for which he took SL TNG x 2 on two occasions, with eventual resolution 10-15 minutes after taking SL TNG. Describes sensation of somebody sitting on you. Similar in character but not severe compared with discomfort prior to last PCI. Not exercising per se. Walks around his 4 acre yard daily for 10 minutes, climbs basement stairs, does shopping, does light yardwork and housework. No change in exercise capacity. He denies orthopnea, PND, syncope, and leg swelling. PAST CARDIAC HISTORY: CRFs: lipids, HTN, tobacco [...] chest pain. 06/11/2020 - cardiac catheterization at [facility] in [place] - (by my review of images): LM [...] around is 4 acres without chest pain. 11/16/2023 - saw me in [facility] - no ischemic symptoms. PAST MEDICAL HISTORY Diagnosis Date CAD (coronary artery disease), [place] coronary artery 01/16/2005 04/10/2003 -PCI to RCA [...] Social History Tobacco Use Smoking status: Former Current packs/day: 0.00 Types: Cigarettes Start date: 01/1967 Quit date: 01/1992 Years since quittin.0 Smokeless tobacco: Never Substance Use Topics Alcohol use: No Drug use: No FAMILY HISTORY Problem Relation Age of Onset Cancer Mother at age 63 Heart Mother heart valve replaced other (heart valve disease) Mother Coronary Artery Disease Father at 74 of an OR Heart Attack Sister passed from OR Coronary Artery Disease Brother s/p PCI, OR Heart Attack Brother Coronary Artery Disease Brother OR Heart Attack Brother ALLERGIES: ALLERGIES Allergen Reactions Codeine Mental Status Change Nightmares Isosorbide Mononitr* Intolerance migraine JONES Lipitor [Atorvastat* Myalgia Muscle pain. Rhabdo Gyovxhz-Cpg-Sbc Red* Myalgia Zocor [Simvastatin] Other: See Comments Muscle cramps, pain (all statins) with Elevated CK MEDICATIONS: Current Outpatient Medications Medication Sig amoxicillin (AMOXIL) 500 mg capsule carvedilol (COREG) 25 mg tablet Take 1 tablet by mouth two times a day with meals. aspirin/acetaminophen/caffeine (EXCEDRIN MIGRAINE ORAL) Take 2 tablets by mouth every 6 hours as needed. acetaminophen/diphenhydramine (TYLENOL PM ORAL) Take 1 tablet [...] needed for chest pain,every 5 min x3 celecoxib (CELEBREX) 200 mg capsule Take 200 mg by mouth once daily. (Patient not taking: Reported on 12/28/2024) No current facility-administered medications for this visit. [...] and recent psychosocial stressors PHYSICAL EXAMINATION: BP 166/79 Pulse 60 Ht 5' 9 (1.75m) Wt 195 lb (88.5kg) BMI 28.78 kg/(m^2). General appearance: well appearing, in no acute distress, alert Skin: skin color, texture, turgor normal, no rashes or lesions Head: normal Neck: neck supple, no adenopathy; thyroid symmetric, normal size Lungs: lungs clear to auscultation, no wheezing or rhonchi Heart: Carotids full without bruits. PMI non-displaced. RRR. Normal S1 and S2, without S3 or S4. No rubs. No murmur. Abdomen: Normal abdominal exam, Abdomen soft, non-tender. Bowel sounds normal. No masses, organomegaly Extremities: Extremities normal. No deformities or skin discoloration. Good capillary refill. No edema. Peripheral pulses: Normal Neuro: Gait normal. Sensation and muscle strength grossly intact. CARDIOVASCULAR MEDICINE TESTING: Laboratory Testing: See Addendum to this Note I have personally reviewed the Laboratory Testing. *IMPRESSION: Mr. Galdamez is a 74 year old male with CAD, multiple prior [...] 3. Chest pain - no exertional symptoms. Over the last 1-2 months, he has had infrequent chest discomfort at rest, with atypical features - lasts up to an hour or more, not associated with physical activity. Stress nuclear at OSH on 07/31/2022 showed no ischemia. However, I cannot find a stress test showing ischemia in the past, despite multiple PCIs, although the patient recalls outside stress test before PCI in 2015 during which he stopped after 2 minutes. I continue to believe that either non-cardiac discomfort or microvascular dysfunction are the likely diagnoses, given his history of chest pain the past when catheterization did not show stenoses (2016, 2019). 4. HTN, white coat hypertension - as before, uncontrolled, 166/ 9 mm Hg in office today. Reports better control at home and historically with white coat hypertension. On carvedilol 25 BID, lisinopril 20 daily, diltiazem 180 daily. 5. Hyperlipidemia / statin intolerant (muscle weakness and elevated CK to multiple statins in the past) - on alirocumab. LDL 42 mg/dL in 11/2023. PLAN AND RECOMMENDATIONS: 1. Would not perform cardiac catheterization at this point. Discussed that if his discomfort becomes more frequent or more consistently exertional, he should contact me and we could perform catheterization at that point. He is comfortable with that approach. 2. Check BP BID x 1 week and send to me. 3. Check labs drawn today. Michi Ma MD ADDENDUM Latest Ref Rng 12/28/2024 Protein, Total 6.3 - 8.0 g/dL 6.9 Albumin 3.9 - 4.9 g/dL 4.3 Calcium 8.5 - 10.2 mg/dL 9.2 Bilirubin, Total 0.2 - 1.3 mg/dL 0.4 Alkaline Phosphatase 38 - 113 U/L 78 AST 14 - 40 U/L 22 ALT 10 - 54 U/L 16 Glucose 74 - 99 mg/dL 100 (H) BUN 9 - 24 mg/dL 15 Creatinine 0.73 - 1.22 mg/dL 1.13 Sodium 136 - 144 mmol/L 138 Potassium 3.7 - 5.1 mmol/L 4.5 Chloride 98 - 107 mmol/L 102 CO2 22 - 30 mmol/L 25 Anion Gap 8 - 15 mmol/L 11 eGFR >=60 mL/min/1.73m 69 Cholesterol, Total <200 mg/dL 113 Triglyceride <150 mg/dL 146 HDL Cholesterol >39 mg/dL 44 LDL Cholesterol, Calculated <100 mg/dL 44 Non HDL Cholesterol <130 mg/dL 69 VLDL Cholesterol <30 mg/dL 20 TC:HDL Ratio <5.10 2.57 LDL:HDL Ratio <2.54 1.00 Fasting Time hrs 12 Legend: (H) High Ann Ma MD CONTACT INFORMATION: Ann Ma M.D. Section of Interventional Cardiology Department of Cardiovascular Medicine Heart, V[facility], [facility] [place] [address] Office - [phone] extension [phone] Office Appointments: [phone] extension [phone] documented in this encounter [facility] 12-28-2024 Note HNO ID: [id number] Author: MICHI MA MD Service: ? Author Type: Physician Type: Progress Notes Filed: 12/28/2024 16:27 Note Text: [facility] [place] [facility] Department of Cardiovascular Medicine SECTION OF INTERVENTIONAL CARDIOLOGY OUTPATIENT VISIT DATE December 28, 2024 OUTPATIENT VISIT TYPE ESTABLISHED PRIMARY CARE PHYSICIAN: Suzanna Trent [address] [place] [address] REFERRING PHYSICIAN: Michi Ma [address] [place] [address] CHIEF COMPLAINT: Patient presents with: CARD Follow Up Annual HISTORY OF PRESENT ILLNESS: Mr. 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 BP high here today, but home measurements all below 130 mm Hg systolic per patient. Reports that he measured for 1 month last year for his PCP. Over last 1-2 months, has had 4-5 episodes of chest pains. Occurring usually while at rest, unclear if with physical activity, lasting up to an hour, for which he took SL TNG x 2 on two occasions, with eventual resolution 10-15 minutes after taking SL TNG. Describes sensation of somebody sitting on you. Similar in character but not severe compared with discomfort prior to last PCI. Not exercising per se. Walks around his 4 acre yard daily for 10 minutes, climbs basement stairs, does shopping, does light yardwork and housework. No change in exercise capacity. He denies orthopnea, PND, syncope, and leg swelling. PAST CARDIAC HISTORY: CRFs: lipids, HTN, tobacco [...] chest pain. 06/11/2020 - cardiac catheterization at [facility] in [place] - (by my review of images): LM [...] - like I am not getting enough (more content not included)... [facility] 07-07-2024 Note Progress Note-Carmine martins Patient: LEONEL GALDAMEZ JR Age: 73 years Sex: Male : 1950 Associated Diagnoses: None Author: MD Chino, Chelo Fuentes Postoperative Information Postoperative disposition: Postoperative disposition: To PACU. Optimetrix number: Optimetrix number [id number]. Anesthetic utilized: General. Health Status Allergies: Allergic Reactions (Selected) Severity Not Documented Codeine- Nightmares. Imdur- Unknown. Statins- Unknown. Physical Examination VS/Measurements Pain Assessment: Controlled. General: Awake, Alert, Appropriate. Respiratory: Adequate air exchange. Cardiovascular: Stable, Normal peripheral perfusion. Neurological: Normal sensory function, Normal motor function. Assessment Anesthetic outcome No anesthetic complications noted. Adequate pain relief. able to void without difficulty, able to ambulate with assist, tolerating PO intake, no N/V. Review / Management Condition: Stable. Plan Transfer/Discharge: Transfer/Discharge Discharge when meets criteria ( To home ). [facility] Comment on above: Result Comment: Elec tronically Signed By: MD Chino, Chelo Fuentes\.br\Date and Time Signed: 07/07/24 11:41 EST 06-30-2024 Note History and Physical Patient: LEONEL GALDAMEZ JR Age: 73 years Sex: Male : 1950 Associated Diagnoses: None Author: Moni WHITING, Gomez Paniagua Preoperative Information Indication for procedure and diagnosis: GERD, family history of colon cancer Chief Complaint as above Review of Systems All systems reviewed, negative except as mentioned above Health Status Current medications: (Selected) Documented Medications Documented Cartia XT 180 mg/24 hours oral capsule, extended release: 180 mg = 1 cap(s), Oral, Daily, Refills(s) 0, Irregular heartbeat CeleBREX 200 mg Cap: mg cap(s), Oral, BID, Refills(s) 0, Arthritis NitroStat 0.4 mg Tab: See Instructions, 1 tab(s) SubLingual PRN for chest pain, Refills(s) 0 Plavix 75 mg Tab: 75 mg = 1 tab(s), Oral, Daily, Refills(s) 0, Blood Thinner Praluent Pen 75 mg/mL subcutaneous solution: See Instructions, 1 injection every other week, Refills(s) 0, High cholesterol aspirin 81 mg oral tablet: 81 mg = 1 tab(s), Oral, Daily, Refills(s) 0 carvedilol 25 mg Tab: Refills(s) 0, High blood pressure lisinopril 20 mg Tab: mg tab(s), Oral, Daily, Refills(s) 0, High blood pressure pantoprazole 40 mg Oral EC Tab: 40 mg = 1 tab(s), Oral, Daily, Refills(s) 0 sildenafil 100 mg Tab: mg tab(s), Oral, Daily, Refills(s) 0, Erectile dysfunction, Home Medications (10) Active aspirin 81 mg oral tablet 81 mg = 1 tab(s), Oral, Daily Cartia XT 180 mg/24 hours oral capsule, extended release 180 mg = 1 cap(s), Oral, Daily carvedilol 25 mg Tab CeleBREX 200 mg Cap , Oral, BID lisinopril 20 mg Tab , Oral, Daily NitroStat 0.4 mg Tab See Instructions pantoprazole 40 mg Oral EC Tab 40 mg = 1 tab(s), Oral, Daily Plavix 75 mg Tab 75 mg = 1 tab(s), Oral, Daily Praluent Pen 75 mg/mL subcutaneous solution See Instructions sildenafil 100 mg Tab , Oral, Daily Problem list: All Problems At risk for falls / SNOMED CT 485687725 / Possible Prostate cancer / SNOMED CT 4547433057 / Confirmed Elevated PSA / SNOMED CT 0911448539 / Confirmed Impotence / SNOMED CT 5888984264 / Confirmed Nocturia / SNOMED CT 169158124 / Confirmed Heart disease / SNOMED CT 88208943 / Confirmed BPH with urinary obstruction / SNOMED CT 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 / Confirmed Former smoker / SNOMED CT 83259334 / Confirmed Anticoagulated / SNOMED CT 069185289 / Confirmed Dysuria / SNOMED CT 13240281 / Confirmed 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 Feeling of incomplete bladder emptying (073163780): Resolved on 12/30/2018 at 68 years. Weak urinary stream (783026811): Resolved on 12/30/2018 at 68 years. Arthritis (7023648): Resolved on 01/11/2019 at 68 years. GERD (gastroesophageal reflux disease) (713560895): Resolved on 01/11/2019 at 68 years. Hypertension (6690265259): Resolved on 01/11/2019 at 68 years. Myocardial infarction (75081386): Resolved on 01/11/2019 at 68 years. Hyperlipidemia (39770142): Resolved on 01/11/2019 at 68 years. Family History: Brother Malignant neoplasm of colon Father Myocardial infarct Mother Heart disease Primary malignant neoplasm of colon Mitral valve disorder Procedure history: Colonoscopy ([id number]) on 06/27/2024 at 73 Years. Esophagogastroduodenoscopy (996703354) on 06/27/2024 at 73 Years. Prostatectomy (954965161) on 01/27/2019 at 68 Years. TRUS/Bx (7387137132) on 11/10/2018 at 68 Years. TRUS/Bx (2219651006) on 05/07/2017 at 66 Years. Cardiac catheterisation (044881667) on 04/07/2003 at 52 Years. Comments: 01/11/2019 10:41 CARLITO - Mony Roberts MA Last cardiac cath was in 2017 Cholecystectomy (23219375). History of hernia repair (1097226252). Colonoscopy (392546168). Injection of steroid into hip joint (7885430027). Social History Social & Psychosocial Habits Alcohol 06/27/2024 Risk Assessment: Denies Alcohol Use Tobacco 06/27/2024 Tobacco Use: Former smoker, quit more 06/27/2024 Tobacco Use: Former smoker, quit more Smokeless tobacco use: Never Smoking Cessation Yes . Physical Examination No qualifying data available General: in Nad Abdomen: Soft, NTND Impression and Plan Impression: GERD, family history of colon cancer Plan: -EGD and Colonoscopy [facility] Comment on above: Result Comment: Elec tronically Signed By: Moni WHITING, Gomez Paniagua\.br\Date and Time Signed: 06/30/24 09:15 EST 06-28-2024 Note Progress Note-Carmine martins Patient: LEONEL GALDAMEZ JR Age: 73 years Sex: Male : 1950 Associated Diagnoses: None Author: Leonel Sheehan Jr, DO Preoperative Information Anesthesia Preop Info: Time patient last ate or drank 06/27/2024 00:00:00. Anesthesia history: Patient history: None. Family history+: None. Informed consent: Signed by patient. Re-evaluation prior to induction: Initial evaluation reviewed: No significant change. Review of Systems Eye: Negative except as documented in history of present illness. Ear/Nose/Mouth/Throat: Negative except as documented in history of present illness. Respiratory: Negative except as documented in history of present illness. Cardiovascular: Negative except as documented in history of present illness. Musculoskeletal: Negative except as documented in history of present illness. Neurologic: Negative except as documented in history of present illness. Health Status Allergies: Allergic Reactions (Selected) Severity Not Documented Codeine- Nightmares. Imdur- Unknown. Statins- Unknown. 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 / SNOMED CT 923552075 / Confirmed Stress incontinence / SNOMED CT 888340693 / Confirmed Gross hematuria / SNOMED CT 839961649 / Confirmed Family history of colon cancer / SNOMED CT 175301999 / Confirmed Former smoker / SNOMED CT 38443445 / Confirmed Impotence / SNOMED CT 9688624564 / Confirmed Dysuria / SNOMED CT 90806987 / Confirmed Anticoagulated / SNOMED CT 902523284 / Confirmed BPH with urinary obstruction / SNOMED CT 4237743414 / Confirmed At risk for falls / SNOMED CT 238935088 / Possible Adenocarcinoma of prostate / SNOMED CT 2204883665 / Confirmed Resolved: Weak urinary stream / SNOMED CT 536182090 Resolved: Myocardial infarction / SNOMED CT 79526219 Resolved: Frequency of urination / SNOMED CT 088844442 Resolved: Hypertension / SNOMED CT 1012743538 Resolved: Hyperlipidemia / SNOMED CT 89994557 Resolved: GERD (gastroesophageal reflux disease) / SNOMED CT 430398668 Resolved: Feeling of incomplete bladder emptying / SNOMED CT 185964028 Resolved: Arthritis / SNOMED CT 0485405 Histories Procedure history: Prostatectomy ([id number]) on 01/27/2019 at 68 Years. TRUS/Bx ([id number]) on 11/10/2018 at 68 Years. TRUS/Bx ([id number]) on 05/07/2017 at 66 Years. Cardiac catheterisation ([id number]) on 04/07/2003 at 52 Years. Comments: 01/11/2019 10:41 Mony Ibarra MA Last cardiac cath was in 2017 Cholecystectomy ([id number]). History of hernia repair ([id number]). Colonoscopy (966532817). Injection of steroid into hip joint ([id number]). Social History Social & Psychosocial Habits Alcohol 05/26/2024 Risk Assessment: Denies Alcohol Use Tobacco 05/26/2024 Tobacco Use: Former smoker, quit more 05/26/2024 Tobacco Use: Former smoker, quit more Smokeless tobacco use: Never Smoking Cessation Yes . Physical Examination Airway: Mallampati classification: II (soft palate, fauces, uvula visible). Respiratory: adequate air exchange. Cardiovascular: Regular rhythm. Plan [place] [employer] (ASA) physical status classification: Class III. Anesthetic Preoperative Plan: Anesthesia General. [facility] Comment on above: Result Comment: Elec tronically Signed By: Leonel Sheehan Jr, DO\.br\Date and Time Signed: 06/28/24 07:51 EST 06-27-2024 Hospital Discharge instructions Patient Education 06/27/2024 15:23:47 Hiatal Hernia Hiatal Hernia A hiatal hernia occurs when part of the stomach slides above the muscle that separates the abdomen from the chest (diaphragm). A person can be born with a hiatal hernia (congenital), or it may develop over time. In almost all cases of hiatal hernia, only the top part of the stomach pushes through the diaphragm. Many people have a hiatal hernia with no symptoms. The larger the hernia, the more likely it is that you will have symptoms. In some cases, a hiatal hernia allows stomach acid to flow back into the tube that carries food from your mouth to your stomach (esophagus). This may cause heartburn symptoms. The development of heartburn symptoms may mean that you have a condition called gastroesophageal reflux disease (GERD). What are the causes? This condition is caused by a weakness in the opening (hiatus) where the esophagus passes through the diaphragm to attach to the upper part of the stomach. A person may be born with a weakness in the hiatus, or a weakness can develop over time. What increases the risk? This condition is more likely to develop in: Older people. Age is a major risk factor for a hiatal hernia, especially if you are over the age of 50. women. People who are overweight. People who have frequent constipation. What are the signs or symptoms? Symptoms of this condition usually develop in the form of GERD symptoms. Symptoms include: Heartburn. Upset stomach (indigestion). Trouble swallowing. Coughing or wheezing. Wheezing is making high-pitched whistling sounds when you breathe. Sore throat. Chest pain. Nausea and vomiting. How is this diagnosed? This condition may be diagnosed during testing for GERD. Tests that may be done include: X-rays of your stomach or chest. An upper gastrointestinal (GI) series. This is an X-ray exam of your GI tract that is taken after you swallow a chalky liquid that shows up clearly on the X-ray. Endoscopy. This is a procedure to look into your stomach using a thin, flexible tube that has a tiny camera and light on the end of it. How is this treated? This condition may be treated by: Dietary and lifestyle changes to help reduce GERD symptoms. Medicines. These may include: ?Unyr-aqh-aaqixnb antacids. ?Medicines that make your stomach empty more quickly. ?Medicines that block the production of stomach acid (H2 blockers). ?Stronger medicines to reduce stomach acid (proton pump inhibitors). Surgery to repair the hernia, if other treatments are not helping. If you have no symptoms, you may not need treatment. Follow these instructions at home: Lifestyle and activity Do not use any products that contain nicotine or tobacco. These products include cigarettes, chewing tobacco, and vaping devices, such as e-cigarettes. If you need help quitting, ask your health care provider. Try to achieve and maintain a healthy body weight. Avoid putting pressure on your abdomen. Anything that puts pressure on your abdomen increases the amount of acid that may be pushed up into your esophagus. ?Avoid bending over, especially after eating. ?Raise the head of your bed by putting blocks under the legs. This keeps your head and esophagus higher than your stomach. ?Do not wear tight clothing around your chest or stomach. ?Try not to strain when having a bowel movement, when urinating, or when lifting heavy objects. Eating and drinking Avoid foods that can worsen GERD symptoms. These may include: ?Fatty foods, like fried foods. ?Creek fruits, like oranges or lemon. ?Other foods and drinks that contain acid, like orange juice or tomatoes. ?Spicy food. ?Chocolate. Eat frequent small meals instead of three large meals a day. This helps prevent your stomach from getting too full. ?Eat slowly. ?Do not lie down right after eating. ?Do not eat 1 2 hours before bed. Do not drink beverages with caffeine. These include cola, coffee, cocoa, and tea. Do not drink alcohol. General instructions Take kqzc-zvo-zbwyypp and prescription medicines only as told by your health care provider. Keep all follow-up visits. Your health care provider will want to check that any new prescribed medicines are helping your symptoms. Contact a health care provider if: Your symptoms are not controlled with medicines or lifestyle changes. You are having trouble swallowing. You have coughing or wheezing that will not go away. Your pain is getting worse. Your pain spreads to your arms, neck, jaw, teeth, or back. You feel nauseous or you vomit. Get help right away if: You have shortness of breath. You vomit blood. You have bright red blood in your stools. You have black, tarry stools. These symptoms may be an emergency. Get help right away. Call 911. Do not wait to see if the symptoms will go away. Do not drive yourself to the hospital. Summary A hiatal hernia occurs when part of the stomach slides above the muscle that separates the abdomen from the chest. A person may be born with a weakness in the hiatus, or a weakness can develop over time. Symptoms of a hiatal hernia may include heartburn, trouble swallowing, or sore throat. Management of a hiatal hernia includes eating frequent small meals instead of three large meals a day. Get help right away if you vomit blood, have bright red blood in your stools, or have black, tarry stools. This information is not intended to replace advice given to you by your health care provider. Make sure you discuss any questions you have with your health care provider. Document Revised: 08/19/2022 Document Reviewed: 08/19/2022 [employer] Patient Education 2023 [employer] 06/27/2024 15:23:44 Duodenitis Duodenitis Duodenitis is when the lining of the first part of your small intestine (duodenum) becomes inflamed. It is often caused by a bacterial infection. You may also have open sores in your intestine called ulcers. Duodenitis may start all of a sudden and last for a short time (acute). It may also develop over time and last for months or years (chronic). What are the causes? The most common cause of this condition is an infection from a type of bacteria called Helicobacter pylori (H. pylori). Other causes include: Long-term use of NSAIDs, such as ibuprofen. Using too much alcohol. An infection of the small intestine caused by the Giardia parasite (giardiasis). Crohn's disease. Certain diseases of the body's defense system (immune system). Certain treatments for cancer. What increases the risk? You may be more likely to develop this condition if: You smoke cigarettes. You drink alcohol. You have a family history of duodenitis. You take NSAIDs. You eat a high-fat diet. What are the signs or symptoms? Symptoms of this condition may include: Epigastric pain. This is a gnawing or burning pain in the upper center of your abdomen. It may get worse when your stomach is empty and may get better after you eat. Cramps in your abdomen. Nausea and vomiting. Bloody vomit. Stools that are bloody, dark, or look like tar. Diarrhea. Weight loss. Feeling tired (fatigue). How is this diagnosed? This condition may be diagnosed based on your medical history and a physical exam. You may also have tests, such as: Blood tests. Stool tests. A test that checks the gases in your breath. An X-ray that is done after you swallow a liquid called barium. The barium makes your digestive tract easier to see. Endoscopy. This is an exam that is done by putting a thin tube with a camera on the end (endoscope) down your throat. A biopsy may be taken. This is when a sample of tissue from your duodenum is removed with the scope and looked at under a microscope to check if the tissue is infected or inflamed. How is this treated? Treatment depends on the cause of your condition. Treatment may include: Antibiotics to treat H. pylori infection. Stopping your intake of NSAIDs. Medicine to reduce the amount of acid your stomach makes. Medicine to treat other conditions, such as Crohn's disease or giardiasis. Surgery to treat severe inflammation that causes scarring or severe bleeding. Follow these instructions at home: Medicines Take sbcm-kep-hxkgaxq and prescription medicines only as told by your health care provider. If you were prescribed antibiotics, take them as told by your health care provider. Do not stop using the antibiotic even if you start to feel better. Eating and drinking Eat small, frequent meals. Do not drink alcohol. Drink enough water to keep your urine pale yellow. Follow instructions from your health care provider about what you may eat and drink. You may be asked to avoid: ?Drinks with caffeine. ?Chocolate. ?Peppermint or mint-flavored food or drinks. ?Garlic or onions. ?Spicy foods. ?Creek fruits. ?Tomato-based foods. ?Fatty or fried foods. General instructions Do not use any products that contain nicotine or tobacco. These products include cigarettes, chewing tobacco, and vaping devices, such as e-cigarettes. If you need help quitting, ask your health care provider. Contact a health care provider if: You have a fever. Your symptoms come back, get worse, or do not get better with treatment. You feel dizzy or light-headed. You vomit blood. You have a lot of blood in your stool. You have severe pain in your abdomen. Your abdomen swells and is painful. This information is not intended to replace advice given to you by your health care provider. Make sure you discuss any questions you have with your health care provider. Document Revised: 01/05/2023 Document Reviewed: 01/05/2023 [employer] Patient Education 2023 [employer] 06/27/2024 15:23:42 Gastritis, Adult, Ueqo-mq-Rqsb Gastritis, Adult Gastritis is irritation and swelling (inflammation) of the stomach. There are two kinds of gastritis: Acute gastritis. This kind develops quickly. Chronic gastritis. This kind is much more common. It develops slowly and lasts for a long time. It is important to get help for this condition. If you do not get help, your stomach can bleed, and you can get sores (ulcers) in your stomach. What are the causes? This condition may be caused by: Germs that get to your stomach and cause an infection. Drinking too much alcohol. Medicines you are taking. Having too much acid in the stomach. Having a disease of the stomach. Other causes may include: An allergic reaction. Some cancer treatments (radiation). Smoking cigarettes or using products that contain nicotine or tobacco. In some cases, the cause of this condition is not known. What increases the risk? Having a disease of the intestines. Having Crohn's disease. Using aspirin or ibuprofen and other NSAIDs to treat other conditions. Stress. What are the signs or symptoms? Pain in your stomach. A burning feeling in your stomach. Feeling like you may vomit (nauseous). Vomiting or vomiting blood. Feeling too full after you eat. Weight loss. Bad breath. Blood in your poop (stool). In some cases, there are no symptoms. How is this treated? This condition is treated with medicines. The medicines that are used depend on what caused the condition. You may be given: Antibiotic medicine, if your condition was caused by an infection from germs. H2 blockers and similar medicines, if your condition was caused by too much acid in the stomach. Treatment may also include stopping the use of certain medicines, such as aspirin or ibuprofen. Follow these instructions at home: Medicines Take uqds-zft-pbcnzty and prescription medicines only as told by your doctor. If you were prescribed an antibiotic medicine, take it as told by your doctor. Do not stop taking it even if you start to feel better. Alcohol use Do not drink alcohol if: ?Your doctor tells you not to drink. ?You are , may be , or are planning to become . If you drink alcohol: ?Limit your use to: ?0 1 drink a day for women. ?0 2 drinks a day for men. ?Know how much alcohol is in your drink. In the [place] one drink equals one 12 oz bottle of beer (355 mL), one 5 oz glass of wine (148 mL), or one 1 oz glass of hard liquor (44 mL). General instructions Eat small meals often, instead of large meals. Avoid foods and drinks that make you feel worse. Drink enough fluid to keep your pee (urine) pale yellow. Talk with your doctor about ways to manage stress. You can exercise or do deep breathing, meditation, or yoga. Do not smoke or use any products that contain nicotine or tobacco. If you need help quitting, ask your doctor. Keep all follow-up visits. Contact a doctor if: Your symptoms get worse. Your stomach pain gets worse. Your symptoms go away and then come back. You have a fever. Get help right away if: You vomit blood or something that looks like coffee grounds. You have black or dark red poop. You throw up any time you try to drink fluids. These symptoms may be an emergency. Get help right away. Call your local emergency services (911 in the [place] Do not wait to see if the symptoms will go away. Do not drive yourself to the hospital. Summary Gastritis is irritation and swelling (inflammation) of the stomach. You must get help for this condition. If you do not get help, your stomach can bleed, and you can get sores (ulcers) in your stomach. You can be treated with medicines for germs or medicines to block too much acid in your stomach. This information is not intended to replace advice given to you by your health care provider. Make sure you discuss any questions you have with your health care provider. Document Revised: 10/26/2021 Document Reviewed: 10/26/2021 [employer] Patient Education 2023 [employer] 06/27/2024 15:23:35 Endoscopy, Care After Procedure [facility] ([facility]) Endoscopy Care After Procedure Please read the instructions outlined below and refer to this sheet in the next few weeks. These discharge instructions provide you with general information on caring for yourself after you leave the hospital. Your doctor may also give you specific instructions. While your treatment has been planned according to the most current medical practices available, unavoidable complications occasionally occur. If you have any problems or questions after discharge, please call your doctor. ACTIVITY You may resume your regular activity but move at a slower pace for the next 24 hours. Take frequent rest periods for the next 24 hours. Walking will help expel (get rid of) the air and reduce the bloated feeling in your abdomen. No driving for 24 hours (because of the anesthesia (medicine) used during the test). You may shower. Do not sign any important legal documents or operate any machinery for 24 hours (because of the anesthesia used during the test). NUTRITION Drink plenty of fluids. You may resume your normal diet. Begin with a light meal and progress to your normal diet. Avoid alcoholic beverages for 24 hours or as instructed by your caregiver. MEDICATIONS You may resume your normal medications unless your caregiver tells you otherwise. WHAT YOU CAN EXPECT TODAY You may experience abdominal discomfort such as a feeling of fullness or gas pains. FOLLOW-UP Your doctor will discuss the results of your test with you. SEEK IMMEDIATE MEDICAL ATTENTION IF ANY OF THE FOLLOWING OCCUR: Excessive nausea (feeling sick to your stomach) and/or vomiting. Severe abdominal pain and distention (swelling). Trouble swallowing. Temperature over 100 F (37.8 C). Rectal bleeding or vomiting of blood. Document Released: 02/03/2005 Document Re-Released: 12/14/2006 [employer] Patient Information [employer]. 06/27/2024 15:23:33 Hemorrhoids, Vakm-sy-Kkvb Hemorrhoids Hemorrhoids are swollen veins that may form: In the butt (rectum). These are called internal hemorrhoids. Around the opening of the butt (anus). These are called external hemorrhoids. Most hemorrhoids do not cause very bad problems. They often get better with changes to your lifestyle and what you eat. What are the causes? Having trouble pooping (constipation) or watery poop (diarrhea). Pushing too hard when you poop. . Being very overweight (obese). Sitting for too long. Riding a bike for a long time. Heavy lifting or other things that take a lot of effort. Anal sex. What are the signs or symptoms? Pain. Itching or soreness in the butt. Bleeding from the butt. Leaking poop. Swelling. One or more lumps around the opening of your butt. How is this treated? In most cases, hemorrhoids can be treated at home. You may be told to: Change what you eat. Make changes to your lifestyle. If these treatments do not help, you may need to have a procedure done. Your doctor may need to: Place rubber bands at the bottom of the hemorrhoids to make them fall off. Put medicine into the hemorrhoids to shrink them. Shine a type of light on the hemorrhoids to cause them to fall off. Do surgery to get rid of the hemorrhoids. Follow these instructions at home: Medicines Take weor-zsn-gwvzosu and prescription medicines only as told by your doctor. Use creams with medicine in them or medicines that you put in your butt as told by your doctor. Eating and drinking Eat foods that have a lot of fiber in them. These include whole grains, beans, nuts, fruits, and vegetables. Ask your doctor about taking products that have fiber added to them (fibersupplements). Take in less fat. You can do this by: ?Eating low-fat dairy products. ?Eating less red meat. ?Staying away from processed foods. Drink enough fluid to keep your pee (urine) pale yellow. Managing pain and swelling Take a warm-water bath (sitz bath) for 20 minutes to ease pain. Do this 3 4 times a day. You may do this in a bathtub. You may also use a portable sitz bath that fits over the toilet. If told, put ice on the painful area. It may help to use ice between your warm baths. ?Put ice in a plastic bag. ?Place a towel between your skin and the bag. ?Leave the ice on for 20 minutes, 2 3 times a day. If your skin turns bright red, take off the ice right away to prevent skin damage. The risk of damage is higher if you cannot feel pain, heat, or cold. General instructions Exercise. Ask your doctor how much and what kind of exercise is best for you. Go to the bathroom when you need to poop. Do not wait. Try not to push too hard when you poop. Keep your butt dry and clean. Use wet toilet paper or moist towelettes after you poop. Do not sit on the toilet for a long time. Contact a doctor if: You have pain and swelling that do not get better with treatment. You have trouble pooping. You cannot poop. You have pain or swelling outside the area of the hemorrhoids. Get help right away if: You have bleeding from the butt that will not stop. This information is not intended to replace advice given to you by your health care provider. Make sure you discuss any questions you have with your health care provider. Document Revised: 03/04/2023 Document Reviewed: 03/04/2023 [employer] Patient Education 2023 [employer] 06/27/2024 15:23:31 Diverticulosis MAGR (CUSTOM) Diverticulosis Many people have small pouches in their colon called diverticulum. The diverticulum bulge outward through weak spots in the colon. You could have one or more of these pouches in the colon. The condition of having these pouches in the colon is called diverticulosis or diverticular disease. Diverticulosis is usually diagnosed by tests to evaluate something else. For example, you may have had a colonoscopy to screen for colon cancer when the diverticulosis was found. Most people with diverticulosis do not have any discomfort or problems. If symptoms develop, they may include mild cramps, bloating, and constipation. A complication of this condition is called diverticulitis. This is when the diverticulum become inflamed and infected. How to treat diverticulosis: Increasing the amount of fiber in the diet may reduce symptoms of diverticulosis and prevent complications such as diverticulitis (infected diverticuli). Fiber keeps stool soft and lowers pressure inside the colon so that bowel contents can move through easily. You should eat 20 to 35 grams of fiber each day. The table below shows the amount of fiber in some foods that you can easily add to your diet. Adding fiber slowly may decrease the bloating and fullness sometimes felt with an immediate high fiber diet. The doctor may also recommend taking a fiber product such as Citrucel or Metamucil once a day. In the past people with diverticulosis were to avoid nuts, corn, and seeds. This has not been found to be true. If you find that certain foods create cramping or bloating, avoid that food. Foods high in fiber include: Fresh fruits, fresh vegetables, legumes (beans), whole wheat bread, bran muffins or cereal, and nuts. See the table below for examples of high fiber foods. Remember, your goal is 20-35 grams per day. Amount of fiber in different foods Food Serving Grams of fiber Fruits Apple (with skin) 1 medium apple 4.4 Banana 1 medium banana 3.1 Oranges 1 orange 3.1 Prunes 1 cup, pitted 12.4 Juices Apple, unsweetened, w/added ascorbic acid 1 cup 0.5 Grapefruit, white, canned, sweetened 1 cup 0.2 Grape, unsweetened, w/added ascorbic acid 1 cup 0.5 Creek 1 cup 0.7 Vegetables Cooked Green beans 1 cup 4.0 Carrots 1/2 cup sliced 2.3 Peas 1 cup 8.8 Potato (baked, with skin) 1 medium potato 3.8 Raw [place] (with peel) 1 cucumber 1.5 Lettuce 1 cup shredded 0.5 Tomato 1 medium tomato 1.5 Spinach 1 cup 0.7 Legumes Baked beans, canned, no salt added 1 cup 13.9 Kidney beans, canned 1 cup 13.6 [place] beans, canned 1 cup 11.6 Lentils, boiled 1 cup 15.6 Breads, pastas, flours Bran muffins 1 medium muffin 5.2 Oatmeal, cooked 1 cup 4.0 White bread 1 slice 0.6 Whole-wheat bread 1 slice 1.9 Pasta and rice, cooked Macaroni 1 cup 2.5 Rice, brown 1 cup 3.5 Rice, white 1 cup 0.6 Spaghetti (regular) 1 cup 2.5 Nuts Almonds 1/2 cup 8.7 Peanuts 1/2 cup 7.9 Chart from [facility] 2013. SEEK IMMEDIATE MEDICAL CARE IF: You develop abdominal (belly) pain. An oral temperature above _ 101 F__develops. Repeated vomiting occurs. Blood is being passed in stools (bright red or black tarry stools). You develop any bowel problems or changes which you have not had before. Extra Information: To learn how much fiber and other nutrients are in different foods, visit the [place] Department of Agriculture (USDA) National Nutrient Database at: http://www.nal.usda.gov/fnic/foodcomp/ search/ Created using data from the USDA National Nutrient Database for Standard Reference. Available at http://www.nal.usda.gov/fnic/foodcomp/ search/. Information adapted from: ExitCare Patient Information 2009 [employer]. [facility] [email or web address]-the-[email or web address] 06/27/2024 15:23:23 Colon Polyps Colon Polyps Colon polyps are tissue growths inside the colon, which is part of the large intestine. They are one of the types of polyps that can grow in the body. A polyp may be a round bump or a mushroom-shaped growth. You could have one polyp or more than one. Most colon polyps are noncancerous (benign). However, some colon polyps can become cancerous over time. Finding and removing the polyps early can help prevent this. What are the causes? The exact cause of colon polyps is not known. What increases the risk? The following factors may make you more likely to develop this condition: Having a family history of colorectal cancer or colon polyps. Being older than 45 years of age. Being younger than 45 years of age and having a significant family history of colorectal cancer or colon polyps or a genetic condition that puts you at higher risk of getting colon polyps. Having inflammatory bowel disease, such as ulcerative colitis or Crohn's disease. Having certain conditions passed from parent to child (hereditary conditions), such as: ?Familial adenomatous polyposis (FAP). ?Rust syndrome. ?Turcot syndrome. ?Peutz Jeghers syndrome. ?MUTYH-associated polyposis (MAP). Being overweight. Certain lifestyle factors. These include smoking cigarettes, drinking too much alcohol, not getting enough exercise, and eating a diet that is high in fat and red meat and low in fiber. Having had childhood cancer that was treated with radiation of the abdomen. What are the signs or symptoms? Many times, there are no symptoms. If you have symptoms, they may include: Blood coming from the rectum during a bowel movement. Blood in the stool (feces). The blood may be bright red or very dark in color. Pain in the abdomen. A change in bowel habits, such as constipation or diarrhea. How is this diagnosed? This condition is diagnosed with a colonoscopy. This is a procedure in which a lighted, flexible scope is inserted into the opening between the buttocks (anus) and then passed into the colon to examine the area. Polyps are sometimes found when a colonoscopy is done as part of routine cancer screening tests. How is this treated? This condition is treated by removing any polyps that are found. Most polyps can be removed during a colonoscopy. Those polyps will then be tested for cancer. Additional treatment may be needed depending on the results of testing. Follow these instructions at home: Eating and drinking Eat foods that are high in fiber, such as fruits, vegetables, and whole grains. Eat foods that are high in calcium and vitamin D, such as milk, cheese, yogurt, eggs, liver, fish, and broccoli. Limit foods that are high in fat, such as fried foods and desserts. Limit the amount of red meat, precooked or cured meat, or other processed meat that you eat, such as hot dogs, sausages, de la cruz, or meat loaves. Limit sugary drinks. Lifestyle Maintain a healthy weight, or lose weight if recommended by your health care provider. Exercise every day or as told by your health care provider. Do not use any products that contain nicotine or tobacco, such as cigarettes, e-cigarettes, and chewing tobacco. If you need help quitting, ask your health care provider. Do not drink alcohol if: ?Your health care provider tells you not to drink. ?You are , may be , or are planning to become . If you drink alcohol: ?Limit how much you use to: ?0 1 drink a day for women. ?0 2 drinks a day for men. ?Know how much alcohol is in your drink. In the [place] one drink equals one 12 oz bottle of beer (355 mL), one 5 oz glass of wine (148 mL), or one 1 oz glass of hard liquor (44 mL). General instructions Take ujfq-pit-hiectpc and prescription medicines only as told by your health care provider. Keep all follow-up visits. This is important. This includes having regularly scheduled colonoscopies. Talk to your health care provider about when you need a colonoscopy. Contact a health care provider if: You have new or worsening bleeding during a bowel movement. You have new or increased blood in your stool. You have a change in bowel habits. You lose weight for no known reason. Summary Colon polyps are tissue growths inside the colon, which is part of the large intestine. They are one type of polyp that can grow in the body. Most colon polyps are noncancerous (benign), but some can become cancerous over time. This condition is diagnosed with a colonoscopy. This condition is treated by removing any polyps that are found. Most polyps can be removed during a colonoscopy. This information is not intended to replace advice given to you by your health care provider. Make sure you discuss any questions you have with your health care provider. Document Revised: 10/10/2020 Document Reviewed: 10/10/2020 [employer] Patient Education 2023 [employer] 06/27/2024 15:23:22 Colonoscopy, Care After Surgery Salam (CUSTOM) Colonoscopy Care After Surgery Please read the instructions outlined below and refer to this sheet in the next few weeks. These discharge instructions provide you with general information on caring for yourself after you leave the hospital. Your doctor may also give you specific instructions. While your treatment has been planned according to the most current medical practices available, unavoidable complications occasionally occur. If you have any problems or questions after discharge, please call your doctor. ACTIVITY You may resume your regular activity, but move at a slower pace for the next 24 hours. Take frequent rest periods for the next 24 hours. Walking will help get rid of the air and reduce the bloated feeling in your abdomen (belly). No driving for 24 hours (because of the anesthesia (medicine) used during the test). You may shower. Do not sign any important legal documents or operate any machinery for 24 hours (because of the anesthesia used during the test). NUTRITION Drink plenty of fluids. You may resume your normal diet as instructed by your doctor. Begin with a light meal and progress to your normal diet. Heavy or fried foods are harder to digest and may make you feel nauseated (sick to your stomach). Avoid alcoholic beverages for 24 hours or as instructed. MEDICATIONS You may resume your normal medications unless your doctor tells you otherwise. WHAT YOU CAN EXPECT TODAY Some feelings of bloating in the abdomen. Passage of more gas than usual. Spotting of blood in your stool or on the toilet paper. FOLLOW-UP Your doctor will discuss the results of your test with you. SEEK IMMEDIATE MEDICAL ATTENTION IF: There is more than a spotting of blood in your stool. There is abdominal distention (your abdomen is swollen). There is vomiting. You have a temperature over 101.5 F. There is abdominal pain or discomfort that is severe or gets worse throughout the day. Follow Up Care 05/26/2024 13:10:26 With:Moni WHITING, ANGEL Candelaria, [facility] Address: When: Unknown Comments:Call for any problems. Office will call to schedule follow up appointment [facility] 06-27-2024 Note Patient Education - Text Endoscopy Care After Procedure Please read the instructions outlined below and refer to this sheet in the next few weeks. These discharge instructions provide you with general information on caring for yourself after you leave the hospital. Your doctor may also give you specific instructions. While your treatment has been planned according to the most current medical practices available, unavoidable complications occasionally occur. If you have any problems or questions after discharge, please call your doctor. ACTIVITY ??? You may resume your regular activity but move at a slower pace for the next 24 hours. ??? Take frequent rest periods for the next 24 hours. ??? Walking will help expel (get rid of) the air and reduce the bloated feeling in your abdomen. ??? No driving for 24 hours (because of the anesthesia (medicine) used during the test). ??? You may shower. ??? Do not sign any important legal documents or operate any machinery for 24 hours (because of the anesthesia used during the test). NUTRITION ??? Drink plenty of fluids. ??? You may resume your normal diet. ??? Begin with a light meal and progress to your normal diet. ??? Avoid alcoholic beverages for 24 hours or as instructed by your caregiver. MEDICATIONS ??? You may resume your normal medications unless your caregiver tells you otherwise. WHAT YOU CAN EXPECT TODAY ??? You may experience abdominal discomfort such as a feeling of fullness or ???gas??? pains. FOLLOW-UP ??? Your doctor will discuss the results of your test with you. seek immediate medical attention if any of the following occur: ??? Excessive nausea (feeling sick to your stomach) and/or vomiting. ??? Severe abdominal pain and distention (swelling). ??? Trouble swallowing. ??? Temperature over 100 F (37.8??? C). ??? Rectal bleeding or vomiting of blood. Document Released: 02/03/2005 Document Re-Released: 12/14/2006 [employer]??? Patient Information ???2009 [employer]. Diverticulosis Many people have small pouches in their colon called diverticulum. The diverticulum bulge outward through weak spots in the colon. You could have one or more of these pouches in the colon. The condition of having these pouches in the colon is called diverticulosis or diverticular disease. Diverticulosis is usually diagnosed by tests to evaluate something else. For example, you may have had a colonoscopy to screen for colon cancer when the diverticulosis was found. Most people with diverticulosis do not have any discomfort or problems. If symptoms develop, they may include mild cramps, bloating, and constipation. A complication of this condition is called diverticulitis. This is when the diverticulum become inflamed and infected. How to treat diverticulosis: Increasing the amount of fiber in the diet may reduce symptoms of diverticulosis and prevent complications such as diverticulitis (infected diverticuli). Fiber keeps stool soft and lowers pressure inside the colon so that bowel contents can move through easily. You should eat 20 to 35 grams of fiber each day. The table below shows the amount of fiber in some foods that you can easily add to your diet. Adding fiber slowly may decrease the bloating and fullness sometimes felt with an immediate high fiber diet. The doctor may also recommend taking a fiber product such as Citrucel or Metamucil once a day. In the past people with diverticulosis were to avoid nuts, corn, and seeds. This has not been found to be true. If you find that certain foods create cramping or bloating, avoid that food. Foods high in fiber include: Fresh fruits, fresh vegetables, legumes (beans), whole wheat bread, bran muffins or cereal, and nuts. See the table below for examples of high fiber foods. Remember, your goal is 20-35 grams per day. Amount of fiber in different foods Food Serving Grams of fiber Fruits Apple (with skin) 1 medium apple 4.4 Banana 1 medium banana 3.1 Oranges 1 orange 3.1 Prunes 1 cup, pitted 12.4 Juices Apple, unsweetened, w/added ascorbic acid 1 cup 0.5 Grapefruit, white, canned, sweetened 1 cup 0.2 Grape, unsweetened, w/added ascorbic acid 1 cup 0.5 Creek 1 cup 0.7 Vegetables Cooked Green beans 1 cup 4.0 Carrots 1/2 cup sliced 2.3 Peas 1 cup 8.8 Potato (baked, with skin) 1 medium potato 3.8 Raw [place] (with peel) 1 cucumber 1.5 Lettuce 1 cup shredded 0.5 Tomato 1 medium tomato 1.5 Spinach 1 cup 0.7 Legumes Baked beans, canned, no salt added 1 cup 13.9 Kidney beans, canned 1 cup 13.6 [place] beans, canned 1 cup 11.6 Lentils, boiled 1 cup 15.6 Breads, pastas, flours Bran muffins 1 medium muffin 5.2 Oatmeal, cooked 1 cup 4.0 White bread 1 slice 0.6 Whole-wheat bread 1 slice 1.9 Pasta and rice, cooked Macaroni 1 cup 2.5 Rice, brown 1 cup 3.5 Rice, white 1 cup 0.6 Spaghetti (regular) 1 cup 2.5 Nuts Almonds 1/2 cup 8.7 Peanuts 1/2 cup 7.9 (more content not included)... [facility] 06-27-2024 Note Endoscopic Procedure Report - Other Patient: LEONEL GALDAMEZ JR Age: 73 years Sex: Male : 1950 Associated Diagnoses: None Author: Gomez Montenegro MD Pre-Procedure Procedure Date 06/27/2024 15:11:00 . Procedure Type: Colonoscopy with removal of tumor(s), polyp(s), or other lesion(s) by cold snare technique, biopsy. Procedure provider Performed by Gomez Montenegro MD. Current history and physical Reviewed. Prostatectomy ([id number]) on 01/27/2019 at 68 Years. TRUS/Bx ([id number]) on 11/10/2018 at 68 Years. TRUS/Bx ([id number]) on 05/07/2017 at 66 Years. Cardiac catheterisation ([id number]) on 04/07/2003 at 52 Years. Comments: 01/11/2019 10:41 Mony Ibarra MA Last cardiac cath was in 2017 Cholecystectomy ([id number]). History of hernia repair (0861487410). Colonoscopy ([id number]). Injection of steroid into hip joint ([id number]).. Past Medical History Active Elevated PSA ([id number]) Impotence (1441806316) Nocturia (970640250) Resolved Frequency of urination (736468061): Resolved on 12/30/2018 at 68 years. Feeling of incomplete bladder emptying (487322379): Resolved on 12/30/2018 at 68 years. Weak urinary stream ([id number]): Resolved on 12/30/2018 at 68 years. Arthritis ([id number]): Resolved on 01/11/2019 at 68 years. GERD (gastroesophageal reflux disease) ([id number]): Resolved on 01/11/2019 at 68 years. Hypertension (3291795295): Resolved on 01/11/2019 at 68 years. Myocardial infarction ([id number]): Resolved on 01/11/2019 at 68 years. Hyperlipidemia (67149385): Resolved on 01/11/2019 at 68 years.. reviewed. Family History Primary malignant neoplasm of colon Mother Mitral valve disorder Mother Myocardial infarct Father Heart disease Mother Malignant neoplasm of colon Brother . Procedure History Prostatectomy ([id number]) on 01/27/2019 at 68 Years. TRUS/Bx ([id number]) on 11/10/2018 at 68 Years. TRUS/Bx ([id number]) on 05/07/2017 at 66 Years. Cardiac catheterisation ([id number]) on 04/07/2003 at 52 Years. Comments: 01/11/2019 10:41 Mony Ibarra MA Last cardiac cath was in 2017 Cholecystectomy ([id number]). History of hernia repair (6766698020). Colonoscopy ([id number]). Injection of steroid into hip joint ([id number]).. Colorectal neoplasm risk assessment High risk Family history of colon cancer. . Informed Consent After discussing the rationale, risks and benefits, and alternatives to this procedure, the patient provided signed consent for the procedure. Pre-procedure diagnosis: Surveillance: Family history of colon cancer. Medications (Selected) Inpatient Medications Ordered Lactated Ringers IV Dolores 1000 mL 1,000 mL: 1,000 mL, IV, 100 mL/hr, Routine, Start date 06/27/24 12:23:00 EST, 10 hour(s), Total volume (mL): 1,000 Sodium Chloride 0.9% IV Dolores 1000 mL 1,000 mL: 1,000 mL, IV, 20 mL/hr, Routine, Start date 06/27/24 6:43:00 EST, 50 hour(s), Total volume (mL): 1,000 Documented Medications Documented Cartia XT 180 mg/24 hours oral capsule, extended release: 180 mg = 1 cap(s), Oral, Daily, Refills(s) 0, Irregular heartbeat CeleBREX 200 mg Cap: mg cap(s), Oral, BID, Refills(s) 0, Arthritis NitroStat 0.4 mg Tab: See Instructions, 1 tab(s) SubLingual PRN for chest pain, Refills(s) 0 Plavix 75 mg Tab: 75 mg = 1 tab(s), Oral, Daily, Refills(s) 0, Blood Thinner Praluent Pen 75 mg/mL subcutaneous solution: See Instructions, 1 injection every other week, Refills(s) 0, High cholesterol aspirin 81 mg oral tablet: 81 mg = 1 tab(s), Oral, Daily, Refills(s) 0 carvedilol 25 mg Tab: Refills(s) 0, High blood pressure lisinopril 20 mg Tab: mg tab(s), Oral, Daily, Refills(s) 0, High blood pressure pantoprazole 40 mg Oral EC Tab: 40 mg = 1 tab(s), Oral, Daily, Refills(s) 0 sildenafil 100 mg Tab: mg tab(s), Oral, Daily, Refills(s) 0, Erectile dysfunction Anticoagulant/antiplatelet None. reviewed. ASA Classification: Class II. . Monitoring: See anesthesia record. . Procedure The procedure was performed in the hospital. See anesthesia record for sedation given during procedure. The patient was positioned starting in the left lateral decubitus position. Endoscope type used was an adult-size. The endoscope was lubricated then introduced through the anus. The scope was advanced to the cecum. No difficulties encountered during the procedure. The bowel preparation quality was adequate (see polyps greater than or equal to 6 millimeters). The patient tolerated the procedure well. Time to Cecum: 4min Withdrawal time 11min Findings 1. Small internal hemorrhoids 2. Mild to moderate sigmoid diverticulosis 3. 2 small diminutive polyps in the ascending colon, 2 to 3 mm in size, resected with cold snare the second were resected with cold biopsy forceps and retrieved. 4. Normal examined terminal ileum Images Procedure images: [id number]__[id number]. jpg (In (more content not included)... [facility] Comment on above: Result Comment: Elec tronically Signed By: Gomez Montenegro MD\.br\Date and Time Signed: 06/27/24 15:13 EST Other Comment: Leela falcon Attachment - attachment storage system not supported [id number] Can be viewed in source system Missing Attachment - attachment storage system not supported [id number] Can be viewed in source system Missing Attachment - attachment storage system not supported [id number] Can be viewed in source system Missing Attachment - attachment storage system not supported [id number] Can be viewed in source system Missing Attachment - attachment storage system not supported [id number] Can be viewed in source system Missing Attachment - attachment storage system not supported [id number] Can be viewed in source system Missing Attachment - attachment storage system not supported [id number] Can be viewed in source system Missing Attachment - attachment storage system not supported [id number] Can be viewed in source system Missing Attachment - attachment storage system not supported [id number] Can be viewed in source system Missing Attachment - attachment storage system not supported [id number] Can be viewed in source system Missing Attachment - attachment storage system not supported [id number] Can be viewed in source system Missing Attachment - attachment storage system not supported [id number] Can be viewed in source system Missing Attachment - attachment storage system not supported [id number] Can be viewed in source system Missing Attachment - attachment storage system not supported [id number] Can be viewed in source system 06-27-2024 Note Endoscopic Procedure Report - Other Patient: LEONEL GALDAMEZ JR Age: 73 years Sex: Male : 1950 Associated Diagnoses: None Author: Gomez Montenegro MD Pre-Procedure Procedure Date 06/27/2024 14:51:00 . Procedure Type: Esophagogastroduodenoscopy with biopsy. Procedure provider Performed by Gomez Montenegro MD. Current history and physical Documented on chart. Informed Consent After discussing the rationale, risks and benefits, and alternatives to this procedure, the patient provided signed consent for the procedure. Pre-procedure diagnosis: GERD. Medications Anticoagulant/antiplatelet None. ASA Classification: Class II. . Monitoring: See anesthesia record. . Procedure The procedure was performed in the hospital. See anesthesia record for sedation given during procedure. The patient was positioned starting in the left lateral decubitus position and with safety measures. Endoscope type used was an adult-size, introduced orally, advanced to the 3rd portion of the duodenum. No difficulty was encountered during the procedure. Views were excellent. The patient tolerated the procedure well. Findings 1. Esophageal landmarks identified, regular Z-line, small hiatal hernia, no evidence of Hartman's esophagus 2. Moderate patchy erythema in the body and antrum of the stomach with minimal amount of old blood, no biopsies were taken to rule H. pylori 3. Mild nonspecific patchy erythema in the duodenal bulb and second part of the duodenum with minimal edematous mucosa, random biopsies were taken to rule out celiac disease Images Procedure images: [id number]_hd_video_[id number]__[id number]. jpg Rec1_hd_video___[id number]. jpg Rec1_hd_video___[id number]. jpg Rec1_hd_video_2023__[id number]. jpg Rec1_hd_video__[id number]. jpg Rec1_hd_video__[id number]. jpg Rec1_hd_video___[id number]. jpg Rec1_hd_video__[id number]. jpg Rec1_hd_video__[id number]. jpg . Post-Procedure Complications: none. Estimated blood loss: minimal. Specimens: sent to pathology. Devices/ implants: none left in place. Impression and Plan 1. Esophageal landmarks identified, regular Z-line, small hiatal hernia, no evidence of Hartman's esophagus 2. Moderate patchy erythema in the body and antrum of the stomach with minimal amount of old blood, no biopsies were taken to rule H. pylori 3. Mild nonspecific patchy erythema in the duodenal bulb and second part of the duodenum with minimal edematous mucosa, random biopsies were taken to rule out celiac disease Recommendations: -Resume previous diet -Resume home medications -Await pathology results, follow in GI clinic in 1-2 after discharge [facility] Comment on above: Result Comment: Elec tronically Signed By: Moni WHITING, Gomez Paniagua\.br\Date and Time Signed: 06/27/24 14:52 EST Other Comment: Leela falcon Attachment - attachment storage system not supported [id number] Can be viewed in source system Missing Attachment - attachment storage system not supported [id number] Can be viewed in source system Missing Attachment - attachment storage system not supported [id number] Can be viewed in source system Missing Attachment - attachment storage system not supported [id number] Can be viewed in source system Missing Attachment - attachment storage system not supported [id number] Can be viewed in source system Missing Attachment - attachment storage system not supported [id number] Can be viewed in source system Missing Attachment - attachment storage system not supported [id number] Can be viewed in source system Missing Attachment - attachment storage system not supported [id number] Can be viewed in source system Missing Attachment - attachment storage system not supported [id number] Can be viewed in source system 11-16-2023 Instructions Michi Ma MD - 11/16/2023 12:46 PM EDT Images from the original note were not included. PREVENTIVE CARDIOLOGY Home Blood Pressure Monitoring The 2017 High Blood Pressure Clinical Practice Guidelines, endorsed by the [place] [employer] and the [place] [employer]1, place a special emphasis on [...] blood pressure readings for our review via [employer] (or by other means if instructed by your healthcare provider.) 1. Hiram gonsales al. J Am Destin Cardiol. 2018 November 17;71(19):s305-l953. 2. PREVENTIVE CARDIOLOGY LOW SODIUM DIET A [...] cheeses Yogurt MILK & DAIRY Buttermilk Cheese ([place], [place], Cheddar, Blue, Gouda, [place], Velveeta) Cheese spreads FRUIT & VEGETABLES 5-9 [...] frozen meats (poultry, fish, shellfish, beef, pork, myres) Canned unsalted tuna fish Dried peas and beans Eggs Low sodium peanut butter Unsalted nuts Unsalted soybeans and other meat substitutes MEATS & MEAT SUBSTITUTES Cured, salted, canned or smoked meats, poultry, or fish such as corned beef, ham, de la cruz, luncheon meats, beef jerky, bologna, pork rinds, [...] SNACKS Butter Commercial salad dressings Cheese-based dressings De La Cruz fat, fatback, salt pork Salad dressing mixes Olives, green and black Prepared frozen cream pies and cheese cake Instant pudding mixes Commercially prepared baked goods (Cakes, cookies, pie) Salted nuts MISC. Allspice, Mustard (dry) Big Horn Extract Basil Wilkes Leaves Capello's Arabic Style Seasoning Nora Seeds Chives Cider Vinegar Cinnamon Barkley Powder Berenice Crystal Dill Garlic Powder Sandro Herbal Seasonings: Lawry's Seasoned Pepper Lawrharriet's Seasoning (no salt) Lemon Juice Mace Mrs. Dash Nutmeg Onion Powder Paprika Parsley Parsley Patch Peppermint Extract Pimento Natacha Eligio Salt free seasoning blends Savory Sodium-free Baking Powder Thyme Turmeric Vinegar Kramer's all-purpose Seasonings MISC. Accent Herminia-Hinckley All commercially prepared and convenience foods such as TV dinners, box mixes, canned entrees, Hamburger [place], meat pies, Swedish dinners, pizza, Shake'n Bake mixes BBQ sauce Celery salt Scotia sauce Garlic salt Horseradish Kitchen Bouquet Lemon pepper Marinade sauce Meat tenderizers Monosodium Glutamate (MSG) Onion salt Constitution Party spreads Regular ketchup Relish Salad dressings Salt Seasoning salts Sodium Benzoate Sodium Caseinate Sodium Citrate Sodium Nitrate Sodium Phosphate Sodium Propionate Sodium Saccharin Soy sauce Steak sauce Tartar sauce Teriyaki sauce [facility] sauce Labeled no salt Products, Assorted [...] Do I Make the DASH? Available at: https://www.nhlbi.nih.gov/health/resou rces/heart/mnv-bkee-fvz-to. Top 10 Dash Diet Tips. Available at: http://dashdiet.org/dash_diet_tips.asp In the [place], one standard drink [...] Pressure in Adults documented in this encounter [facility] 11-16-2023 History of Present illness Narrative Images from the original note were not included. Heart, Vascular and Thoracic [place] Isaiah Barclay Department of Cardiovascular Medicine SECTION OF INTERVENTIONAL CARDIOLOGY OUTPATIENT VISIT DATE November 16, 2023 OUTPATIENT VISIT TYPE ESTABLISHED PRIMARY CARE PHYSICIAN: Suzanna Trent [address] [place] [address] REFERRING PHYSICIAN: No referring provider defined for [...] Notes chest pain when he eats several [place] cough drops (uses for nasal congestion). Lasts [...] chest pain. 06/11/2020 - cardiac catheterization at [facility] in [place] - (by my review of images): LM [...] HISTORY Diagnosis Date CAD (coronary artery disease), [place] coronary artery 01/16/2005 04/10/2003 -PCI to RCA [...] Artery Disease Father at 74 of an OR Heart Attack Sister passed from OR Coronary Artery Disease Brother s/p PCI, OR Heart Attack Brother Coronary Artery Disease Brother OR Heart Attack Brother ALLERGIES: ALLERGIES Allergen Reactions Codeine Mental Status Change Nightmares Isosorbide Mononitr* Intolerance migraine JONES Lipitor [Atorvastat* Myalgia Muscle pain. Rhabdo Gvuxnfh-Epm-Nbf Red* Myalgia Zocor [Simvastatin] Other: See Comments [...] drawn today - MyChart report. A. Michi Ma MD ADDENDUM Latest Ref Rng 11/16/2023 Protein, [...] Hyperlipidemia - excellent control, LDL 42 mg/dL. [employer] message sent. Ann Ma MD CONTACT INFORMATION: Ann Ma M.D. Section of Interventional Cardiology Department of Cardiovascular Medicine Heart, Vascular, and Thoracic [place] [address], [place] [address] Office - [phone] extension [phone] Office Appointments: [phone] extension [phone] documented in this encounter [facility] 11-14-2022 History of Present illness Narrative Heart, Vascular & [facility]acic [place] Department of Cardiovascular Medicine VIRTUAL VIDEO VISIT [...] visit. Either the patient or their legal retail wireless sales representative has been informed of the risks and [...] chest pain. 06/11/2020 - cardiac catheterization at [facility] in [place] - (by my review of images): LM [...] HISTORY Diagnosis Date CAD (coronary artery disease), [place] coronary artery 01/16/2005 04/10/2003 -PCI to RCA [...] Artery Disease Father at 74 of an OR Heart Attack Sister passed from OR Coronary Artery Disease Brother s/p PCI, OR Heart Attack Brother Coronary Artery Disease Brother OR Heart Attack Brother Social History Tobacco Use Smoking status: Former Years: 25.00 Types: Cigarettes Quit date: 01/1992 Years since quittin.8 Smokeless tobacco: Never Substance Use Topics Alcohol use: No Drug use: No ALLERGIES Allergen Reactions Codeine Mental Status Change Nightmares Isosorbide Mononitr* Intolerance migraine JONES Lipitor [Atorvastat* Myalgia Muscle pain. Rhabdo Gxbtwfs-Tod-Nyh Red* Myalgia Zocor [Simvastatin] Other: See Comments [...] management and care of this patient. Ann Ma MD November 14, 2022 10:30 AM documented in this encounter [facility] 11-10-2022 Miscellaneous Notes Call received from pt who had technical difficulties logging on to VV. Pt will be re-scheduled to 11/14 @ 10 am. Message sent to Urgent request pool Maye documented in this encounter [facility] 08-08-2022 Instructions Michi Ma MD - 08/08/2022 12:07 PM EST Stop metoprolol, replace with carvedilol. After a few weeks, keep track of BP. Target is less than 130/80 mm Hg. If BP rises above 150s mm (upper number), contact me and we can increase carvedilol dose. Otherwise, will discuss meds on virtual visit in 3 months. documented in this encounter [facility] 08-08-2022 History of Present illness Narrative Images from the original note were not included. Heart and Vascular [place] Isaiah Barclay Department of Cardiovascular Medicine SECTION OF INTERVENTIONAL CARDIOLOGY OUTPATIENT VISIT DATE August 08, 2022 OUTPATIENT VISIT TYPE NEW PRIMARY CARE PHYSICIAN: Suzanna Trent MD [address] [place] [address] REFERRING PHYSICIAN: Suzanna Trent MD [address] [facility] [address] CHIEF COMPLAINT: No chief complaint on file. HISTORY OF PRESENT ILLNESS: Mr. Galdamez is a 71 year old male with history of multiple PCI procedures who presents today for chest pain. I last saw patient at time of catheterization in 03/2017. Since then: Diltiazem dose increased, with resolution or improvement of chest pain. 2019 - recurrent chest pain. 06/2020 - cardiac catheterization at [facility] in [place] - no images or results available. Per [...] is here for evaluation of chest pain. [facility] ED note 07/09/2022: The patient is a [...] His last cardiac catheterization was 06/2020 at [facility] in [place]. No intervention was done at that time. Risk factors for coronary artery disease hyperlipidemia, hypertension, history of smoking, family history of CAD He denies PND, syncope, claudication, leg swelling, cough, and wheezing. Diet / Nutrition: regular Weight: stable Exercise: none, active around his house when weather permits All caths from [id number] in [facility] 04/10/03 RCA (3.0x8, 3.0x18, 3.5x18) 05/04/03 1st [...] HISTORY Diagnosis Date CAD (coronary artery disease), [place] coronary artery 01/16/2005 04/10/2003 -PCI to RCA [...] Artery Disease Father at 74 of an OR Heart Attack Sister passed from OR Coronary Artery Disease Brother s/p PCI, OR Heart Attack Brother Coronary Artery Disease Brother OR Heart Attack Brother ALLERGIES: ALLERGIES Allergen Reactions Codeine Mental Status Change Nightmares Isosorbide Mononitr* Intolerance migraine JONES Lipitor [Atorvastat* Myalgia Muscle pain. Rhabdo Uvtamjp-Hkb-Eal Red* Myalgia Zocor [Simvastatin] Other: See Comments [...] above information as obtained by others. Ann Ma MD CONTACT INFORMATION: Ann Ma M.D. Section of Interventional Cardiology Isaiah Barclay Department of Cardiovascular Medicine Heart and Vascular [place] [facility] Desk J2-[address] [place] [address] Office - [phone] extension [phone] Office Appointments: [phone] extension [phone] documented in this encounter [facility] 07-10-2022 Note PROGRESS NOTE NOTE DATE: 07/09/2022 [...] Plavix. DISPOSITION: Home when medically stable [facility] 10-29-2021 Hospital Discharge instructions Patient Education 10/29/2021 [...] urethra. Follow these instructions at home: Take mlks-ocd-grrwdlp and prescription medicines only as told by [...] 06/22/2006 Document Revised: 05/17/2019 Document Reviewed: 07/27/2017 [employer] Patient Education 2020 [employer] Follow Up Care 10/30/2020 08:55:41 With:Rafael Cyr Jr., MD, URO Address: [facility] [address], [place] [address]- When:10/29/2022 Comments:with PSA [facility] Evaluation + Plan note Future Appointments Appointment Date:11/04/2022 08:30:00 AM Scheduled Provider:Rafael Cyr Jr., MD Location:[facility] Appointment Type:URO Office Visit Diagnostic Tests PendingPSA Total 10/29/21 [facility] Evaluation + Plan note Future Appointments Appointment Date:06/27/2024 02:45:00 PM Scheduled Provider: Location:[facility] Appointment Type:Surgery FT [facility] Evaluation note Diagnosis Coronary artery disease of [place] artery of [place] heart with stable angina pectoris (HCC)- Primary S/P drug eluting coronary stent placement Postsurgical percutaneous transluminal coronary angioplasty status Hyperlipidemia, unspecified hyperlipidemia type Essential hypertension Unspecified essential hypertension Family history of early CAD Family history of ischemic heart disease Chest pain, unspecified type [facility] [place] [facility] Diagnosis Coronary artery disease of [place] artery of [place] heart with stable angina pectoris (HCC)- Primary S/P drug eluting coronary stent placement Postsurgical percutaneous transluminal coronary angioplasty status Hyperlipidemia, unspecified hyperlipidemia type Essential hypertension Unspecified essential hypertension Family history of early CAD Family history of ischemic heart disease Chest pain, unspecified type [facility] [place] [facility] Diagnosis Coronary artery disease of [place] artery of [place] heart with stable angina pectoris (HCC)- Primary S/P drug eluting coronary stent placement Postsurgical percutaneous transluminal coronary angioplasty status Microvascular angina (HCC) Hyperlipidemia, unspecified hyperlipidemia type Essential hypertension Unspecified essential hypertension Family history of early CAD Family history of ischemic heart disease Chest pain, unspecified type documented [facility] [place] [facility]* Diagnosis Coronary artery disease of [place]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 Narrative No data available for this section [facility] Discharge instructions No data available for this section [facility] Progress note No data available for this section [facility] Summary Purpose Family History No Family History Records Found No data available for this section No data available for this section No Family History Records FoundNo Family History Records FoundNo Family History Records FoundNo Family History Records Found Advance Directives No Advanced Directives Records FoundDocuments on File Type Date Recorded 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 Advance Directive(s) Advance Directive(s) 08/20/2006 Documents on File Type Date Recorded 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 Advance Directive(s) Advance Directive(s) 08/20/2006 Reason for Referral Specialty Diagnoses / Procedures Referred By Contac t Referred To [facility] Diagnoses Coronary artery disease of [place] artery of [place] heart with stable angina pectoris (HCC) Procedures CARDIOVASCULAR MEDICINE OP FOLLOW UP APPT ORDER Michi Ma MD [address], [address] [place] [address] [facility] [place] [address] [place] [address] Referral ID Status Reason Start Date Expiration Date Visits Requested Visits Authorized [id number] Ref Not Required PCP Requested Referral 08/17/2024 11/15/2024 1 1 Additional Source Comments (unrecognized sect ion and content) No Status Records FoundNo Status Records FoundNo Status Records FoundNo Status Records FoundNo Status Records Found INFORMATION SOURCE (unrecogn ized section and content) DATE CREATED AUTHOR 08/02/2022 [facility] DATE CREATED AUTHOR AUTHOR'S ORGANIZ ATION 07/05/2024 [facility] DATE CREATED AUTHOR AUTHOR'S ORGANIZ ATION 07/08/2024 [facility] DATE CREATED AUTHOR AUTHOR'S ORGANIZ ATION 07/16/2024 [facility] DATE CREATED AUTHOR AUTHOR'S ORGANIZ ATION 12/29/2024 [facility] Source Comments (unrecognize d section and content) In the event this informatio n is protected by the Federal Confidentiality of Alcohol and Drug Abuse Patient Records regulations: The Federal rules restrict any use of the information to criminally investigate or prosecute any alcohol or drug abuse patient.[facility] the event this information is protected by the Federal Confidentiality of Alcohol and Drug Abuse Patient Records regulations: The Federal rules restrict any use of the information to criminally investigate or prosecute any alcohol or drug abuse patient.[facility] the event this information is protected by the Federal Confidentiality of Alcohol and Drug Abuse Patient Records regulations: The Federal rules restrict any use of the information to criminally investigate or prosecute any alcohol or drug abuse patient.[facility] the event this information is protected by the Federal Confidentiality of Alcohol and Drug Abuse Patient Records regulations: The Federal rules restrict any use of the information to criminally investigate or prosecute any alcohol or drug abuse patient.[facility] Hospital[facility] the event this information is protected by the Federal Confidentiality of Alcohol and Drug Abuse Patient Records regulations: The Federal rules restrict any use of the information to criminally investigate or prosecute any alcohol or drug abuse patient.[facility] Hospital[facility] the event this information is protected by the Federal Confidentiality of Alcohol and Drug Abuse Patient Records regulations: The Federal rules restrict any use of the information to criminally investigate or prosecute any alcohol or drug abuse patient.[facility] HospitalIn the event this information is protected by the Federal Confidentiality of Alcohol and Drug Abuse Patient Records regulations: The Federal rules restrict any use of the information to criminally investigate or prosecute any alcohol or drug abuse patient.[facility] Reason for Visit (unrecogniz ed section and content) Reason Comments New Patient Reason Comments Appointment Reason Comments Coronary Artery Disease Reason Onset Date Comments Refill Request 08/26/2023 Reason Comments CARD Follow Up Annual Care Teams (unrecognized sec tion and content) Social Media Marketing Analyst Relationship Specialty Start Date End Date Suzanna Trent MD PCP - General Cardiology 03/05/04 Rafael Cyr Jr. [address] [address] Physician Urology 12/17/18 Erick Ordoñez [address] [place] [address] Primary Staff Physician Cardiology 09/21/18 Suzanna Trent MD [address] [place] [address] Referring Family Medicine 07/23/22 Michi Ma MD [address], [address] [place] [address] Primary Staff Physician Cardiology 08/08/22 Social Media Marketing Analyst Relationship Specialty Start Date End Date Suzanna Trent MD PCP - General Cardiology 03/05/04 Rafael Cyr Jr. [address] [place] [address] Physician Urology 12/17/18 [facility] [address] [place] [address] Primary Staff Physician Cardiology 09/21/18 Suzanna Trent MD [address] [place] [address] Referring Family Medicine 07/23/22 Michi Ma MD [address], [address] [place] [address] Primary Staff Physician Cardiology 08/08/22 Social Media Marketing Analyst Relationship Specialty Start Date End Date Suzanna Trent MD PCP - General Cardiology 03/05/04 Rafael Cyr Jr. [address] [place] [address] Physician Urology 12/17/18 Erick Ordoñez [address] [facility] [place] [address] Primary Staff Physician Cardiology 09/21/18 Suzanna Trent MD [address] [place] [address] Referring Family Medicine 07/23/22 Michi Ma MD [address], [address] [place] [address] Primary Staff Physician Cardiology 08/08/22 Social Media Marketing Analyst Relationship Specialty Start Date End Date Suzanna Trent MD PCP - General Cardiology 03/05/04 Rafael Cyr Jr. [address] [place] [address] Physician Urology 12/17/18 Erick Ordoñez [address] [place] [address] Primary Staff Physician Cardiology 09/21/18 Suzanna Trent MD [address] [facility] [address] Referring Family Medicine 07/23/22 Michi Ma MD [address], [address] [place] [address] Primary Staff Physician Cardiology 08/08/22 Social Media Marketing Analyst Relationship Specialty Start Date End Date Suzanna Trent MD PCP - General Cardiology 03/05/04 Rafael Cyr Jr. [address] [place] [address] Physician Urology 12/17/18 Erick Ordoñez [address] [facility] [place] [address] Primary Staff Physician Cardiology 09/21/18 Suzanna Trent MD [address] [place] [address] Referring Family Medicine 07/23/22 Michi Ma MD [address] [place] [address] Primary Staff Physician Cardiology 08/08/22 Social Media Marketing Analyst Relationship Specialty Start Date End Date Suzanna Trent MD PCP - General Cardiology 03/05/04 Rafael Cyr Jr. [address] [facility] [place] [address] Physician Urology 12/17/18 Erick Ordoñez [address] [facility] [place] [address] Primary Staff Physician Cardiology 09/21/18 Suzanna Trent MD [address] [place] [address] Referring Family Medicine 07/23/22 Michi Ma MD [address] [place] [address] Primary Staff Physician Cardiology 08/08/22 Social Media Marketing Analyst Relationship Specialty Start Date End Date Suzanna Trent MD [facility] [place] [address] PCP - General Cardiology 03/05/04 Rafael Cyr Jr. [address] [place] [address] Physician Urology 12/17/18 Erick Ordoñezarpan [address] [place] [address] Primary Staff Physician Cardiology 09/21/18 Suzanna Trent MD [address] [facility] [place] [address] Referring Family Medicine 07/23/22 Michi Ma MD [address], [address] [place] [address] Primary Staff Physician Cardiology 08/08/22 FOR RECORDS [...] BE BASED ON THE PRIMARY CLINICAL RECORDS. [facility]. provides no warranty or guarantee of the accuracy or completeness of information in this document.
--- NOTE | 2025-04-17 10:41 | FL_ITS ---
The [address] [address] Patient Name: LEONEL BENJAMIN MRN: [id number] date: 1950 Sex: M Assigned Patient Location: [place] Current Patient Location: [place] Accession/Order Number: [id number] Exam Date: 04/17/2025 11:15 Report Date: 04/17/2025 15:42 At the request of: SUZANNA TRENT MD Procedure: FL barium swallow FL barium swallow 04/17/2025 12:03 PM SIGNS AND SYMPTOMS: ^Dysphagia R13.10 PROTOCOL: Fluoroscopic images of the esophagus were obtained after oral gas crystals administration and during administration of barium based oral contrast material. COMPARISON: None FINDINGS: There is adequate passage of contrast through the esophagus and gastroesophageal junction. There are tertiary contractions with slight delay in the distal third suggesting dysmotility. No mucosal thickening, mass, ulceration, or stricture. There is a small sliding-type hiatal hernia. There is a small degree of active gastroesophageal reflux during the exam. Fluoroscopic time: 2.2 minutes FL/FL barium swallow IMPRESSION: There is a small sliding-type hiatal hernia. There is a small degree of active gastroesophageal reflux during the exam. Mild tertiary contractions are noted in the distal third of the esophagus suggesting dysmotility. Impression dictated by: Matias Steiner M.D. 04/17/2025 3:42 PM Dictation Location: [place] [address] Electronically authenticated by: [id number] Y Date: 04/17/2025 15:42
== END 2025-04-17 10:29 | disposition home or self-care (01) ==
LOC: FL 10:30
PROVIDERS: PCP Family Medicine; Visit Provider Family Medicine
DX: R13.10 Dysphagia, unspecified (principal); K44.9 Diaphragmatic hernia without obstruction or gangrene; K21.9 Gastro-esophageal reflux disease without esophagitis
CPT/HCPCS: 74220; 76120

== ENCOUNTER 2025-04-25 08:23 | Outpatient (OUT) | payer MEDICARE, OTHER, SELFPAY ==
--- OUTSIDE RECORDS SUMMARY | 2025-04-17 14:33 | XMS_ITS ---
Author Organization [facility] in [place] Address [address] [place] [address] Care Team Providers Care Fund Raiser Name Role Phone LinkTonny larios Primary Care Provider Reason For Referral Diagnosis 1 Reflux gastritis (K2 9.60) Referral Organization [facility] Referring Provider First Name Tonny Referring Provider Last Name Valeriy Referring Provider Speciality Family [facility] icine Referred Provider Elkin Whitehead Referred Provider Specialty General Surg erik General Notes Laverne Ferris 2024 08:35:24 AM >hand faxed. Having issues Referral Priority Routine REASON FOR VISIT Reflux/EGD Problems Problem Type SNOMED Code ICD Code Onset Dates Problem Status W/U Status Risk Notes Problem Reflux gastritis (20854977) Reflux gastri tis (K29.60) Activeconfirmed Encounters Encounter Location Date Provider Diagnosis [facility] ([place], [place]) [address] [place] [address] 04/17/2025 Tonny Valeriy Reflux gastritis K29.60 Assessments Encounter Date Diagnosis (ICD Code) Assessment Notes Treatment Notes Treatment Clinical Notes Section Notes 04/17/2025 Reflux gastritis (ICD-10 - K29.6 0) Plan Of Treatment Referrals Referral Date Details 04/18/2025 04/18/2025Elkin Progress Notes * Oj BENJAMIN JrDOB:12/1950 (74 yo M)Acc No.[id number]:04/17/2025 Patient:?Oj BENJAMIN Jr :1950???Age:74 Y???Sex:MalePhone:[phone] Address:[address] [place] [address] [place] [address], [address] Subjective: * Chief Complaints: * R eflux/EGD * Medical History: * Surgical History: * Hospitalization/Major Diagno stic Procedure: * Medications: Objective: * Vitals: * Physical Examination: ??? Assessment: * Assessment: 1.?Reflux gastritis - K29.60 (Primary)??? Plan: * Treatment: ? Referral To:Elkin Whitehead??General Surgery ?Reason: * Procedure Codes: * true * Date:?Generated for Printing/Faxing/eTransmitting on:?04/25/2025 08:26 AM EDT Consultation Request Notes Referral Date Referring Provider Referred Provider Not es 04/18/2025 Tonny Crooks Michael
--- OUTSIDE RECORDS SUMMARY | 2025-04-25 08:26 | XMS_ITS | Clinical Summary ---
Author Organization [facility] Address [address] [place] [address] Care Team Providers Care Oxygen Equipment Aide Name Role Phone Unavailable Primary Care Provider Unavailabl e Social History Tobacco UseTypesPacks/DayYears UsedDateSmoking Tobacco: Never AssessedUT Safety & EnvironmentAnswerDate RecordedFear of Current or Ex-PartnerNot on file 08/27/2023Emotionally AbusedNot on file4Physically AbusedNot on file 08/27/2023Sexually AbusedNot on file4Physically or Sexually AbusedNot on file08/27/2023Sex and Gender InformationValueDate RecordedSex Assigned at BirthNot on fileLegal OtcJnvo4701/01/2022 10:10 PM EDTGender IdentityNot on file Sexual OrientationNot on file Plan of Treatment Health MaintenanceDue DateLast DoneCommentsCT Ilypuffskkzy66/06/1952Colonoscopy 2Colorectal Cancer Qckqxiizw08/06/1952FIT-DNA1950FIT1950 FOBT1950Medicare Annual Wellness (AWV)1950 1250Wlxykubhpepwk71/06/1952 Depression Ktvfcbeme07/06/1964Adult Ogpuknj6709/08/1973Pneumococcal Vaccine: 50+ Years (1 of 1 - PCV)09/08/2001Zoster Vaccines (1 of 2)09/08/2001Fall Risk Izwprgvrp52/06/2017COVID-19 Vaccine ( - 2023-25 season)2025Influenza Vaccine (#1)2025HIB VaccinesAged OutNo longer eligible based on patient's age to complete this topicHPV VaccinesAged OutNo longer eligible based on patient's age to complete this topicIPV VaccinesAged OutNo longer eligible based on patient's age to complete this topicMeningococcal B VaccineAged OutNo longer eligible based on patient's age to complete this topicMeningococcal VaccineAged OutNo longer eligible based on patient's age to complete this topicRotavirus VaccinesAged OutNo longer eligible based on patient's age to complete this topic Insurance * Guarantor: Cristy Galdamez TypeRelation to PatientDate of BirthPhone Billing AddressPersonal/UbwzjsSuad1950 [address] [address] MemberSubscriberPlan / Payer (Effective 2021-Present)Name:Oj Galdamez Member ID:[id number] Relation to Subscriber:SelfName:Oj Galdamez Subscriber ID:[id number] Payer ID:[id number] Group ID:Not on file Type:Medicare Address: [address] [id number] * Guarantor: Cristy Galdamez TypeRelation to PatientDate of BirthPhone Billing AddressPersonal/LtnzugHuiq50/06/1951 [address] [address]
--- OUTSIDE RECORDS SUMMARY | 2025-04-25 08:26 | XMS_ITS | Patient Health Record ---
Author Organization [facility] [place] Address [address] [place] [address] Care Team Providers Care Columnist/Commentator Name Role Phone Tonny Trent Primary Care Provider [phone] Allergies Allergen (clinical drug ingredient) Drug/Non Drug Allergy documented on EMR Reaction Allergy Type Onset Date Status isosorbide dinitrate Isosorbide Dinitrate migraines Drug Allergy ActiveatorvastatinLipitormuscle weaknessDrug AllergyActivesimvastatinZocormuscle weaknessDrug AllergyActivecodeineCodeinenightmaresDrug AllergyActive Results Component Value Reference Range Notes LIPID PROFILE Reviewed date:12/08/2024 08:38:57 PM Interpretation: Performing Lab: Notes/Report: [facility] , Triglycerides 133 <=150 mg/dL Indkwuwtbmu31<=200 mg/dLHDL Jhdocfpjkgm0872-13 mg/dL > or =60 mg/dl - LOW CARDIOVASCULAR RISK <40 mg/dl - HIGH CARDIOVASCULAR RISK LDL Cholesterol Vanbgxfxqm54.4 160-189 mg/dl HIGH >190 mg/dl VERY HIGH 130-159 mg/dl BORDERLINE HIGH 100-129 mg/dl NEAR OR ABOVE OPTIMAL <100 mg/dl OPTIMAL VLDL KKGGDHEBZTK73.6Chol HDL Ratio1.9 >11.0 HIGH RISK 7.1 - 11.0 MODERATE RISK 3.3 - 4.4 LOW RISK 4.4 - 7.1 AVERAGE RISK Performing Lab:see noteML - [facility] LBPROF 14(COMP METB) Reviewed date:12/08/2024 08:38:57 PM Interpretation: Performing Lab: Notes/Report: [facility] ,Cihwqz757400-918 mmol/LPotassium4.63.5-5.1 mmol/BExnhrgku57328-129 mmol/LCarbon Xffmdam44.421.0-32.0 mmol/LAnion Gap11.8Oezrjrx89056-277 mg/dLBlood Urea Klhnfuzy19.07.0-18.0 mg/dLCreatinine1.070.70-1.30 mg/dLEstimated GFR ( Kristel>60>=60 mL/min/1.73m 2Estimated GFR (Non- Cece>60>=60 mL/min/1.73m 2BUN Creatinine Ratio15.3Spfdlyg4.88.5-10.1 mg/dLBilirubin Total0.50.2-1.0 mg/dL Aspartate Amino Yoqdsauezso6456-25 U/LAlanine Mhsezaiolspdbiup4797-32 U/L Alkaline Xtvdrndahvg6485-466 U/LTotal Protein7.16.4-8.2 g/dLAlbumin Level3.73.4- 5.0 g/dLGlobulin3.4Albumin Globulin Ratio1.1Performing Lab:see noteML - [facility] LBT4 Reviewed date:12/08/2024 08:38:57 PM Interpretation: Performing Lab: Notes/Report: [facility] ,T4 Thyroxine7.104.50-12.10 ug/dLPerforming Lab:see noteML - [facility] LBTSH Reviewed date:12/08/2024 08:38:57 PM Interpretation: Performing Lab: Notes/Report: [facility] ,Thyroid Stimulating Hormone2.1940.358-3.740 uIU/mLPerforming Lab:see noteML - [facility] LBGLYCOHEMOGLOBIN A1C Reviewed date:12/08/2024 08:38:57 PM Interpretation: Performing Lab: Notes/Report: [facility] ,Glycohemoglobin A1C5.64.5-6.2 % ADA RECOMMENDED LIMIT 4.0 - 6.0 ACTION SUGGESTED ADA THERAPEUTIC TARGET < 7.0 > 7.0 Estimated Average Lfevcoy302Hpjpgoxovv Lab:see noteML - [facility] LB FREE T3 Reviewed date:12/08/2024 08:38:57 PM Interpretation: Performing Lab: Notes/Report: [facility] ,Free T32.382.18-3.98 pg/mLPerforming Lab:see noteML - [facility] LB CBC AUTO DIFF Reviewed date:12/08/2024 08:38:57 PM Interpretation: Performing Lab: Notes/Report: [facility] ,White Blood Count7.54.0-11.0 10 3/uLRed Blood Count4.954.70-6.10 10 6/uL Tnshjubwzt51.114.0-18.0 g/tVYesfdqrwmw23.542.0-54.0 %Mean Corpuscular Uidsgl11.9 80.0-94.0 fLMean Corpuscular Plepsflhkw84.525.9-34.0 pgMean Corpuscular HGB Conc 34.729.9-35.2 g/dLRed Cell Distribution Width12.611.0-15.0 %Platelet Yxfgj522 150-450 10 3/uLMean Platelet Volume9.69.5-13.5 fLNeutrophils Percent Auto68.8 43.0-75.0 %Lymphocytes Percent Auto22.020.5-60.0 %Monocytes Percent Auto5.61.7- 12.0 %Eosinophils Percent Auto2.30.9-7.0 %Basophils Percent Auto0.80.2-2.0 % Immature Granulocytes Pct Auto0.50.0-0.5 %Neutrophils Absolute Auto5.21.4-6.5 10 3/uLLymphocytes Absolute Auto1.71.2-3.8 10 3/uLMonocytes Absolute Auto0.40.3-0.8 10 3/uLEosinophils Absolute Auto0.20.0-0.7 10 3/uLBasophils Absolute Auto0.10.0- 0.1 10 3/uLImmature Granulocytes Abs Auto0.040.00-0.03 10 3/uLPerforming Lab:see noteML - [facility] LBFL barium swallow Reviewed date:04/17/2025 06:34:10 PM Interpretation: Performing Lab: Notes/Report: Source Facility: [facility]-[address] [place] [address] [place] [address] Fluoroscopy Report Signed Patient: LEONEL BENJAMIN MR#: [id number] : 1950 Acct:[id number] Age/Sex: 74 / M ADM Date: 04/17/25 Loc: [place] Attending Dr: Suzanna Trent M.D. Ordering Physician: Suzanna Trent M.D. Date of Service: 04/17/25 Procedure(s): FL barium swallow Accession Number(s): [id number] cc: Suzanna Trent M.D. [place] [id number] Patient Name: LEONEL BENJAMIN MRN: [id number] date: 1950 Sex: M Assigned Patient Location: [place] Current Patient Location: [place] Accession/Order Number: [id number] Exam Date: 04/17/2025 11:15 Report Date: 04/17/2025 15:42 At the request of: SUZANNA TRENT MD Procedure: FL barium swallow FL barium swallow 04/17/2025 12:03 PM SIGNS AND SYMPTOMS: Dysphagia R13.10 PROTOCOL: Fluoroscopic images of the esophagus were obtained after oral gas crystals administration and during administration of barium based oral contrast material. COMPARISON: None FINDINGS: There is adequate passage of contrast through the esophagus and gastroesophageal junction. There are tertiary contractions with slight delay in the distal third suggesting dysmotility. No mucosal thickening, mass, ulceration, or stricture. There is a small sliding-type hiatal hernia. There is a small degree of active gastroesophageal reflux during the exam. Fluoroscopic time: 2.2 minutes FL/FL barium swallow IMPRESSION: There is a small sliding-type hiatal hernia. There is a small degree of active gastroesophageal reflux during the exam. Mild tertiary contractions are noted in the distal third of the esophagus suggesting dysmotility. Impression dictated by: Matias Steiner M.D. 04/17/2025 3:42 PM Dictation Location: [place] [address] Electronically authenticated by: [id number] Y Date: 04/17/2025 15:42 Dictated By: Matias Steiner M.D. Signed By: 04/17/25 1544 DD/ 154 TD/TT: C Iron Worker:DOMENICO Total+% Free Reviewed date:12/10/2024 05:43:01 PM Interpretation: Performing Lab: Notes/Report: [facility] ,Prostate Specific Ag<0.10.0-4.0 ng/mL followed by a subsequent confirmatory PSA value 0.2 ng/mL recurrence as an initial PSA value 0.2 ng/mL or greater or greater. Values obtained with different assay methods or kits cannot be used interchangeably. Results cannot be Bab[place]unde ECLIA methodology. According to the [place] [employer], Serum PSA of malignant disease. interpreted as absolute evidence of the presence or absence radical prostatectomy. The AUA defines biochemical should decrease and remain at undetectable levels after PSA, Free<0.02N/A ng/mLRoche ECLIA methodology.% Free PSATNP. % 10.01-15.00% 24% 35% percent free PSA for any other population recommendations regarding the use of The table below lists the probability of prostate cancer for 0.00-10.00% 56% 55% Performed at: [facility] obtained for component test. of men. 20.01-25.00% 10% 20% 15.01-20.00% 17% 23% Marine Service Station Attendant: Glenn Starr PhD, Phone: [phone] men with non-suspicious RAMESH results and total PSA between 4 and 10 ng/mL, by patient age (Inna et al, NOEL 1997, [address], [place] [id number] Please note: Inna et al did not make specific >25.00% 5% 9% % Free PSA 50-64 yr 65-75 yr 279:1541). Unable to calculate result since non-numeric result Performing Lab:see note - [facility] LB Reason For Referral Reason due for 5 year recal l Colonoscopy. Previous one done with Dr. Segal 05/08/2019 Diagnosis 1 Diverticulitis of si gmoid colon (K57.32) Referral Organization [facility] Referring Provider First Name Tonny Referring Provider Last Name Valeriy [facility] Provider Fausto Hamilton Referred Provider Specialty Gastroentero logy Referral Priority Routine Diagnosis 1 Reflux gastritis (K2 9.60) Referral Organization [facility] Referring Provider First Name Tonny Referring Provider Last Name Valeriy Referring Provider [facility] subhash Referred Provider Elkin Whitehead Referred Provider Specialty General Surg [facility] General Notes Laverne Ferris 2024 08:35:24 AM >hand faxed. Having issues Referral Priority Routine Medications Medication SIG (Take, Route, Frequency, Duration) Notes Start Date End Date Status Carvedilol 25 MG 1 tablet with food Orally Twice a day; Duration: 30 days ActivePantoprazole Sodium 40 MG1 tab Orally twice a day; Duration: 90 daysActive Cialis 20 MG1 tablet as needed Orally Once a dayActiveMelatonin 10 MG1 tablet in the evening Orally Once a dayActiveNitrostat 0.4 MG1 tablet at onset of chest pain. May repeat in 5 mintues SublingualActivedilTIAZem HCl ER Coated Beads 180 MG1 capsule Orally Once a day; Duration: 90 daysActiveClopidogrel Bisulfate 75 MGTAKE 1 TABLET BY MOUTH DAILY; Duration: 90ActiveLisinopril 20 MGTAKE ONE TABLET BY MOUTH DAILY Orally; Duration: 90 daysActivePraluent 75 MG/MLINJECT 1 ML UNDER THE SKIN EVERY 2 WEEKS; Duration: 28ActiveAspirin 81 81 MG1 tablet Orally Once a dayActive Social History Tobacco Use: Social History Observation Description Date Details (start date - stop date) Former Smoker 01/04/1992 - NA Tobacco Use/Smoking Question Answer Notes Patient is a former smoker When did you start smoking?01/04/1992Alcohol Screen (Audit-C) Question Answer Notes Did you have a drink containing alcohol in the p ast year? No Oqwgur1HrdwrzfwfdwdtgEydlvgsgSLFRQ-S (Standard) Question Answer Notes Did you have a drink containing alcohol in the p ast year? 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)ActiveconfirmedProblem Weakness (67959275)Weakness (R53.1)ActiveconfirmedProblemHyperlipidemia (23316045)Hyperlipidemia (E78.5)ActiveconfirmedProblemAge-related macular degeneration (disorder) (681974648)Macular degeneration (H35.30)Activeconfirmed ProblemHypertension (80055006)Hypertension (I10)ActiveconfirmedProblemSleep apnea (23650205)Sleep apnea (G47.30)ActiveconfirmedProblemInsomnia (772872023) Insomnia (G47.00)ActiveconfirmedProblemHip pain (62726095)Hip pain (M25.559) ActiveconfirmedProblemHematochezia (867477536)Hematochezia (K92.1)Active confirmedProblemCoronary artery disease (06973943)CAD (coronary artery disease) (I25.10)ActiveconfirmedProblemConstipation (17560651)Constipation (K59.00)Active confirmedProblemHyperuricemia (03215797)Hyperuricemia (E79.0)Activeconfirmed ProblemWell adult (951907178)Well adult (Z00.00)ActiveconfirmedProblem Paresthesia (59154865)Paresthesia (R20.2)ActiveconfirmedProblemDysphagia (01257828)Dysphagia (R13.10)ActiveconfirmedProblemDiverticulitis of sigmoid colon (402467567)Diverticulitis of sigmoid colon (K57.32)ActiveconfirmedProblem Overweight (895485541)Over weight (E66.3)ActiveconfirmedProblemLeft lower quadrant pain (778929813)Abdominal pain, LLQ (R10.32)ActiveconfirmedProblem Reflux gastritis (23725636)Reflux gastritis (K29.60)ActiveconfirmedProblem Adenocarcinoma of prostate (962288082)Adenocarcinoma of prostate (C61)Active confirmedProblemGastro-esophageal reflux disease (916018894)Gastro-esophageal reflux disease (K21.9)ActiveconfirmedProblemInternal hemorrhoids (01393047) Hemorrhoids, internal (K64.8)ActiveconfirmedProblemImpingement syndrome of shoulder region (588462140)Shoulder impingement syndrome, right (M75.41)Active confirmedProblemElevated PSA (334436783)Elevated PSA (R97.20)Activeconfirmed ProblemDiabetes mellitus (41084735)Diabetes mellitus (E11.9)Activeconfirmed Vital Signs Blood pressure diastolic 84 mm Hg 04/10/2025 Bzpirc11 in04/10/2025lood pressure mm Hg04/10/20259798Vjtvqx735.2 lbs 04/10/2025BMI28.87 kg/m204/10/2025 Encounters Encounter Location Date Provider Diagnosis [address] [address] 12/08/2024 Tonny Hoy Sleep apnea G47.30 ; Elevated PSA R97.20 ; Adenocarcinoma of prostate C61 and Hypertension I10 [address] [address] 04/10/2025 Tonny Hoy Dysphagia R13.[address] [address] 05/09/2024 Tonny Hoy Constipation K59.[address] [address] 05/09/2024 Tonny Hoy Diverticulitis of si gmoid colon K57.[address] [address] 05/16/20[address] Hoy [address] [address] 09/12/2024[facility] [place] [address]/11/2024[facility] [place] [address]/Doug HoyReflux gastritis K29.60[place] [address] [place] [address]/ [place] [address] [place] [address]/oug Hoy Assessments Encounter Date Diagnosis (ICD Code) Assessment Notes Treatment Notes Treatment Clinical Notes Section Notes 05/09/2024 Constipation (ICD-10 - K59.00) 12/08/2024Sleep apnea (ICD-10 - G47.30)12/08/2024Elevated PSA (ICD-10 - R97.20) 04/10/2025Dysphagia (ICD-10 - R13.10)05/09/2024iverticulitis of sigmoid colon (ICD-10 - K57.32)04/17/2025Reflux gastritis (ICD-10 - K29.60)12/08/2024 Adenocarcinoma of prostate (ICD-10 - C61)12/08/2024Hypertension (ICD-10 - I10) Plan Of Treatment Pending Test Test Name Order Date CMP (COMPLETE METABOLIC PANEL) 3 CMP (COMPLETE METABOLIC PANEL) 4 HEMOGLOBIN A1C (GLYCO) 11/24/2022 HEMOGLOBIN A1C (GLYCO) 12/03/2023 HEMOGLOBIN A1C (GLYCO) 12/08/2024 INSULIN, TOTAL 12/03/2023 INSULIN, TOTAL 11/24/2022 LIPID PANEL (CHOL/TRIG/HDL/LDL) 11/25/19 23 LIPID PANEL (CHOL/TRIG/HDL/LDL) 12/03/19 24 LIPID PANEL (CHOL/TRIG/HDL/LDL) 12/09/19 25 CBC WITH DIFF 12/03/2023 CBC WITH DIFF 11/24/2022 URIC ACID 12/03/2023 PSA-FREE AND TOTAL 12/03/2023 PSA-FREE AND TOTAL 12/08/2024 PSA, TOTAL 11/24/2022 XR Upper GI w/ Esophogram 04/10/2025 THYROID PANEL (T4/TSH/FREE T3) 5 THYROID PANEL (T4/TSH/FREE T3) 3 THYROID PANEL (T4/TSH/FREE T3) 4 Free PSA 11/24/2022 CMP (COMP MET GREEN) w/eGFR CKD-EPI 2024 CBC WITH DIFF 12/08/2024 Insurance Providers Payer Name Payer Address Payer Phone Subscriber Number Group Number Insured Name Patient Relationship to Insured Coverage Start Date Coverage End Date [place] [address] [place] [address] [id number] Eduardo Benjamin - patient is the [id number] [address] OF [address] MEDICARE SU[place] [facility] [place] [phone] Eduardo Benjamin - patient is the insured Medical (General) [...] [place] 4 TRUS with biopsy Cervical Spine fusionHernia repairGallbladderRotator Cuff repair, left ProstectomyHeart cath, 2007, 2014, [address]78, 2017, 2019PTCACarpal Tunnel, left Hospitalization History Reason Date(Month/Year) see above
--- OUTSIDE RECORDS SUMMARY | 2025-04-25 08:26 | XMS_ITS | Clinical Summary ---
Author Organization [facility] Address [address] [place] [address] Phone Care Team Providers Care Cork Cutter Name Role Phone Unavailable Primary Care Provider Unavailabl e Social History Tobacco UseTypesPacks/DayYears UsedDateSmoking Tobacco: Never AssessedSex and Gender InformationValueDate RecordedSex Assigned at BirthNot on fileLegal Sex Male05/31/2022 6:50 PM ESTGender IdentityNot on fileSexual OrientationNot on file Plan of Treatment Not on file
--- OUTSIDE RECORDS SUMMARY | 2025-04-25 08:27 | XMS_ITS | CCD ---
Author Organization [facility] Care Team Providers Care Missile Mechanic Name Role Phone Suzanna Trent Primary Care Physician [phone] MILEY, DR BRISENO Primary Care Unavailable MILEY, DR BRISENO Admitting Unavailable MILEY, DR BRISENO Attending Unavailable YANELIY, DR BRISENO Consulting Unavailable WEST, DR NGOZI Rahman Consulting Unavailable GRECHNY, PHONG TRAYLOR Consulting Unavailable COOPER, ANGELES Consulting Unavailable MILEY, DR BRISENO Primary Care Unavailable MILEY, DR BRISENO Admitting Unavailable HOY, DR BRISENO Attending Unavailable HOY, DR BRISENO Consulting Unavailable ZIEBER, DR TOMY Granados Consulting Unavailable MILEY, DR BRISENO Primary Care Unavailable HOY, DR BRISENO Admitting Unavailable HOY, DR BRISENO Referring Unavailable YANELIY, DR BRISENO Attending Unavailable MILEY, DR BRISENO Consulting Unavailable Suzanna Trent MD Primary Care Provider [phone] Rafael Cyr Jr. Unavailable Erick Ordoñez Unavailable Suzanna Trent MD Unavailable Michi Ma MD Unavailable Suzanna Trent MD Unavailable Erick Ordoñez Unavailable [phone] Michi Ma MD Unavailable [phone] Suzanna Trent MD Primary Care Provider [phone] Gomez Montenegro Attending UnavailGomez Martinez Referring Unavaila Gomez Skinner Admitting Unavaila Gomez Skinner Attending UnavailSuzanna Pillai MD Primary Care Provider [phone] MICHI MA Referring Unavailable SUZANNA TRENT Primary Care Unavailable SUZANNA TRENT Primary Care Unavailable MICHI MA Attending Unavailable MICHI MA Referring Unavailable Allergies Allergy ClassificationReported Allergen(s)Allergy TypeDate of OnsetReaction(s) Facility (13 sources)Codeine; Translations: [codeine]Drug Hvsbmsz53-68-6975Mzgildddgl (finding), Mental Status ChangeExecutive [facility] (5 sources)Hmg-Coa Reductase Inhibitors (Statins); Translations: [statins]Drug allergyunknownExecutive [facility] (5 sources)Isosorbide; Translations: [isosorbide mononitrate]Drug Allergyunknown [facility] (2 sources)black walnut pollen extract; Translations: [LHVRRDD-ISG-HYG REDUCTASE INHIBITORS]Drug Zozfyoo91-40-2352[facility] (1 source)CodeineDrug Tliaewd69-47-7090Hpx [facility] (1 source)IsosorbideDrug Xidynce40-96-0559[facility] (8 sources)atorvastatin; Translations: [ATORVASTATIN CALCIUM]Drug Allergy 07-85-4206IctxreqWfruhmhbx Clinic (7 sources)HMG-CoA reductase inhibitorDrug Knqzouzlrwq43-57-2779TlgzhlwWiwhjikvp Clinic (8 sources)Isosorbide; Translations: [ISOSORBIDE MONONITRATE]Drug Allergy 17-81-5289BsdbzzenuwmFwkshkphu Clinic (8 sources)Simvastatin; Translations: [SIMVASTATIN]Drug Szcjpwp87-52-4644Agohq: See CommentsAultman Hospital Medications Current Medications MedicationDrug Class(es)DatesSig (Normalized)Sig (Original)Acetaminophen / diphenhydrAMINE (7 sources)Histamine-1 Receptor Antagonisttake 1 tablet by mouth once daily at bedtimeacetaminophen/diphenhydramine (TYLENOL PM ORAL) Take 1 tablet by mouth daily at bedtime. Activetake 1 tablet by mouth once daily at bedtime acetaminophen/diphenhydramine (TYLENOL PM ORAL) Take 1 tablet by mouth daily at bedtime. 0 ActiveComment on above:Take 1 tablet by mouth daily at bedtime.1 ml alirocumab 75 mg/ml auto-injector (9 sources)PCSK9 InhibitorStart: 69-75-3523zkecxi 75 mg by subcutaneous injection every other weekalirocumab 75 mg/mL pnij Indications: Hyperlipidemia, unspecified hyperlipidemia type Inject 75 mg subcutaneously every 2 weeks. 2 Pen 11 01/19/2018 ActiveComment on above:Inject 75 mg subcutaneously every 2 weeks. amoxicillin 500 mg oral capsule (1 source)Penicillin-class AntibacterialStart: 25-69-2422lhfmtweayvu (AMOXIL) 500 mg capsule 12/19/2024 Activeaspirin 81 mg oral tablet (10 sources)Platelet Aggregation Inhibitor, Nonsteroidal Anti-inflammatory Drug Start: 32-26-5417frux 1 tablet by mouth once dailyaspirin 81 mg oral tablet 81 mg = 1 tab(s), Oral, Daily, Refills(s) 0 Start Date: 01/11/19 Status: Orderedtake 1 tablet by mouth once dailyaspirin, enteric coated (ASPIRIN, ENTERIC COATED) 81 mg EC tablet Take 81 mg by mouth once daily. ActiveComment on above:Take 81 mg by mouth once daily.aspirin/acetaminophen/caffeine (EXCEDRIN MIGRAINE ORAL) (7 sources)take 2 tablets by mouth every six hours as needed aspirin/acetaminophen/caffeine (EXCEDRIN MIGRAINE ORAL) Take 2 tablets by mouth every 6 hours as needed. Activetake 2 tablets by mouth every six hours as needed aspirin/acetaminophen/caffeine (EXCEDRIN MIGRAINE ORAL) Take 2 tablets by mouth every 6 hours as needed. 0 ActiveComment on above:Take 2 tablets by mouth every 6 hours as needed.carvedilol 25 mg oral tablet (10 sources)alpha-Adrenergic Joss, beta-Adrenergic BlockerStart: 09-01-2022 End: 60-50-1187pqkj 1 tablet by mouth twice daily at mealtimecarvedilol (COREG) 25 mg tablet Take 1 tablet by mouth two times a day with meals. 180 tablet 3 08/26/2023 ActiveStart: 58-36-2990scal 1 tablet by mouth twice daily at mealtime carvedilol (COREG) 12.5 mg tablet Take 1 tablet by mouth twice daily with meals. 180 tablet 3 08/08/2022 ActiveComment on above:Take 1 tablet by mouth twice daily with meals.Take 1 tablet by mouth two times a day with meals.celecoxib 200 mg oral capsule (10 sources)Nonsteroidal Anti-inflammatory DrugStart: 86-80-7356gszq 1 mg by mouth twice dailyCeleBREX 200 mg Cap mg cap(s), Oral, BID, Refills(s) 0, Arthritis Start Date: 10/30/20 Status: Orderedtake 1 capsule by mouth once daily celecoxib (CELEBREX) 200 mg capsule Take 200 mg by mouth once daily. Active Comment on above:Take 200 mg by mouth once daily.clopidogrel 75 mg oral tablet (10 sources)P2Y12 Platelet InhibitorStart: 93-45-7473timc 1 tablet by mouth once dailyPLAVIX 75 MG ORAL TAB Take one(1) tablet daily. 0 01/17/2004 ActiveComment on above:Take one(1) tablet daily.24 hr dilTIAZem hydrochloride 180 mg extended release oral capsule (10 sources)Calcium Channel BlockerStart: 55-03-6791Oafsyn XT 180 mg/24 hours oral capsule, extended release 180 mg = 1 cap(s), Oral, Daily, Refills(s)0, Irregular heartbeat Start Date: 01/11/19 Status: OrderedComment on above:Take 180 mg by mouth once daily.eszopiclone 2 mg oral tablet (1 source)Start: 30-77-4445vxvq 1 tablet by mouth once daily at bedtime as neededLunesta 2 mg Tab 2 mg = 1 tab(s), Oral, Once a day (at bedtime), PRN for insomnia, Refills(s) 0 Start Date: 03/10/19 Status: Orderedlisinopril 20 mg oral tablet (12 sources)Angiotensin Converting Enzyme InhibitorStart: 07-67-8304ifll 1 mg by mouth once dailylisinopril 20 mg Tab mg tab(s), Oral, Daily, Refills(s) 0, High blood pressure Start Date: 10/29/21 Status: OrderedStart: 01-11-2019 End: 00-89-3734jadq 1 tablet by mouth once dailylisinopril 10 mg Tab 10 mg = 1 tab(s), Oral, Daily, Refills(s) 0 Start Date: 01/11/19 Status: OrderedComment on above:Take 20 mg by mouth once daily.Take 10 mg by mouth once daily.melatonin 10 mg oral capsule (8 sources)take 1 capsule by mouth once daily at bedtimemelatonin 10 mg cap Take 10 mg by mouth daily at bedtime. Active End: 34-24-8298thsz 2 tablets by mouth once daily at bedtimeMelatonin 300 mcg tab Take 2 tablets by mouth daily at bedtime. 0 08/08/2022 Discontinued (Course of therapy completed)Comment on above:Take 10 mg by mouth daily at bedtime.Take 2 tablets by mouth daily at bedtime.nitroglycerin 0.4 mg sublingual tablet (10 sources)Nitrate VasodilatorStart: 71-16-7010QnkhwVxec 0.4 mg Tab See Instructions, 1 tab(s) SubLingual PRN for chest pain, Refills(s) 0 Start Date: 01/11/19 Status: OrderedStart: 02-18-9676UFGXLFTGG 0.4 MG SL SUBL Dissolve one(1) tablet under the toungue as needed for chest pain,every 5 min x3 0 01/16/2003 ActiveComment on above:Dissolve one(1) tablet under the toungue as needed for chest pain,every 5 min l6jbraprsfvell 40 mg extended release oral tablet (10 sources)Proton Pump InhibitorStart: 85-50-4680hjzd 1 tablet by mouth once dailypantoprazole 40 mg Oral EC Tab 40 mg = 1 tab(s), Oral, Daily, Refills(s) 0 Start Date: 01/11/19 Status: Orderedtake 1 tablet by mouth once dailypantoprazole DR (PROTONIX) 40 mg tablet Take 40 mg by mouth once daily. ActiveComment on above:Take 40 mg by mouth once daily.Praluent Pen 75 mg/mL subcutaneous solution (1 source)Start: 10-70-2361Wftovzjq Pen 75 mg/mL subcutaneous solution See Instructions, 1 injection every other week, Refills(s) 0 Start Date: 01/11/19 Status: Orderedsildenafil 100 mg oral tablet (11 sources)Phosphodiesterase 5 InhibitorStart: 63-00-4685huef 1 mg by mouth once dailysildenafil 100 mg Tab mg tab(s), Oral, Daily, Refills(s) 0, Erectile dysfunction Start Date: 10/29/21 Status: OrderedStart: 01-23-2009 End: 23-18-9123sphbumayqn citrate(VIAGRA 50 MG TAB) Take one(1) tablet 30-60 minutes before sexual intercourse as needed. 0 01/23/2009 08/08/2022 Discontinued (Course of therapy completed)Comment on above:Take 100 mg by mouth as needed.Take one(1) tablet 30-60 minutes before sexual intercourse as needed. Completed/Discontinued Medications MedicationDrug Class(es)DatesSig (Normalized)Sig (Original)metoprolol tartrate 50 mg oral tablet (1 source)beta-Adrenergic BlockerStart: 07-18-2022 End: 41-16-3124mpzr 1 tablet by mouth twice dailymetoprolol tartrate, short acting, (LOPRESSOR) 50 mg tablet Take 50 mg by mouth twice daily. 0 07/18/2022 08/08/2022 Discontinued (Changing Therapy/Dosage Form)Comment on above:Take 50 mg by mouth twice daily. Problems Active Problems Problem ClassificationProblemDateDocumented DateEpisodic/ChronicCancer of prostate (7 sources)Malignant tumor of prostate; Translations: [Malignant neoplasm of prostate]Onset: 399153-93-5605VjpqvyiPomyts of prostate (4 sources)Personal history of malignant neoplasm of prostate; Translations: [History of malignant neoplasm ofprostate]Onset: 98-17-1442VhcvpxueKqserutc atherosclerosis and other heart disease (20 sources)Atherosclerotic heart disease of [place] coronary artery without angina pectoris; Translations: [Coronary atherosclerosis]Onset: 01-16-2005 ChronicDisorders of lipid metabolism (20 sources)Hyperlipidemia; Translations: [Hyperlipidemia, unspecified]Onset: 01-16-2005 Resolved: 132947-63-3794IkhpkklEenbksozuh disorders (11 sources)Gastroesophageal reflux disease; Translations: [Gastro-esophageal reflux disease without esophagitis]Onset: 04-02-2005 Resolved: 380093-97-9443NjuxoijEwntcumsv hypertension (16 sources)Hypertensive disorder; Translations: [Essential (primary) hypertension]Onset: 01-16-2005 Resolved: 731973-59-1704HcydzriRvapwvglirlyk symptoms and ill-defined conditions (4 sources)Stress incontinence (female) (male); Translations: [Genuine stress incontinence]Onset: 62-95-1296OittktjKlpyflmdhkafc symptoms and ill-defined conditions (19 sources)Nocturia; Translations: [Nocturia]Onset: 10-29-2021 Resolved: 46-02-6034KdhrbvgxDylwucape[place] of prostate (4 sources)Benign prostatic hypertrophy with outflow obstruction; Translations: [Benign prostatic hyperplasia with lower urinary tract symptoms]Onset: 38-94-3133NtomieyJofjlwynohx chest pain (13 sources)Chest pain, unspecified; Translations: [Chest pain]Onset: 03-26-2015 EpisodicOther aftercare (1 source)watermaster (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) use of 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; Translations: [JAIL CURRENT USE OF ASPIRIN]Onset: 43-93-0291UndpdmwaPdqfc aftercare (1 source)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; Translations: [OTH INFANTRY UNIT LEADER CURRENT DRUG THERAPY]Onset: 81-28-3769SfqefyzvAwcsi aftercare (7 sources)Long-term current use of anticoagulant; Translations: [MCC (current) use of anticoagulants]69-28-9272TmwclixlWojkq and ill-defined heart disease (3 sources)Heart dmcwaqw79-59-1443JpaeyjsZbqqf connective tissue disease (1 source)Arthrodesis status; Translations: [ARTHRODESIS STATUS]Onset: 87-72-9316EslyilwaKcmni diseases of kidney and ureters (1 source)Urinary tract obstruction; Translations: [Other obstructive and reflux uropathy]Onset: 39-85-0751GfsadxugFtbbc lower respiratory disease (1 source)Shortness of breath; Translations: [SHORTNESS OF BREATH]Onset: 30-14-5969ZaypspqoCuqii male genital disorders (1 source)Secondary erectile dysfunction; Translations: [Erectile dysfunction following prostate ablative therapy]Onset: 47-39-4073HvqxmfeJrrbv male genital disorders (3 sources)Ywvyznhka58-38-1592CswgfcmFthwm screening for suspected conditions (not mental disorders or infectious disease) (3 sources)Raised prostate specific icceqht35-98-6208GhsttjrhVtaijndp codes; unclassified (1 source)Sleep apnea, unspecified; Translations: [SLEEP APNEA UNSPECIFIED] Onset: 55-68-1578AbxyrqbCgholykh codes; unclassified (7 sources)Sleep apnea; Translations: [Sleep apnea, unspecified]Onset: 382532-96-2921NwugiwdMlcqovyl codes; unclassified (3 sources)H/O: anticoagulant wqiipds71-49-2205IosnjdfmJtqtmohy codes; unclassified (1 source)Acquired absence of other genital organ(s); Translations: [ACQUIRED ABSENCE OTH GENITAL ORGANS]Onset: 74-97-1458CxedetteZtqiskma codes; unclassified (1 source)Family history of malignant neoplasm of digestive organs; Translations: [FAM HX MALIG NEOPLASM DIGESTIV ORGN]Onset: 41-78-3607Rtnrunzz Residual codes; unclassified (1 source)Acquired absence of other specified parts of digestive tract; Translations: [ACQ ABSENCE OTH PART DIGESTV TRACT]Onset: 49-55-1167Dnfdwihm Residual codes; unclassified (11 sources)FH: premature coronary heart disease; Translations: [Family history of ischemic heart disease and other diseases of the circulatory system]Onset: 73-69-8416MfknkcixXofuqtvp codes; unclassified (2 sources)Family history of malignant neoplasm of digestive organ; Translations: [Family history of malignantneoplasm of digestive organs]Onset: 59-83-1160CjamdvfvKlvmvkis codes; unclassified (2 sources)Family history of cancer of -44-6670SmhxkwesZvppjsxqz and history of mental health and substance abuse codes (4 sources)Ex-smoker; Translations: [Personal history of nicotine dependence] Onset: 302812-09-4111NcxoexyrEkrfrxdmwhsn (3 sources)Drug therapy lpclvai97-56-8954Iitiukscjryg (1 source)CONTACT W/AND (SUSP) EXPOS COVID-19; Translations: [CONTACT W/AND (SUSP) EXPOS COVID-19]Onset: 55-16-6495Dnuacskecbgc (1 source)Microvascular angina; 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]Onset: 11-16-2023 Past or Other Problems Problem ClassificationProblemDateDocumented DateEpisodic/ChronicAcute myocardial infarction (3 sources)Myocardial infarction Resolved: 71-81-318683283516-12-5261EqylopyQjwhpxnh atherosclerosis and other heart disease (2 sources)Presence of coronary angioplasty implant and graft; Translations: [PRESENCE COR ANGPLSTY IMPLANT AND GRAFT]Onset: 48-18-1070BikrapysSxvlwcdf mellitus without complication (1 source)Other abnormal glucose; Translations: [OTHER ABNORMAL GLUCOSE]Onset: 79-39-4688JkntbpdvYlaqoflxeakdbmnb hemorrhage (4 sources)Melena; Translations: [MELENA]Onset: 74-52-9896IidjklmeUgucjvhfnlrzsh (4 sources)Arthritis; Translations: [Unspecified osteoarthritis, unspecified site]Onset: 07-15-2022 Resolved: 745387-05-2517FhliodvZcnuj nutritional; endocrine; and metabolic disorders (1 source)Hyperuricemia without signs of inflammatory arthritis and tophaceous disease; Translations: [HU W/OSIGNS IA AND TOPHACEOUS DZ]Onset: 11-27-2021 EpisodicPoisoning by other medications and drugs (7 sources)Adverse reaction to substance; Translations: [Other and unspecified adverse effect of drug, medicinal and biological substance]Onset: 04-02-2005 80-37-9437PhvkrrynVhiojjps codes; unclassified (1 source)Insomnia, unspecified; Translations: [INSOMNIA UNSPECIFIED]Onset: 22-88-6307MrwyajjpVgkgwxmu codes; unclassified (1 source)Family history of ischemic heart disease and other diseases of the circulatory system; Translations: [Family history of early CAD]Onset: 08-08-2022 EpisodicSpondylosis; intervertebral disc disorders; other back problems (7 sources)Neck pain; Translations: [Cervicalgia]Onset: EpisodicUnclassified (3 sources)Finding of sensation of bladder Resolved: Results Test NameValueInterpretationReference RangeFacilityCNOVon 34-66-0985IIKIFqsjww Visit (CLARKE) LEONEL GALDAMEZ JR. ([id number]) 1950 M Date Time Provider Department 12/28/24 11:00 AM LINCOFF, MICHI CATHMN During your visit today, we recorded the following information about you: Pulse Blood pressure Weight Height 60/minute 166/79 88.5 kg 1.753 m Michi Ma MD 12/28/2024 4:27 PM Signed Heart, Vascular [facility] Thoracic [place] Isaiah Barclay Department of Cardiovascular Medicine SECTION OF INTERVENTIONAL CARDIOLOGY OUTPATIENT VISIT DATE December 28, 2024 OUTPATIENT VISIT TYPE ESTABLISHED PRIMARY CARE PHYSICIAN: Suzanna Trent [address] [id number] REFERRING PHYSICIAN: Michi Ma [address], Desk J2-3 [facility] [address] CHIEF COMPLAINT: Patient presents with: CARD Follow [...] chest pain. 06/11/2020 - cardiac catheterization at [facility] in [place] - (by my review of images): LM [...] regurgitation. Mild mitral regurgitat (more content not included)...NormalDay[facility] Comprehensive metabolic 2000 panelon 85-91-8503Uzucefk [Mass/Vol]4.3 g/dLNormal 3.9-4.9CC[facility] on above:Order Comment: Specimen Type: BLOOD SPECIMEN Ordering Facility[facility] Address: [address] [place], [place] [address]Performed By: #### 36520-9, 86088-1 #### [facility] CLIA [id number] [address] [place] [address] [place] AMERICAALP [Catalytic activity/Vol] 78 U/UFulkxw75-651KdsemzuxqC[facility] on above:Order Comment: Specimen Type: BLOOD SPECIMEN Ordering Facility: [facility] Address: [address] [place], [place] [address]Performed By: #### 98396-9, 68562-0 #### [facility] CLIA [id number] [address] [place] [address] [place]ALT [Catalytic activity/Vol] 16 U/RWohfqo52-28YsnkbmabjCleveland Clinic [facility] Hospital on above:Order Comment: Specimen Type: BLOOD SPECIMEN [facility] Address: [address] [place], [place] [address]Performed By: #### 93151-4, 70312-0 #### [facility] CLIA [id number] [address] [place] [address] [place] AMERICAAnion gap [Moles/Vol]11 mmol/LNormal8-15[facility] on above:Order Comment: Specimen Type: BLOOD SPECIMEN [facility] Address: [address] [place], [place] [address]Performed By: #### 63354-7, 90132-0 #### [facility] CLIA [id number] [address] [place] [address] [place] AMERICAAST [Catalytic activity/Vol] 22 U/WYzpyig63-99WzctwncpgCleveland Clinic [facility] on above:Order Comment: Specimen Type: BLOOD SPECIMEN [facility] Address: [address] [place], [place] [address]Performed By: #### 49596-4, 44688-7 #### [facility] CLIA [id number] [address] [place] [address] [place] AMERICABilirubin [Mass/Vol]0.4 mg/dLNormal0.2-1.3CC[facility] on above:Order Comment: Specimen Type: BLOOD SPECIMEN [facility] Address: [address] [place], [place] [address]Performed By: #### 95577-7, 39999-7 #### [facility] CLIA [id number] [address] [place] [address] [place] AMERICACalcium [Mass/Vol]9.2 mg/dL Normal8.5-10.2CC[facility] on above:Order Comment: Specimen Type: BLOOD SPECIMEN [facility] Address: [address] [place], [place] [address]Performed By: #### 22801-3, 57464-6 #### [facility] CLIA [id number] [address] [place] [address] [place] AMERICAChloride [Moles/Vol]102 mmol/JHknnaa61-768YmzprkplnC[facility] Clinic [facility] on above:Order Comment: Specimen Type: BLOOD SPECIMEN [facility] Address: [address] [place], [place] [address]Performed By: #### 16071-8, 09599-1 #### [facility] CLIA [id number] [address] [place] [address] [place] AMERICACO2 [Moles/Vol]25 mmol/L Vwuwbw13-04PepguzpvnCleveland Clinic [facility] on above:Order Comment: Specimen Type: BLOOD SPECIMEN [facility] Address: [address] [place], [place] [address]Performed By: #### 52253-0, 11650-5 #### [facility] CLIA [id number] [address] [place] [address] [place] AMERICACreatinine [Mass/Vol]1.13 mg/dLNormal0.73-1.22[facility] on above:Order Comment: Specimen Type: BLOOD SPECIMEN [facility] Address: [address] [place], [place] [address]Performed By: #### 94015-5, 93997-0 #### [facility] CLIA [id number] [address] [place] [address] [place] AMERICACreatinine and Glomerular filtration rate.predicted panel (S/P/Bld)69 mL/min/1.73m???Normal>=60[facility] on above:Order Comment: Specimen Type: BLOOD SPECIMEN Order[facility] Address: [address] [place], [place] [address]Result Comment: Estimated Glomerular Filtration Rate (eGFR) is calculated using the 2020 CKD-EPI cre atinine equation. This equation utilizes serum creatinine, sex, and age as parameters. The creatinine assay has traceable calibration to isotope dilution- mass spectrometry. Refer to KDIGO guidelines for clinical interpretation. In patients with unstable renal function, e.g. those with acute kidney injury, the eGFR may not accurately reflect actual GFR.Performed By: #### 73246-7, 99463-2 #### [facility] CLIA [id number] [address] [place], [place] [id number] [place] AMERICAGlucose [Mass/Vol]100 mg/dL Cdey02-77XibacpduyCleveland Clinic Euclid Hospital on above:Order Comment: Specimen Type: BLOOD SPECIMEN [facility] Address: [address] [place], [place] [address]Result Comment: The [place] Diabetes Association (ADA) provides guidance for cutoff [...] Standards of Medical Care in Diabetes 2016, [place] Diabetes Association. Diabetes Care. 2016.39(Suppl 1).Performed By: #### 58444-8, 41668-1 #### [facility] CLIA [id number] [address] [place] [address] [place] AMERICAPotassium [Moles/Vol]4.5 mmol/LNormal3.7-5.1CC[facility] on above:Order Comment: Specimen Type: BLOOD SPECIMEN Order[facility] Address: [address] [place], [place] [address]Performed By: #### 30312-5, 01921-2 #### [facility] CLIA [id number] [address] [place] [address] [place] AMERICAProtein [Mass/Vol]6.9 g/dL Normal6.3-8.0[facility] on above:Order Comment: Specimen Type: BLOOD SPECIMEN [facility] Address: [address] [place], [place] [address]Performed By: #### 63411-1, 30807-4 #### [facility] CLIA [id number] [address] [place] [address] [place] AMERICASodium [Moles/Vol]138 mmol/L Llbxiv178-692OjcvnxcpdCleveland Clinic [facility] Hospital on above:Order Comment: Specimen Type: BLOOD SPECIMEN Order[facility] Address: [address] [place], [place] [address]Performed By: #### 74280-7, 58807-9 #### [facility] CLIA [id number] [address] [place] [address] [place] AMERICAUrea nitrogen [Mass/Vol]15 mg/dLNormal9-24[facility] on above:Order Comment: Specimen Type: BLOOD SPECIMEN [facility] Address: [address] [place], [place] [address]Performed By: #### 98755-7, 99240-9 #### [facility] CLIA [id number] [address] [place] [address] [place] AMERICALipid 1996 panelon 10-28-7680Fesetpdxgyl [Mass/Vol]113 mg/dLNormal<200[facility] Comment on above:Order Comment: Specimen Type: BLOOD SPECIMEN [facility] Address: [address] [place], [place] [address]Result Comment: <200 mg/dL, Desirable 200-239 mg/dL, Borderline high >239 mg/dL, HighPerformed By: #### 39856-1, 21002-6 #### [facility] CLIA [id number] [address] [place] [address] [place] AMERICACholesterol in HDL [Mass/Vol]44 mg/dLNormal>39[facility] on above:Order Comment: Specimen Type: BLOOD SPECIMEN Ordering Facility: [facility] Address: [address] [place] [address] 35682Oegwte Comment: 40-59 mg/dL, Acceptable >59 mg/dL, High: Negative risk factor for coronary heart disease <40 mg/dL, Low: Positive risk factor for coronary heart diseasePerformed By: #### 59261-3, 30432-1 #### [facility] CLIA [id number] [address] [place], [place] [id number] [place] AMERICACholesterol in LDL [Mass/Vol]44 mg/dLNormal<100[facility] on above:Order Comment: Specimen Type: BLOOD SPECIMEN Ordering Facility: [facility] Address: [address] [place] [address] 635[address]Vujubg Comment: <100 mg/dL, Optimal 100-129 mg/dL, Near optimal/above optimal 130-159 mg/dL, Borderline high 160-189 mg/dL, High >189 mg/dL, Very high Secondary prevention optimal LDL Cholesterol levels are recommended to be <70 mg/dL LDL cholesterol is calculated using the Daugherty-NIH equation.Performed By: #### 51178-1, 60805-3 #### [facility] CLIA [id number] [address] [place] [address] [place] AMERICACholesterol in LDL/Cholesterol in HDL [Mass ratio]1.00 {ratio}Normal<2.54[facility] on above:Order Comment: Specimen Type: BLOOD SPECIMEN Ordering Facility: [facility] Address: [address] [place], [place] [address]Result Comment: Reference: 1. National Cholesterol Education Program ATP III Guideline At-A-Glance Quick Desk Reference: National Heart, Lung, and Blood [place]. National Institutes of Health. 2001: NIH Publication No. 01-3305. 2. An International Atherosclerosis Society position paper: global recommendations for the management of dyslipidemia: executive summary, Atherosclerosis. 2014: 232(2):410-413.Performed By: #### 51774-4, 27936-3 #### [facility] CLIA [id number] [address] [place] [address] [place] AMERICACholesterol in VLDL [Mass/Vol]20 mg/dLNormal<30[facility] on above:Order Comment: Specimen Type: BLOOD SPECIMEN [facility] Address: [address] [place] [address] 74352Dukpjcgxa By: #### 82760-7, 42408-4 #### [facility] CLIA [id number] [address] [place] [address] [place] AMERICACholesterol non HDL [Mass/Vol]69 mg/dLNormal<130[facility] on above:Order Comment: Specimen Type: BLOOD SPECIMEN [facility] Address: [address] [place] [address]Nutyli Comment: <130 mg/dL, Optimal 130-159 mg/dL, Near optimal/above optimal 160-189 mg/dL, Borderline high 190-219 mg/dL, High >219 mg/dL, Very high Secondary prevention optimal non HDL Cholesterol levels are recommended to be <100 mg/dLPerformed By: #### 22660-5, 97010-6 #### [facility] CLIA [id number] [address] [place] [address] [place] Cholesterol.total/Cholesterol in HDL [Mass ratio]2.57 {ratio}Normal<5.10 [facility] on above:Order Comment: Specimen Type: BLOOD SPECIMEN [facility] Address: [address] [place], [place] [address]Performed By: #### 92500-9, 85287-8 #### [facility] CLIA [id number] [address] [place] [address] [place] OF AMERICAFASTING TIME12 hrsNormal [facility] on above:Order Comment: Specimen Type: BLOOD SPECIMEN [facility] Address: [address] [place], [place] [address]Performed By: #### 77970-3, 70979-0 #### [facility] CLIA [id number] [address] [place] [address] [place] OF AMERICATriglyceride [Mass/Vol]146 mg/dLNormal<150[facility] on above:Order Comment: Specimen Type: BLOOD SPECIMEN Ordering [facility] Address: [address] [place], [place] [address]Result Comment: <150 mg/dL, Normal 150-199 mg/dL, Borderline high 200-499 mg/dL, High >499 mg/dL, Very highPerformed By: #### 37412-1, 09088-6 #### [facility] CLIA [id number] [address] [place] [address] [place] [address] [place] [facility] CENTERPatient Letter FTMCon [id number] Letter FTPatient Letter FT July 08, 2024 LEONEL GALDAMEZ [address] [facility] [address] [place] [phone] : 1950 Below is a summary of the results of your recent colonoscopy. Your results have been sent to your primary care provider along with recommendations on when the procedure should be repeated. COLONOSCOPY WITH POLYP REMOVAL OR BIOPSY Type of polyp tubular adenoma - not cancer but can become cancer if not removed. Additional colonoscopies will benecessary to monitor your condition and assure that new polyps have not developed. Based on your results we are recommending you repeat the procedure in 5 years- Family history of colon cancer You will be placed in our reminder system and will receive a reminder letter prior to your next duedate. [facility] [phone] Valley HospitalRemdignity health [facility] [phone] Reminders From: Susannah CHIANG, Marbella S To: [facility] - Reminders/Recalls; Sent: 07/08/2024 14:39:30 EST Show up: 05/06/2029 14:39:00 EDT Subject: colon recall Due Date/Time: 06/27/2029 14:39:00 EST Reminder/Recall 5 year colon recall- Fhx of colon cancer Dr Montenegro 06/27/24[facility]Ohio[facility] Hospitalurgical Pathology Reporton 07-04-20[address] [address]- Surgical Pathology Report Collected Date/Time: 06/27/2024 14:52 EST Pathologist: Sanjeev WHITING PhD, Della Dhillon Received Date/Time: 06/28/2024 07:18 EST Moni WHITING, Gomez Montenegro MD, Gomez Hayes Surgical Pathology Report - 07/04/2024 12:05 EST [...] of colon cancer, carcinoma of prostate, CAD mary's igloo artery Pre-Op Diagnosis: Family history of colon cancer, carcinoma of prostate, CAD mary's igloo artery Procedure: EGD, colonoscopy Post-Op Diagnosis: 1. [...] and gastric biopsy are three fragments of johnsno tissue ranging from 0.1 cm up to 0.2 cm. Specimen is entirely submitted in one cassette. C: Received in formalin labeled with patient name, number, and ascending colon polyps are two fragments of johnson tissue measuring 0.2 and 0.3 cm. Specimen is entirely submitted in one cassette. (DC) DC:[facility] Surgical Pathology Report Collected Date/Time: [...] characteristics were determined by the [facility]. They have not been cleared or approved by the US Food and Drug Administration. The FDA has determined that such clearance or approval is not necessary. These tests are used for clinical purposes. They should not be regarded as investigational or for research. Appropriate positive and negative controls are performed and are acceptable. [facility] HospitalComment on above:Performed By: #### [id number] #### Ngo [facility] [address] [place], [place] [address]Inqe OR Intraoperative Recordon [id number] OR Intraoperative RecordMain OR Intraoperative Record IntraOp Document Type FT Summary Primary Physician: Gomez Montenegro MD Finalized Date/Time: 06/28/24 09:04:33 Pt. Name: LEONEL GALDAMEZ JR/Sex: 1950 Male Med Rec #: [id number] Physician: Gomez Montenegro MD Financial #: [id number] Pt. Type: O Room/Bed: / Admit/Disch: 06/27/24 13:33:53 - 06/27/24 23:59:59 Institution: Case Times FT Entry 1 Patient Times In Room 06/27/24 14:41:00 Out Room 06/27/24 15:13:00 Procedure Times Start 06/27/24 14:46:00 Stop 06/27/24 15:10:00 Anesthesia Times Start 06/27/24 14:41:00 Stop 06/27/24 15:13:00 Last Modified By: Karlos ROLDAN, Alanis Fuentes 06/27/24 15:13:53 General Comments: 1450 EGD completed. /,RN 1455 Colonoscopy started. /MDRN 06/28/24 Chart opened for charge reviewper Rowena Mills RN. [place] Case Attendance FT Entry 1 Entry 2 Entry 3 Case Attendee Sonny Casas RN, Carrie Elizabeth Role Performed Anesthesiologist Training Development Specialist - Primary Scrub - Primary Electronics Research Engineer Time In 06/27/24 14:41:00 06/27/24 14:41:00 06/27/24 14:41:00 Time Out 06/27/24 14:50:00 06/27/24 15:13:00 06/27/24 15:13:00 Procedure EGD AND COLONOSCOPY(.) EGD AND COLONOSCOPY(.) EGD AND COLONOSCOPY(.) Comments Dr. Magana supervising case. Returns to room at 1510. Last Modified By: Karlos RN, Alanis Everett RN, Alanis Everett RN, Alanis Fuentes 06/27/24 15:13:54 F 06/27/24 15:13:54 F 06/27/24 15:13:54 Entry 4 Entry 5 Case Attendee Moni WHITING, Gomez Blanc SOFTWARE PUBLISHER, Bartolo Paniagua Role Performed Surgeon - Primary SOFTWARE PUBLISHER Time In 06/27/24 14:41:00 06/27/24 14:50:00 Time Out 06/27/24 15:13:00 06/27/24 15:13:00 Procedure EGD AND COLONOSCOPY(.) EGD AND COLONOSCOPY(.) Comments Dr. Magana supervising case Last Modified By: Karlos RN, Alanis Everett RN, Alanis 06/27/24 15:13:54 F 06/27/24 15:13:54 Perioperative Protocols [...] No Time Out Sonny Casas, Given Participants Karlos ROLDAN, Sidney Chamorro Kirstyn K, Sarmini MD, Gomez Paniagua Time Out Complete 06/27/24 14:44:00 [...] Preop No cancer, carcinoma of prostate, CAD mary's igloo artery Postop Diagnosis EGD- gastritis, Outcomes Met? Yes duodenitis, small hiatal hernia. Colonoscopy- ascending colon polyps x2, diverticulosis, internal hemorrhoids Last Modified By: Alanis Everett RN 06/27/24 15:12:46 Post-Care Text: The patient is free from signs and symptoms of infection Skin Assessment (Pre Procedure) FT Pre-Care Text: Implements protective measures to prevent skin/ tissue injury due to thermal or mechanical sources Evaluates for signs and symptoms of physical injury to skin and tissue Entry 1 Skin Integrity Intact, Rose, Warm, & Skin Abnormality No Dry Outcomes Met? Yes Last Modif (more content not included)...[facility] Discharge Instructionson [id number] InstructionsDischarge Instructions LEONEL GALDAMEZ JR :1950 Visit Date:06/27/2024 Inpatient Discharge Instructions Your Care Team Admitting Physician - Gomez Montenegro MD Referring Physician - Gomez Montenegro MD Reason for Your Visit FAMILY HX COLON CANCER / CARCINOMA OF PROSTATE / CAD [place] ARTERY Your Diagnosis Chronic GERD Family history [...] Follow Up with Moni WHITING, ANGEL Candelaria, [facility] When: Comments: Call for any problems. Office [...] oral capsule, extended release) 1 Capsules By MouthEvery day Unchanged lisinopril (lisinopril 20 mg Tab) [...] disease History of prostate cancer Hx of usp use of blood thinners Impotence Incomplete bladder [...] may be born with a weakness in thehiatus, or a weakness can develop over time. What increases the risk? This condition is more likely to develop in: ??? Older people. Age is a major risk factor for a hiatal hernia, especially if you are over the age of50. ??? women. ??? People who are overweight. ??? People (more content not included)...[facility] HospitalComment on above:Result Comment: Electronically Signed By: Daniela Montano I\.br\Date and Time Signed: 06/27/24 15:24 ESTInpatient Patient Summaryon [id number] Patient SummaryInpatient Patient Summary [place] [id number] [facility] Clinical Discharge Instructions PERSON INFORMATION Name: LEONEL GALDAMEZ JR PHYSICIANS Admitting Physician: Gomez Montenegro MD Attending Physician: Gomez Montenegro MD PCP: Miley WHITING, Suzanna Discharge Diagnosis: Chronic GERD; Family history of [...] 100 mg Tab) By Mouth every day. Comment:[facility] HospitalMain OR PACU II Recordon [id number] OR PACU II RecordMain OR PACU II Record PACU Phase II Document Type FT Summary Primary Physician: Gomez Montenegro MD Finalized Date/Time: 06/27/24 15:54:31 Pt. Name: LEONEL GALDAMEZ JR, D.O.B./Sex: 1950 Male Med Rec #: [id number] Physician: Gomez Montenegro MD Financial #: [id number] Pt. Type: O Room/Bed: / Admit/Disch: 06/27/24 [...] and monitors body temperature Evaluates postoperative respiratory statusEvaluates postoperative cardiac status Evaluates postoperative neurological status [...] individualized perioperative plan of care The patient's rightto privacy is maintained The patient's value system, [...] with or improved from baseline levels established preoperativelyThe patient's cardiovascular status is consistent with or improved from baseline levels established preoperatively The patient's neurological status is consistent with or improved from baseline levels established preoperatively The patient demonstrates and/or reports adequate pain control throughout the perioperative period The patient received appropriate medication(s), safely administered during the perioperativeperiod Finalized By: Daniela Montano I Document Signatures Signed By: Daniela Montano I 06/27/24 15:54[facility] HospitalMain OR Preoperative Recordon [id number] OR Preoperative RecordMain OR Preoperative Record Holding Area Document Type FT Summary Primary Physician: Gomez Montenegro MD Finalized Date/Time: 06/27/24 13:53:47 Pt. Name: LEONEL GALDAMEZ JR Geovany/Sex: 1950 Male Med Rec #: [id number] Physician: Gomez Montenegro MD Financial #: [id number] Pt. Type: O Room/Bed: / Admit/Disch: 06/27/24 [...] or her perioperative plan of care The patient'sright to privacy is maintained Surgery Checklist FT [...] Signatures Signed By: Gurinder Avila RN 06/27/24 13:53NoGreen [facility] HospitalOutpatient Surgery Discharge Instructionon [id number] Surgery Discharge InstructionOutpatient Surgery Discharge Instruction [place] [id number] Patient Discharge Instructions PERSON INFORMATION Name: LEONEL [...] NEAREST EMERGENCY ROOM OR CALL 911 I, CASSIDYLEONEL SPARKS JR, have received the attached patient education materials/instructions and have verbalized understanding: May we do a follow up call? Yes No I was present when discharge instructions were given Patient Signature Date Clinican/Nurse Signature Date Follow up: Pharmacy Information: You may receive a survey from Gilles Ferguson asking you to rate your care experience. Your feedback is important and will help us understand what we do well and how we can improve the quality of care we provide to you, your loved ones and our community. It???s an honor to serve you. Thank you for choosing [facility] HERE ARE THE MEDICATION CHANGES THAT OCCURRED [...] every day. PATIENT EDUCATION INFORMATION Instructions: Medication Leaflets:[facility] HospitalGastroenterology Office/Clinic Noteon [id number] Office/Clinic Note Gastroenterology Office/Clinic Note Chief Complaint 5 year colonoscopy recall HPI Staff Patient is a(n) 73 year old male who presents today for a 5 year colonoscopy recall. Fhx colon cancer - mother, and a younger brother just passed from anal cancer this past February. Personal hx prostate cancer. Previous EGD - thinks he had one with Dr. Segal in [place] a long time ago. Denies hx colon cancer/polyps. Denies n/v/c/d, abd pain, bloody or mucus stools. Blood thinners? Plavix - Prescribed by Dr. Trent. GLP-1 agonists? no Colonoscopy 05/18/19 w/Dr. Segal @ [place]: POSTOPERATIVE DIAGNOSIS: Normal colonoscopy. RECOMMENDATIONS: Colonoscopy would [...] E&M of New Patient Moderate 45-59 Min 99035 2. Adenocarcinoma of prostate (C61: Malignant neoplasm of prostate) Ordered: Colonoscopy (Hospital Procedure) E&M of New Patient Moderate 45-59 Min 54163 3. 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 Medications aspirin 81 mg oral tablet, [...] virus vaccine, inactivated 04/08/2022 Recorded SARS-CoV-2 (COVID-19) mRNAMUL.ORD![id number] 04/08/2022 Recorded SARS-CoV-2 (COVID-19) mRNA-1273 vaccine 04/30/2021 [...] inactivated 10/08/2017 Recorde (more content not included)... NormalFisher Mayaguez Medical CenterComment on above:Result Comment: Electronically Signed By: Moni WHITING, Gomez Paniagua\.cornell\Date and Time Signed: 05/26/24 12:56 ESTNM STRESS/REST MULTIon [id number] STRESS/REST MULTIPatient: LEONEL GALDAMEZ Exam Date: 07/31/2022 : 1950 Gender:M Ordering : DR SUZANNA TRENT . Admission #: [id number] Family : Order #: [id number] CLICK HERE TO VIEW EXAM RADIOLOGY REPORT [...] medicine myocardial perfusion scan. Dictated by: Tomy Bhtaia M.D. on 07/31/2022 at 15:51 Approved by: Tomy Bhatia M.D. on 07/31/2022 at 15:52[facility] HospitalCARDIAC BHUMI 3-6on [id number] [Catalytic activity/Vol]99 U/LNormal 39-308[facility] Health SystemComment on above:Performed By: #### CMREP #### [facility] [address] [place] [address] Dr. Della Farnsworth.MB [Mass/Vol]0.69 ng/mLNormal<=3.60The [facility] Comment on above:Performed By: #### CMREP #### [facility] [address] [place] [address] [address] Della CamposTROP6.6 pg/mLNormal4.0-76.1The [facility] HospitalComment on above:Result Comment: CUT-OFF POINTS HAVE BEEN ESTABLISHED BASED ON THE FOURTH UNIVERSAL DEFINITIONS OF MYOCARDIAL INFARCTION. THE UPPER REFERENCE LIMIT (URL) OF TROPONIN, DEFINED THE 99TH PERCENTILE OF cTnI DISTRIBUTION IN A REFERENCE POPULATION, HAS BEEN CONFIRMED THE DECISION THRESHOLD FOR [place] DIAGNOSIS.Performed By: #### CMREP #### [facility] [address] [place] [address] [address] Della VictoriaCARCANDELARIO M/2D COMPLETEon [id number] M/2D COMPLETE Patient: LEONEL GALDAMEZ Exam Date: 07/10/2022 : 1950 Gender:M Ordering : DR SUZANNA TRENT . Admission #: [id number] Family : Order #: [id number] CLICK HERE TO VIEW EXAM ECHOCARDIOGRAM REPORT [...] by: Bjorn Kumari M.D. on 07/11/2022 at 14:37NoMemorial HospitalBNPon [id number] peptide B (Bld) [Mass/Vol]22.0 pg/mLNormal <=900.0The [facility] HospitalComment on above:Performed By: #### HSTROPN, CMP, BNP #### [facility] [address] [place] [address] [address] Della Silva BHUMI 3-6on [id number] [Catalytic activity/Vol]114 U/L Tmfdpm91-872Nmf [facility] HospitalComment on above:Performed By: #### CMREP ####[facility] [address] [place] [address]Dr. Della Farnsworth.MB [Mass/Vol]0.99 ng/mLNormal<=3.60The [facility] HospitalComment on above:Performed By: #### CMREP ####[facility] [address] [place] [address]Dr. Della PaceHSTROP7.2 pg/mLNormal4.0-76.1The [facility] HospitalComment on above:Result Comment: CUT-OFF POINTS HAVE BEEN ESTABLISHED BASED ON THE FOURTH UNIVERSAL DEFINITIONS OF MYOCARDIAL INFARCTION. THE UPPER REFERENCE LIMIT (URL) OF TROPONIN, DEFINED THE 99TH PERCENTILE OF cTnI DISTRIBUTION IN A REFERENCE POPULATION, HAS BEEN CONFIRMED THE DECISION THRESHOLD FOR [place] DIAGNOSIS.Performed By: #### CMREP ####[facility] [address] [place] [address]Dr. Della GallagherC AUTO DIFFon 07-09-2022 BASO #0.1 103/ulNormal0.0-0.1The Madison Healthment on above:Performed By: #### CBC #### [facility] [address] [address] [address] Yilan ChangBasophils/100 WBC (Bld)0.7 %Normal0.2-2.0[facility] Comment on above:Performed By: #### CBC #### [facility] [address] [place] [address] Dr. Della Miles #0.2 103/ulNormal0.0-0.7The [facility] HospitalComment on above: Performed By: #### CBC #### [facility] [address] [place] [address] Dr. Della Chavisosinophils/100 WBC (Bld)1.9 %Normal0.9-7.0The [facility] Comment on above:Performed By: #### CBC #### [facility] [address] [place] [address] Dr. Della Chavisrythrocyte distribution width (RBC) [Ratio]12.9 %Zmsjtx35.0-15.0 The [facility] HospitalComment on above:Performed By: #### CBC #### [facility] [address] [place] [address] Dr. Della PaceHematocrit (Bld) [Volume fraction]41.4 %Critically low42.0-54.0 The [facility] HospitalComment on above:Performed By: #### CBC #### [facility] [address] [place] [address] Dr. Della PaceHemoglobin (Bld) [Mass/Vol]14.4 g/yKNzjphc48.0-18.0The [facility] HospitalComment on above:Performed By: #### CBC #### [facility] [address] [place] [address] Dr. Della Sibley #0.03 10e3/ulNormal0.00-0.03The [facility] HospitalComment on above:Performed By: #### CBC #### [facility] [address] [place] [address] Dr. Della Sibley %0.4 %Normal0.0-0.5The [facility] HospitalComment on above: Performed By: #### CBC #### [facility] [address] [place] [address] Dr. Della Vora #2.0 103/ulNormal1.2-3.8The [facility] HospitalComment on above:Performed By: #### CBC #### [facility] [address] [place] [address] Dr. Della Burkhocytes/100 WBC (Bld)23.9 %Xscghe22.5-60.0The [facility] HospitalComment on above:Performed By: #### CBC #### [facility] [address] [place] [address] Dr. Della Lees DIFF REQNONormalThe [facility] HospitalComment on above: Performed By: #### CBC #### [facility] [address] [place] [address] Dr. Della Mcdonald (RBC) [Entitic mass]30.1 skLmqaxr86.9-34.0The [facility] HospitalComment on above:Performed By: #### CBC #### [facility] [address] [place] [address] Dr. Della Mcdonald (RBC) [Mass/Vol]34.8 g/xSSimmsi93.9-35.2The [facility] HospitalComment on above:Performed By: #### CBC #### [facility] [address] [place] [address] Dr. Della Mcdonald (RBC) [Entitic vol]86.4 jOJlgpvu61.0-94.0The [facility] HospitalComment on above:Performed By: #### CBC #### [facility] [address] [place] [address] Dr. Della Kelly #0.4 103/ulNormal0.3-0.8The [facility] HospitalComment on above:Performed By: #### CBC #### [facility] [address] [place] [address] Dr. Della Alvaresocytes/100 WBC (Bld)5.1 %Normal1.7-12.0[facility] Comment on above:Performed By: #### CBC #### [facility] [address] [place] [address] Dr. Della DouglasUT #5.8 103/ulNormal1.4-6.5The [facility] HospitalComment on above:Performed By: #### CBC #### [facility] [address] [place] [address] Dr. Della Douglasutrophils/100 WBC (Bld)68.0 %Lcmzym23.0-75.0The [facility] HospitalComment on above:Performed By: #### CBC #### [facility] [address] [place] [address] Dr. Della PacePlatelet mean volume (Bld) [Entitic vol]9.5 fLNormal9.5-13.5The [facility] HospitalComment on above:Performed By: #### CBC #### [facility] [address] [place] [address] Dr. Della PacePLT271 103/fjDdzpgf865-509Ufx [facility] HospitalComment on above: Performed By: #### CBC #### [facility] [address] [place] [address] Dr. Della PaceRBC4.79 106/ulNormal4.70-6.10The [facility] HospitalComment on above:Performed By: #### CBC #### [facility] [address] [place] [address] Dr. Della PaceWBC8.5 103/ulNormal4.0-11.0The [facility] HospitalComment on above: Performed By: #### CBC #### [facility] [address] [place] [address] Dr. Della PaceCovid-19 PCR ([facility])on [id number]-CoV-2 (COVID-19) RNA CHITRA+probe Ql (Unsp spec)Not detectedNormalNOT DETECTEDThe [facility] Comment on above:Result Comment: When diagnostic testing is negative, the [...] for this test is supported by the [place] of Health and Human Service's declaration that circumstances exist to justify the emergency use of in vitro diagnostics for the detection and/or diagnosis of the virus that causes COVID-19. This EUA will remain in effect for the duration of the COVID-19 declaration justifying emergency of IVDs, unless it is terminated or revoked by the FDA (after which the test may no longer be used).Performed By: #### CVDTBH ####[facility] [address] [address]Dr. Della PacePROF 14(COMP METB)on 33-54-4962Uilqvya [Mass/Vol]3.7 g/dL Normal3.4-5.0The [facility] HospitalComment on above:Performed By: #### HSTROPN, CMP, BNP #### [facility] [address] [address] [address] Della PaceAlbumin/Globulin [Mass ratio]1.2 {ratio}NormalThe [facility] HospitalComment on above:Performed By: #### HSTROPN, CMP, BNP #### [facility] [address] [address] [address] Della Arrieta [Catalytic activity/Vol]86 U/FOpvmft19-818Jat [facility] HospitalComment on above:Performed By: #### HSTROPN, CMP, BNP #### [facility] [address] [address] [address] Della Barragan [Catalytic activity/Vol]20 U/AUyqczv20-19Hal [facility] HospitalComment on above:Performed By: #### HSTROPN, CMP, BNP #### [facility] [address] [address] [address] Della Cobian gap [Moles/Vol]11.3 mmol/LNormalThe [facility] Comment on above:Performed By: #### HSTROPN, CMP, BNP #### [facility] [address] [address] [address] Della PaceAST [Catalytic activity/Vol]21 U/FXisiib00-35Jgz [facility] HospitalComment on above:Performed By: #### HSTROPN, CMP, BNP #### [facility] [address] [address] [address] Della PaceBilirubin [Mass/Vol]0.2 mg/dLNormal0.2-1.0The [facility] Comment on above:Performed By: #### HSTROPN, CMP, BNP #### [facility] [address] [place] [address] Dr. Della PaceCalcium [Mass/Vol]8.4 mg/dLCritically low8.5-10.1The [facility] HospitalComment on above:Performed By: #### HSTROPN, CMP, BNP #### [facility] [address] [place] [address] Dr. Della PaceChloride [Moles/Vol]102 mmol/JSzhaiu55-471Dcv [facility] Comment on above:Performed By: #### HSTROPN, CMP, BNP #### [facility] [address] [place] [address] Dr. Della PaceCO2 [Moles/Vol]28.8 mmol/HShecxn28.0-32.0[facility] Comment on above:Performed By: #### HSTROPN, CMP, BNP #### [facility] [address] [place] [address] Dr. Della PaceCreatinine [Mass/Vol]1.22 mg/dLNormal0.70-1.30The [facility] HospitalComment on above:Performed By: #### HSTROPN, CMP, BNP #### [facility] [address] [place] [address] Dr. Della ChavisGFR-AF CUBAN>60Normal>=60The [facility] HospitalComment on above:Performed By: #### HSTROPN, CMP, BNP #### [facility] [address] [place] [address] Dr. Yilan ChangEGFR-NON AF HCCCVFSS29 mL/min/1.55s6Ksmbzydkno low>=60The [facility] HospitalComment on above:Performed By: #### HSTROPN, CMP, BNP #### [facility] [address] [address] [address] Della PaceGlobulin (S) [Mass/Vol]3.0 g/dLNormalThProMedica Toledo HospitalComment on above:Performed By: #### HSTROPN, CMP, BNP #### [facility] [address] [address] [address] Della PaceGlucose [Mass/Vol]118 mg/dLCritically djwa55-855Wur [facility] HospitalComment on above:Performed By: #### HSTROPN, CMP, BNP #### [facility] [address] [address] [address] Della PacePotassium [Moles/Vol]4.1 mmol/LNormal3.5-5.1The [facility] Comment on above:Performed By: #### HSTROPN, CMP, BNP #### [facility] [address] [address] [address] Della PaceProtein [Mass/Vol]6.7 g/dLNormal6.4-8.2The [facility] Comment on above:Performed By: #### HSTROPN, CMP, BNP #### [facility] [address] [address] [address] Della PaceSodium [Moles/Vol]138 mmol/QNmncvm323-766Tqo [facility] Comment on above:Performed By: #### HSTROPN, CMP, BNP #### [facility] [address] [address] [address] Della PaceUrea nitrogen [Mass/Vol]22.0 mg/dLCritically high7.0-18.0The [facility] HospitalComment on above:Performed By: #### HSTROPN, CMP, BNP #### [facility] [address] [address] [address] Della PaceUrea nitrogen/Creatinine [Mass ratio]18.0 mg/mgNormSumma Health Akron Campus Mina HospitalComment on above:Performed By: #### HSTROPN, CMP, BNP #### [facility] [address] [place] [address] Dr. Della PacePROTIMEon [id number] Coag (PPP) [Relative time]0.95 {INR} NormalThe [facility] HospitalComment on above:Performed By: #### PT, PTT #### [facility] [address] [place] [address] Dr. Della Lott GUIDELINESSEE BELOWBlanchard Valley Health System Bluffton HospitalComment on above:Result Comment: DESIRED INR: 2.0 - 3.0 CONDITIONS NOT LISTED BELOW 2.5 - 3.5 FOR PROSTHETIC HEART VALVE REPLACEMENT 2.5 - 3.5 RECURRENT THROMBOSIS Performed By: #### PT, PTT #### [facility] [address] [place] [address] Dr. Della PacePT Coag (PPP) [Time]10.3 sNormal9.0-11.6The [facility] Comment on above:Performed By: #### PT, PTT #### [facility] [address] [place] [address] Dr. Della Castillo [id number] Coag (Bld) [Time]25.1 zPbhukt72.3-36.2[facility] SystemComment on above:Performed By: #### PT, PTT #### [facility] [address] [place] [address] Dr. Della Grossman, HIGH SENSITIVITYon [id number] pg/mLNormal 4.0-76.1[facility] SystemCompromedica [facility] on above:Result Comment: CUT-OFF POINTS HAVE BEEN ESTABLISHED BASED ON THE FOURTH UNIVERSAL DEFINITIONS OF MYOCARDIAL INFARCTION. THE UPPER REFERENCE LIMIT (URL) OF TROPONIN, DEFINED THE 99TH PERCENTILE OF cTnI DISTRIBUTION IN A REFERENCE POPULATION, HAS BEEN CONFIRMED THE DECISION THRESHOLD FOR [place] DIAGNOSIS.Performed By: #### HSTROPN, CMP, BNP ####[facility] [address] [address]Dr. Della Milan CHEST 1 Von [id number] CHEST 1 VEXAMINATION: XR CHEST 1 V HISTORY: CHEST PAIN, UNSPECIFIED COMPARISON: [...] Electronically authenticated by: NGOZI GUTIERREZ Date: 2022-07-09 19:38NoDetw[facility] AUTO DIFFon [id number] #0.0 103/ulNormal0.0-0.1The [facility] HospitalComment on above:Performed By: #### CBC #### [facility] [address] [place] [address] Dr. Della PaceBasophils/100 WBC (Bld)0.6 %Normal0.2-2.0The [facility] Comment on above:Performed By: #### CBC #### [facility] [address] [place] [address] Dr. Della Miles #0.2 103/ulNormal0.0-0.7The [facility] HospitalComment on above: Performed By: #### CBC #### [facility] [address] [place] [address] Dr. Della Chavisosinophils/100 WBC (Bld)2.7 %Normal0.9-7.0The [facility] Comment on above:Performed By: #### CBC #### [facility] [address] [place] [address] Dr. Della Chavisrythrocyte distribution width (RBC) [Ratio]12.9 %Umtfcp63.0-15.0 The [facility] HospitalComment on above:Performed By: #### CBC #### [facility] [address] [place] [address] Dr. Della PaceHematocrit (Bld) [Volume fraction]42.5 %Jszpaa89.0-54.0The [facility] HospitalComment on above:Performed By: #### CBC #### [facility] [address] [address] [address] Della PaceHemoglobin (Bld) [Mass/Vol]14.2 g/nJDpwmxu33.0-18.0The [facility] on above:Performed By: #### CBC #### [facility] [address] [address] [address] Della Sibley #0.02 10e3/ulNormal0.00-0.03The [facility] HospitalCompromedica [facility] on above:Performed By: #### CBC #### [facility] [address] [place] [address] Dr. Della Sibley %0.3 %Normal0.0-0.5The [facility] on above: Performed By: #### CBC #### [facility] [address] [place] [address] Dr. Della Vora #1.4 103/ulNormal1.2-3.8The [facility] on above:Performed By: #### CBC #### [facility] [address] [place] [address] Dr. Della Burkhocytes/100 WBC (Bld)22.5 %Qguedf64.5-60.0The [facility] on above:Performed By: #### CBC #### [facility] [address] [address] [address] Della BritoUAL DIFF REQNONormalThe [facility] HospitalComment on above: Performed By: #### CBC #### [facility] [address] [place] [address] Dr. Della Mcdonald (RBC) [Entitic mass]29.6 syBflxyy33.9-34.0The [facility] on above:Performed By: #### CBC #### [facility] [address] [place] [address] Dr. Della Mcdonald (RBC) [Mass/Vol]33.4 g/kRHrnarc61.9-35.2The [facility] HospitalComment on above:Performed By: #### CBC #### [facility] [address] [address] [address] Della McdonaldV (RBC) [Entitic vol]88.5 nVDaetul48.0-94.0The [facility] HospitalComment on above:Performed By: #### CBC #### [facility] [address] [address] [address] Della Kelly #0.3 103/ulNormal0.3-0.8The [facility] HospitalComment on above:Performed By: #### CBC #### [facility] [address] [place] [address] Dr. Della Alvaresocytes/100 WBC (Bld)5.3 %Normal1.7-12.0The [facility] on above:Performed By: #### CBC #### [facility] [address] [place] [address] Dr. Della Ceja #4.4 103/ulNormal1.4-6.5The [facility] HospitalComment on above:Performed By: #### CBC #### [facility] [address] [place] [address] Dr. Della Douglasutrophils/100 WBC (Bld)68.6 %Ghklsl22.0-75.0The [facility] HospitalComment on above:Performed By: #### CBC #### [facility] [address] [place] [address] Dr. Della Garcialet mean volume (Bld) [Entitic vol]9.6 fLNormal9.5-13.5The [facility] HospitalComment on above:Performed By: #### CBC #### [facility] [address] [place] [address] Dr. Della PacePLT270 103/cyQtzwmu673-035Hnl [facility] HospitalComment on above: Performed By: #### CBC #### [facility] [address] [place] [address] Dr. Della PaceRBC4.80 106/ulNormal4.70-6.10The [facility] HospitalComment on above:Performed By: #### CBC #### [facility] [address] [address] [address] Della PaceWBC6.4 103/ulNormal4.0-11.0[facility] on above: Performed By: #### CBC #### [facility] [address] [address] [address] Della PaceGLYCOHEMOGLOBIN A1Con [id number] RECOMMENDATIONSEE BELOWAdena Pike Medical CenterCompromedica [facility] on above:Result Comment: ADA RECOMMENDED LIMIT 4.0 - 6.0 ADA THERAPEUTIC TARGET < 7.0 ACTION SUGGESTED > 7.0Performed By: #### A1C #### [facility] [address] [address] [address] Della PaceGlucose [Mass/Vol]114 mg/dLNoGalion Community Hospital on above:Performed By: #### A1C #### [facility] [address] [address] [address] Della PaceHbA1c (Bld) [Mass fraction]5.6 %Normal4.5-6.2[facility] on above:Performed By: #### A1C #### [facility] [address] [address] [address] Della PaceLIPID PROFILEon [id number]-HDL RATIO NORMSEE [facility] on above:Result Comment: 3.3 - 4.4 LOW RISK 4.4 - 7.1 AVERAGE RISK 7.1 - 11.0 MODERATE RISK >11.0 HIGH RISKPerformed By: #### LIPID, URIC, CMP ####[facility] [address] [address]Dr. Della PaceCholesterol [Mass/Vol]113 mg/dLNormal<=200[facility] on above:Performed By: #### LIPID, URIC, CMP ####[facility] [address] [address]Dr. Della Pace Cholesterol in HDL [Mass/Vol]53 mg/yXSsrfmo82-39OhpFulton County Health Center on above:Performed By: #### LIPID, URIC, CMP ####[facility] [address] [address]Dr. Yilan ChangCholesterol in LDL [Mass/Vol] 35.8 mg/dLBlanchard Valley Health System Bluffton HospitalComment on above:Performed By: #### LIPID, URIC, CMP ####[facility] [address] [place], [place] [address]Dr. Yilan ChangCholesterol.total/Cholesterol in HDL [Mass ratio]2.1 {ratio} NormalTrinity Health SystemCompromedica char[facility] on above:Performed By: #### LIPID, URIC, CMP ####[facility] [address] [place], [place] [address]Dr. Yilan ChangHDL NORMAL> or = 60 mg/dl - LOW CARDIOVASCULAR RISK <40 mg/dl - HIGH CARDIOVASCULAR RISKNoMemorial HospitalComment on above:Performed By: #### LIPID, URIC, CMP ####[facility] [address] [place], [place] [address]Dr. Yilan ChangLDL CALC NORMALSEE BELOWNoMemorial HospitalCompromedica char[facility] on above:Result Comment: <100 mg/dl OPTIMAL 100 - 129 mg/dl NEAR OR ABOVE OPTIMAL 130 - 159 mg/dl BORDERLINE HIGH 160 - 189 mg/dl HIGH >190 mg/dl VERY HIGHPerformed By: #### LIPID, URIC, CMP ####[facility] [address] [place], [place] [address]Dr. Yilan ChangTriglyceride [Mass/Vol]121 mg/dLNormal<=150[facility] SystemCompromed[facility] on above:Performed By: #### LIPID, URIC, CMP ####[facility] [address] [place], [place] [address]Dr. Yilan ChangVLDL CALC24.2 mg/dLBlanchard Valley Health System Bluffton HospitalCompromedica [facility] on above:Performed By: #### LIPID, URIC, CMP ####[facility] [address] [place], [place] [address]Dr. Yilan ChangPROF 14(COMP METB)on 78-12-4257Ryfdrfc [Mass/Vol]3.8 g/dLNormal3.4-5.0The [facility] HospitalComment on above:Performed By: #### LIPID, URIC, CMP ####[facility] [address] [address]Dr. Della Pace Albumin/Globulin [Mass ratio]1.3 {ratio}NormalThe [facility] HospitalComment on above:Performed By: #### LIPID, URIC, CMP ####[facility] [address] [place], [place] [address]Dr. Yilan ChangALP [Catalytic activity/Vol] 89 U/GIdlxho28-832Baf [facility] HospitalComment on above:Performed By: #### LIPID, URIC, CMP ####[facility] [address] [place], [place] [address]Dr. Yilan ChangALT [Catalytic activity/Vol]19 U/TRbwlcy87-94Vhx [facility] HospitalComment on above:Performed By: #### LIPID, URIC, CMP ####[facility] Md[address] [place], [place] [address]Dr. Zabrinaharrison PaceAnion gap [Moles/Vol]10.9 mmol/LNormalThe [facility] HospitalComment on above:Performed By: #### LIPID, URIC, CMP ####[facility] I[address]ix[address] [place], [place] [address]Dr. Yilan ChangAST [Catalytic activity/Vol] 26 U/NMfzlll25-49Ode [facility] HospitalComment on above:Performed By: #### LIPID, URIC, CMP ####[facility] K[address] [place], [place] [address]Dr. Yiharrison ChangBilirubin [Mass/Vol]0.4 mg/dLNormal0.2-1.0The [facility] HospitalComment on above:Performed By: #### LIPID, URIC, CMP ####[facility] [address] [place], [place] [address]Dr. Zabrinaharrison Pace Calcium [Mass/Vol]8.5 mg/dLNormal8.5-10.1The [facility] HospitalComment on above: Performed By: #### LIPID, URIC, CMP ####[facility] [address] [address]Dr. Yilan ChangChloride [Moles/Vol]104 mmol/L Fuedmu26-079Api [facility] on above:Performed By: #### LIPID, URIC, CMP ####[facility] [address] [address]Dr. Yilan ChangCO2 [Moles/Vol]28.6 mmol/BQbaszz84.0-32.0The [facility] HospitalCompromedica charles [facility] hospital on above:Performed By: #### LIPID, URIC, CMP ####[facility] [address] [place], [place] [address]Dr. Yilan Pace Creatinine [Mass/Vol]1.07 mg/dLNormal0.70-1.30The [facility] on above:Performed By: #### LIPID, URIC, CMP ####[facility] [address] [place], [place] [address]Dr. Yilan ChangEGFR-AF CUBAN>60Normal>=60 [facility] on above:Performed By: #### LIPID, URIC, CMP ####[facility] [address] [place], [place] [address]Dr. Yilan ChangEGFR-NON AF CUBAN>60Normal>=60[facility] on above:Performed By: #### LIPID, URIC, CMP ####[facility] [address] [place], [place] [address]Dr. Yilan ChangGlobulin (S) [Mass/Vol]3.0 g/dLNormalThe [facility] on above:Performed By: #### LIPID, URIC, CMP ####[facility] [address] [place], [place] [address]Dr. Yilan ChangGlucose [Mass/Vol]96 mg/fKBivewp39-346Qbj [facility] on above:Performed By: #### LIPID, URIC, CMP ####[facility] Z[address] [place], [place] [address]Dr. Yilan ChangPotassium [Moles/Vol]4.5 mmol/LNormal3.5-5.1The [facility] HospitalComment on above: Performed By: #### LIPID, URIC, CMP ####[facility] [address] [address]Dr. Yilan ChangProtein [Mass/Vol]6.8 g/dLNormal 6.4-8.2The [facility] HospitalComment on above:Performed By: #### LIPID, URIC, CMP ####[facility] [address] [address]Dr. Yilan ChangSodium [Moles/Vol]139 mmol/SNevwmz644-189Pgg [facility] HospitalComment on above:Performed By: #### LIPID, URIC, CMP ####[facility] [address] [address]Dr. Yilan ChangUrea nitrogen [Mass/Vol]20.0 mg/dLCritically high7.0-18.0The [facility] HospitalComment on above:Performed By: #### LIPID, URIC, CMP ####[facility] Uneumpxfyq[address] [place], [place] [address]Dr. Yilan ChangUrea nitrogen/Creatinine [Mass ratio]18.7 mg/mgNormalThe [facility] HospitalComment on above:Performed By: #### LIPID, URIC, CMP ####[facility] [address] [place], [place] [address]Dr. Yilan ChangURIC ACID SERUMon [id number] [Mass/Vol]7.2 mg/dLNormal3.5-7.2The [facility] HospitalComment on above:Performed By: #### LIPID, URIC, CMP ####[facility] [address]vpsypxeg[address] [place], [place] [address]Dr. Della Pace Vital Signs Date TimeVital SignValuePerforming OxyptnpsfSuiggwia44-86-5003 10:29-0400Body uvahil498.3 cmMichi Ma MD Work Phone: [facility]06-25-2025 10:29-0400Body mass index (BMI) [Ratio]28.8 kg/i9LsxzrtwMichi Ma MD Work Phone: [facility]06-25-2025 10:29-0400Body fytfif27.45 kgMichi Ma MD Work Phone: [facility]06-25-2025 10:29-0400Diastolic blood fnmhntte60 mm[Hg]Michi Ma MD Work Phone: [facility]06-25-2025 10:29-0400Heart rate60 /min Michi Ma MD Work Phone: [facility]06-25-2025 10:29-0400Systolic blood iyznntrl569 mm[Hg]Michi Ma MD Work Phone: [facility]12-23-2024 15:40-0500Diastolic blood epamkuua59 mm[Hg]Dyer Sarmini [facility]12-23-2024 15:40-0500Heart rate57 /minMuhammad Sarmini [facility]12-23-2024 15:40-0500Mean blood fmihceqs616 mm[Hg]Dyer Sarmini [facility]12-23-2024 15:40-0500 Respiratory rate13 /minMuhammad Sarmini [facility]12-23-2024 15:40-3096ZxR1% (BldA) [Mass fraction]98 %Dyer Sarmini [facility]12-23-2024 15:40-0500 Systolic blood hryzvjuk455 mm[Hg]Dyer Sarmini [facility]12-23-2024 15:25-0500 Diastolic blood ppihhtak85 mm[Hg]Dyer Sarmini [facility]12-23-2024 15:25-0500Heart rate62 /minMuhammad Sarmini [facility]12-23-2024 15:25-0500Mean blood jwoxlvmg73 mm[Hg]Dyer Sarmini [facility]12-23-2024 15:25-0500 Respiratory rate14 /minMuhammad Sarmini [address] [place], [place] 4820512-23-2024 15:25-6588TzI4% (BldA) [Mass fraction]96 %Dyer Sarmini [address] [place], [place] 4820512-23-2024 15:25-0500 Systolic blood mm[Hg]Dyer Sarmini [address] [place], [place] 4820512-23-2024 15:15-0500Body ylxvagstcgp53.06 [degF]Dyer Sarmini [address] [place], [place] 4820512-23-2024 15:15-0500 Diastolic blood emzfzdhf45 mm[Hg]Dyer Sarmini [facility]12-23-2024 15:15-0500Heart rate67 /minMuhammad Sarmini [address] [place], [place] 4820512-23-2024 15:15-0500Mean blood hqgfjuor28 mm[Hg]Dyer Sarmini [address] [place], [place] 4820512-23-2024 15:15-0500 Respiratory rate16 /minMuhammad Sarmini [address] [place], [place] 4820512-23-2024 15:15-3628OrT9% (BldA) [Mass fraction]98 %Dyer Sarmini [address] [place], [place] 4820512-23-2024 15:15-0500 Systolic blood correraf03 mm[Hg]Dyer Sarmini [facility]12-23-2024 13:53-0500Blood Pressure LocationMuhammad Sarmini [facility]12-23-2024 13:53-0500Body rlyszpnfsxe86.88 [degF]Dyer Sarmini [address] [place], [place] 4820511-21-2024 12:15-0500Blood Pressure LocationMuhammad Sarmini [phone]-Eiyyz[address] [place], [place] [address]11-21-2024 12:15-0500Diastolic blood mhkopmej45 mm[Hg]Dyer Sarmini 620-6024Dobdeg-Zorij[address] [place], [place] [address]11-21-2024 12:15-0500Heart rate78 /minMuhammad Sarmini [phone]-Scyqh[address] [place], [place] [address]11-21-2024 12:15-0500Respiratory rate18 /minMuhammad Sarmini 048-0095Lkpurg-Qqkly[address] [place], [place] [address]11-21-2024 12:15-0500Systolic blood xbitcwan030 mm[Hg]Dyer Sarmini 620-8205Lunrot-Aiaub[address] [place], [place] 8311505-13-2024 12:26-0400Body .3 cmMichi Ma MD Work Phone: [facility]05-13-2024 12:26-0400Body mass index (BMI) [Ratio]28.83 kg/q4SamwavzMichi Ma MD Work Phone: [facility]05-13-2024 12:26-0400Body zupdes82.54 kgMichi Ma MD Work Phone: [facility]05-13-2024 12:26-0400Diastolic blood uwljvvkm53 mm[Hg]Michi Ma MD Work Phone: [phone]05-13-2024 12:26-0400Heart rate63 /min Michi Ma MD Work Phone: [phone]05-13-2024 12:26-0400Respiratory rate 16 /minMichi Ma MD Work Phone: [phone]05-13-2024 12:26-6319HyH9% (BldA) [Mass fraction]98 %Michi Ma MD Work Phone: [phone]05-13-2024 12:26-0400Systolic blood gcvyubzv997 mm[Hg]Michi Ma MD Work Phone: [phone]02-03-2023 09:31-0500Diastolic blood jvhavclk93 mm[Hg]Michi Ma MD Work Phone: [phone]02-03-2023 09:31-0500Systolic blood mcdojtnw766 mm[Hg]Michi Ma MD Work Phone: [phone]02-03-2023 09:29-0500Body ceuloi540.3 cmMichi Ma MD Work Phone: [phone]02-03-2023 09:29-0500Body udydgh70.32 kgMichi Ma MD Work Phone: [phone]02-03-2023 09:29-0500Heart rate65 /min Michi Ma MD Work Phone: [phone]02-03-2023 09:29-0500Respiratory rate 18 /minMichi Ma MD Work Phone: [phone]02[facility]03[facility] 09:29-8130FvG9% (BldA) [Mass fraction]96 %Michi Ma MD Work Phone: [phone]04-26-2022 08:02-0400Blood Pressure Lit Cyr Jr. executive [facility] 04-26-2022 08:02-0400Diastolic blood axqoqxex69 mm[Hg] Rafael Cyr Jr. executive Urology [facility] 04-26-2022 08:02-0400Heart rate84 /Sandra Cyr Jr. executive Urology [facility] 04-26-2022 08:02-0400Respiratory rate16 /Sandra Cyr Jr. executive Urology [facility] 04-26-2022 08:02-0400Systolic blood mm[Hg] Rafael Cyr Jr. executive Urology 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); S/P drug eluting coronary stent placement; Microvascular angina; Hyperlipidemia, unspecified hyperlipidemia type; Essential hypertension; Family history of early CAD; Chest pain, unspecified typeStart: 12-28-2024 End: 59-37-5349opphtzmwldMKHVFVO LINCOFFFacility:[facility] Campustart: 07-27-2024 End: 64-24-8236Crkoub OnlyMichi Ma MD Work Phone: CardiologyStart: 06-27-2024 End: 95-97-9129xbbrooypynHreqbows Talal SarminiFacility:[facility]tart: 06-27-2024 End: 48-59-9393Wjvkyvg encounter procedureMusarad Talal Sarmini [facility] Start: 05-26-2024 End: 09-42-2740kajwwrxnaoFjzynoyl Talal SarminiFacility:Jakob DHStart: 05-26-2024 End: 63-87-7941Puqypcm encounter procedureMusarad Talal Sarmini [phone]-XgyneSelect Medical [facility] Start: 62-99-9288lybfxzkjsbDpykbnur Shellymini Facility:Jakob DHStart: 11-16-2023 End: 89-33-9741Nachvpu encounter procedureMichi Ma MD Work Phone: CardiologyComment on above: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) (PrimaryDx); S/P drug eluting coronary stent placement; Microvascular angina (HCC); Hyperlipidemia, unspecified hyperlipidemia type; Essential hypertension; Family history of early CAD; Chest pain, unspecified typeStart: 18-60-8253KqbilfFppinkl Lincoff MD Work Phone: CardiologyComment on above:Refill RequestStart: 11-14-2022 End: 73-32-2661dvfzzyqyxoDjfvqja Lincoff MD Work Phone: CardiologyComment on above: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) (PrimaryDx); S/P drug eluting coronary stent placement; Hyperlipidemia, unspecified hyperlipidemia type; Essential hypertension; Family history of early CAD; Chest pain, unspecified typeStart: 11-14-2022 End: 28-06-5928Ngrgmucxxqkf consultation with Erin Ma MD Work Phone: [facility] MAINStart: 73-82-8447Yrqigvlwd encounterMichi Ma MD Work Phone: CardiologyComment on above:AppointmentStart: 08-08-2022 End: 25-40-7966Rrooqcu encounter Bethanie Ma MD Work Phone: CardiologyComment on above: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 executive [facility] Procedures DateProcedureProcedure DetailPerforming ClinicianStart: 51-73-2898Ktors 1995 panel - Serum or PlasmaMichi Ma MD Work Phone: Start: 07-13-0181WjmlpdzuznjGbiejqoh Sarmini Start: 17-50-4379BsgnyqsxmtpdrmludqdkazfkazVrzwkonn Sarmini Start: 44-83-1510Izimp 1995 panel - Serum or Plasma Michi Ma MD Work Phone: Start: 50-26-3795LrqdryvlmfdthMedvuv Smith Jr. start: 09-80-6406Luznwoomhbe biopsy of prostate using ultrasound guidanceRafael Cyr Jr. start: 38-03-7029Dpgswsfupjp biopsy of prostate using ultrasound guidanceRafael Cyr Jr. start: 11-19-4072Pqdiwyj of placement of stent for coronary artery diseaseS/P drug eluting coronary stent placementMichi Ma MD Work Phone: Start: 32-20-8906Fwxbk 1996 panel - Serum or Plasma Michi Ma MD Work Phone: Start: 83-34-7842Yvctuna catheterizationRafael Cyr Jr. comment on above:Last cardiac cath was in 2017 CholecystectomyRafael Cyr Jr. colonoscopyRafael Cyr JrWu History of hernia repairRafael Cyr JrWu History of placement of stent for coronary artery diseaseS/P drug eluting coronary stent placementMichi Ma MD Work Phone: History of placement of stent for coronary artery diseaseS/P drug eluting coronary stent placementMichi Ma MD Work Phone: [phone] of placement of stent for coronary artery diseaseS/P drug eluting coronary stent placementMichi Ma MD Work Phone: [phone] of placement of stent for coronary artery diseaseS/P drug eluting coronary stent placementMichi Ma MD Work Phone: Injection of steroid into hip jointRafael Cyr Jr. Plan of Treatment DateCare ActivityDetailAuthorStart: 79-44-1812Cnmqj panelLipid Screening [facility]: 34-47-1786Vqmwo microalbumin profileDTaP,Tdap,Td Vaccine (4 - Td or Tdap)[facility]: 39-43-9165Bdhzu panelLipid Screening [facility]tart: 84-22-0373Dxzuesad ScreeningDiabetes ScreeningOhioHealth [facility] Hospitaltart: 26-41-8175Guocupfi ScreeningDiabetes ScreeningAultman Hospital Start: 12-28-2025 End: 22-32-4540Hfxvoveaowsld metabolic 2000 panel - Serum or PlasmaCOMPREHENSIVE METABOLIC PANEL Lab Routine 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 Expected: 12/28/2025, Expires: 03/29/2026 [facility] Work Phone: Comment on above:Expected: 12/28/2025, Expires: 03/29/2026Start: 93-82-1200Gqsvrjkpa B surface antibody levelLDL Cholesterol [facility]tart: 12-28-2025 End: 26-03-8727Efmea 1995 panel - Serum or PlasmaLIPID PANEL, FASTING Lab Routine 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 Expected: 12/28/2025, Expires: 03/29/2026leveland ClinicComment on above:Expected: 12/28/2025, Expires: 03/29/2026Start: 11-15-2024 End: 59-98-8909Hwiqbaymqkrwz metabolic 2000 panel - Serum or PlasmaCOMPREHENSIVE METABOLIC PANEL Lab Routine 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) Expected: 11/15/2024, Expires: 02/14/2025[facility] Work Phone: Comment on above:Expected: 11/15/2024, Expires: 02/14/2025Start: 07-19-6844Hfomepgdb B surface antibody levelLDL Cholesterol [facility]tart: 11-15-2024 End: 93-02-8703Gtfjn 1995 panel - Serum or PlasmaLIPID PANEL BASIC Lab Routine 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) Expected: 11/15/2024, Expires: 02/14/2025leveland ClinicComment on above:Expected: 11/15/2024, Expires: 02/14/2025Start: 16-74-4637Wxgjvco Directive DiscussionAdvance Directive DiscussionOhioHealth [facility] Hospitaltart: 65-69-5882Kohjp-19 Vaccine ()Covid-19 Vaccine ()[facility]: 33-60-1340Jlbhodktq vaccinationInfluenza Vaccine (#1)[facility]: 69-38-4764Qlljfxt Directive DiscussionAdvance Directive DiscussionOhioHealth [facility] Hospitaltart: 74-20-6187Ocqbzsipvb Health Screening Behavioral Health ScreeningTriHealth Bethes[facility] Butler Hospitalrt: 64-35-9319Dxzfvsrxxb AssessmentDepression AssessmentOhioHealth Pick[facility] Methodist Hospitaltart: 02-46-7521Csjbu-19 Vaccine ( season)Covid-19 Vaccine ( season)[facility]: 47-91-2654Ftpeaskfy vaccinationInfluenza Vaccine (#1)[facility]: 69-19-4968GYKMMKY DIRECTIVE DISCUSSIONADVANCE DIRECTIVE DISCUSSIONOhioHealth Pick[facility] Methodist Hospitaltart: 91-63-1927ZKHMKEEARG ASSESSMENTDEPRESSION ASSESSMENTOhioHealth [facility] Hospitaltart: 01-01-2022Medicare Annual Wellness VisitMedicare Annual Wellness VisitOhioHealth Pickerington Methodist Hospitaltart: 36-03-2083Ztoid panelLipid ScreeningAultman Hospital Start: 01-27-7981CFDPN SCREENLIPID SCREENOhioHealth Pick[facility] Hospitaltart: 03-12-2020 DIABETES SCREENDIABETES SCREENOhioHealth Pickerington Methodist Hospitaltart: 09-84-7250Mqxcqrfj ScreeningDiabetes ScreeningOhioHealth Pickerington Methodist Hospitaltart: 20-98-5289Bwcfhogyf B surface antibody levelLDL CHOLESTEROLOhioHealth Pickerington Methodist Hospitaltart: 29-29-4538NJV Vaccine (1 - 1-dose 60+ series)RSV Vaccine (1 - 1-dose 60+ series)[facility]: 61-82-4675YCM Vaccine (1 - Risk 60-74 years 1-dose series)RSV Vaccine (1 - Risk 60-74 years 1-dose series)[facility]: 87-77-7348IBYJPQPU VACCINE (1 of 2)SHINGRIX VACCINE (1 of 2)[facility]: 33-47-4553TRTFUDUDB (FIT-DNA)COLOGUARD (FIT-DNA)[facility]: 38-42-5527Jlrezjwrebd COLONOSCOPYOhioHealth Pick[facility] Hospitaltart: 67-17-9812RIVFGHMNRU CANCER SCREENING COLORECTAL CANCER SCREENINGOhioHealth Pick[facility] Hospitaltart: 28-99-7044TS COLONOGRAPHYCT COLONOGRAPHYOhioHealth Pick[facility] Hospitaltart: 46-06-7557LGMRD OCCULT BLOODFECAL OCCULT BLOODOhioHealth Pickering[facility] Hospitaltart: 86-36-8746Keinbudds for malignant neoplasm of colon [facility]tart: 45-75-8780PAWLFQAYOFYSSWXGAGGLKLGJZQFbpyzwjmp Clinic Start: 88-27-5352Gylay microalbumin profileDTAP,TDAP,TD (1 - Tdap)[facility]: 30-81-3804AODLQI PCP TEAM CHRONIC DISEASE VISITANNUAL PCP TEAM CHRONIC DISEASE VISITOhioHealth Pickerington Methodist Hospitaltart: 10-23-9417Pbfusew ScreeningAnxiety ScreeningOhioHealth Pickering[facility] Hospitaltart: 56-86-4967IZ CONTROLLED (<130/80)BP CONTROLLED (<130/80)[facility]: 90-45-2585Amtxsaelcc ScreeningDepression ScreeningOhioHealth Pick[facility] Hospitaltart: 31-73-4453XWCPMMPXL C SCREENINGHEPATITIS C SCREENINGOhioHealth [facility] Hospitaltart: 24-87-8246Ppkkshoox C screeningHepatitis C ScreeningOhioHealth Pickering[facility] Hospitaltart: 52-95-8097ELJGSUMQOSUO: 65+ (1 - PCV) PNEUMOCOCCAL: 65+ (1 - PCV)[facility]: 96-50-5428CODQVLBXP AORTIC ANEURYSM SCREENINGABDOMINAL AORTIC ANEURYSM SCREENINGOhioHealth Pickering[facility] Hospitaltart: 47-11-4728Mznoehofi aortic aneurysm screeningAbdominal Aortic Aneurysm Screening [facility] Immunizations Immunization DateImmunizationNotesCare CxntbjlhYuxwmbsw35-20-5366mtyyvnnnf virus vaccine, unspecified formulationMuhammad Sarmini 635-5410Qqrhfm-PlxovLouis [facility]10-04-2023 influenza virus vaccine, unspecified formulationMuhammad Sarmini 542-5728Qcsgtz-QvwmhSelect [facility] Ilgqug85-61-2132 influenza virus vaccine, unspecified formulationMichi Ma MD Work Phone: [phone]-GlkzaLouis [facility]10-04-2022 influenza virus vaccine, unspecified formulationMuhammad Sarmini 114-6475Gzctbv-YrvhtLouis [facility]10-04-2022 SARS-CoV-2 (COVID-19) mRNAMUL.ORD!r04152Oywhnigb Sarmini 226-4180Yzyols-BjhhmLouis [facility]10-26-2021 SARS-CoV-2 (COVID-19) mRNA-1273 vaccineMuhammad Sarmini 585-2067Jfrzyd-MewyoLouis [facility]10-15-2021 influenza, unspecified formulationMuhammad Sarmini 025-8906Tynpfr-YcyhjLouis [facility]10-06-2021 influenza virus vaccine, unspecified formulationMuhammad Sarmini 656-2295Vrltco-OwsvfLouis [facility]03-12-2021 SARS-CoV-2 (COVID-19) mRNA-1273 vaccineRafael Cyr Jr. executive [facility] 02-964245-21-2279UGWC-IiH-9 (COVID-19) mRNA-1273 vaccineRafael Cyr Jr. executive [facility] 01-462698-24-5868MFWW-GiQ-3 (COVID-19) mRNA-1273 vaccine Dyer Sarmini 631-9859Acelww-WzzzpSelect Medical [facility] Digestive HealthComment on above:Result Comment: 2024-05-25: [id number]-PkN-2 (COVID-19) mRNA-1273 vaccineMuhammad Sarmini 897-2969Rqmpoh-VknluLouis [facility]10-06-2020 influenza virus vaccine, unspecified formulationMuhammad Sarmini 110-8270Quznks-WpaguLouis [facility]10-01-2020 influenza virus vaccine, unspecified formulationRafael Cyr Jr. executive [facility] 12255145-92-4774oyasett toxoid, reduced diphtheria toxoid, and acellular pertussis vaccine, adsorbedMuhammad Sarmini 896-8390Jaliak-ZmthaLouis [facility]10-16-2019 influenza virus vaccine, unspecified formulationMuhammad Sarmini 710-0757Tlokfb-Lbitj[address] [place], [place] 8311510-19-2018 influenza virus vaccine, unspecified formulationMuhammad Sarmini 986-7810Zxiije-Bmsfv[address] [place], [place] 8311510-19-2018 pneumococcal polysaccharide vaccine, 23 valentMuhammad Sarmini 412-3497Jdnrht-Mvlfu[address] [place], [place] 8311507-12-2018 zoster vaccine recombinantMuhammad Sarmini 036-0282Pbhsry-Lrycn[address] [place], [place] 8311504-05-2018 zoster vaccine recombinantMuhammad Sarmini 337-4872Amyawz-Hlhjz[address] [place], [place] 8311510-10-2017 influenza virus vaccine, unspecified formulationMuhammad Sarmini 405-5393Ufwfmt-Ctbkd[address] [place], [place] 8311510-02-2017 influenza virus vaccine, unspecified formulationMuhammad Sarmini [address] [place], [place] 6785112-29-2016 pneumococcal conjugate vaccine, 13 valentMuhammad Sarmini 291-2150Tdptuv-Gaykd[address] [place], [place] 8311511-09-2016 influenza virus vaccine, unspecified formulationMuhammad Sarmini [address] [place], [place] 6785101-04-2016 pneumococcal polysaccharide vaccine, 23 valentMuhammad Sarmini 541-8364Lxjkhy-Bigro[address] [place], [place] 8311510-23-2015 influenza virus vaccine, unspecified formulationMuhammad Sarmini 901-5624Ocimnc-Vgjde[address] [place], [place] 8311512-30-2013 hepatitis A vaccine, adult dosageMuhammad Sarmini 230-6999Kwlusw-Ihdgf[address] [place], [place] 8311510-09-2013 influenza virus vaccine, unspecified formulationMuhammad Sarmini 981-4824Xvqyjo-Kligo[address] [place], [place] 8311510-09-2013 pneumococcal polysaccharide vaccine, 23 valentMuhammad Sarmini 415-6912Oilsug-UnhxdSelect [facility] Mndisz84-16-0106 hepatitis A vaccine, adult dosageMuhammad Sarmini 675-1964Xxanoe-JfenuLouis [facility] Center06-25-2013 zoster vaccine, liveMuhammad Sarmini 212-1033Pfjvtc-GialxSelect [facility] Zxjhkb93-24-2379 influenza virus vaccine, unspecified formulationMuhammad Sarmini 684-7488Rfnoxz-WvjykSelect [facility] Koxzhg21-81-7587 influenza virus vaccine, unspecified formulationMuhammad Sarmini 858-9018Gfzzgw-NwoezSelect Medical [facility] Jswjgi68-34-2692 influenza, unspecified formulationMuhammad Sarmini 936-0653Dyojhp-Ykpcf[address] [place], [place] 8311507-20-2009 tetanus toxoid, reduced diphtheria toxoid, and acellular pertussis vaccine, adsorbedMuhammad Sarmini 192-5248Bxtusf-GamsiLouis [facility]10-30-2008 influenza, wholeMuhammad Sarmini 990-1767Conzpe-HyeddLouis [facility]10-16-2007 influenza, wholeMuhammad Sarmini 394-4590Clxufd-Whxls[address] [place], [place] 8311507-08-2004 Td(adult) unspecified formulationMuhammad Sarmini 968-1980Qspiln-OarnpSelect [facility] Bvwfit33-36-6968 hepatitis B vaccine, adult dosageMuhammad Sarmini 575-2047Iyfwqv-LlgqcSelect Medical [facility] Payers DatePayer CategoryPayerPolicy [id number] Health InsuranceMA[facility] [id number] UnknownMUTUAL OF [facility] MEDIC[facility] SUPPLE[facility] [id number] 2021- Present [phone] [address] [facility] [place] [address] Indemnity [id number] 2017Medicare [id number] [id number] 1960 [id number] Social History DateTypeDetailFacilityStart: 10-29-2021 End: 55-12-7771Jdlwupl smoking statusEx-smoker (finding)Executive [facility] Tobacco smoking statusNeverExecutive [facility] of [facility] start: 08-08-2022 End: 01-40-4703Ysw Assigned At BirthMaleExecutive [facility]rology of [facility] start: 01-03-1966 End: 20-85-8163Pnjyggo of tobacco useCurrent smokerOhioHealth Pickerington Methodist Hospitaltart: [birth year]03-1966 End: 56-31-5573Zbohcry of tobacco useCigarette SmokerOhioHealth Pickerington Methodist Hospitaltart: 08-08-2022 End: 52-79-5280Aqdsgfg use and exposureSmokeless tobacco non-userOhioHealth Pickerington Methodist Hospitaltart: 08-08-2022 End: 80-75-1395Ylvbugp intakeCurrent non-drinker of alcohol (finding)[facility]: 99-09-1466Mdq Assigned At BirthNot on fileOhioHealth Pickerington Methodist Hospitaltart: 08-08-2022 End: 80-86-3768Kigqfig of Social functionAultman Hospital Goals DatePatient GoalDesired Activity/StatePersonal health goal Functional Status JdpbAqyajxjksgZnsvwhJpqndnuf70-60-2401Hsqpamawwe StatusN/[facility]11-21-2024Functional StatusN/[facility] Wqmmnz24-79-5383Wtp you deaf, or do you have serious difficulty hearingNo 06/03/2016 6:51 PM Jaz Magana RN [facility] HospitalTpjagr00-91-7112Mrm you blind, or do you have serious difficulty seeing, even when wearing glassesNo 06/03/2016 6:51 PM Jaz Magana RN [facility]11-29-2016Do you have serious difficulty walking or climbing stairsNo 06/03/2016 6:51 PM Jaz Magana RN [facility]11-29-2016Do you have difficulty dressing or bathingNo 06/03/2016 6:51 PM Jaz Magana RN [facility] 67-16-0754Ufynuvh of a physical, mental, or emotional condition, do you have difficulty doing errands alone such as visiting a physician's office or shopping No 06/03/2016 6:51 PM Jaz Magana RN [facility] Mental Status WeezLzdkwcnpqyZnpyxzUqvmduxd12-13-3561Baqksca of a physical, mental, or emotional condition, do you have serious difficulty concentrating, remembering, or making decisionsNo 06/03/2016 6:51 PM Jaz Magana RN [facility] Clinical Notes 10-29-2021 to 12-28-2024 Note Date & XxvmIwfyRjbkhmpa29-66-1896 History of Present illness Narrative* Michi Ma MD - 12/28/2024 11:00 AM EDT Images from the original note were not included. Heart, Vascular and Thoracic [place] Isaiah Barclay Department of Cardiovascular Medicine SECTION OF INTERVENTIONAL CARDIOLOGY OUTPATIENT VISIT DATE December 28, 2024 OUTPATIENT VISIT TYPE ESTABLISHED PRIMARY CARE PHYSICIAN: Suzanna Trent [address] [id number] REFERRING PHYSICIAN: Michi Ma [address], Desk J2-3 [facility] [address] CHIEF COMPLAINT: Patient presents with: CARD Follow [...] Similar in character but not severe compared withdiscomfort prior to last PCI. Not exercising per [...] patent with mild ~30% in-stent restenosis. Mild diffusedisease, maximum 40% mid diagonal focal stenosis LCX [...] chest pain. 06/11/2020 - cardiac catheterization at [facility] in [place] - (by my review of images): LM [...] resolve spontaneously. Believes nitroglycerin helps, but uses infrequently.Occurs a few times per week, none in [...] However, I cannot find a stress test showingischemia in the past, despite multiple PCIs, although [...] HISTORY Diagnosis Date CAD (coronary artery disease), mary's igloo coronary artery 01/16/2005 04/10/2003 -PCI to RCA (Cypher x 2, Hepacoat x 1) and PTCA to OM1 05/04/2003 - Cutting balloon to small OM1 03/28/2004 - (Dr. Brock) PCI to OM1 (2.5x18 Cypher) 01/30/2005 (Dr. Brock) PCI to 1st Diag (2.5/13 Cypher) & PCI to LAD (3.0/18 Cypher) 03/20/2005 Catheterization showed widely-patent stents in the LAD, D1, OM1, and RCA, with no new narrowings 01/07/2206- exercise thallium exercise test at92%, 11.3 METS, caused chest discomfort, but EKG was normal. The scan is normal. 03/03/2007 cath -Dr. Albert LM- nl, LAD- prox and 1st DG stents patent, mild LCX-stent patent with mild diffuse dz RCA- stent patent with mild diffuse dz med management 03/2008 stress test 88% MPHR, 8 METS, leg pain, SOb, pa lpitations, no EKG changes Normal study. 1. There [...] 7 RADICAL PROSTATECTOMY 01/2019 REMOVAL GALLBLADDER 2008 SOCIAL HISTORY Social History Tobacco Use Smoking [...] Artery Disease Father at 74 of an [place] Heart Attack Sister passed from [place] Coronary Artery Disease Brother s/p PCI, [place] Heart Attack Brother Coronary Artery Disease Brother [place] Heart [place] Brother ALLERGIES: ALLERGIES Allergen Reactions Codeine Mental Status Change Nightmares Isosorbide Mononitr* Intolerance migraine JONES Lipitor [Atorvastat* Myalgia Muscle pain. Rhabdo Ifqsssb-Rvq-Ryn Red* Myalgia Zocor [Simvastatin] Other: See Comments [...] abdominal pain, nausea, vomiting, difficulty or painful swallowing,and melanotic stools GENITOURINARY: negative for: dysuria, frequency, [...] S1 and S2, without S3 or S4. Norubs. No murmur. Abdomen: Normal abdominal exam, Abdomen [...] showing prior PCI sites patent, progression of previously-milddisease in the proximal RCA proximal to the [...] However, I cannot find a stress test showingischemia in the past, despite multiple PCIs, although [...] of Cardiovascular Medicine Heart, Vascular, and Thoracic [place] [id number] [facility] [place] [address] Office - [phone] extension [phone] Office Appointments: [phone] extension [phone] documented in this encounterAultman Hospital06-25-2025 NoteHNO ID: [id number] Author: MICHI MA MD Service: ? Author Type: Physician Type: Progress Notes Filed: 12/28/2024 16:27 Note Text: Heart, Vascular and Thoracic [place] Isaiah Barclay Department of Cardiovascular Medicine SECTION OF INTERVENTIONAL CARDIOLOGY OUTPATIENT VISIT DATE December 28, 2024 OUTPATIENT VISIT TYPE ESTABLISHED PRIMARY CARE PHYSICIAN: Suzanna Trent [address] [place] [address] REFERRING PHYSICIAN: Michi Ma [address] [place] [address] CHIEF COMPLAINT: Patient presents with: CARD Follow [...] PCI to OM1 with PTCA and Cypher PAALK 01/30/2005 - PCI to LAD and diagonal [...] chest pain. 06/11/2020 - cardiac catheterization at [facility] in [place] - (by my review of images): LM [...] am not getting enough (more content not included)...[facility]01-02-2025 NoteProgress Note-Physician Patient: LEONEL GALDAMEZ JR Age: 73 years Sex: Male : 1950 Associated Diagnoses: None Author: MD [place], Chelo Fuentes Postoperative Information Postoperative disposition: Postoperative disposition: To PACU. Optimetrix number: Optimetrix number [id number]. Anesthetic utilized: General. Health Status Allergies: Allergic [...] Discharge when meets criteria ( To home ).[facility]:Result Comment: Electronically Signed By: MD Chino, Chelo Souza.cornell\Date and Time Signed: 07/07/24 11:41 EST 06-30-2024 NoteHistory and Physical Patient: LEONEL GALDAMEZ JR Age: [...] At risk for falls / SNOMED CT 055550945 / Possible Prostate cancer / SNOMED CT 5744242381 / Confirmed Elevated PSA / SNOMED CT 1311789009 / Confirmed Impotence / SNOMED CT 2298877254 / Confirmed Nocturia / SNOMED CT 852321703 / Confirmed Heart disease / SNOMED CT 51011770 / Confirmed BPH with urinary obstruction / SNOMED CT 1724366424 / Confirmed Former smoker / SNOMED CT 23949865 / Confirmed Anticoagulated / SNOMED CT 407596449 / Confirmed Dysuria / SNOMED CT 32141426 / Confirmed Hx of usp use of blood thinners / SNOMED CT 468326147 / Confirmed Gross hematuria / SNOMED CT 263877021 / Confirmed Stress incontinence / SNOMED CT 082801071 / Confirmed History of prostate cancer / SNOMED CT 6974442683 / Confirmed Incomplete bladder emptying / SNOMED CT 950497781 / Confirmed Adenocarcinoma of prostate / SNOMED CT 8049575302 / Confirmed Family history of colon cancer / SNOMED CT 555532102 / Confirmed Histories Past Medical History: Active Elevated PSA (2650263291) Impotence (5661627215) Nocturia (142834076) Resolved Frequency of urination (523464312): Resolved on 12/30/2018 at 68 years. Feeling of incomplete bladder emptying (199052893): Resolved on 12/30/2018 at 68 years. Weak urinary stream (013883919): Resolved on 12/30/2018 at 68 years. Arthritis (7304746): Resolved on 01/11/2019 at 68 years. GERD (gastroesophageal reflux disease) (556294803): Resolved on 01/11/2019 at 68 years. Hypertension (6626110324): Resolved on 01/11/2019 at 68 years. Myocardial infarction (40181027): Resolved on 01/11/2019 at 68 years. Hyperlipidemia (60162869): Resolved on 01/11/2019 at 68 years. Family History: Brother Malignant neoplasm of colon Father Myocardial infarct Mother Heart disease Primary malignant neoplasm of colon Mitral valve disorder Procedure history: Colonoscopy (106507461) on 06/27/2024 at 73 Years. Esophagogastroduodenoscopy (052024765) on 06/27/2024 at 73 Years. Prostatectomy (718787701) on 01/27/2019 at 68 Years. TRUS/Bx (9326753808) on 11/10/2018 at 68 Years. TRUS/Bx (7238035464) on 05/07/2017 at 66 Years. Cardiac catheterisation (208195859) on 04/07/2003 at 52 Years. Comments: 01/11/2019 10:41 Mony Ibarra MA Last cardiac cath was in 2017 Cholecystectomy (41132554). History of hernia repair (9271183711). Colonoscopy (932517131). Injection of steroid into hip joint (5324296513). Social History Social & Psychosocial Habits Alcohol 06/27/2024 Risk Assessment: Denies Alcohol Use Tobacco 06/27/2024 Tobacco Use: Former smoker, quit more 06/27/2024 Tobacco Use: Former smoker, quit more Smokeless tobacco use: Never Smoking Cessation Yes . Physical Examination No qualifying data available General: in Nad Abdomen: Soft, NTND Impression and Plan Impression: GERD, family history of colon cancer Plan: -EGD and [facility]oscopy[facility] HospitalComment on above:Result Comment: Electronically Signed By: Moni WHITING, Gomez Paniagua\.br\Date and Time Signed: 06/30/24 09:15 [id number] NoteProgress Note-Physician Patient: LEONEL GALDAMEZ JR Age: 73 years [...] All Problems Elevated PSA / SNOMED CT 4361095579 / Confirmed Nocturia / SNOMED CT 081873839 / Confirmed Prostate cancer / SNOMED CT 5715763008 / Confirmed Incomplete bladder emptying / SNOMED CT 858437425 / Confirmed History of prostate cancer / SNOMED CT 3767757833 / Confirmed Heart disease / SNOMED CT 68753763 / Confirmed 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 / SNOMED CT 820231271 / Confirmed Stress incontinence / SNOMED CT 066636465 / Confirmed Gross hematuria / SNOMED CT 412140439 / Confirmed Family history of colon cancer / SNOMED CT 346142031 / Confirmed Former smoker / SNOMED CT 46270207 / Confirmed Impotence / SNOMED CT 9910609858 / Confirmed Dysuria / SNOMED CT 90574765 / Confirmed Anticoagulated / SNOMED CT 285806531 / Confirmed BPH with urinary obstruction / SNOMED CT 0691835229 / Confirmed At risk for falls / SNOMED CT 827968421 / Possible Adenocarcinoma of prostate / SNOMED CT 5323265193 / Confirmed Resolved: Weak urinary stream / SNOMED CT 598757703 Resolved: Myocardial infarction / SNOMED CT 60715658 Resolved: Frequency of urination / SNOMED CT 384042867 Resolved: Hypertension / SNOMED CT 5985818980 Resolved: Hyperlipidemia / SNOMED CT 76427803 Resolved: GERD (gastroesophageal reflux disease) / SNOMED CT 847868228 Resolved: Feeling of incomplete bladder emptying / SNOMED CT 531202766 Resolved: Arthritis / SNOMED CT 3738675 Histories Procedure history: Prostatectomy (012050477) on 01/27/2019 at 68 Years. TRUS/Bx (8100617693) on 11/10/2018 at 68 Years. TRUS/Bx (7222462730) on 05/07/2017 at 66 Years. Cardiac catheterisation (399475351) on 04/07/2003 at 52 Years. Comments: 01/11/2019 10:41 Mony Ibarra MA Last cardiac cath was in 2017 Cholecystectomy (86751335). History of hernia repair (3802614173). Colonoscopy (584152617). Injection of steroid into hip joint (8339252015). Social History Social & Psychosocial Habits Alcohol 05/26/2024 Risk Assessment: Denies Alcohol Use Tobacco 05/26/2024 Tobacco Use: Former smoker, quit more 05/26/2024 Tobacco Use: Former smoker, quit more Smokeless tobacco use: Never Smoking Cessation Yes . Physical Examination Airway: Mallampati classification: II (soft palate, fauces, uvula visible). Respiratory: adequate air exchange. Cardiovascular: Regular rhythm. Plan [place] Society of Anesthesiologists (ASA) physical status classification: Class III. Anesthetic Preoperative Plan: Anesthesia General.[facility] Comment on above:Result Comment: Electronically Signed By: Aguila Edouard DO, Leonel Jones\.br\Date and Time Signed: 06/28/24 07:51 [id number] Hospital Discharge instructions Patient Education 06/27/2024 15:23:47 [...] may be born with a weakness in thehiatus, or a weakness can develop over time. What increases the risk? This condition is more likely to develop in: Older people. Age is a major risk factor for a hiatal hernia, especially if you are over the age of50. women. People who are overweight. People who [...] reduce GERD symptoms. Medicines. These may include: ?Tgjc-ury-hishvdo antacids. ?Medicines that make your stomach empty [...] you need help quitting, ask your health careprovider. Try to achieve and maintain a healthy [...] may include: ?Fatty foods, like fried foods. ?[place] fruits, like oranges or lemon. ?Other foods [...] Do not drink alcohol. General instructions Take jbch-pqg-btrxmkl and prescription medicines only as told by [...] provider. Document Revised: 08/19/2022 Document Reviewed: 08/19/2022 [employer] Patient Education 2023 [employer]. 06/27/2024 15:23:44 Duodenitis Duodenitis Duodenitis is when the lining of the first part of your small intestine (duodenum) becomes inflamed. It is often caused by a bacterial infection. You may also have open sores in your intestine calledulcers. Duodenitis may start all of a sudden and last for a short time (acute). It may also develop over time and last for months or years (chronic). What are the causes? The most common cause of this condition is an infection from a type of bacteria called Helicobacterpylori (H. pylori). Other causes include: Long-term use [...] tube with a camera on the end (endoscope)down your throat. A biopsy may be taken. [...] Follow these instructions at home: Medicines Take wiir-jaa-gqlqzjc and prescription medicines only as told by [...] or drinks. ?Garlic or onions. ?Spicy foods. ?[place] fruits. ?Tomato-based foods. ?Fatty or fried foods. General instructions Do not use any products that contain nicotine or tobacco. These products include cigarettes, chewing tobacco, and vaping devices, such as e-cigarettes. If you need help quitting, ask your health careprovider. Contact a health care provider if: You [...] provider. Document Revised: 01/05/2023 Document Reviewed: 01/05/2023 [employer] Patient Education 2023 [employer]. 06/27/2024 15:23:42 Gastritis, Adult, Zznq-ab-Ktjh Gastritis, Adult Gastritis is irritation and swelling (inflammation) of the stomach. There are two kinds of gastritis: Acute gastritis. This kind develops quickly. Chronic gastritis. This kind is much more common. It develops slowly and lasts for a long time. It is important to get help for this condition. If you do not get help, your stomach can bleed, andyou can get sores (ulcers) in your stomach. [...] Follow these instructions at home: Medicines Take cxzz-cfy-wglxxhc and prescription medicines only as told by [...] away. Call your local emergency services (911 int [place] Do not wait to see if [...] provider. Document Revised: 10/26/2021 Document Reviewed: 10/26/2021 [employer] Patient Education 2023 [employer]. 06/27/2024 15:23:35 Endoscopy, Care After Procedure [facility] ([facility]) Endoscopy Care After Procedure Please read the instructions outlined below and refer to this sheet in the next few weeks. These discharge instructions provide you with general information on caring [facility] Your doctor may also give you [...] blood. Document Released: 02/03/2005 Document Re-Released: 12/14/2006 [facility] [facility] Patient Information 2010 [employer]. 06/27/2024 15:23:33 Hemorrhoids, Sdoh-zs-Zidp Hemorrhoids Hemorrhoids are swollen veins that may [...] Follow these instructions at home: Medicines Take aphi-toj-cyzjtsq and prescription medicines only as told by [...] 3 4 times a day. You may dothis in a bathtub. You may also use [...] provider. Document Revised: 03/04/2023 Document Reviewed: 03/04/2023 [employer] Patient Education 2023 [employer]. 06/27/2024 15:23:31 Diverticulosis MAGR (CUSTOM) Diverticulosis Many [...] colon so that bowel contents can move througheasily. You should eat 20 to 35 grams [...] corn, and seeds. This has not been foundto be true. If you find that certain foods create cramping or bloating, avoid that food. Foods high in fiber include: Fresh fruits, fresh vegetables, legumes (beans), whole wheat bread, bran muffins or cereal, and nuts. See the table below for examples of high fiber foods. Remember, your goal is 20- 35 grams per day. Amount of fiber in different foods Food Serving Grams of fiber Fruits Apple (with skin) 1 medium apple 4.4 Banana 1 medium banana 3.1 Oranges 1 orange 3.1 Prunes 1 cup, pitted 12.4 Juices Apple, unsweetened, w/added ascorbic acid 1 cup 0.5 Grapefruit, white, canned, sweetened 1 cup 0.2 Grape, unsweetened, w/added ascorbic acid 1 cup 0.5 [place] 1 cup 0.7 Vegetables Cooked Green beans 1 cup 4.0 Carrots 1/2 cup sliced 2.3 Peas 1 cup 8.8 Potato (baked, with skin) 1 medium potato 3.8 Raw [place] (with peel) 1 cucumber 1.5 Lettuce 1 [...] 8.7 Peanuts 1/2 cup 7.9 Chart from [facility] 2013. SEEK IMMEDIATE MEDICAL CARE [...] of Agriculture (USDA) National Nutrient Database at: http://www.nal.usda.gov/fnic/foodcomp/search/ Created using data from the USDA National Nutrient Database for Standard Reference. Available at http://www.Blue Box.usda.gov/fnic/foodcomp/search/. Information adapted from: [employer]Care Patient Information 2009 [employer]. [facility] 2013 http://www.eTect/contents/jxxbknzoggaz-ukoaetr-npocjk-the-basics 06/27/2024 15:23:23 Colon Polyps Colon Polyps Colon polyps are tissue growths inside the colon, which is part of the large intestine. They are one of the types of polyps that can grow in the body. A polyp may be a round bump or a mushroom-shapedgrowth. You could have one polyp or more [...] smoking cigarettes, drinking too much alcohol, not gettingenough exercise, and eating a diet that is [...] contain nicotine or tobacco, such as cigarettes, e- cigarettes, and chewing tobacco. If you need help [...] hard liquor (44 mL). General instructions Take mzsd-zvs-rxqybcp and prescription medicines only as told by [...] provider. Document Revised: 10/10/2020 Document Reviewed: 10/10/2020 [employer] Patient Education 2023 [employer]. 06/27/2024 15:23:22 Colonoscopy, Care After Surgery [facility] (CUSTOM) Colonoscopy Care After Surgery Please read the instructions outlined below and refer to this sheet in the next few weeks. These discharge instructions provide you with general information on caring for yourself after you leave thehospital. Your doctor may also give you specific [...] Heavy or fried foods are harder to digestand may make you feel nauseated (sick to [...] Care 05/26/2024 13:10:26 With:Moni WHITING, ANGEL Candelaria, [facility] Address: When: Unknown Comments:Call for any problems. Office will call to schedule follow up appointment [facility] 12-23-2024 NotePatient Education - Text Endoscopy Care After Procedure Please read the instructions outlined below and refer to this sheet in the next few weeks. These discharge instructions provide you with general information on caring [facility] Your doctor may also give you [...] any machinery for 24 hours (because of theanesthesia used during the test). NUTRITION ??? Drink [...] blood. Document Released: 02/03/2005 Document Re-Released: 12/14/2006 [employer]??? Patient Information ???2009 [employer]. Diverticulosis Many people have small pouches in [...] colon so that bowel contents can move througheasily. You should eat 20 to 35 grams [...] corn, and seeds. This has not been foundto be true. If you find that certain foods create cramping or bloating, avoid that food. Foods high in fiber include: Fresh fruits, fresh vegetables, legumes (beans), whole wheat bread, bran muffins or cereal, and nuts. See the table below for examples of high fiber foods. Remember, your goal is 20- 35 grams per day. Amount of fiber in different foods Food Serving Grams of fiber Fruits Apple (with skin) 1 medium apple 4.4 Banana 1 medium banana 3.1 Oranges 1 orange 3.1 Prunes 1 cup, pitted 12.4 Juices Apple, unsweetened, w/added ascorbic acid 1 cup 0.5 Grapefruit, white, canned, sweetened 1 cup 0.2 Grape, unsweetened, w/added ascorbic acid 1 cup 0.5 [place] 1 cup 0.7 Vegetables Cooked Green beans 1 cup 4.0 Carrots 1/2 cup sliced 2.3 Peas 1 cup 8.8 Potato (baked, with skin) 1 medium potato 3.8 Raw [place] (with peel) 1 cucumber 1.5 Lettuce 1 [...] Peanuts 1/2 cup 7.9 (more content not included)...[facility] 06-27-2024 NoteEndoscopic Procedure Report - Other Patient: LEONEL GALDAMEZ JR Age: 73 years Sex: Male : 1950 Associated Diagnoses: None Author: Gomez Montenegro MD Pre-Procedure Procedure Date 06/27/2024 15:11:00 . Procedure Type: Colonoscopy with removal of tumor(s), polyp(s), or other lesion(s) by cold snare technique, biopsy. Procedure provider Performed by Gomez Montenegro MD. Current history and physical Reviewed. Prostatectomy (785527508) on 01/27/2019 at 68 Years. TRUS/Bx (8663655380) on 11/10/2018 at 68 Years. TRUS/Bx (5519163200) on 05/07/2017 at 66 Years. Cardiac catheterisation (138714117) on 04/07/2003 at 52 Years. Comments: 01/11/2019 10:41 CARLITO - Mony Roberts MA Last cardiac cath was in 2017 Cholecystectomy (18944546). History of hernia repair (7792819713). Colonoscopy (610012042). Injection of steroid into hip joint (8269457482).. Past Medical History Active Elevated PSA (9552545648) Impotence (1550631578) Nocturia (906526335) Resolved Frequency of urination (606652333): Resolved on 12/30/2018 at 68 years. Feeling of incomplete bladder emptying (194319214): Resolved on 12/30/2018 at 68 years. Weak urinary stream (854528805): Resolved on 12/30/2018 at 68 years. Arthritis (2106737): Resolved on 01/11/2019 at 68 years. GERD (gastroesophageal reflux disease) (064090476): Resolved on 01/11/2019 at 68 years. Hypertension (3565930720): Resolved on 01/11/2019 at 68 years. Myocardial infarction (71305534): Resolved on 01/11/2019 at 68 years. Hyperlipidemia (79481521): Resolved on 01/11/2019 at 68 years.. reviewed. Family History Primary malignant neoplasm of colon Mother Mitral valve disorder Mother Myocardial infarct Father Heart disease Mother Malignant neoplasm of colon Brother . Procedure History Prostatectomy (703115645) on 01/27/2019 at 68 Years. TRUS/Bx (1640594917) on 11/10/2018 at 68 Years. TRUS/Bx (4099772727) on 05/07/2017 at 66 Years. Cardiac catheterisation (729113293) on 04/07/2003 at 52 Years. Comments: 01/11/2019 10:41 CARLITO Roberts MA, Mony Waldron Last cardiac cath was in 2017 Cholecystectomy (31008956). History of hernia repair (8773964747). Colonoscopy (976377681). Injection of steroid into hip joint (1185490253).. Colorectal neoplasm risk assessment High risk Family [...] the left lateral decubitus position. Endoscope type usedwas an adult-size. The endoscope was lubricated then [...] Normal examined terminal ileum Images Procedure images: [id number]_hd_[id number]__[id number].jpg (In (more content not included)... [facility]:Result Comment: Electronically Signed By: Moni WHITING, Gomez Paniagua\.br\Date and Time Signed: 06/27/24 15:13 ESTOther Comment: Missing Attachment - attachment storage system not supported [id number] Can be viewed in source system Missing Attachment - attachment storage system not supported 3117591 Can be viewed in source systemMissing Attachment - attachment storage system not supported 2259926 Can be viewed in source systemMissing Attachment - attachment storage system not supported 8221773 Can be viewed in source systemMissing Attachment - attachment storage system not supported 7543212 Can be viewed in source systemMissing Attachment - attachment storage system not supported 4789057 Can be viewed in source systemMissing Attachment - attachment storage system not supported 1022281 Can be viewed in source systemMissing Attachment - attachment storage system not supported 7454105 Can be viewed in source system Missing Attachment - attachment storage system not supported 9428689 Can be viewed in source systemMissing Attachment - attachment storage system not supported 9061056 Can be viewed in source systemMissing Attachment - attachment storage system not supported 2330771 Can be viewed in source systemMissing Attachment - attachment storage system not supported 8159340 Can be viewed in source systemMissing Attachment - attachment storage system not supported 4644435 Can be viewed in source systemMissing Attachment - attachment storage system not supported 5118514 Can be viewed in source [id number] Note Endoscopic Procedure Report - Other Patient: [...] safety measures. Endoscope type used was an adult- size, introduced orally, advanced to the 3rd portion of the duodenum. No difficulty was encountered during the procedure. Views were excellent. The patient tolerated the procedure well. Findings 1. Esophageal landmarks identified, regular Z-line, small hiatal hernia, no evidence of Hartman's esophagus 2. Moderate patchy erythema in the body and antrum of the stomach with minimal amount of old blood,no biopsies were taken to rule H. pylori 3. Mild nonspecific patchy erythema in the duodenal bulb and second part of the duodenum with minimal edematous mucosa, random biopsies were taken to rule out celiac disease Images Procedure images: [id number]_hd_video_2023__[id number].jpg Rec1_hd_video_2023__[id number]_[id number].jpg Rec1_hd_video_2023__T14_[id number].jpg Rec1_hd_video_2023__T14_[id number].jpg Rec1_hd_video_2023__T14_[id number].jpg Rec1_hd_video_2023__T14_[id number].jpg Rec1_hd_video_2023__T14_[id number].jpg Rec1_hd_video_2023__T14_[id number].jpg Rec1_hd_video_2023__T14_[id number].jpg . Post-Procedure Complications: none. Estimated blood loss: minimal. Specimens: sent to pathology. Devices/ implants: none left in place. Impression and Plan 1. Esophageal landmarks identified, regular Z-line, small hiatal hernia, no evidence of Hartman's esophagus 2. Moderate patchy erythema in the body and antrum of the stomach with minimal amount of old blood,no biopsies were taken to rule H. pylori 3. Mild nonspecific patchy erythema in the duodenal bulb and second part of the duodenum with minimal edematous mucosa, random biopsies were taken to rule out celiac disease Recommendations: -Resume previous diet -Resume home medications -Await pathology results, follow in GI clinic in 1-2 after dischargeProm[facility]ica [facility] HospitalComment on above:Result Comment: Electronically Signed By: Moni WHITING, Gomez Hong.cornell\Date and Time Signed: 06/27/24 14:52 ESTOther Comment: Missing Attachment - attachment storage system not supported [id number] Can be viewed in source system Missing Attachment - attachment storage system not supported [id number] Can be viewed in source systemMissing Attachment - attachment storage system not supported 1619466 Can be viewed in source systemMissing Attachment - attachment storage system not supported [id number] Can be viewed in source systemMissing Attachment - attachment storage system not supported 6459462 Can be viewed in source systemMissing Attachment - attachment storage system not supported 7185617 Can be viewed in source systemMissing Attachment - attachment storage system not supported 7123086 Can be viewed in source systemMissing Attachment - attachment storage system not supported 8550819 Can be viewed in source system Missing Attachment - attachment storage system not supported [id number] Can be viewed in source [phone] Instructions* Patient Instructions* Michi Ma MD - 11/16/2023 12:46 PM EDT Images from the original note were not included. PREVENTIVE CARDIOLOGY Home Blood Pressure Monitoring The 2017 High Blood Pressure Clinical Practice Guidelines, endorsed by the [place] College of Cardiology and the [place] Heart Association1, place a special emphasis on [...] blood pressure readings for our review via [employer] (or by other means if instructed by your healthcare provider.) 1. Hiram gonsales al. J Am Destin Cardiol. 2018 November 17;71(19):o779-y152. 2. PREVENTIVE CARDIOLOGY LOW SODIUM DIET A [...] time with onion, garlic and your favorite herbsbefore cooking to bring out the flavor. Some [...] cheeses Yogurt MILK & DAIRY Buttermilk Cheese (Pierce, Vamsi, Cheddar, Blue, Gouda, Finnish, Velveeta) Cheese spreads FRUIT & VEGETABLES 5-9 [...] anchovies, caviar, salted cod, wilson, sardines, lox, dryfish, and kippered salmon Dried Fish, Assorted (e.g., [...] pie) Salted nuts MISC. Allspice, Mustard (dry) [place] Extract Basil [place] Leaves Capello's Yakut Style Seasoning Nahum Seeds Chives Cider Vinegar Cinnamon Barkley Powder Berenice Crystal Dill Garlic Powder Sandro Herbal Seasonings: Linda's Seasoned Pepper Linda's Seasoning (no salt) Lemon Juice Mace Mrs. Dash Nutmeg Onion Powder Paprika Parsley Parsley Patch Peppermint Extract Pimento Natacha Eligio Salt free seasoning blends Savory Sodium-free Baking Powder Thyme Turmeric Vinegar Kramer's all-purpose Seasonings MISC. Accent [place] All commercially prepared and convenience foods such as TV dinners, box mixes, canned entrees, Hamburger [place], meat pies, Anguillan dinners, pizza,Shake'n Bake mixes BBQ sauce Celery salt [place] sauce Garlic salt Horseradish Kitchen Bouquet Lemon pepper Marinade sauce Meat tenderizers Monosodium Glutamate (MSG) Onion salt Republican spreads Regular ketchup Relish Salad dressings Salt Seasoning salts Sodium Benzoate Sodium Caseinate Sodium Citrate Sodium Nitrate Sodium Phosphate Sodium Propionate Sodium Saccharin Soy sauce Steak sauce Tartar sauce Teriyaki sauce [facility] sauce Labeled no salt Products, Assorted [e.g., [...] Do I Make the DASH? Available at: https://www.nhlbi.nih.gov/health/resources/heart/frh-sgbn-lgt-to. Top 10 Dash Diet Tips. Available at: http://dashdiet.org/dash_diet_tips.asp In the [place], one standard drink contains roughly 14 g of pure alcohol, which is typicallyfound in 12 oz of regular beer (usually about 5% alcohol), 5 oz of wine (usually about 12% alcohol), and 1.5 oz of distilled spirits (usually about 40% alcohol). SOURCE: 2017 Guideline for the Prevention, Detection, Evaluation, and Management of High Blood Pressure in Adults documented in this encounterAultman Hospital05-13-2024 History of Present illness Narrative* Michi Ma MD - 11/16/2023 12:45 PM EDT Images from the original note were not included. Heart, Vascular and Thoracic [place] Isaiah Barclay Department of Cardiovascular Medicine SECTION OF INTERVENTIONAL CARDIOLOGY OUTPATIENT VISIT DATE November 16, 2023 OUTPATIENT VISIT TYPE ESTABLISHED PRIMARY CARE PHYSICIAN: Suzanna Trent [address] [place] [address] REFERRING PHYSICIAN: No referring provider defined for [...] Notes chest pain when he eats several [place] cough drops (uses for nasal congestion). Lasts [...] patent with mild ~30% in-stent restenosis. Mild diffusedisease, maximum 40% mid diagonal focal stenosis LCX [...] chest pain. 06/11/2020 - cardiac catheterization at [facility] in [place] - (by my review of images): LM [...] resolve spontaneously. Believes nitroglycerin helps, but uses infrequently.Occurs a few times per week, none in [...] However, I cannot find a stress test showingischemia in the past, despite multiple PCIs, although [...] HISTORY Diagnosis Date CAD (coronary artery disease), mary's igloo coronary artery 01/16/2005 04/10/2003 -PCI to RCA (Cypher x 2, Hepacoat x 1) and PTCA to OM1 05/04/2003 - Cutting balloon to small OM1 03/28/2004 - (Dr. Brock) PCI to OM1 (2.5x18 Cypher) 01/30/2005 (Dr. Brock) PCI to 1st Diag (2.5/13 Cypher) & PCI to LAD (3.0/18 Cypher) 03/20/2005 Catheterization showed widely-patent stents in the LAD, D1, OM1, and RCA, with no new narrowings 01/07/2206- exercise thallium exercise test at92%, 11.3 METS, caused chest discomfort, but EKG was normal. The scan is normal. 03/03/2007 cath -Dr. Albert LM- nl, LAD- prox and 1st DG stents patent, mild LCX-stent patent with mild diffuse dz RCA- stent patent with mild diffuse dz med management 03/2008 stress test 88% MPHR, 8 METS, leg pain, SOb, pa lpitations, no EKG changes Normal study. 1. There [...] Artery Disease Father at 74 of an [place] Heart Attack Sister passed from [place] Coronary Artery Disease Brother s/p PCI, [place] Heart Attack Brother Coronary Artery Disease Brother [place] Heart Attack Brother ALLERGIES: ALLERGIES Allergen Reactions Codeine Mental Status Change Nightmares Isosorbide Mononitr* Intolerance migraine JONES Lipitor [Atorvastat* Myalgia Muscle pain. Rhabdo Byphcya-Maa-Que Red* Myalgia Zocor [Simvastatin] Other: See Comments [...] abdominal pain, nausea, vomiting, difficulty or painful swallowing,and melanotic stools GENITOURINARY: negative for: dysuria, frequency, [...] S1 and S2, without S3 or S4. Nomurmur or rubs. Abdomen: Normal abdominal exam, Abdomen [...] showing prior PCI sites patent, progression of previously-milddisease in the proximal RCA proximal to the [...] However, I cannot find a stress test showingischemia in the past, despite multiple PCIs, although the patient recalls outside stress test before PCI in 2016 during which he stopped after 2 minutes. I continue to believe that microvascular dysfunction is a likely diagnosis, given his history of chest pain the past when catheterization did not show stenoses (2016, 2019). If his pattern evolves tohave exertional component, could add ranolazine. And, of [...] Check labs drawn today - MyChart report. Robert. Michi Ma MD ADDENDUM Latest Ref Rng [...] Hyperlipidemia - excellent control, LDL 42 mg/dL. [employer] message sent. Ann Ma MD CONTACT INFORMATION: Ann Ma M.D. Section of Interventional Cardiology Department of Cardiovascular Medicine Heart, Vascular, and Thoracic [place] [address], [place] [address] Office - [phone] extension [phone] Office Appointments: [phone] extension [phone] documented in this encounterAultman Hospital05-12-2023 History of Present illness Narrative* Michi Ma MD - 11/14/2022 10:00 AM EDT Heart, Vascular & Thoracic [place] Department of Cardiovascular Medicine VIRTUAL VIDEO VISIT [...] licensure. The patient's identity and physical location wereverified at the time of this visit. Either the patient or their legal consumer sales representative has been informed of the risks and benefits of -- and alternatives to -- treatment through a remote evaluation andconsents to proceed with the evaluation remotely. CHIEF [...] patent with mild ~30% in-stent restenosis. Mild diffusedisease, maximum 40% mid diagonal focal stenosis LCX [...] chest pain. 06/11/2020 - cardiac catheterization at [facility] in [place] - (by my review of images): LM [...] resolve spontaneously. Believes nitroglycerin helps, but uses infrequently.Occurs a few times per week, none in [...] However, I cannot find a stress test showingischemia in the past, despite multiple PCIs, although [...] HISTORY Diagnosis Date CAD (coronary artery disease), mary's igloo coronary artery 01/16/2005 04/10/2003 -PCI to RCA (Cypher x 2, Hepacoat x 1) and PTCA to OM1 05/04/2003 - Cutting balloon to small OM1 03/28/2004 - (Dr. Brock) PCI to OM1 (2.5x18 Cypher) 01/30/2005 (Dr. Brock) PCI to 1st Diag (2.5/13 Cypher) & PCI to LAD (3.0/18 Cypher) 03/20/2005 Catheterization showed widely-patent stents in the LAD, D1, OM1, and RCA, with no new narrowings 01/07/2206- exercise thallium exercise test at92%, 11.3 METS, caused chest discomfort, but EKG was normal. The scan is normal. 03/03/2007 cath -Dr. Albert LM- nl, LAD- prox and 1st DG stents patent, mild LCX-stent patent with mild diffuse dz RCA- stent patent with mild diffuse dz med management 03/2008 stress test 88% MPHR, 8 METS, leg pain, SOb, pa lpitations, no EKG changes Normal study. 1. There [...] Artery Disease Father at 74 of an [place] Heart Attack Sister passed from [place] Coronary Artery Disease Brother s/p PCI, [place] Heart Attack Brother Coronary Artery Disease Brother [place] Heart Attack Brother Social History Tobacco Use Smoking status: Former Years: 25.00 Types: Cigarettes Quit date: 01/1992 Years since quittin.8 Smokeless tobacco: Never Substance Use Topics Alcohol use: No Drug use: No ALLERGIES Allergen Reactions Codeine Mental Status Change Nightmares Isosorbide Mononitr* Intolerance migraine JONES Lipitor [Atorvastat* Myalgia Muscle pain. Rhabdo Lokrhsk-Nzn-Uls Red* Myalgia Zocor [Simvastatin] Other: See Comments [...] Negative for: Weakness, Paralysis, Numbness, Tingling, Tremor, Nervousness,Depressed mood, Memory loss SKIN: Negative for: Rashes, Itching HEMATOLOGICAL/LYMPHATIC: Negative for: Easy bruising , Easy bleeding ENDOCRINE: Negative for: Heat or cold intolerance, Excessive sweating, Frequent urination, Frequentthirst PHYSICAL EXAMINATION: VIDEO EXAM: (if completed, performed via video enabled technology) No exam performed PATIENT ENTERED QUESTIONNAIRE SCORES PHQ-9 06/12/2017 Score 2 PROMIS Global Health - (T-Scores - the mean of general population = 50. Five points is a clinicallymeaningful difference.) 06/12/2017 Physical T-Score 39.8 Mental T-Score [...] showing prior PCI sites patent, progression of previously-milddisease in the proximal RCA proximal to the [...] However, I cannot find a stress test showingischemia in the past, despite multiple PCIs, although [...] 14, 2022 10:30 AM documented in this encounterAultman Hospital05-08-2023 Miscellaneous Notes* Telephone Encounter - Maye Roberts - 11/10/2022 9:14 AM EDT Call received from pt who had technical difficulties logging on to VV. Pt will be re-scheduled to 11/14 @ 10 am. Message sent to Urgent request pool Maye documented in this encounterAultman Hospital02-03-2023 Instructions* Patient Instructions* Michi Ma MD - 08/08/2022 12:07 PM EST Stop metoprolol, replace with carvedilol. After a few weeks, keep track of BP. Target is less than 130/80 mm Hg. If BP rises above 150s mm (upper number), contact me and we can increase carvedilol dose. Otherwise, will discuss meds on virtual visit in 3 months. documented in this encounterAultman Hospital02-03-2023 History of Present illness Narrative* Michi Ma MD - 08/08/2022 10:45 AM EST Images from the original note were not included. Heart and Vascular [place] Isaiah Barclay Department of Cardiovascular Medicine SECTION OF INTERVENTIONAL CARDIOLOGY OUTPATIENT VISIT DATE August 08, 2022 OUTPATIENT VISIT TYPE NEW PRIMARY CARE PHYSICIAN: Suzanna Trent MD [address] [place] [address] REFERRING PHYSICIAN: Suzanna Trent MD [address] [place] [address] CHIEF COMPLAINT: No chief complaint on file. HISTORY OF PRESENT ILLNESS: Mr. Galdamez is a 71 year old male with history of multiple PCI procedures who presents today for chest pain. I last saw patient at time of catheterization in 03/2017. Since then: Diltiazem dose increased, with resolution or improvement of chest pain. 2019 - recurrent chest pain. 06/2020 - cardiac catheterization at [facility] in [place] - no images or results available. Per [...] patent with mild ~30% in-stent restenosis. Mild diffusedisease, maximum 40% mid diagonal focal stenosis LCX [...] multiple PCI, HTN, HLD, former smoking (quit 1991), frequent PVC's, prostate cancer s/p prostatectomy 2018, GERD, arthritis, family hx CAD (5/6 siblings, mother, and father) He is here for evaluation of chest pain. [facility] ED note 07/09/2022: The patient is [...] of breath. He took three sublingual nitroglycerin. Hisinitial pain was 10/10 and was 3/10 by the time he arrived to the ER. It radiated down his left azul associated with diaphoresis as well as nausea. [...] His last cardiac catheterization was 06/2020 at [facility] in [place]. No intervention was done at that time. Risk factors for coronary artery disease hyperlipidemia, hypertension, history of smoking, family history of CAD He denies PND, syncope, claudication, leg swelling, cough, and wheezing. Diet / Nutrition: regular Weight: stable Exercise: none, active around his house when weather permits All caths from [id number] in [facility] 04/10/03 RCA (3.0x8, 3.0x18, 3.5x18) [...] HISTORY Diagnosis Date CAD (coronary artery disease), mary's igloo coronary artery 01/16/2005 04/10/2003 -PCI to RCA (Cypher x 2, Hepacoat x 1) and PTCA to OM1 05/04/2003 - Cutting balloon to small OM1 03/28/2004 - (Dr. Brock) PCI to OM1 (2.5x18 Cypher) 01/30/2005 (Dr. Brock) PCI to 1st Diag (2.5/13 Cypher) & PCI to LAD (3.0/18 Cypher) 03/20/2005 Catheterization showed widely-patent stents in the LAD, D1, OM1, and RCA, with no new narrowings 01/07/2206- exercise thallium exercise test at92%, 11.3 METS, caused chest discomfort, but EKG was normal. The scan is normal. 03/03/2007 cath -Dr. Albert LM- nl, LAD- prox and 1st DG stents patent, mild LCX-stent patent with mild diffuse dz RCA- stent patent with mild diffuse dz med management 03/2008 stress test 88% MPHR, 8 METS, leg pain, SOb, pa lpitations, no EKG changes Normal study. 1. There [...] Artery Disease Father at 74 of an [place] Heart [place] Sister passed from [place] Coronary Ar[place] Disease Brother s/p PCI, [place] Heart [place] Brother Coronary Artery Disease Brother [place] Heart Attack Brother ALLERGIES: ALLERGIES Allergen Reactions Codeine Mental Status Change Nightmares Isosorbide Mononitr* Intolerance migraine JONES Lipitor [Atorvastat* Myalgia Muscle pain. Rhabdo Tsnemhg-Hlr-Rkv Red* Myalgia Zocor [Simvastatin] Other: See Comments [...] S1 and S2, without S3 or S4. Nomurmur or rubs. Abdomen: Normal abdominal exam, Abdomen [...] showing prior PCI sites patent, progression of previously-milddisease in the proximal RCA proximal to the [...] last up to 1 hour. But he reportsthat the character of the pain is similar to that in the past prior to stents, although less severe. He had both rest and exertional chest pain in the past. Stress nuclear at [facility] on 07/31/2022 showed no ischemia. However, I cannot find a stress test showingischemia in the past, despite multiple PCIs, although [...] Department of Cardiovascular Medicine Heart and Vascular [place] [facility] Desk [address] [place] [address] Office - [phone] extension [phone] Office Appointments: [phone] extension [phone] documented in this encounterAultman Hospital01-05-2023 NotePROGRESS NOTE NOTE DATE: 07/09/2022 CHIEF COMPLAINT: Chest [...] DVT prophylaxis: Plavix. [facility] Discharge instructions Patient Education 10/29/2021 08:35:15 Benign Prostatic Hyperplasia Benign Prostatic Hyperplasia Benign prostatic hyperplasia (BPH) is an enlarged prostate gland that is caused by the normal agingprocess and not by cancer. The prostate is [...] urethra. Follow these instructions at home: Take caak-mfb-okxtbve and prescription medicines only as told by [...] 06/22/2006 Document Revised: 05/17/2019 Document Reviewed: 07/27/2017 [employer] Patient Education 2019 [employer]. Follow Up Care 10/30/2020 08:55:41 With:Rafael Cyr Jr., MD, URO Address: [facility] [address] , [place] [address]- When:10/29/2022 Comments:with PSA [facility] evaluation + Plan note Future Appointments Appointment Date:11/04/2022 08:30:00 AM Scheduled Provider:Rafael Cyr Jr., MD Location:[place] Appointment Type:URO Office Visit Diagnostic Tests Pending * PSA Total 10/29/21 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)- Primary S/P drug eluting coronary stent placement Postsurgical percutaneous transluminal coronary angioplasty status Hyperlipidemia, unspecified hyperlipidemia type Essential hypertension Unspecified essential hypertension Family history of early CAD Family history of ischemic heart disease Chest pain, unspecified type documented in this encounter [facility]* Diagnosis 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)- Primary S/P drug eluting coronary stent placement Postsurgical percutaneous transluminal coronary angioplasty status Hyperlipidemia, unspecified hyperlipidemia type Essential hypertension Unspecified essential hypertension Family history of early CAD Family history of ischemic heart disease Chest pain, unspecified type documented in this encounter [facility]* Diagnosis 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)- Primary S/P drug eluting coronary stent placement Postsurgical percutaneous transluminal coronary angioplasty status Microvascular angina (HCC) Hyperlipidemia, unspecified hyperlipidemia type Essential hypertension Unspecified essential hypertension Family history of early CAD Family history of ischemic heart disease Chest pain, unspecified type documented [facility] Diagnosis 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- Primary S/P drug eluting coronary stent placement Postsurgical percutaneous transluminal coronary angioplasty status Microvascular angina Hyperlipidemia, unspecified hyperlipidemia type Essential hypertension Unspecified essential hypertension Family history of early CAD Family history of ischemic heart disease Chest pain, unspecified type documented in this encounter [facility] Narrative No data available for this section [facility] Discharge instructions No data available for this section [facility] note No data available for this section [facility] Summary Purpose Family History No Family History Records Found No data available for this section No data available for this section No Family History Records FoundNo Family History Records FoundNo Family History Records FoundNo Family History Records Found Advance Directives No Advanced Directives Records FoundDocuments on File TypeDate RecordedPatient RepresentativeExplanationAdvance Directive(s)Advance Directive(s)08/20/2006TypeDate RecordedPatient RepresentativeExplanationAdvance Directive(s)Advance Directive(s)08/20/2006 Reason for Referral SpecialtyDiagnoses / ProceduresReferred By ContactReferred To [facility] [place] Diagnoses 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) Procedures CARDIOVASCULAR MEDICINE OP FOLLOW UP APPT ORDER Michi Ma MD [address], [address]k [address] [place] [address] [facility] [address] [place] [address] Referral IDStatusReasonStart DateExpiration DateVisits RequestedVisits [id number] Not Required PCP Requested Referral Additional Source Comments (unrecognized sect ion and content) No Status Records FoundNo Status Records FoundNo Status Records FoundNo Status Records FoundNo Status Records Found INFORMATION SOURCE (unrecogn ized section and content) DATE CREATED AUTHOR 08/02/2022 [facility] DATE CREATED AUTHOR AUTHOR'S ORGANIZ ATION 07/05/2024 [facility] DATE CREATED AUTHOR AUTHOR'S ORGANIZ ATION 07/16/2024 [facility] DATE CREATED AUTHOR AUTHOR'S ORGANIZ ATION 12/29/2024 [facility] DATE CREATED AUTHOR AUTHOR'S ORGANIZ ATION 04/19/2025 [facility] Source Comments (unrecognize d section and content) In the event this informatio n is protected by the Federal Confidentiality of Alcohol and Drug Abuse Patient Records regulations: The Federal rules restrict any use of the information to criminally investigate or prosecute any alcohol or drug abuse patient.Aultman HospitalIn the event this information is protected by the Federal Confidentiality of Alcohol and Drug Abuse Patient Records regulations: The Federal rules restrict any use of the information to criminally investigate or prosecute any alcohol or drug abuse patient.Aultman HospitalIn the event this information is protected by the Federal Confidentiality of Alcohol and Drug Abuse Patient Records regulations: The Federal rules restrict any use of the information to criminally investigate or prosecute any alcohol or drug abuse patient.Aultman HospitalIn the event this information is protected by the Federal Confidentiality of Alcohol and Drug Abuse Patient Records regulations: The Federal rules restrict any use of the information to criminally investigate or prosecute any alcohol or drug abuse patient.Aultman HospitalIn the event this information is protected by the Federal Confidentiality of Alcohol and Drug Abuse Patient Records regulations: The Federal rules restrict any use of the information to criminally investigate or prosecute any alcohol or drug abuse patient.Aultman HospitalIn the event this information is protected by the Federal Confidentiality of Alcohol and Drug Abuse Patient Records regulations: The Federal rules restrict any use of the information to criminally investigate or prosecute any alcohol or drug abuse patient.Aultman HospitalIn the event this information is protected by the Federal Confidentiality of Alcohol and Drug Abuse Patient Records regulations: The Federal rules restrict any use of the information to criminally investigate or prosecute any alcohol or drug abuse patient.[facility] Reason for Visit (unrecogniz ed section and content) ReasonCommentsNew PatientReasonCommentsAppointmentReasonCommentsCoronary Artery DiseaseReasonOnset DateCommentsRefill Gjjksho62/21/2024ReasonCommentsCARD Follow Up Annual Care Teams (unrecognized sec tion and content) Team MemberRelationshipSpecialtyStart DateEnd Date Suzanna Trent MD PCP - GeneralCardiology03/05/04 Rafael Cyr Jr. [address] [place] [address] PhysicianUrology12/17/18 Erick Ordoñez [facility] [place] [address] Primary Staff PhysicianCardiology09/21/18 Suzanna Trent MD [address] [place] [address] ReferringFamily Medicine07/23/22 Michi Ma MD [address], [facility] [address] [place] [address] Primary Staff PhysicianCardiology08/08/22Te MemberRelationshipSpecialtyStart DateEnd Date Suzanna Trent MD PCP - GeneralCardiology03/05/04 Rafael Cyr Jr. [address] [place] [phone] PhysicianUrology12/17/18 Erick Ordoñezesh [address] [place] [address] Primary Staff PhysicianCardiology09/21/18 Suzanna Trent MD [address] [place] [address] ReferringFami Medicine07/23/22 Michi Ma MD [address], [facility] [address] [place] [address] Primary Staff PhysicianCardiology08/08/22Te MemberRelationshipSpecialtyStart DateEnd Date Suzanna Trent MD PCP - GeneralCardiology03/05/04 Rafael Cyr Jr. [address] [place] [phone] PhysicianUrology12/17/18 [facility] [address] [place] [address] Primary Staff PhysicianCardiology09/21/18 Suzanna Trent MD [address] [place] [address] ReferringFamily Medicine07/23/22 Michi Ma MD [address] [place] [address] Primary Staff PhysicianCardiology08/08/22Team MemberRelationshipSpecialtyStart DateEnd Date Suzanna Trent MD PCP - GeneralCardiology03/05/04 Rafael Cyr Jr. [address] [facility]ITAL[facility] [place] [address] PhysicianUrology12/17/18 [facility] [address] [place] [address] Primary Staff PhysicianCardiology09/21/18 Suzanna Trent MD [address] [facility] [place] [address] ReferringFamily Medicine07/23/22 Michi Ma MD [address] [place] [address] Primary Staff PhysicianCardiology08/08/22Team MemberRelationshipSpecialtyStart DateEnd Date Suzanna Trent MD PCP - GeneralCardiology03/05/04 Rafael Cyr Jr. [address] [place] [phone] PhysicianUrology12/17/18 [facility] murcia [address] [place] [address] Primary Staff PhysicianCardiology09/21/18 Suzanna Trent MD [address] [place] [address] ReferringFanyly Medicine07/23/22 Michi Ma MD [address] [place] [address] Primary Staff PhysicianCardiology08/08/22Team MemberRelationshipSpecialtyStart DateEnd Suzanna rTent MD PCP - GeneralCardiology03/05/04 Rafael Cyr Jr. [address] [place] [place] [address] PhysicianUrology12/17/18 [facility] [address] [place] [address] Primary Staff PhysicianCardiology09/21/18 Suzanna Trent MD [address] [place] [address] ReferringFami Medicine07/23/22 Michi Ma MD [address] [place] [address] Primary Staff PhysicianCardiology08/08/22Team MemberRelationshipSpecialtyStart Date Suzanna Trent MD [address] [place] [address] PCP - GeneralCardiology03/05/04 Rafael Cyr Jr. [address] [facility] [place] [address] PhysicianUrology12/17/18 Erick Ordoñez [address] [place] [address] Primary Staff PhysicianCardiology09/21/18 Suzanna Trent MD [address] [place] [address] ReferringFamily Medicine07/23/22 Michi Ma MD [address] [place] [address] Primary Staff PhysicianCardiology08/08/22 FOR RECORDS PERTAINING TO PATIENTS WHO ARE [...] BE BASED ON THE PRIMARY CLINICAL RECORDS. [facility] [employer] [facility]. provides no warranty or guarantee of the accuracy or completeness of information in this document.
--- NOTE | 2025-04-25 08:30 | FL_ITS ---
The [address] [address] Patient Name: LEONEL BENJAMIN MRN: [id number] date: 1950 Sex: M Assigned Patient Location: [place] Current Patient Location: [place] Accession/Order Number: [id number] Exam Date: 04/25/2025 08:35 Report Date: 04/25/2025 13:26 At the request of: SUZANNA TRENT MD Procedure: FL upper GI w air FL upper GI w air 04/25/2025 9:07 AM SIGNS AND SYMPTOMS: ^Dysphagia R13.10 PROTOCOL: Fluoroscopic images of the esophagus, stomach, proximal small bowel were obtained after oral gas crystals administration and after oral barium based contrast administration. COMPARISON: None FINDINGS: There is a small sliding-type hiatal hernia. Tertiary contractions are noted in the distal esophagus. Active and gastroesophageal reflux is noted. There is a normal rugal pattern with gastric lumen. There is no ulceration, mucosal thickening, mass, or stricture. There is adequate passage of contrast through the pylorus into the duodenal C-loop. A small duodenal diverticulum is noted. No mucosal thickening, mass, stricture, or ulceration. Fluoroscopic time: 3.1 minutes FL/FL upper GI w air IMPRESSION: There is a small sliding-type hiatal hernia with active gastroesophageal reflux. No mass, mucosal thickening, ulceration, or stricture. Impression dictated by: Matias Steiner M.D. 04/25/2025 1:26 PM Dictation Location: [facility] Electronically authenticated by: [id number] Y Date: 04/25/2025 13:26
== END 2025-04-25 08:24 | disposition home or self-care (01) ==
LOC: FL 08:23
PROVIDERS: PCP Family Medicine; Visit Provider Family Medicine
DX: R13.10 Dysphagia, unspecified (principal); K44.9 Diaphragmatic hernia without obstruction or gangrene
CPT/HCPCS: 74246; 76120